=== PATIENT | female | born 1945 | race Caucasian/White ===

== ENCOUNTER 2017-07-31 08:32 | Emergency (ER) | payer MEDICARE, OTHER, SELFPAY | END 2017-07-31 11:21 | disposition home or self-care (01) | PROVIDERS: Emergency Provider Emergency Medicine; PCP Family Medicine; Visit Provider Emergency Medicine | DX: K52.9 Noninfective gastroenteritis and colitis, unspecified (principal) | CPT/HCPCS: 74177; 80053; 83605; 83690; 85025; 96361; 96374; 99058; 99284; J2405 ==

== ENCOUNTER → 2017-09-02 09:03 | Outpatient (CLI) | payer MEDICARE, OTHER, SELFPAY ==
[2017-09-02 09:43] LABS: Hemoglobin A1C% w Est Avg Glu 7.5 % (4.0-6.0)
[2017-09-02 09:47] LABS: Alanine Aminotransferase 30 IU/L (9-52); Albumin Globulin Ratio 1.3 (1.0-2.8); Alkaline Phosphatase 51 U/L (38-126); Aspartate Aminotransferase 26 IU/L (14-36); BUN Creatinine Ratio 17.1 (6-22); Bilirubin Total 0.5 mg/dL (0.2-1.3); Calcium 9.2 mg/dL (8.4-10.2); Cholesterol 101 mg/dL (140-199); Estimated Glomerular Filt Rate > 60.0 mL/min (>60); Globulin 3.2 g/dL (1.7-4.1); Glucose 165 mg/dL (80-110); HDL Cholesterol 39 mg/dL (40-60); HEMOLYSIS < 15 (0-50); LDL Cholesterol Calculated 28 mg/dL (<100); Potassium 4.8 mmol/L (3.4-5.1); Sodium 141 mmol/L (137-145); Total Protein 7.2 g/dL (6.3-8.2); Triglycerides 168 mg/dL (35-150)
== END ==
PROVIDERS: PCP Family Medicine; Visit Provider Family Medicine
DX: I10 Essential (primary) hypertension (principal); E03.9 Hypothyroidism, unspecified; E78.2 Mixed hyperlipidemia; E11.40 Type 2 diabetes mellitus with diabetic neuropathy, unspecified; Z51.81 Encounter for therapeutic drug level monitoring
CPT/HCPCS: 36415; 80053; 80061; 83036

== ENCOUNTER → 2017-09-04 17:39 | Outpatient (CLI) | payer MEDICARE, OTHER, SELFPAY | PROVIDERS: PCP Family Medicine; Visit Provider Family Medicine | DX: R30.0 Dysuria (principal) | CPT/HCPCS: 87086 ==

== ENCOUNTER → 2017-09-04 17:55 | Outpatient (CLI) | payer MEDICARE, OTHER, SELFPAY ==
--- NOTE | 2017-09-04 17:58 | DI.RAD.S_ITS ---
PROCEDURE: XR CHEST 2V INDICATIONS: cough TECHNIQUE: 2 views of the chest were acquired. COMPARISON: [facility], , CHEST 2 VIEW, 06/30/2012, 10:23. FINDINGS: Surgical changes and devices: None. Lungs and pleura: No pleural effusions or pneumothorax. Lungs are clear. Mediastinum: Mediastinal contours are normal. Heart size is normal. Bones and chest wall: No suspicious bony abnormalities. Soft tissues appear unremarkable. IMPRESSION: Normal for age, source of current symptoms is not seen. Dictated by: Earle Alford M.D. on 09/05/2017 at 10:38 Approved by: Earle Alford M.D. on 09/05/2017 at 10:38
[2017-09-04 18:07] LABS: Add Manual Diff / Slide Review NO; Basophils Percent Auto 0.8 % (0-2); Eosinophils Percent Auto 2.2 % (2-4); Hemoglobin 13.6 g/dL (12.0-16.0); Lymphocytes Percent Auto 17.7 % (25-40); Mean Corpuscular HGB Conc 34.1 % (30-36); Mean Corpuscular Hemoglobin 29.5 PG (26-34); Mean Corpuscular Volume 86.7 fL (80-100); Monocytes Percent Auto 5.3 % (3-14); Neutrophils Absolute Auto 12800 /uL (3000-5900); Platelet Count 293 X10^3/uL (150-400); Red Blood Cell Count 4.61 X10^6/uL (4.0-5.2); Red Cell Distribution Width 14.3 % (11.6-14.8); White Blood Cell Count 17.3 X10^3/uL (4.5-11.0)
== END ==
PROVIDERS: PCP Family Medicine; Visit Provider Family Medicine
DX: K52.9 Noninfective gastroenteritis and colitis, unspecified (principal); R06.02 Shortness of breath; R05 Cough
CPT/HCPCS: 36415; 71046; 85025; 87086; 87186

== ENCOUNTER → 2017-09-07 09:39 | Outpatient (CLI) | payer MEDICARE, OTHER, SELFPAY ==
[2017-09-07 10:26] LABS: Add Manual Diff / Slide Review NO; Basophils Percent Auto 0.9 % (0-2); Eosinophils Percent Auto 2.2 % (2-4); Hematocrit 40.1 % (36-46); Hemoglobin 13.8 g/dL (12.0-16.0); Lymphocytes Percent Auto 14.9 % (25-40); Mean Corpuscular HGB Conc 34.4 % (30-36); Mean Corpuscular Hemoglobin 29.9 PG (26-34); Monocytes Percent Auto 5.5 % (3-14); Neutrophils Absolute Auto 11700 /uL (3000-5900); Neutrophils Percent Auto 76.5 % (50-75); Platelet Count 260 X10^3/uL (150-400); Red Blood Cell Count 4.61 X10^6/uL (4.0-5.2); Red Cell Distribution Width 14.4 % (11.6-14.8); White Blood Cell Count 15.3 X10^3/uL (4.5-11.0)
== END ==
PROVIDERS: PCP Family Medicine; Visit Provider Family Medicine
DX: D72.829 Elevated white blood cell count, unspecified (principal)
CPT/HCPCS: 36415; 85025

== ENCOUNTER → 2017-09-13 16:17 | Outpatient (CLI) | payer MEDICARE, OTHER, SELFPAY ==
[2017-09-13 16:55] LABS: Add Manual Diff / Slide Review NO; Basophils Percent Auto 0.9 % (0-2); Eosinophils Percent Auto 3.6 % (2-4); Hematocrit 39.2 % (36-46); Hemoglobin 13.5 g/dL (12.0-16.0); Lymphocytes Percent Auto 18.9 % (25-40); Mean Corpuscular HGB Conc 34.5 % (30-36); Mean Corpuscular Hemoglobin 29.9 PG (26-34); Mean Corpuscular Volume 86.6 fL (80-100); Monocytes Percent Auto 6.1 % (3-14); Neutrophils Absolute Auto 9000 /uL (3000-5900); Neutrophils Percent Auto 70.5 % (50-75); Platelet Count 246 X10^3/uL (150-400); Red Blood Cell Count 4.53 X10^6/uL (4.0-5.2); Red Cell Distribution Width 14.9 % (11.6-14.8); White Blood Cell Count 12.7 X10^3/uL (4.5-11.0)
== END ==
PROVIDERS: PCP Family Medicine; Visit Provider Family Medicine
DX: D72.829 Elevated white blood cell count, unspecified (principal)
CPT/HCPCS: 36415; 85025

== ENCOUNTER 2017-09-13 17:52 | Emergency (ER) | payer MEDICARE, OTHER, SELFPAY ==
--- NOTE | 2017-09-13 18:06 | ED_ITS ---
HPI - Abdominal Pain <Priti Ross PA-C - Last Filed: 09/13/17 21:25> General Chief Complaint: Upper Respiratory Symptoms Stated Complaint: STATES WHEN SHE SWALLOWS IT HURTS,TASTES LIKE SALT Time Seen by Provider: 09/13/17 18:00 Source: patient, family and old records reviewed Mode of arrival: ambulatory Limitations: no limitations History of Present Illness HPI narrative: This 72-year-old female is sent by her PCP today with specific request for soft tissue CT of the neck. PCP called earlier due to concern for possible neck abscess. Patient states repeatedly that she is ?just sick and cannot elaborate on that, however with her son's help, she describes having intermittent diarrhea, none today, but has had explosive diarrhea intermittently up to 1 or 2 times daily since July. She has had some nausea. She has chronic abdominal pain for as long as she can remember and this is completely unchanged. She denies any vomiting. She has not had any fever. She has had some difficulty swallowing but she does not describe as patsy dysphagia or odynophagia, but maybe a slight sticking sensation inside the esophagus. She does not feel like there is any pressure from the outside of her neck. She has not had any heartburn. She has not had any fever. She does state that foods taste salty. She denies choking with eating, no cough or wheeze. She has not had any chest pain or dyspnea. She has been able to swallow and keep down liquids and solids, perhaps with somewhat reduced appetite. She has had an elevated white count which her PCP has been following and is improving. She states that she has no acutely changed symptoms at all today. Related Data Previous Rx's Medication Instructions Recorded levothyroxine [Synthroid] 0.075 mg PO QAM #90 tab 04/22/17 sitagliptin [Januvia] 100 mg PO QDAY #30 tab 04/22/17 metformin 1,000 mg PO BID #60 tab 05/14/17 hydrochlorothiazide 25 mg PO QDAY #90 tab 07/24/17 metoprolol succinate [Toprol XL] 50 mg PO QDAY #90 tab 07/24/17 simvastatin 80 mg PO HS #90 tab 07/24/17 ondansetron [Zofran ODT] 4 mg SUBLINGUAL Q6HP PRN #10 odt 07/31/17 citalopram 20 mg tablet 20 mg PO QDAY #30 tab 08/23/17 gabapentin 300 mg capsule 300 mg PO BID #60 cap 08/23/17 glimepiride 4 mg tablet 4 mg PO BID #60 tab 08/23/17 losartan 50 mg tablet 50 mg PO QDAY #30 tab 08/23/17 omeprazole 20 mg capsule,delayed 20 mg PO QDAY #30 cap 08/23/17 release Allergies Allergy/AdvReac Type Severity Reaction Status Date / Time Penicillins Allergy Unknown Verified 09/13/17 17:01 sulfamethoxazole Allergy Unknown Verified 09/13/17 17:01 [From BACTRIM] trimethoprim [From BACTRIM] Allergy Unknown Verified 09/13/17 17:01 Review of Systems <Priti Ross PA-C - Last Filed: 09/13/17 21:25> Review of Systems All systems reviewed & are unremarkable except as noted in HPI and below Exam <NANO Hodges Last Filed: 09/13/17 21:25> Narrative Exam Narrative: GENERAL APPEARANCE: Patient sitting comfortably, in no distress. HEAD: No sinus TTP. EYES: PERRL, EOMI. EARS: Normal auditory canals, TMS intact with normal light reflexes. ORAL CAVITY: Normal oropharynx. THROAT: Copious PND noted. NECK/THYROID: Neck supple, full range of motion, no cervical lymphadenopathy, right side of the thyroid is enlarged compared to the left without any discrete nodule noted. LUNGS: Clear to auscultation bilaterally, no cough on exam. HEART: RRR without murmur, nl S1, S2, no S3 or S4. ABDOMEN: Obese, soft, nondistended, +bowel sounds x4 quadrants, mild generalized tenderness without guarding or rebound EXTREMITIES: No cyanosis or edema Initial Vital Signs Initial Vital Signs: Vital Signs Temperature 97.0 F L 09/13/17 18:12 Pulse Rate 75 09/13/17 18:12 Respiratory Rate 16 09/13/17 18:12 Blood Pressure 134/70 H 09/13/17 18:12 Pulse Oximetry 98 09/13/17 18:12 <Fortino Short DO - Last Filed: 09/13/17 22:14> Initial Vital Signs Initial Vital Signs: Vital Signs Temperature 97.0 F L 09/13/17 18:12 Pulse Rate 75 09/13/17 18:12 Respiratory Rate 16 09/13/17 18:12 Blood Pressure 134/70 H 09/13/17 18:12 Pulse Oximetry 98 09/13/17 18:12 Course <Priti Ross PA-C - Last Filed: 09/13/17 21:25> Orders Ordered: ED Orders 09/13/17 18:27 CT soft tissue neck w con Stat 09/13/17 18:45 BUN Creatinine w/ eGFR & Ratio Stat Discontinued Medications Sodium Chloride (Normal Saline 0.9%) 1,000 mls @ 1,000 mls/hr IV BOLUS ONE Stop: 09/13/17 19:33 Last Infusion: 09/13/17 20:39 Dose: 0 mls/hr Admin: 09/13/17 19:28 Dose: 1,000 mls/hr Vital Signs - 8 hr 09/13/17 18:12 09/13/17 18:36 09/13/17 19:39 Temperature 97.0 F L Pulse Rate 75 71 77 Respiratory Rate 16 16 15 Blood Pressure 134/70 H Blood Pressure [Left Arm] 136/74 H 123/63 H Pulse Oximetry 98 99 98 09/13/17 20:40 Temperature Pulse Rate 78 Respiratory Rate 14 Blood Pressure 151/86 H Blood Pressure [Left Arm] Pulse Oximetry 98 <Fortino Short DO - Last Filed: 09/13/17 22:14> Orders Ordered: ED Orders 09/13/17 18:27 CT soft tissue neck w con Stat 09/13/17 18:45 BUN Creatinine w/ eGFR & Ratio Stat Discontinued Medications Sodium Chloride (Normal Saline 0.9%) 1,000 mls @ 1,000 mls/hr IV BOLUS ONE Stop: 09/13/17 19:33 Last Infusion: 09/13/17 20:39 Dose: 0 mls/hr Admin: 09/13/17 19:28 Dose: 1,000 mls/hr Vital Signs - 8 hr 09/13/17 18:12 09/13/17 18:36 09/13/17 19:39 Temperature 97.0 F L Pulse Rate 75 71 77 Respiratory Rate 16 16 15 Blood Pressure 134/70 H Blood Pressure [Left Arm] 136/74 H 123/63 H Pulse Oximetry 98 99 98 09/13/17 20:40 Temperature Pulse Rate 78 Respiratory Rate 14 Blood Pressure 151/86 H Blood Pressure [Left Arm] Pulse Oximetry 98 MDM - Abdominal Pain <Priti Ross PA-C - Last Filed: 09/13/17 21:25> Lab Data Result diagrams: 09/13/17 18:45 Lab Results 09/13/17 Range/Units 18:45 BUN 14 (7-17) mg/dL Creatinine 0.80 (0.52-1.04) mg/dL Estimated GFR > 60.0 (>60) mL/min BUN/Creatinine Ratio 17.5 (6-22) Imaging Data neck CT: Radiologist's impression: View Report History [address] [address] [address] Scan Report Signed Patient: Eusebia Velazquez MR#: [id number] : 1945 Acct:[id number] Age/Sex: 72 / F Date of Service: 09/13/17 Loc: ED Accession Number: [id number] Procedure: CT soft tissue neck w con Ordering Provider: Priti Ross P.A-C PROCEDURE: CT SOFT TISSUE NECK W CON INDICATIONS: per PCP, r/o abcess TECHNIQUE: After the administration of intravenous contrast, 3.0 mm axial sections acquired from the sella to the aortic arch. Additional oblique axial 3.0 mm sections acquired through the pharynx. 3 mm thick coronal and sagittal reformats were generated. For radiation dose reduction, the following was used: automated exposure control. COMPARISON: None. FINDINGS: Image quality: Excellent. Lymph nodes: No enlarged lymph nodes seen throughout the neck. Vessels: Visualized vasculature appears patent. Neck spaces: The oropharynx, nasopharynx, and pharynx demonstrate no mucosal lesions. The vocal cords, false vocal cords, pyriform sinuses, epiglottis, vallecula, and tongue base all appear normal. Extramucosal spaces appear unremarkable. Glands: The parotid and submandibular glands appear normal. Thyroid gland demonstrates a normal pulmonary diameter calcified mass within the right lobe.. Miscellaneous: Visualized brain and orbits appear normal. Lung apices appear clear. Superficial soft tissues appear normal. Bones: No suspicious bony lesions. Visualized sinuses and mastoids appear unremarkable. IMPRESSION: 1. No explanation for dysphagia. No acute process. 2. Calcified right thyroid mass. Nonemergent thyroid ultrasound is recommended for further assessment. Dictated by: Jose Ramon Bowden M.D. on 09/13/2017 at 19:28 Approved by: Jose Ramon Bowden M.D. on 09/13/2017 at 19:29 <Fortino Short DO - Last Filed: 09/13/17 22:14> Lab Data Lab Results 09/13/17 Range/Units 18:45 BUN 14 (7-17) mg/dL Creatinine 0.80 (0.52-1.04) mg/dL Estimated GFR > 60.0 (>60) mL/min BUN/Creatinine Ratio 17.5 (6-22) Discharge Plan Departure Patient Disposition: Home, Self-Care Clinical Impression: Dysphagia Discharge Date/Time: 09/13/17 20:41 Interventions: ED Discharge Assessment Last Done: 09/13/17 20:40 Instructions: DI for Esophageal Dysphagia Activity Restrictions/Additional Instructions: Your CT scan does not show an abscess or any acute problem in your neck today. You do have an old calcified thyroid nodule that we talked about when I examined you. You should follow up with your PCP. From what you described to me, the next step may be to get a swallow study to determine whether there could be a narrowing in your foodpipe. For your diarrhea, you should talk with Dr. Felix about a trial of stopping or reducing your Metformin to see if that is helpful. You may wish to try taking immodium once or twice daily on a regular basis until you see her so that you can find out whether this is helpful. You should follow up with her next week. You should return if you have any acutely worsening symptoms in the interim Prescriptions: No Action levothyroxine [Synthroid] 75 MCG tablet 0.075 mg PO QAM Qty: 90 RF: 1 sitagliptin [Januvia] 100 MG tablet 100 mg PO QDAY Qty: 30 RF: 2 metformin 1,000 MG tablet 1,000 mg PO BID Qty: 60 RF: 5 metoprolol succinate [Toprol XL] 50 MG tablet extended release 24 hr 50 mg PO QDAY Qty: 90 RF: 0 simvastatin 80 MG tablet 80 mg PO HS Qty: 90 RF: 0 hydrochlorothiazide 25 MG tablet 25 mg PO QDAY Qty: 90 RF: 0 ondansetron [Zofran ODT] 4 MG tablet,disintegrating 4 mg Sublingual Q6HP PRNQty: 10 RF: 0 citalopram 20 mg tablet 20 mg PO QDAY Qty: 30 RF: 3 gabapentin [Neurontin] 300 mg capsule 300 mg PO BID Qty: 60 RF: 3 glimepiride [Amaryl] 4 mg tablet 4 mg PO BID Qty: 60 RF: 3 omeprazole 20 mg capsule,delayed release(DR/EC) 20 mg PO QDAY Qty: 30 RF: 3 losartan 50 mg tablet 50 mg PO QDAY Qty: 30 RF: 3 Referrals: Anusha Felix DO [Primary Care Provider] - <Fortino Short DO - Last Filed: 09/13/17 22:14> Cosign ED Attending Jonas Attestation: I was available for consultation during this patient's emergency department encounter
[2017-09-13 18:12] VITALS: BP 134/70; PULSE 75; RESP 16; TEMP 36.1; O2SAT 98; BMI 34.2
--- NOTE | 2017-09-13 18:27 | DI.CT.S_ITS ---
PROCEDURE: CT SOFT TISSUE NECK W CON INDICATIONS: per PCP, r/o abcess TECHNIQUE: After the administration of intravenous contrast, 3.0 mm axial sections acquired from the sella to the aortic arch. Additional oblique axial 3.0 mm sections acquired through the pharynx. 3 mm thick coronal and sagittal reformats were generated. For radiation dose reduction, the following was used: automated exposure control. COMPARISON: None. FINDINGS: Image quality: Excellent. Lymph nodes: No enlarged lymph nodes seen throughout the neck. Vessels: Visualized vasculature appears patent. Neck spaces: The oropharynx, nasopharynx, and pharynx demonstrate no mucosal lesions. The vocal cords, false vocal cords, pyriform sinuses, epiglottis, vallecula, and tongue base all appear normal. Extramucosal spaces appear unremarkable. Glands: The parotid and submandibular glands appear normal. Thyroid gland demonstrates a normal pulmonary diameter calcified mass within the right lobe.. Miscellaneous: Visualized brain and orbits appear normal. Lung apices appear clear. Superficial soft tissues appear normal. Bones: No suspicious bony lesions. Visualized sinuses and mastoids appear unremarkable. IMPRESSION: 1. No explanation for dysphagia. No acute process. 2. Calcified right thyroid mass. Nonemergent thyroid ultrasound is recommended for further assessment. Dictated by: Jose Ramon Bowden M.D. on 09/13/2017 at 19:28 Approved by: Jose Ramon Bowden M.D. on 09/13/2017 at 19:29
[2017-09-13 18:36] VITALS: BP 136/74; PULSE 71; RESP 16; O2SAT 99
[2017-09-13 19:19] LABS: BUN Creatinine Ratio 17.5 (6-22); Blood Urea Nitrogen 14 mg/dL (7-17); Estimated Glomerular Filt Rate > 60.0 mL/min (>60)
[2017-09-13] MEDS: SODIUM CHLORIDE 0.9% 1,000 ML 1000 ML IV (19:28)
[2017-09-13 19:39] VITALS: BP 123/63; PULSE 77; RESP 15; O2SAT 98
[2017-09-13 20:40] VITALS: BP 151/86; PULSE 78; RESP 14; O2SAT 98
== END 2017-09-13 20:41 | disposition home or self-care (01) ==
PROVIDERS: Emergency Provider Internal Medicine; PCP Family Medicine
DX: J02.9 Acute pharyngitis, unspecified (principal)
CPT/HCPCS: 36591; 70491; 82565; 84520; 96360; 99283; 99284; Q9967

== ENCOUNTER 2017-11-01 09:02 | Observation (INO) | payer MEDICARE, OTHER, SELFPAY ==
[2017-11-01] VITALS (10 sets, daily range): BP systolic 95–155; BP diastolic 37–82; PULSE 74–86; RESP 12–23; TEMP 36.2–37.1; O2SAT 78–99; BMI 31.6
--- NOTE | 2017-11-01 | DI.CT.S_ITS ---
PROCEDURE: CT ABDOMEN PELVIS W CON INDICATIONS: abdominal discomfort and weight loss TECHNIQUE: After the administration of oral and intravenous contrast, 5 mm thick sections acquired from the diaphragms to the symphysis. 5 mm thick coronal and sagittal reformats were performed. For radiation dose reduction, the following was used: automated exposure control, adjustment of mA and/or kV according to patient size. COMPARISON: None. FINDINGS: Image quality: Excellent. ABDOMEN: There is mild atelectasis in the lung bases. Heart size is enlarged. Solid organs: Liver is normal in size and enhancement. Gallbladder is surgically absent. Biliary system is non-dilated. Pancreas enhances normally. Spleen is normal in size and enhancement. No adrenal nodules. Kidneys demonstrate no hydronephrosis. There is a simple right renal cyst. Peritoneum and bowel: Stomach and small bowel loops are normal in caliber and wall thickness. No evidence of appendicitis. There is colonic diverticulosis with mild segmental wall thickening and inflammatory fat stranding in the mid sigmoid colon compatible with mild acute diverticulitis. No diverticular abscess or macroscopic free air. No free fluid. Nodes and vessels: No retroperitoneal or mesenteric adenopathy. Aorta and inferior vena cava are normal in caliber. Miscellaneous: No ventral hernias. PELVIS: Genitourinary: The uterus is surgically absent. Bladder wall thickness is normal. Miscellaneous: No inguinal hernias or adenopathy. Bones: No suspicious bony lesions. No vertebral body compression fractures. IMPRESSION: 1. Mild diverticulitis in the midsigmoid colon. No evidence of abscess or macroscopic free air. Dictated by: Kenneth Sanders M.D. on 11/01/2017 at 16:38 Approved by: Kenneth Sanders M.D. on 11/01/2017 at 16:42
--- NOTE | 2017-11-01 09:16 | DI.RAD.S_ITS ---
PROCEDURE: XR CHEST 2V INDICATIONS: chest pain TECHNIQUE: 2 views of the chest were acquired. COMPARISON: [facility], , XR CHEST 2V, 09/04/2017, 17:50. [facility], , CHEST 2 VIEW, 06/30/2012, 10:23. FINDINGS: Surgical changes and devices: None. Lungs and pleura: No pleural effusions or pneumothorax. Lungs are clear. Mediastinum: Mediastinal contours are normal. Heart size is normal. Bones and chest wall: No suspicious bony abnormalities. Soft tissues appear unremarkable. IMPRESSION: Source of chest pain is not seen. Dictated by: Earle Alford M.D. on 11/01/2017 at 9:29 Approved by: Earle Alford M.D. on 11/01/2017 at 9:29
--- NOTE | 2017-11-01 09:26 | DI.CT.S_ITS ---
PROCEDURE: CT HEAD/BRAIN WO CON INDICATIONS: resolved r arm and leg weakness TECHNIQUE: Noncontrast 4.5 mm thick angled axial sections acquired from the foramen magnum to the vertex, with coronal and sagittal reformats. For radiation dose reduction, the following was used: automated exposure control, adjustment of mA and/or kV according to patient size. COMPARISON: [facility], CT, HEAD WITHOUT CONTRAST, 03/28/2009, 10:21. FINDINGS: Image quality: Diagnostic CSF spaces: Basal cisterns are patent. No extra-axial fluid collections. Ventricles are mildly prominent. There is corresponding parenchymal volume loss. Brain: No midline shift. No intracranial masses or hemorrhage. [place]-white matter interface is normal. Skull and face: Calvarium and visualized facial bones are intact, without suspicious lesions. Sinuses: Because of thickening is evident involving the bilateral maxillary sinuses. There is also mucosal thickening versus a mucous retention cyst involving the sphenoid air cells. Otherwise, the remainder of the imaged paranasal sinuses and mastoid air cells are clear. IMPRESSION: 1. Essentially unremarkable head CT. No acute intracranial hemorrhage. 2. Mild sinus disease. Dictated by: Moises Shahid M.D. on 11/01/2017 at 8:42 Approved by: Moises Shahid M.D. on 11/01/2017 at 8:43
[2017-11-01 09:29] LABS: Add Manual Diff / Slide Review NO; Basophils Percent Auto 0.8 % (0-2); Eosinophils Percent Auto 2.7 % (2-4); Hematocrit 39.9 % (36-46); Hemoglobin 13.6 g/dL (12.0-16.0); Lymphocytes Percent Auto 17.6 % (25-40); Mean Corpuscular HGB Conc 34.2 % (30-36); Mean Corpuscular Hemoglobin 29.7 PG (26-34); Mean Corpuscular Volume 86.8 fL (80-100); Monocytes Percent Auto 5.5 % (3-14); Neutrophils Absolute Auto 9600 /uL (3000-5900); Neutrophils Percent Auto 73.4 % (50-75); Platelet Count 265 X10^3/uL (150-400); Red Cell Distribution Width 13.9 % (11.6-14.8)
[2017-11-01 09:36] LABS: Alanine Aminotransferase 22 IU/L (9-52); Albumin 4.4 g/dL (3.5-5.0); Albumin Globulin Ratio 1.4 (1.0-2.8); Alkaline Phosphatase 55 U/L (38-126); Aspartate Aminotransferase 21 IU/L (14-36); Bilirubin Total 0.6 mg/dL (0.2-1.3); Blood Urea Nitrogen 12 mg/dL (7-17); Carbon Dioxide 28 mmol/L (22-32); Chloride 87 mmol/L (98-107); Estimated Glomerular Filt Rate > 60.0 mL/min (>60); Globulin 3.1 g/dL (1.7-4.1); Glucose 68 mg/dL (80-110); HEMOLYSIS < 15 (0-50); Potassium 3.3 mmol/L (3.4-5.1); Sodium 128 mmol/L (137-145); Total Protein 7.5 g/dL (6.3-8.2)
[2017-11-01 09:48] LABS: Troponin I < 0.012 ng/mL (0.01-0.034)
[2017-11-01 09:52] LABS: Free T4, Direct Thyroxine 1.64 ng/dL (0.78-2.19)
[2017-11-01 10:05] LABS: Thyroid Stimulating Hormone 0.37 uIU/mL (0.47-4.68)
[2017-11-01 11:49] LABS: RBC Urine None Seen (0-5/HPF); WBC Urine None Seen (0-5/HPF)
[2017-11-01 12:03] LABS: Appearance Urine UA CLEAR; Bilirubin Urine UA NEGATIVE (NEGATIVE); Color Urine UA YELLOW; Glucose Urine UA NEGATIVE (Normal); Ketones Urine UA TRACE (NEGATIVE); Leukocyte Esterase Urine UA NEGATIVE (NEGATIVE); Nitrite Urine UA Negative (Negative); Occult Blood Urine UA NEGATIVE (Negative); Protein Urine UA NEGATIVE (Negative); Specific Gravity Urine UA 1.015 (1.000-1.035); Urobilinogen Urine UA 0.2 E.U./dL (0.2)
--- NOTE | 2017-11-01 12:12 | DI.MRI.S_ITS ---
PROCEDURE: MR STROKE Pre- and post-contrast brain MRI, non-contrast brain MR angiogram, pre- and postcontrast neck MR angiogram INDICATIONS: Resolved right sided weakness. TECHNIQUE: Brain: Noncontrast axial T1 spin echo, axial T2 fast spin echo, sagittal and axial FLAIR, coronal T2 fast spin echo, axial gradient echo, axial diffusion and ADC through the brain. After the administration of contrast, axial 3D VIBE of the cranial vasculature and brain. Brain MRA: Non-contrast 3-D time of flight MR angiogram, with multiple rtxsdxp-hngkaxhei-celjxiboms (MIP) reformats performed. Neck MRA: Axial and sagittal TruFISP through the neck. Coronal dynamic MR angiogram during administration of contrast in the arterial and venous phases, with 3-dimenstional elyvoys-vvdizibuy-utkonzupxn (MIP) reformats constructed from subtraction images. COMPARISON: [facility], CT, CT HEAD/BRAIN WO CON, 11/01/2017, 9:17. [facility], CT, HEAD WITHOUT CONTRAST, 03/28/2009, 10:21. FINDINGS: Image quality: Excellent. BRAIN: CSF spaces: Ventricles are normal in size and shape. Basal cisterns are patent. No extra-axial fluid collections. Brain: No intracranial bleeds or mass effects. [place]-white matter interface is normal. Diffusion weighted images show no acute ischemic insults. Brainstem appears normal. Normal intravascular flow voids are present. No abnormal intracranial enhancement. Atrophy is present. Periventricular and subcortical white matter hyperintensities are noted. Skull and face: Calvarial marrow signal is normal. Orbits appear normal. Sinuses: Sinuses demonstrate minimal to mild pansinus mucosal thickening. BRAIN MR ANGIOGRAM: Anterior circulation: Intracranial internal carotid arteries are normal in size and enhancement. The flow within the paired anterior cerebral arteries is normal and symmetric. The flow within the middle cerebral arteries is normal and symmetric. The anterior communicating artery is seen. No stenoses, occlusions, or aneurysms. Posterior circulation: The visualized portions of the vertebral arteries demonstrate normal caliber, and join to form a normal appearing basilar artery. The flow within the posterior cerebral arteries is normal and symmetric. No stenoses, occlusions, or aneurysms. NECK MR ANGIOGRAM: Carotids: The left common carotid artery arises directly from the aortic arch, consistent with congenital variation. The origins of the common carotid arteries appear patent. The calibers and courses of both common carotid arteries are normal. The bifurcation regions appear normal bilaterally. The right internal carotid artery demonstrates an approximate 55% stenosis at the origin. Posterior circulation: The origins of the vertebral arteries are obscured secondary to motion. More superior portions of both vertebral arteries demonstrate normal course and caliber, and join to form a normal appearing basilar artery. Miscellaneous: Subclavian arteries appear patent. Pre-contrast images through the neck show no soft tissue abnormalities. IMPRESSION: 1. No acute intracranial process. No acute ischemia. 2. Moderate atrophy and chronic microvascular ischemic changes. 3. No residual hemodynamically significant stenosis, vascular occlusion or aneurysmal dilation within the anterior or posterior circulations. 4. Obscured origins of the vertebral artery secondary to motion. Underlying stenosis cannot be excluded. 5. Approximate 55% stenosis of the origin of the right internal carotid artery. Dictated by: Luz Hui M.D. on 11/01/2017 at 17:49 Approved by: Luz Hui M.D. on 11/01/2017 at 17:57
--- NOTE | 2017-11-01 12:22 | ED_ITS ---
HPI - Weakness General Chief complaint: Weakness Stated complaint: R Sided Numbness Time Seen by Provider: 11/01/17 09:03 History of Present Illness HPI Narrative: HPI 72-year-old female presents for evaluation of resolved right-sided weakness and paresthesias that were noted at 7 AM when she woke up and improved over the next 2-3 hours; recent history notable for several months of early satiety, nausea, postprandial emesis, and weight loss. Patient has not seen her PCP regarding these symptoms. Patient reports one prior episode of right sided weakness which resolved over a short period time. This occurred approximately 2 weeks ago. Patient did not seek medical care at that time. M/S/F/SocHx notable for: hypothyroidism, diabetes; remainder reviewed with patient and in chart. ROS: Negative constitutional, eye, cardiovascular, pulmonary, GI, , MSK, skin , neurologic, psychiatric, endocrine unless noted in the HPI. Exam Gen: Pleasant, non-toxic appearing, resting comfortably. HEENT: NC, AT, PEERL, EOMI. Resp: Clear to auscultation bilaterally, normal work of breathing, no accessory muscle usage. Card: Regular rate and rhythm with no murmurs, rubs, or gallops, extremities warm and well perfused. GI: Non-tender to palpation throughout all quadrants, no focal tenderness at McBurney's point, negative Vizcaino's sign, non-distended, no rebound or guarding. : No suprapubic tenderness to palpation. MSK: No visible deformities, strength and tone without visually appreciable deficit. Skin: Normal color with no visible lesions. Neuro: Gen AO x 3, no facial asymmetry, no gaze preference, no slurring of speech. CN II-III: pupils equal and reactive (3->2mm bilaterally); III, IV, : EOMI, V1-V3: sensation to touch bilaterally intact; VII: no facial asymmetry ( frown / smile); VIII: no nystagmus; X: phonation intact, uvula midline; XI: trapezius 5/5 bilaterally, XII: tongue midline. Cerebellar: no pronator drift, [id number] testing without dysmetria bilaterally, heel to cormier without dysmetria bilaterally. Psych: Mood and affect appropriate. Labs / Imaging: WBC 13.0, Hb 13.6, Na 128, K 3.3, glucose 68, TSH 0.37, free T4 1.64, troponin < 0.012 CT head: no acute intracranial abnormality CXR: no acute cardiopulmonary abnormality EKG: SR 69 bpm, no ST segment elevations or depressions, no LBBB. MDM Previous chart, nursing note, labs, imaging, and vitals reviewed. A: 72-year-old female presents for evaluation of resolved right-sided weakness and paresthesias that were noted at 7 AM when she woke up and improved over the next 2-3 hours; recent history notable for several months of early satiety, nausea, postprandial emesis, and weight loss. DDx: CVA, TIA, hypoglycemia, complex migraine, ACS, arrhythmia, malignancy, GERD , ulcer Evaluation: patient with resolved neuro deficits, as such suspect TIA versus mimic. CT head without evidence of acute intracranial abnormality. No evidence ACS (ECG without ischemia, negative troponin), no clear evidence of arrhythmia on ECG or monitoring. Chest x-ray without evidence of acute disease, labs are notable for mild leukocytosis without clear cause and mild-moderate hyponatremia. Patient's early satiety, nausea, weight loss, and emesis are currently of unclear etiology. Further evaluation is deferred to the admitting physician as appropriate. Patient was admitted for evaluation of a possible TIA with intention for possible cervical vascular imaging an MRI. Patient admitted, MRI ordered at time of admission on behalf of the accepting physician, study to be followed up by the admitting physician. Impression: resolved right-sided weakness (please reference below for remainder of encounter information) Related Data Previous Rx's Medication Instructions Recorded sitagliptin [Januvia] 100 mg PO QDAY #30 tab 04/22/17 metformin 1,000 mg PO BID #60 tab 05/14/17 ondansetron [Zofran ODT] 4 mg SUBLINGUAL Q6HP PRN #10 odt 07/31/17 citalopram 20 mg tablet 20 mg PO QDAY #30 tab 08/23/17 gabapentin 300 mg capsule 300 mg PO BID #60 cap 08/23/17 glimepiride 4 mg tablet 4 mg PO BID #60 tab 08/23/17 losartan 50 mg tablet 50 mg PO QDAY #30 tab 08/23/17 omeprazole 20 mg capsule,delayed 20 mg PO QDAY #30 cap 08/23/17 release mesalamine 400 mg capsule (with 800 mg PO BID #120 each 10/14/17 delayed release tablets inside) hydrochlorothiazide 25 mg tablet 25 mg PO QDAY #90 tab 10/21/17 levothyroxine 75 mcg tablet 75 mcg PO QAM #90 tab 10/21/17 metoprolol succinate ER 50 mg 50 mg PO QDAY #90 tab 10/21/17 tablet,extended release 24 hr simvastatin 80 mg tablet 80 mg PO HS #90 tab 10/21/17 Allergies Allergy/AdvReac Type Severity Reaction Status Date / Time Penicillins Allergy Unknown Verified 11/01/17 09:05 sulfamethoxazole Allergy Unknown Verified 11/01/17 09:05 [From BACTRIM] trimethoprim [From BACTRIM] Allergy Unknown Verified 11/01/17 09:05 [facility] Social History Smoking Status: Never smoker Exam Initial Vital Signs Initial Vital Signs: Vital Signs Temperature 97.1 F L 11/01/17 09:05 Pulse Rate 85 11/01/17 09:05 Respiratory Rate 16 11/01/17 09:05 Blood Pressure 155/82 H 11/01/17 09:05 Pulse Oximetry 98 11/01/17 09:05 Course Orders Ordered: ED Orders 11/01/17 08:55 Complete Blood Count AUTO DIFF Stat Comprehensive Metabolic Panel Stat Free T4 Free Thyroxine Stat Thyroid Stimulating Hormone Stat Troponin I Stat 11/01/17 09:16 XR chest 2V Stat EKG-12 Lead Stat 11/01/17 09:26 CT head/brain wo con Stat 11/01/17 11:31 Urinalysis and Microscopic Stat 11/01/17 12:12 MR stroke Stat Vital Signs - 8 hr 11/01/17 09:05 11/01/17 10:17 11/01/17 11:00 Temperature 97.1 F L Pulse Rate 85 80 78 Respiratory Rate 16 12 23 Blood Pressure 155/82 H Blood Pressure [Left Arm] 139/55 H 131/63 H Pulse Oximetry 98 99 78 L 11/01/17 12:00 Temperature Pulse Rate 74 Respiratory Rate 18 Blood Pressure Blood Pressure [Left Arm] 95/37 L Pulse Oximetry 99 MDM - Weakness Lab Data Result diagrams: 11/01/17 08:55 11/01/17 08:55 Lab Results 11/01/17 11/01/17 11/01/17 Range/Units 08:55 08:55 08:55 WBC 13.0 H (4.5-11.0) X10^3/uL RBC 4.60 (4.0-5.2) X10^6/uL Hgb 13.6 (12.0-16.0) g/dL Hct 39.9 (36-46) % MCV 86.8 (80-100) fL MCH 29.7 (26-34) PG MCHC 34.2 (30-36) % RDW 13.9 (11.6-14.8) % Plt Count 265 (150-400) X10^3/uL Neut % (Auto) 73.4 (50-75) % Lymph % (Auto) 17.6 L (25-40) % [place] % (Auto) 5.5 (3-14) % Eos % (Auto) 2.7 (2-4) % Baso % (Auto) 0.8 (0-2) % Neut # (Auto) 9600 H (6336-7946) /uL Sodium 128 L (137-145) mmol/L Potassium 3.3 L (3.4-5.1) mmol/L Chloride 87 L (98-107) mmol/L Carbon Dioxide 28 (22-32) mmol/L BUN 12 (7-17) mg/dL Creatinine 0.80 (0.52-1.04) mg/dL Estimated GFR > 60.0 (>60) mL/min BUN/Creatinine Ratio 15.0 (6-22) Glucose 68 L (80-110) mg/dL Calcium 9.0 (8.4-10.2) mg/dL Total Bilirubin 0.6 (0.2-1.3) mg/dL AST 21 (14-36) IU/L ALT 22 (9-52) IU/L Alkaline Phosphatase 55 (38-126) U/L Troponin I < 0.012 (0.01-0.034) ng/mL Total Protein 7.5 (6.3-8.2) g/dL Albumin 4.4 (3.5-5.0) g/dL Globulin 3.1 (1.7-4.1) g/dL Albumin/Globulin Ratio 1.4 (1.0-2.8) TSH 0.37 L (0.47-4.68) uIU/mL Free T4 1.64 (0.78-2.19) ng/dL Urine Color Urine Appearance Urine pH (4.5-8.0) Ur Specific [place] (1.000-1.035) Urine Protein (Negative) Urine Glucose (UA) (Normal) g/dL Urine Ketones (NEGATIVE) Urine Occult Blood (Negative) Urine Nitrate (Negative) Urine Bilirubin (NEGATIVE) Urine Urobilinogen (0.2) E.U./dL Ur Leukocyte Esterase (NEGATIVE) 11/01/17 Range/Units 11:31 WBC (4.5-11.0) X10^3/uL RBC (4.0-5.2) X10^6/uL Hgb (12.0-16.0) g/dL Hct (36-46) % MCV (80-100) fL MCH (26-34) PG MCHC (30-36) % RDW (11.6-14.8) % Plt Count (150-400) X10^3/uL Neut % (Auto) (50-75) % Lymph % (Auto) (25-40) % [place] % (Auto) (3-14) % Eos % (Auto) (2-4) % Baso % (Auto) (0-2) % Neut # (Auto) (8665-2421) /uL Sodium (137-145) mmol/L Potassium (3.4-5.1) mmol/L Chloride (98-107) mmol/L Carbon Dioxide (22-32) mmol/L BUN (7-17) mg/dL Creatinine (0.52-1.04) mg/dL Estimated GFR (>60) mL/min BUN/Creatinine Ratio (6-22) Glucose (80-110) mg/dL Calcium (8.4-10.2) mg/dL Total Bilirubin (0.2-1.3) mg/dL AST (14-36) IU/L ALT (9-52) IU/L Alkaline Phosphatase (38-126) U/L Troponin I (0.01-0.034) ng/mL Total Protein (6.3-8.2) g/dL Albumin (3.5-5.0) g/dL Globulin (1.7-4.1) g/dL Albumin/Globulin Ratio (1.0-2.8) TSH (0.47-4.68) uIU/mL Free T4 (0.78-2.19) ng/dL Urine Color Yellow Urine Appearance Clear Urine pH 5.0 (4.5-8.0) Ur Specific [place] 1.015 (1.000-1.035) Urine Protein Negative (Negative) Urine Glucose (UA) Negative (Normal) g/dL Urine Ketones Trace H (NEGATIVE) Urine Occult Blood Negative (Negative) Urine Nitrate Negative (Negative) Urine Bilirubin Negative (NEGATIVE) Urine Urobilinogen 0.2 (0.2) E.U./dL Ur Leukocyte Esterase Negative (NEGATIVE) Discharge Plan Departure Prescriptions: No Action sitagliptin [Januvia] 100 MG tablet 100 mg PO QDAY Qty: 30 RF: 2 metformin 1,000 MG tablet 1,000 mg PO BID Qty: 60 RF: 5 ondansetron [Zofran ODT] 4 MG tablet,disintegrating 4 mg Sublingual Q6HP PRNQty: 10 RF: 0 citalopram 20 mg tablet 20 mg PO QDAY Qty: 30 RF: 3 gabapentin [Neurontin] 300 mg capsule 300 mg PO BID Qty: 60 RF: 3 glimepiride [Amaryl] 4 mg tablet 4 mg PO BID Qty: 60 RF: 3 omeprazole 20 mg capsule,delayed release(DR/EC) 20 mg PO QDAY Qty: 30 RF: 3 losartan 50 mg tablet 50 mg PO QDAY Qty: 30 RF: 3 mesalamine [Delzicol] 400 mg capsule (with del rel tablets) 800 mg PO BID Qty: 120 RF: 3 hydrochlorothiazide 25 mg tablet 25 mg PO QDAY Qty: 90 RF: 0 metoprolol succinate [Toprol XL] 50 mg tablet extended release 24 hr 50 mg PO QDAY Qty: 90 RF: 0 simvastatin 80 mg tablet 80 mg PO HS Qty: 90 RF: 0 levothyroxine [Synthroid] 75 mcg tablet 75 mcg PO QAM Qty: 90 RF: 0
[2017-11-01 12:24] LABS: Bacteria Urine Moderate (10-30); Culture Indicated Urine Cult Not Indicated
[2017-11-01] MEDS: DEXTROSE 5%-NS W/KCL 20MEQ 1,000 ML 100 MEQ IV (15:36)
[2017-11-01] MEDS: ASPIRIN 325 MG TABLET PO (15:37)
--- NOTE | 2017-11-01 15:48 | P.HP_ITS ---
History of Present Illness Date Patient Seen: 11/01/17 Time Patient Seen: 15:00 Chief complaint: R Sided Numbness Narrative: 72-year-old female, under the primary care of Dr. Shawnee Felix, with history of type 2 diabetes, hypertension, and hyperlipidemia who started noticing right arm and right leg numbness and weakness when she woke up this morning around 7:00 a.m. she thought the symptoms would resolve spontaneously. Her family called 911 around 9:00 a.m. her symptom improved soon after paramedics arrived. She was brought to the [facility] Emergency Room. Noncontrast head CT did not reveal intracranial bleed. She was admitted to the medicine floor for possible TIA. Patient was found to have glucose of 68 on laboratory tests at the ER. Her glucose went down to the 48 when she arrived at the floor. She received orange juice and puddings. Her glucose continued to be low. She said she has not been feeling well since July 18, 2017. She was having nausea and abdominal pain. She was seen at [facility] Emergency Room on July 31, 2017. 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 A follow-up CT in 6 months was recommended by the radiologist. Patient continued to have intermittent nausea and abdominal discomfort. She has lost about 30 lb of body weight per her son. She has very poor appetite. Patient History Medical History Ankle pain (Chronic Unknown) Colitis (Chronic Unknown) Depression (Chronic Unknown) Diabetes (Chronic Unknown) Foot pain (Chronic Unknown) Hyperlipidemia (Chronic ~2009) Hypertension (Chronic Unknown) Hypothyroidism (Chronic Unknown) Shoulder pain (Chronic Unknown) Comment: Hypothyroidism: Her levothyroxine dose was increased to 75 mcg daily in April of this year. She has not had a follow-up thyroid function test since then Right total knee arthroplasty Status post appendectomy Colitis Family & Social History Social History: household members other Prior Living Arrangements Mobile home Safety & Behavioral: Feels Safe in Current Yes Environment Been Physically Hurt or No Threatened By a Person Suicidal Ideation Description Vague Suicide Plan Description No Plan Tobacco & Substance use: Smoking Status Never smoker alcohol intake never Substance Use Type marijuana Comment: She lives by herself, next door to her son. She denies alcohol drinking or cigarette smoking. Her family has been giving her CBD Oil in the past several months. Meds Home Medications Medication Instructions Recorded Confirmed Type sitagliptin [Januvia] 100 mg PO QDAY #30 tab 04/22/17 09/13/17 Rx metformin 1,000 mg PO BID #60 tab 05/14/17 09/13/17 Rx ondansetron [Zofran ODT] 4 mg SUBLINGUAL Q6HP PRN #10 odt 07/31/17 09/13/17 Rx citalopram 20 mg tablet 20 mg PO QDAY #30 tab 08/23/17 09/13/17 Rx gabapentin 300 mg capsule 300 mg PO BID #60 cap 08/23/17 09/13/17 Rx glimepiride 4 mg tablet 4 mg PO BID #60 tab 08/23/17 09/13/17 Rx losartan 50 mg tablet 50 mg PO QDAY #30 tab 08/23/17 09/13/17 Rx omeprazole 20 mg capsule,delayed 20 mg PO QDAY #30 cap 08/23/17 09/13/17 Rx release mesalamine 400 mg capsule (with 800 mg PO BID #120 each 10/14/17 Rx delayed release tablets inside) hydrochlorothiazide 25 mg tablet 25 mg PO QDAY #90 tab 10/21/17 Rx levothyroxine 75 mcg tablet 75 mcg PO QAM #90 tab 10/21/17 Rx metoprolol succinate ER 50 mg 50 mg PO QDAY #90 tab 10/21/17 Rx tablet,extended release 24 hr simvastatin 80 mg tablet 80 mg PO HS #90 tab 10/21/17 Rx Allergies Allergy/AdvReac Type Severity Reaction Status Date / Time Penicillins Allergy Unknown Verified 11/01/17 09:05 sulfamethoxazole Allergy Unknown Verified 11/01/17 09:05 [From BACTRIM] trimethoprim [From BACTRIM] Allergy Unknown Verified 11/01/17 09:05 Review of Systems Constitutional Constitutional: Reports fatigue, Reports poor appetite and Reports weakness Cardiovascular Comments: No chest pain or shortness of breath Respiratory Comments: No cough Gastrointestinal Gastrointestinal: Reports as per HPI Genitourinary Comments: Denies dysuria Neurologic Neurologic: Reports weakness Endocrine Endocrine: Reports fatigue Exam Vital Signs (past 8 hours): - 11/01/17 09:05 11/01/17 10:17 11/01/17 11:00 Temperature 97.1 F L Pulse Rate 85 80 78 Respiratory Rate 16 12 23 Blood Pressure 155/82 H Blood Pressure [Left Arm] 139/55 H 131/63 H Pulse Oximetry 98 99 78 L 11/01/17 12:00 11/01/17 13:00 11/01/17 14:24 Temperature 98.7 F Pulse Rate 74 75 79 Respiratory Rate 18 15 18 Blood Pressure 139/67 H Blood Pressure [Left Arm] 95/37 L 127/61 H Pulse Oximetry 99 98 96 Oxygen Delivery Method Room Air Oxygen Flow Rate 0 Narrative Exam Narrative: GENERAL: Well-appearing, well-nourished and in no acute distress. HEENT: Head normocephalic, atraumatic. Eyes pupils equal round; pale conjunctiva NECK: Supple, no JVD, CHEST: Breath sounds equal bilaterally, no wheezes rales or rhonchi. CARDIAC: Regular rate and rhythm without murmurs, rubs or gallops. ABDOMEN: Soft, no localized tenderness on palpation. Normoactive bowel sounds all 4 quadrants. No guarding or rebound. EXTREMITIES: Normal range of motion, no clubbing or edema. NEUROLOGICAL: Alert and oriented; lethargic, no obvious facial droop, her speech was normal, Normal muscle strength. SKIN: Warm, dry, no petechiae, no rashes or lesions. Objective Imaging CT scan - head: Radiologist's impression: 1. Essentially unremarkable head CT. No acute intracranial hemorrhage. 2. Mild sinus disease. Labs Result Diagrams: 11/01/17 08:55 11/01/17 08:55 Labs: Laboratory Results - last 24 hr 11/01/17 11/01/17 11/01/17 08:55 08:55 08:55 WBC 13.0 H RBC 4.60 Hgb 13.6 Hct 39.9 MCV 86.8 MCH 29.7 MCHC 34.2 RDW 13.9 Plt Count 265 Neut % (Auto) 73.4 Lymph % (Auto) 17.6 L [place] % (Auto) 5.5 Eos % (Auto) 2.7 Baso % (Auto) 0.8 Neut # (Auto) 9600 H Sodium 128 L Potassium 3.3 L Chloride 87 L Carbon Dioxide 28 BUN 12 Creatinine 0.80 Estimated GFR > 60.0 BUN/Creatinine Ratio 15.0 Glucose 68 L Calcium 9.0 Total Bilirubin 0.6 AST 21 ALT 22 Alkaline Phosphatase 55 Troponin I < 0.012 Total Protein 7.5 Albumin 4.4 Globulin 3.1 Albumin/Globulin Ratio 1.4 TSH 0.37 L Free T4 1.64 Urine Color Urine Appearance Urine pH Ur Specific [place] Urine Protein Urine Glucose (UA) Urine Ketones Urine Occult Blood Urine Nitrate Urine Bilirubin Urine Urobilinogen Ur Leukocyte Esterase Urine RBC Urine WBC Urine Bacteria Ur Culture Indicated? Micro UA Comment 11/01/17 11:31 WBC RBC Hgb Hct MCV MCH MCHC RDW Plt Count Neut % (Auto) Lymph % (Auto) [place] % (Auto) Eos % (Auto) Baso % (Auto) Neut # (Auto) Sodium Potassium Chloride Carbon Dioxide BUN Creatinine Estimated GFR BUN/Creatinine Ratio Glucose Calcium Total Bilirubin AST ALT Alkaline Phosphatase Troponin I Total Protein Albumin Globulin Albumin/Globulin Ratio TSH Free T4 Urine Color Yellow Urine Appearance Clear Urine pH 5.0 Ur Specific [place] 1.015 Urine Protein Negative Urine Glucose (UA) Negative Urine Ketones Trace H Urine Occult Blood Negative Urine Nitrate Negative Urine Bilirubin Negative Urine Urobilinogen 0.2 Ur Leukocyte Esterase Negative Urine RBC None seen Urine WBC None seen Urine Bacteria Moderate (10-30) H Ur Culture Indicated? Cult not indicated Micro UA Comment Not Reportable Assessment & Plan Plan: Assessment/Plan Narrative: 1. Probable TIA: We will give her full-dose aspirin. Change simvastatin to atorvastatin. Brain MRI/MRA per stroke protocol to evaluate for possible CVA. 2. Nausea, vomiting, and abdominal discomfort for 3 months: Etiology is unclear. With 30 lb weight loss, there is concern of possible malignancy. Her CT of abdomen on July 31, 2017 did show fat stranding at the central mesenteric. We will do a repeat abdominal and pelvic CT scan with contrast to further evaluate 3. Type 2 diabetes: She is currently hypoglycemic. We will hold all of her medications. Check her fingerstick glucose readings frequently. She was started on D5 normal saline at 100 cc an hour 4. Mild hyponatremia: Likely secondary to decreased oral intake. She was also on hydrochlorothiazide as outpatient. Discontinue hydrochlorothiazide. Continue IV hydration. Recheck her electrolytes in the morning 5. Hypokalemia: We will add 20 mEq of potassium chloride in the IV fluid. We will also give her 40 mEq of p.o. potassium 6. Hyperlipidemia: We will switch her from simvastatin to atorvastatin Quality VTE Deep Vein Thrombosis/Pulmonary Embolism Present on Admission: No
[2017-11-01] MEDS: ONDANSETRON 4 MG/2 ML INJ IV ×2 (16:32→20:51)
--- NOTE | 2017-11-01 19:43 | PC.NURSE ---
SHIFT NOTE Ox3, no acute neuro deficits noted. c/o nausea, pt with very poor Po intake and declining further PO nutrition despite decreased glucose levels. Dr. Frey aware and ordered IVF with d5 to run continuously, PRN zofran administered. received pt with tele orders but none connected to the pt, verified with Dr. Frey that pt can go to imaging without tele monitoring. CT and MRI scans completed this shift. 1P mod assist for BRP, c/o slight dizziness and headache with ambulation. pt and family oriented to room and call light.
[2017-11-01] MEDS: GABAPENTIN 300 MG CAPSULE PO (21:09)
[2017-11-01] MEDS: MESALAMINE 800 MG TABLET.DR PO (21:10)
[2017-11-02] MEDS: ONDANSETRON 4 MG/2 ML INJ IV (01:57)
[2017-11-02] MEDS: DEXTROSE 5%-NS W/KCL 20MEQ 1,000 ML 100 MEQ IV (02:43)
[2017-11-02 05:32] VITALS: BP 148/72; PULSE 87; RESP 16; TEMP 36.7; O2SAT 97
[2017-11-02 05:40] LABS: BUN Creatinine Ratio 8.8 (6-22); Blood Urea Nitrogen 7 mg/dL (7-17); Calcium 8.3 mg/dL (8.4-10.2); Carbon Dioxide 30 mmol/L (22-32); Chloride 93 mmol/L (98-107); Estimated Glomerular Filt Rate > 60.0 mL/min (>60); Glucose 170 mg/dL (80-110); HEMOLYSIS 23 (0-50); Potassium 3.8 mmol/L (3.4-5.1); Sodium 131 mmol/L (137-145)
[2017-11-02] MEDS: LEVOTHYROXINE 50 MCG TABLET PO (06:30)
[2017-11-02] MEDS: PANTOPRAZOLE 40 MG TABLET PO (06:38)
[2017-11-02 08:00] VITALS: BP 145/75; PULSE 82; RESP 16; TEMP 36.6; O2SAT 95
[2017-11-02] MEDS: ENOXAPARIN 40 MG/0.4 ML SYRINGE SUBCUT (08:15)
[2017-11-02] MEDS: ASPIRIN EC 325 MG TABLET PO (08:15)
[2017-11-02] MEDS: MESALAMINE 800 MG TABLET.DR PO (08:16)
[2017-11-02] MEDS: LOSARTAN 50 MG TABLET PO (08:16)
[2017-11-02] MEDS: GABAPENTIN 300 MG CAPSULE PO (08:16)
[2017-11-02] MEDS: METOPROLOL ER 50 MG TABLET PO (08:16)
--- NOTE | 2017-11-02 10:27 | P.DS_ITS ---
History of Present Illness Date Patient Seen: 11/02/17 Time Patient Seen: 10:23 Chief complaint: R Sided Numbness Discharge Providers Date of admission: 11/01/17 12:33 Primary care physician: Anusha Felix DO Consults: 11/01/17 14:33 Consult to Dietitian, Adult Routine Comment: weight loss, unkown amount Reason For Exam: poor appetite since July, nothing tastes good, Discharge provider: Sam Hill MD Summary Discharge Diagnosis: One. TIA resolved 2. Mild diverticulitis 3. Chronic weight loss and anorexia etiology under investigation Hospital Course: Patient presented with some right-sided symptoms of weakness and numbness that resolved before she came into the hospital. She did have a CT scan of the head and an MRI of the head both of which were negative for any signs of acute stroke. MRA of the neck vessels also unremarkable. The patient has been having several week even month history of some weight loss anorexia and nausea. CT scan done this admission showed that she had some mild diverticulitis. Evidently she was treated for either colitis or diverticulitis in the past. She does have an elevated white count that is been elevated actually for several years on her record. We will go ahead and treat her with the Levaquin and metronidazole for the mild diverticulitis this will be continued as an outpatient for 7 days and needs to follow up with her primary care physician at that time. She has had this complaint of things tasting bad and not being hungry for a few months and did see her primary care physician about this back in September. I would refer her back to see her primary care and they may want to consider referral to GI for her symptoms. Her other medical problems remained stable during this hospitalization blood pressure remained stable. Status at Discharge Functional status at discharge: independent ambulation Overall status at discharge: patient is back to baseline Time Spent with Patient Greater than 30 minutes Exam Vital Signs (past 8 hours): - 11/02/17 05:32 11/02/17 08:00 Temperature 98.0 F 97.8 F Pulse Rate 87 82 Respiratory Rate 16 16 Blood Pressure 148/72 H 145/75 H Pulse Oximetry 97 95 Oxygen Delivery Method Room Air Oxygen Flow Rate 0 Narrative Exam Narrative: No acute distress On neuro exam she has no focal deficits she is awake alert oriented x3 speech is normal Objective Labs Result Diagrams: 11/01/17 08:55 11/02/17 05:10 Labs: Laboratory Results - last 24 hr 11/01/17 11/02/17 11:31 05:10 Sodium 131 L Potassium 3.8 Chloride 93 L Carbon Dioxide 30 BUN 7 Creatinine 0.80 Estimated GFR > 60.0 BUN/Creatinine Ratio 8.8 Glucose 170 H D Calcium 8.3 L Urine Color Yellow Urine Appearance Clear Urine pH 5.0 Ur Specific [place] 1.015 Urine Protein Negative Urine Glucose (UA) Negative Urine Ketones Trace H Urine Occult Blood Negative Urine Nitrate Negative Urine Bilirubin Negative Urine Urobilinogen 0.2 Ur Leukocyte Esterase Negative Urine RBC None seen Urine WBC None seen Urine Bacteria Moderate (10-30) H Ur Culture Indicated? Cult not indicated Micro UA Comment Not Reportable Discharge Plan Discharge Plan Patient Disposition: Home, Self-Care Discharge comment: Discharged to home Provider Discharge Instructions Diet: Diet as Tolerated Discharge Data Primary Care Provider: Anusha Felix Attending Provider: Clara Frey Admit Date/Time: 11/01/17 12:33 Quality VTE Deep Vein Thrombosis/Pulmonary Embolism Present on Admission: No
[2017-11-02] MEDS: levoFLOXacin 500 MG TABLET PO (12:17)
[2017-11-02] MEDS: metroNIDAZOLE 250 MG TABLET PO (12:17)
--- NOTE | 2017-11-02 15:20 | PC.NURSE ---
Discharge instructions reviewed with patient, patient states understanding and has no further questions at this time. IV dc'd intact. Prescriptions given to daughter in law to fill at pharmacy of choice. Patient instructed to call PCP on Saturday to ensure follow up in 1 week with request for GI referral. Patient escorted out via wheelchair with all belongings to home with son.
--- NOTE | 2017-11-02 15:45 | CM.IDA ---
DCP Assessment/DC Note: Pt is a 72 yo female, resident of [place]. Pt here under obs for possible TIA. Pt's PCP is Anusha Felix; Insurance is Medicare/[employer]. Pt has been DC home by Dr Hill today, TIA resolved (MRI/CT scan negative for acute stroke) and po abx prescribed for mild diverticulitis. Notes indicate pt is back to her baseline, ambulating, and able to DC home w/assist from family prn. Pt lives next door to her son. No concerns from pt/family presales senior specialist. Home as expected. MURALI Whatley Discharge Planning/Care Management CM Discharge Assessment Start: 11/02/17 15:41 Freq: Status: Discharge Protocol: Document 11/02/17 15:42 MONE (Rec: 11/02/17 15:45 MONE [id number]) Discharge Planning Assessment Assigned Associate Account Director MONE History Provided By Patient Family Member Has Patient been admitted in last 30 No days? Is this patient on Medicare? Yes Prior Living Arrangements Mobile home Household Members other Type of transporation used prior to Relies on Others admit Comment Lives next door to her son Independent with ADL's Yes Is patient alert and oriented? Yes Referrals Initiated None needed Discharge Plan Home Transportation Arrangement Son Review Status Complete
== END 2017-11-02 15:22 | disposition home or self-care (01) ==
LOC: ED 12:23 → AC 13:25
PROVIDERS: Admitting Provider Internal Medicine; Emergency Provider Emergency Medicine; PCP Family Medicine; Visit Provider Internal Medicine
DX: K57.92 Diverticulitis of intestine, part unspecified, without perforation or abscess without bleeding (principal); R53.1 Weakness; R20.0 Anesthesia of skin; E11.649 Type 2 diabetes mellitus with hypoglycemia without coma; E03.9 Hypothyroidism, unspecified; E87.1 Hypo-osmolality and hyponatremia; E86.0 Dehydration; E87.6 Hypokalemia; R63.4 Abnormal weight loss; R63.0 Anorexia
CPT/HCPCS: 36415; 70450; 70553; 71046; 74177; 80048; 80053; 81001; 82962; 84439; 84443; 84484; 85025; 93005; 93041; 99283; 99285; G0378; A9579; J1650; J2405; Q9967

== ENCOUNTER 2017-11-03 20:09 | Emergency (ER) | payer MEDICARE, OTHER, SELFPAY ==
[2017-11-01 14:13] VITALS: BMI 31.6
[2017-11-03 20:20] VITALS: BP 156/73; PULSE 125; RESP 22; TEMP 37.4; O2SAT 95; BMI 32.3
[2017-11-03 21:00] VITALS: BP 133/85; PULSE 102; RESP 19; O2SAT 96
[2017-11-03 21:35] VITALS: BP 144/82; PULSE 101; RESP 18; O2SAT 97
[2017-11-03 21:45] LABS: Add Manual Diff / Slide Review NO; Basophils Percent Auto 0.4 % (0-2); Eosinophils Percent Auto 0.9 % (2-4); Hematocrit 38.6 % (36-46); Hemoglobin 13.1 g/dL (12.0-16.0); Lymphocytes Percent Auto 4.1 % (25-40); Mean Corpuscular Volume 88.3 fL (80-100); Monocytes Percent Auto 2.5 % (3-14); Neutrophils Absolute Auto 16700 /uL (3000-5900); Neutrophils Percent Auto 92.1 % (50-75); Platelet Count 241 X10^3/uL (150-400); Red Blood Cell Count 4.37 X10^6/uL (4.0-5.2); Red Cell Distribution Width 14.1 % (11.6-14.8); White Blood Cell Count 18.1 X10^3/uL (4.5-11.0)
[2017-11-03] MEDS: SODIUM CHLORIDE 0.9% 500 ML 150 ML IV (21:46)
[2017-11-03] MEDS: ONDANSETRON 4 MG/2 ML INJ IV (21:46)
[2017-11-03 21:49] LABS: Alanine Aminotransferase 129 IU/L (9-52); Albumin 4.1 g/dL (3.5-5.0); Albumin Globulin Ratio 1.3 (1.0-2.8); Alkaline Phosphatase 64 U/L (38-126); Aspartate Aminotransferase 201 IU/L (14-36); Bilirubin Total 0.7 mg/dL (0.2-1.3); Blood Urea Nitrogen 12 mg/dL (7-17); Calcium 9.3 mg/dL (8.4-10.2); Carbon Dioxide 28 mmol/L (22-32); Chloride 95 mmol/L (98-107); Estimated Glomerular Filt Rate > 60.0 mL/min (>60); Globulin 3.1 g/dL (1.7-4.1); Glucose 225 mg/dL (80-110); HEMOLYSIS 16 (0-50); Lipase 24 U/L (23-300); Potassium 3.9 mmol/L (3.4-5.1); Sodium 136 mmol/L (137-145); Total Protein 7.2 g/dL (6.3-8.2)
[2017-11-03 22:28] LABS: RBC Urine None Seen (0-5/HPF)
--- NOTE | 2017-11-03 22:36 | DI.US.S_ITS ---
PROCEDURE: US ABDOMEN COMPLETE INDICATIONS: ELEVATED LIVER ENZYMES TECHNIQUE: Real-time scanning was performed of the abdominal and retroperitoneal organs, with image documentation. COMPARISON: [facility], US, US ABDOMEN, 06/25/2016, 8:53. [facility], CT, ABDOMEN/PELVIS WITH CONTRAST, 07/31/2017, 9:40. FINDINGS: Liver: Liver is normal in size and hyperechoic in echotexture. Gallbladder: Gallbladder surgically absent Biliary ducts: Intrahepatic bile ducts are non-dilated. Extrahepatic bile duct caliber measures 6.4 mm. Normal is 6-7 mm or less in diameter, or 10 mm or less post-cholecystectomy. Pancreas: Pancreas is obscured by bowel gas Spleen: Spleen is normal in size and homogeneous in echotexture. Kidneys: Kidneys are normal in size and echotexture. Right kidney measures 13.0 cm long; left kidney measures 13.2 cm long. No hydronephrosis or nephrolithiasis. No solid masses. Simple cyst in the right kidney is again noted, measuring 3.1 x 4.1 x 4.2 cm on current study. Aorta: Visualized aorta is normal in caliber at less than 3 cm. distal aorta is obscured by bowel gas Iliacs: Iliac vessels are obscured by bowel gas IVC: Intrahepatic inferior vena cava is patent. Miscellaneous: No free abdominal fluid. IMPRESSION: 1. Hepatic steatosis. 2. Status post cholecystectomy with normal common bile duct. 3. 4 cm right renal cyst, unchanged. 4. Portions of anatomy are obscured by bowel gas as noted above. Dictated by: Odell Go M.D. on 11/04/2017 at 8:03 Approved by: Odell Go M.D. on 11/04/2017 at 8:06
[2017-11-03 22:40] LABS: Bacteria Urine Few (2-10); Renal Epithelial Cells Urine 0-1/HPF; Squamous Epithelial Cell Urine 1-5 /HPF; WBC Urine 10-30/HPF (0-5/HPF)
[2017-11-03 22:41] LABS: Culture Indicated Urine Specimen Cultured
[2017-11-04] MEDS: levoFLOXacin 500 MG TABLET PO (00:25)
[2017-11-04] MEDS: METOCLOPRAMIDE 10 MG/2 ML INJ 5 MG IV (00:25)
[2017-11-04] MEDS: metroNIDAZOLE 250 MG TABLET PO (00:25)
--- NOTE | 2017-11-04 00:37 | PC.NURSE ---
Pt has been medicated per MAR. Pt continues to say 'I'm sick'. Re-educated pt on importance of taking home abx, states she needs some thing for nausea at home. Pt's request for home nausea meds relayed to provider.
[2017-11-04 00:39] VITALS: BP 144/82; PULSE 86; RESP 18; TEMP 37.1; O2SAT 96
--- NOTE | 2017-11-04 00:43 | ED_ITS ---
HPI - Nausea/Vomiting/Diarrhea <Judith Tapiamer, [employer] COUNSELOR-[employer] - Last Filed: 11/04/17 01:53> General Chief complaint: Nausea/Vomiting/Diarrhea Stated complaint: N/V Time Seen by Provider: 11/03/17 20:11 Source: patient, family, EMS, RN notes reviewed and old records reviewed Mode of arrival: EMS History of Present Illness HPI Narrative: Patient presents with chief complaint of ?I am not getting any better.? Patient repeatedly states ?I am sick. Patient complains of nausea, vomiting and generalized abdominal discomfort. She denies any chest pain and denies shortness of breath. She denies fever. She complains of overall fatigue and weakness. Chart review was straight she was started on Flagyl and Levaquin for diverticulitis however she has not been taking her medications. She states she feels she is too sick to take her medications. She took a Zofran approximately 12 hr ago for nausea. She denies urinary symptoms. Chart review illustrate a thorough recent workup including a brain MRI CT and abdominal CT. Related Data Previous Rx's Medication Instructions Recorded sitagliptin [Januvia] 100 mg PO QDAY #30 tab 04/22/17 metformin 1,000 mg PO BID #60 tab 05/14/17 ondansetron [Zofran ODT] 4 mg SUBLINGUAL Q6HP PRN #10 odt 07/31/17 citalopram 20 mg tablet 20 mg PO QDAY #30 tab 08/23/17 gabapentin 300 mg capsule 300 mg PO BID #60 cap 08/23/17 glimepiride 4 mg tablet 4 mg PO BID #60 tab 08/23/17 losartan 50 mg tablet 50 mg PO QDAY #30 tab 08/23/17 omeprazole 20 mg capsule,delayed 20 mg PO QDAY #30 cap 08/23/17 release mesalamine 400 mg capsule (with 800 mg PO BID #120 each 10/14/17 delayed release tablets inside) hydrochlorothiazide 25 mg tablet 25 mg PO QDAY #90 tab 10/21/17 levothyroxine 75 mcg tablet 75 mcg PO QAM #90 tab 10/21/17 metoprolol succinate ER 50 mg 50 mg PO QDAY #90 tab 10/21/17 tablet,extended release 24 hr simvastatin 80 mg tablet 80 mg PO HS #90 tab 10/21/17 levofloxacin 500 mg PO DAILY #7 tab 11/02/17 metronidazole 250 mg PO TID #21 tab 11/02/17 Allergies Allergy/AdvReac Type Severity Reaction Status Date / Time Penicillins Allergy Unknown Verified 11/03/17 20:53 sulfamethoxazole Allergy Unknown Verified 11/03/17 20:53 [From BACTRIM] trimethoprim [From BACTRIM] Allergy Unknown Verified 11/03/17 20:53 Review of Systems <AL Ramos - Last Filed: 11/04/17 01:53> Review of Systems GENERAL: See HPI HEENT: Denies sinus pain, ear pain, sore throat, difficulty swallowing, dizziness. RESPIRATORY: Denies dyspnea, cough, wheezing, hemoptysis, sputum. CARDIOVASCULAR: Denies chest pain, palpitations, orthopnea, edema, GASTROINTESTINAL: See HPI : Denies dysuria, frequency, incontinence, hematuria, urinary retention. MUSCULOSKELETAL: denies weakness, joint pain, or bony pain SKIN: Denies rash, skin lesions, or other NEUROLOGIC: Denies weakness, headache, numbness, change in speech, confusion, seizures, incoordination. PSYCHIATRIC: No concerning psychosocial issues. 12 point review of systems is negative except for those stated above Exam <Judith Navarro [facility] - Last Filed: 11/04/17 01:53> Narrative Exam Narrative: GENERAL: Chronically ill-appearing elderly female lying in bed. HEAD: Atraumatic. Normocephalic. No temporal or scalp tenderness. EYES: Pupils equal round and reactive. Extraocular motions intact. No scleral icterus. No injection or drainage. ENT: Nose without bleeding, purulent drainage or septal hematoma. Throat without erythema, tonsillar hypertrophy or exudate. Uvula midline. Airway patent. NECK: Trachea midline. No JVD or lymphadenopathy. Supple, nontender, no meningeal signs. CARDIOVASCULAR: Regular rate and rhythm without murmurs, gallops, or rubs. Extremities are warm. RESPIRATORY: Clear to auscultation. Breath sounds equal bilaterally. No wheezes , rales, or rhonchi. No cough for accessory muscle use. GASTROINTESTINAL: Abdomen obese, soft, nondistended. No hepato-splenomegaly, or palpable masses. No guarding. No pulsatile mass. Generalized pain to palpation. No guarding, no rigidity. EXTREMITIES: No clubbing, cyanosis, or edema. No joint tenderness, effusion, or edema noted. BACK: Nontender without deformity or crepitance. No flank tenderness. NEURO: AOx3. SKIN: No rash or erythema. Initial Vital Signs Initial Vital Signs: Vital Signs Temperature 99.3 F 11/03/17 20:20 Pulse Rate 125 H 11/03/17 20:20 Respiratory Rate 22 11/03/17 20:20 Blood Pressure 156/73 H 11/03/17 20:20 Pulse Oximetry 95 11/03/17 20:20 <Liliane Batista DO - Last Filed: 11/04/17 06:22> Initial Vital Signs Initial Vital Signs: Vital Signs Temperature 99.3 F 11/03/17 20:20 Pulse Rate 125 H 11/03/17 20:20 Respiratory Rate 22 11/03/17 20:20 Blood Pressure 156/73 H 11/03/17 20:20 Pulse Oximetry 95 11/03/17 20:20 Course <THELMA Ramos-BC - Last Filed: 11/04/17 01:53> Additional Information: Patient presented with ongoing weakness and nausea vomiting. An IV was inserted and she was given IV fluids. She was given Zofran for nausea. Basic lab work was drawn. Given that she was noted to have an increase in LFTs, and ultrasound was performed. However no abnormalities were noted. Given her nausea and weakness, combined with her elevated white blood cell count of 18. Dr. Hill was contacted regarding a possible admission. However given that the patient's white blood cell count was within normal limits for her, he declined admission at this time and would prefer outpatient workup. I suggested that the patient follow up with primary care provider tomorrow. With some Reglan, she was able to take her antibiotics for her diverticulitis in the emergency department felt better upon discharge. Orders Ordered: ED Orders 11/03/17 22:10 Urine Culture Stat Urine Microscopic Stat 11/03/17 22:36 US abdomen complete Stat Discontinued Medications Sodium Chloride (Normal Saline 0.9%) 1,000 mls @ 150 mls/hr IV CONT NIRANJAN Sodium Chloride (Normal Saline 0.9%) 500 mls @ 150 mls/hr IV CONT NIRANJAN Last Infusion: 11/04/17 01:01 Dose: 0 mls/hr Admin: 11/03/17 21:46 Dose: 150 mls/hr Levofloxacin (Levaquin) 500 mg PO NOW ONE Stop: 11/04/17 00:12 Last Admin: 11/04/17 00:25 Dose: 500 mg Metoclopramide HCl (Reglan) 5 mg IV NOW ONE Stop: 11/04/17 00:10 Last Admin: 11/04/17 00:25 Dose: 5 mg Metronidazole (Metronidazole) 250 mg PO NOW ONE Stop: 11/04/17 00:12 Last Admin: 11/04/17 00:25 Dose: 250 mg Ondansetron HCl (Zofran) 4 mg IV NOW ONE Stop: 11/03/17 21:36 Last Admin: 11/03/17 21:46 Dose: 4 mg Vital Signs - 8 hr 11/04/17 00:39 Temperature 98.7 F Pulse Rate 86 Respiratory Rate 18 Blood Pressure [Left Arm] 144/82 H Pulse Oximetry 96 <Liliane Batista DO - Last Filed: 11/04/17 06:22> Orders Ordered: ED Orders 11/03/17 22:10 Urine Culture Stat Urine Microscopic Stat 11/03/17 22:36 US abdomen complete Stat Discontinued Medications Sodium Chloride (Normal Saline 0.9%) 1,000 mls @ 150 mls/hr IV CONT NIRANJAN Sodium Chloride (Normal Saline 0.9%) 500 mls @ 150 mls/hr IV CONT NIRANJAN Last Infusion: 11/04/17 01:01 Dose: 0 mls/hr Admin: 11/03/17 21:46 Dose: 150 mls/hr Levofloxacin (Levaquin) 500 mg PO NOW ONE Stop: 11/04/17 00:12 Last Admin: 11/04/17 00:25 Dose: 500 mg Metoclopramide HCl (Reglan) 5 mg IV NOW ONE Stop: 11/04/17 00:10 Last Admin: 11/04/17 00:25 Dose: 5 mg Metronidazole (Metronidazole) 250 mg PO NOW ONE Stop: 11/04/17 00:12 Last Admin: 11/04/17 00:25 Dose: 250 mg Ondansetron HCl (Zofran) 4 mg IV NOW ONE Stop: 11/03/17 21:36 Last Admin: 11/03/17 21:46 Dose: 4 mg Vital Signs - 8 hr 11/04/17 00:39 Temperature 98.7 F Pulse Rate 86 Respiratory Rate 18 Blood Pressure [Left Arm] 144/82 H Pulse Oximetry 96 MDM - Nausea/Vomiting/Diarrhea <Judithraphael Tapiamer, [employer]K [employer] COUNSELOR-BC - Last Filed: 11/04/17 01:53> Lab Data Attestation: I reviewed the patient's lab results. Result diagrams: 11/03/17 20:00 11/03/17 20:00 Lab Results 11/03/17 11/03/17 11/03/17 Range/Units 20:00 20:00 22:10 WBC 18.1 H (4.5-11.0) X10^3/uL RBC 4.37 (4.0-5.2) X10^6/uL Hgb 13.1 (12.0-16.0) g/dL Hct 38.6 (36-46) % MCV 88.3 (80-100) fL MCH 30.0 (26-34) PG MCHC 34.0 (30-36) % RDW 14.1 (11.6-14.8) % Plt Count 241 (150-400) X10^3/uL Neut % (Auto) 92.1 H (50-75) % Lymph % (Auto) 4.1 L (25-40) % Schleicher % (Auto) 2.5 L (3-14) % Eos % (Auto) 0.9 L (2-4) % Baso % (Auto) 0.4 (0-2) % Neut # (Auto) 70985 H (4274-8300) /uL Sodium 136 L (137-145) mmol/L Potassium 3.9 (3.4-5.1) mmol/L Chloride 95 L (98-107) mmol/L Carbon Dioxide 28 (22-32) mmol/L BUN 12 (7-17) mg/dL Creatinine 0.80 (0.52-1.04) mg/dL Estimated GFR > 60.0 (>60) mL/min BUN/Creatinine Ratio 15.0 (6-22) Glucose 225 H (80-110) mg/dL Calcium 9.3 (8.4-10.2) mg/dL Total Bilirubin 0.7 (0.2-1.3) mg/dL AST 201 H (14-36) IU/L ALT 129 H (9-52) IU/L Alkaline Phosphatase 64 (38-126) U/L Total Protein 7.2 (6.3-8.2) g/dL Albumin 4.1 (3.5-5.0) g/dL Globulin 3.1 (1.7-4.1) g/dL Albumin/Globulin Ratio 1.3 (1.0-2.8) Lipase 24 (23-300) U/L Urine RBC None seen (0-5/HPF) Urine WBC 10-30/hpf H (0-5/HPF) Ur Squamous Epith Cells 1-5 /hpf Ur Renal Epithelial Cell 0-1/hpf Urine Bacteria Few (2-10) H (None) Ur Culture Indicated? Specimen cultured Micro UA Comment Not Reportable MDM Narrative Medical decision making narrative: The patient presented with a chief complaint of weakness and ?not feeling well. An EKG was done, an IV was inserted, she was given some fluids and basic lab work was drawn. However she came in for continuation of her illness for which she is being treated. She denies any precipitating factors to her Emergency Department visit other than her lack of improvement. Her medications were counted out and she was noted to not be taking her Levaquin or Flagyl. She remained hemodynamically stable in the emergency department. She was noted of slightly elevated LFTs had a normal ultrasound. I contacted Dr. Hill to consider admission, however he felt more outpatient treatment was warranted. The patient was given Reglan in the emergency department and tolerated her p.o. medications very well. She stated improvement after her Reglan. I discussed at length with her adherence to her medications and suggest to follow up with her primary care provider tomorrow. <Liliane Batista, DO - Last Filed: 11/04/17 06:22> Medical Records Attestation: I reviewed the patient's medical records. Lab Data Attestation: I reviewed the patient's lab results. Lab Results 11/03/17 11/03/17 11/03/17 Range/Units 20:00 20:00 22:10 WBC 18.1 H (4.5-11.0) X10^3/uL RBC 4.37 (4.0-5.2) X10^6/uL Hgb 13.1 (12.0-16.0) g/dL Hct 38.6 (36-46) % MCV 88.3 (80-100) fL MCH 30.0 (26-34) PG MCHC 34.0 (30-36) % RDW 14.1 (11.6-14.8) % Plt Count 241 (150-400) X10^3/uL Neut % (Auto) 92.1 H (50-75) % Lymph % (Auto) 4.1 L (25-40) % Schleicher % (Auto) 2.5 L (3-14) % Eos % (Auto) 0.9 L (2-4) % Baso % (Auto) 0.4 (0-2) % Neut # (Auto) 26010 H (6914-6815) /uL Sodium 136 L (137-145) mmol/L Potassium 3.9 (3.4-5.1) mmol/L Chloride 95 L (98-107) mmol/L Carbon Dioxide 28 (22-32) mmol/L BUN 12 (7-17) mg/dL Creatinine 0.80 (0.52-1.04) mg/dL Estimated GFR > 60.0 (>60) mL/min BUN/Creatinine Ratio 15.0 (6-22) Glucose 225 H (80-110) mg/dL Calcium 9.3 (8.4-10.2) mg/dL Total Bilirubin 0.7 (0.2-1.3) mg/dL AST 201 H (14-36) IU/L ALT 129 H (9-52) IU/L Alkaline Phosphatase 64 (38-126) U/L Total Protein 7.2 (6.3-8.2) g/dL Albumin 4.1 (3.5-5.0) g/dL Globulin 3.1 (1.7-4.1) g/dL Albumin/Globulin Ratio 1.3 (1.0-2.8) Lipase 24 (23-300) U/L Urine RBC None seen (0-5/HPF) Urine WBC 10-30/hpf H (0-5/HPF) Ur Squamous Epith Cells 1-5 /hpf Ur Renal Epithelial Cell 0-1/hpf Urine Bacteria Few (2-10) H (None) Ur Culture Indicated? Specimen cultured Micro UA Comment Not Reportable Imaging Data US - abdomen: Radiologist's impression: shift commander report: Cholecystectomy. Simple cyst right kidney no acute process identified in abdomen ultrasound. ECG Data Attestation: I personally reviewed and interpreted this ECG as follows: Prior ECG tracings: available for review Interpretation: normal sinus rate 124 Q-wave noted in lead 3 similar to previous EKG no S waves noted no T-wave inversion MDM Narrative Medical decision making narrative: I discussed case with Dr. Hill. Patient apparently is not taking her medications really just not getting any better. She does have increased leukocytosis and today she has elevated liver enzymes which are new. Ultrasound is negative. Dr. Hill states that she consistently has an elevated white count and is not worried about her new of elevation of liver enzymes. He states she was discharged just the other day and just needs longer outpatient antibiotics. And is not need inpatient antibiotics or meet criteria at this time. This was explained to the family by Judith. She had a CT scan abdomen pelvis 2 days ago. The patient took all oral medications earlier. Discharge Plan Departure Patient Disposition: Home, Self-Care Clinical Impression: Weakness, Elevated LFTs, Nausea, Diverticulitis Discharge Date/Time: 11/04/17 01:13 Interventions: ED Discharge Assessment Last Done: 11/04/17 01:12 Instructions: DI for Diverticulitis, DI for Fatigue, DI for Nausea -- Adult, DI for Vomiting -- Adult Activity Restrictions/Additional Instructions: I would like you to follow up with primary care provider tomorrow. Please take your medications as ordered and discussed. It is very important that he treat her diverticulitis otherwise he will continue to feel ill and not improved. Try taking medications with food if you need to. I would: Follow up with your primary care provider tomorrow. Please avoid spicy foods, fatty foods, caffeine and alcohol. I suggest using the Zofran that you have. Prescriptions: No Action sitagliptin [Januvia] 100 MG tablet 100 mg PO QDAY Qty: 30 RF: 2 metformin 1,000 MG tablet 1,000 mg PO BID Qty: 60 RF: 5 ondansetron [Zofran ODT] 4 MG tablet,disintegrating 4 mg Sublingual Q6HP PRNQty: 10 RF: 0 citalopram 20 mg tablet 20 mg PO QDAY Qty: 30 RF: 3 gabapentin [Neurontin] 300 mg capsule 300 mg PO BID Qty: 60 RF: 3 glimepiride [Amaryl] 4 mg tablet 4 mg PO BID Qty: 60 RF: 3 omeprazole 20 mg capsule,delayed release(DR/EC) 20 mg PO QDAY Qty: 30 RF: 3 losartan 50 mg tablet 50 mg PO QDAY Qty: 30 RF: 3 mesalamine [Delzicol] 400 mg capsule (with del rel tablets) 800 mg PO BID Qty: 120 RF: 3 hydrochlorothiazide 25 mg tablet 25 mg PO QDAY Qty: 90 RF: 0 metoprolol succinate [Toprol XL] 50 mg tablet extended release 24 hr 50 mg PO QDAY Qty: 90 RF: 0 simvastatin 80 mg tablet 80 mg PO HS Qty: 90 RF: 0 levothyroxine [Synthroid] 75 mcg tablet 75 mcg PO QAM Qty: 90 RF: 0 metronidazole 250 mg Tablet 250 mg PO TID Qty: 21 RF: 0 levofloxacin 500 mg Tablet 500 mg PO DAILY Qty: 7 RF: 0
== END 2017-11-04 01:13 | disposition home or self-care (01) ==
PROVIDERS: Emergency Provider Nurse Practitioner Family; PCP Family Medicine
DX: R53.1 Weakness (principal); R94.5 Abnormal results of liver function studies; R11.0 Nausea; K57.92 Diverticulitis of intestine, part unspecified, without perforation or abscess without bleeding
CPT/HCPCS: 76700; 80053; 81003; 81015; 83690; 85025; 87086; 93005; 96361; 96374; 96375; 99283; 99285; J2405; J2765

== ENCOUNTER 2017-11-08 23:04 | Emergency (ER) | payer MEDICARE, OTHER, SELFPAY ==
[2017-11-01 14:13] VITALS: BMI 31.6
[2017-11-08 23:11] VITALS: BP 148/72; PULSE 82; RESP 16; TEMP 36.4; O2SAT 97; BMI 37.1
--- NOTE | 2017-11-08 23:11 | ED.ABDPAIN ---
HPI - Abdominal Pain General Chief Complaint: Altered Mental Status Stated Complaint: AMS Time Seen by Provider: 11/08/17 23:10 Source: patient, family and EMS Mode of arrival: EMS Limitations: no limitations History of Present Illness HPI narrative: Patient is a 72-year-old female presenting with decreased mental status. EMS found her with a glucose of 25. She is a known diabetic she takes glimepiride and metformin. She has had decrease in appetite for the last 2 months. Currently being treated for diverticulitis. She was given antibiotics Levaquin and Flagyl which she says she is taking. She just does not have a taste for any food. No fevers. Still has some abdominal discomfort but not bad. No other chest pain or shortness of breath. She was given D50 and is awake and alert now with no complaints. Related Data Previous Rx's Medication Instructions Recorded sitagliptin [Januvia] 100 mg PO QDAY #30 tab 04/22/17 metformin 1,000 mg PO BID #60 tab 05/14/17 citalopram 20 mg tablet 20 mg PO QDAY #30 tab 08/23/17 gabapentin 300 mg capsule 300 mg PO BID #60 cap 08/23/17 glimepiride 4 mg tablet 4 mg PO BID #60 tab 08/23/17 losartan 50 mg tablet 50 mg PO QDAY #30 tab 08/23/17 omeprazole 20 mg capsule,delayed 20 mg PO QDAY #30 cap 08/23/17 release mesalamine 400 mg capsule (with 800 mg PO BID #120 each 10/14/17 delayed release tablets inside) hydrochlorothiazide 25 mg tablet 25 mg PO QDAY #90 tab 10/21/17 levothyroxine 75 mcg tablet 75 mcg PO QAM #90 tab 10/21/17 metoprolol succinate ER 50 mg 50 mg PO QDAY #90 tab 10/21/17 tablet,extended release 24 hr simvastatin 80 mg tablet 80 mg PO HS #90 tab 10/21/17 levofloxacin 500 mg PO DAILY #7 tab 11/02/17 metronidazole 250 mg PO TID #21 tab 11/02/17 ondansetron [Zofran ODT] 4 mg SUBLINGUAL Q6HP PRN #10 odt 11/04/17 Allergies Allergy/AdvReac Type Severity Reaction Status Date / Time Penicillins Allergy Unknown Verified 11/03/17 20:53 sulfamethoxazole Allergy Unknown Verified 11/03/17 20:53 [From BACTRIM] trimethoprim [From BACTRIM] Allergy Unknown Verified 11/03/17 20:53 Review of Systems Review of Systems All systems reviewed & are unremarkable except as noted in HPI and below Constitutional Denies chills, Denies fever(s), Denies lethargy and Denies weakness Cardiovascular Denies chest pain, Denies irregular heart rhythm, Denies lightheadedness, Denies palpitations, Denies dyspnea, Denies dyspnea on exertion and Denies orthopnea Respiratory Denies cough, Denies dyspnea, Denies dyspnea on exertion and Denies wheezing Gastrointestinal Gastrointestinal: Reports as per HPI Musculoskeletal Denies back pain, Denies muscle weakness, Denies numbness and Denies tingling Integumentary/Breasts Denies pruritus, Denies erythema, Denies rash and Denies wounds Neurologic Denies numbness, Denies tingling and Denies weakness Endocrine Denies palpitations Allergic/Immunologic Denies wheezing PFSH Social History household members: other Smoking Status: Never smoker alcohol intake: never Exam Initial Vital Signs Initial Vital Signs: Vital Signs Temperature 97.5 F L 11/08/17 23:11 Pulse Rate 82 11/08/17 23:11 Respiratory Rate 16 11/08/17 23:11 Blood Pressure 148/72 H 11/08/17 23:11 Pulse Oximetry 97 11/08/17 23:11 Const General: cooperative and comfortable Nutritional Appearance: overweight HENOK Head: normal to inspection Eyes General: appearance normal, both eyes and all related structures Neck Neck: normal visual inspection and full ROM Chest Chest: normal inspection of the chest Resp Effort & Inspection: normal respiratory effort Auscultation: clear to auscultation bilaterally, no rales, no rhonchi, no wheezes and no rubs Tactile Fremitus: tactile fremitus absent Cardio Rhythm: regular rhythm Heart Sounds: S1 normal and S2 normal GI Palpation: soft and tender (Mild tenderness without guarding or rebound no localization) Skin General: no rashes or lesions noted, No jaundice and No petechiae Neuro General: alert, awake and oriented x3 Cranial Nerves: CN's II-XI intact bilaterally Speech: speech normal Motor: muscle tone normal throughout Course Orders Ordered: ED Orders 11/08/17 23:10 Complete Blood Count AUTO DIFF Stat Comprehensive Metabolic Panel Stat Lipase Stat Troponin & CK Cardiac Panel Stat 11/08/17 23:18 EKG-12 Lead Stat Discontinued Medications Dextrose (D50w) 25 gm IV NOW ONE Stop: 11/09/17 00:07 Last Admin: 11/09/17 00:00 Dose: 25 gm Sodium Chloride (Normal Saline 0.9%) 1,000 mls @ 150 mls/hr IV CONT NIRANJAN Last Infusion: 11/09/17 03:40 Dose: 0 mls/hr Admin: 11/09/17 00:05 Dose: 150 mls/hr Ondansetron HCl (Zofran) 4 mg IV NOW ONE Stop: 11/09/17 00:13 Last Admin: 11/09/17 00:14 Dose: 4 mg Vital Signs - 8 hr 11/08/17 23:11 11/09/17 00:00 11/09/17 01:04 Temperature 97.5 F L Pulse Rate 82 85 84 Respiratory Rate 16 16 16 Blood Pressure 148/72 H Blood Pressure [Right Arm] 127/64 H 121/58 H Pulse Oximetry 97 97 97 11/09/17 01:53 11/09/17 03:00 11/09/17 03:18 Temperature 97.9 F 97.9 F Pulse Rate 84 86 81 Respiratory Rate 16 18 18 Blood Pressure 128/64 H Blood Pressure [Right Arm] 125/70 H 128/65 H Pulse Oximetry 100 96 99 MDM - Abdominal Pain Lab Data Attestation: I reviewed the patient's lab results. Result diagrams: 11/08/17 23:10 11/08/17 23:10 Lab Results 11/08/17 11/08/17 Range/Units 23:10 23:10 WBC 15.3 H (4.5-11.0) X10^3/uL RBC 4.20 (4.0-5.2) X10^6/uL Hgb 12.7 (12.0-16.0) g/dL Hct 36.3 (36-46) % MCV 86.4 (80-100) fL MCH 30.2 (26-34) PG MCHC 34.9 (30-36) % RDW 14.2 (11.6-14.8) % Plt Count 235 (150-400) X10^3/uL Neut % (Auto) 78.8 H (50-75) % Lymph % (Auto) 9.7 L (25-40) % [place] % (Auto) 7.7 (3-14) % Eos % (Auto) 3.3 (2-4) % Baso % (Auto) 0.5 (0-2) % Neut # (Auto) 69619 H (8098-2843) /uL Sodium 128 L (137-145) mmol/L Potassium 3.0 L (3.4-5.1) mmol/L Chloride 84 L (98-107) mmol/L Carbon Dioxide 30 (22-32) mmol/L BUN 18 H (7-17) mg/dL Creatinine 0.80 (0.52-1.04) mg/dL Estimated GFR > 60.0 (>60) mL/min BUN/Creatinine Ratio 22.5 H (6-22) Glucose 144 H (80-110) mg/dL Calcium 9.1 (8.4-10.2) mg/dL Total Bilirubin 0.4 (0.2-1.3) mg/dL AST 71 H (14-36) IU/L ALT 123 H (9-52) IU/L Alkaline Phosphatase 61 (38-126) U/L Total Creatine Kinase 24 L (30-135) U/L Troponin I < 0.012 (0.01-0.034) ng/mL Total Protein 6.9 (6.3-8.2) g/dL Albumin 4.0 (3.5-5.0) g/dL Globulin 2.9 (1.7-4.1) g/dL Albumin/Globulin Ratio 1.4 (1.0-2.8) Lipase 17 L (23-300) U/L Point of care testing: Point of Care Testing Glucose POC 220 Urine Dip Bedside Urine Glucose 100 mg/dl Bedside Urine Bilirubin - Negative Bedside Urine Ketone - Negative Urine Specific [place] 1.015 Bedside Urine Occult Blood - Negative Bedside Urine pH 6.0 Bedside Urine Protein - Negative Bedside Urine Urobilinogen - Negative Bedside Urine Nitrite - Negative Bedside Urine Leukocytes - Negative Esterase ECG Data Attestation: I personally reviewed and interpreted this ECG as follows: Prior ECG tracings: available for review Interpretation: Sinus rhythm rate 78 low voltage no acute ST changes similar to previous EKGs MDM Narrative Medical decision making narrative: The patient is monitored for 3 hr. She is given food in juice which she is able to get some down. Accu-Chek initially 155 however it did decrease down to 89. His it has since remained all above 200 and does continue to be rising. I suspect this hypoglycemia is from decreased oral intake and glimepiride. Metformin and Januvia not known to cause severe hypoglycemia. I discussed this with the son. They have the glucose monitor which is supposed to come tomorrow. She has had episodes of confusion which have improved with food. Who recommended that they check her glucose a couple times a day and record it. Her diabetes medication may need to be adjusted. Her leukocytosis has improved. She is noted to be slightly hyponatremic which she has been on 11/01/2017. She received IV fluids here in the ED. She remained awake alert and oriented. She follows commands. POC glucose were checked frequently while she was here, please see nursing notes for details and complete documentation I discussed all findings with the patient and family, Education has been performed regarding treatment plan, diagnosis, warning signs and symptoms and all concerns have been addressed. Verbally agree with and understood all of the above. Discharge Plan Departure Patient Disposition: Home, Self-Care Clinical Impression: Hypoglycemia Discharge Date/Time: 11/09/17 03:35 Interventions: ED Discharge Assessment Last Done: 11/09/17 03:18 Instructions: DI for Hypoglycemia Activity Restrictions/Additional Instructions: *You have been diagnosed with low blood sugar *What to do: This is thought to be due to decreased appetite and continuing diabetes medication. While appetite is down I recommend changing the medication as described below -check sugars twice a day once before breakfast and again before going to bed record. Discuss these with you're next doctor appointment. *Continue to take medications as directed -stop taking Glimepiride (Amaryl) -Continue metformin 1000 mg twice a day *Follow up with your primary care provider in 2-3 days *Return to ER if you should have confusion, worsening abdominal pain or any new, worsening or concerning symptoms Prescriptions: No Action sitagliptin [Januvia] 100 MG tablet 100 mg PO QDAY Qty: 30 RF: 2 metformin 1,000 MG tablet 1,000 mg PO BID Qty: 60 RF: 5 citalopram 20 mg tablet 20 mg PO QDAY Qty: 30 RF: 3 gabapentin [Neurontin] 300 mg capsule 300 mg PO BID Qty: 60 RF: 3 glimepiride [Amaryl] 4 mg tablet 4 mg PO BID Qty: 60 RF: 3 omeprazole 20 mg capsule,delayed release(DR/EC) 20 mg PO QDAY Qty: 30 RF: 3 losartan 50 mg tablet 50 mg PO QDAY Qty: 30 RF: 3 mesalamine [Delzicol] 400 mg capsule (with del rel tablets) 800 mg PO BID Qty: 120 RF: 3 hydrochlorothiazide 25 mg tablet 25 mg PO QDAY Qty: 90 RF: 0 metoprolol succinate [Toprol XL] 50 mg tablet extended release 24 hr 50 mg PO QDAY Qty: 90 RF: 0 simvastatin 80 mg tablet 80 mg PO HS Qty: 90 RF: 0 levothyroxine [Synthroid] 75 mcg tablet 75 mcg PO QAM Qty: 90 RF: 0 ondansetron [Zofran ODT] 4 mg tablet,disintegrating 4 mg Sublingual Q6HP PRNQty: 10 RF: 0 metronidazole 250 mg Tablet 250 mg PO TID Qty: 21 RF: 0 levofloxacin 500 mg Tablet 500 mg PO DAILY Qty: 7 RF: 0 Referrals: Anusha Felix DO [Primary Care Provider] -
[2017-11-08 23:29] LABS: Alanine Aminotransferase 123 IU/L (9-52); Albumin Globulin Ratio 1.4 (1.0-2.8); Alkaline Phosphatase 61 U/L (38-126); Aspartate Aminotransferase 71 IU/L (14-36); BUN Creatinine Ratio 22.5 (6-22); Bilirubin Total 0.4 mg/dL (0.2-1.3); Blood Urea Nitrogen 18 mg/dL (7-17); Calcium 9.1 mg/dL (8.4-10.2); Carbon Dioxide 30 mmol/L (22-32); Chloride 84 mmol/L (98-107); Creatine Kinase 24 U/L (30-135); Estimated Glomerular Filt Rate > 60.0 mL/min (>60); Globulin 2.9 g/dL (1.7-4.1); Glucose 144 mg/dL (80-110); HEMOLYSIS < 15 (0-50); Lipase 17 U/L (23-300); Sodium 128 mmol/L (137-145); Total Protein 6.9 g/dL (6.3-8.2)
[2017-11-08 23:44] LABS: Add Manual Diff / Slide Review NO; Basophils Percent Auto 0.5 % (0-2); Eosinophils Percent Auto 3.3 % (2-4); Hematocrit 36.3 % (36-46); Hemoglobin 12.7 g/dL (12.0-16.0); Lymphocytes Percent Auto 9.7 % (25-40); Mean Corpuscular HGB Conc 34.9 % (30-36); Mean Corpuscular Hemoglobin 30.2 PG (26-34); Mean Corpuscular Volume 86.4 fL (80-100); Monocytes Percent Auto 7.7 % (3-14); Neutrophils Absolute Auto 12000 /uL (3000-5900); Neutrophils Percent Auto 78.8 % (50-75); Platelet Count 235 X10^3/uL (150-400); Red Cell Distribution Width 14.2 % (11.6-14.8); White Blood Cell Count 15.3 X10^3/uL (4.5-11.0)
[2017-11-08 23:49] LABS: Troponin I < 0.012 ng/mL (0.01-0.034)
[2017-11-09] VITALS: BP 127/64; PULSE 85; RESP 16; O2SAT 97
[2017-11-09] MEDS: DEXTROSE 50 % IN WATER 25 GM/50 ML SYRINGE IV
[2017-11-09] MEDS: SODIUM CHLORIDE 0.9% 1,000 ML 150 ML IV (00:05)
[2017-11-09] MEDS: ONDANSETRON 4 MG/2 ML INJ IV (00:14)
--- NOTE | 2017-11-09 00:15 | PC.NURSE ---
Family at bedside with DO Batista. Patient continues to feel nauseous and is refusing to eat. I gave her some juice which she is sipping.
--- NOTE | 2017-11-09 00:22 | PC.NURSE ---
Patient currently undergoing treatment with antibiotics for diverticulitis. Still with a tender abdomen and ongoing nausea. She has been taking all of her medications as prescribed and her antibiotics. Per patient and family she has been more nauseous the last few days and has not been eating because everything tastes gross. Per family she has had episodes of being pale and diaphoretic and more confused than normal and they described it as episodes of what they thought was low blood sugar. They tried to get her to eat and she would normalize but then it would happen again. They called ems tonight because she was unable to speak and the medics discovered her with a glucose of 25. She woke up and became lucid after an amp of D50. Still complains of nausea and is oriented to herself and others however not the time, which is baseline.
[2017-11-09 01:04] VITALS: BP 121/58; PULSE 84; RESP 16; O2SAT 97
[2017-11-09 01:53] VITALS: BP 125/70; PULSE 84; RESP 16; O2SAT 100
[2017-11-09 03:00] VITALS: BP 128/65; PULSE 86; RESP 18; TEMP 36.6; O2SAT 96
[2017-11-09 03:18] VITALS: BP 128/64; PULSE 81; RESP 18; TEMP 36.6; O2SAT 99
== END 2017-11-09 03:35 | disposition home or self-care (01) ==
PROVIDERS: Emergency Provider Emergency Medicine; PCP Family Medicine
DX: E16.2 Hypoglycemia, unspecified (principal); R41.0 Disorientation, unspecified
CPT/HCPCS: 80053; 81003; 82550; 82553; 82962; 83690; 84484; 85025; 93005; 96361; 96374; 96375; 99283; 99284; J2405

== ENCOUNTER → 2017-12-05 12:51 | Outpatient (CLI) | payer MEDICARE, OTHER, SELFPAY ==
[2017-11-01 14:13] VITALS: BMI 31.6
--- NOTE | 2017-12-05 12:54 | DI.US.S_ITS ---
PROCEDURE: US ABDOMEN LIMITED INDICATIONS: ELEVATED LIVER ENZYMES TECHNIQUE: Real-time focused scanning was performed of the abdomen, with image documentation. COMPARISON: [facility], CT, CT ABDOMEN PELVIS W CON, 11/01/2017, 17:03. [facility], US, US ABDOMEN COMPLETE, 11/03/2017, 23:02. FINDINGS: Exam is limited to evaluation of the liver. Sonographically, the liver shows normal, homogeneous echotexture with no mass lesions and measures 16.4 cm. IMPRESSION: Sonographically normal-appearing liver, unchanged. Dictated by: Odell Go M.D. on 12/05/2017 at 13:43 Approved by: Odell Go M.D. on 12/05/2017 at 13:45
== END ==
PROVIDERS: PCP Family Medicine; Visit Provider Family Medicine
DX: R74.8 Abnormal levels of other serum enzymes (principal)
CPT/HCPCS: 76705

== ENCOUNTER → 2018-01-21 10:24 | Outpatient (CLI) | payer MEDICARE, OTHER, SELFPAY ==
[2017-11-01 14:13] VITALS: BMI 31.6
--- NOTE | 2018-01-21 | DI.RAD.S_ITS ---
PROCEDURE: FL BARIUM SWALLOW INDICATIONS: GERD COMPARISON: None. FINDINGS: Function: There is mildly decreased esophageal peristalsis. No elicited gastroesophageal reflux. However, the exam was terminated when laryngeal penetration was noted. Morphology: Air-contrast images demonstrate normal mucosal morphology. Single contrast views show no esophageal strictures, extrinsic mass effects, or diverticula. IMPRESSION: No stricture identified. Mild esophageal dysmotility. Laryngeal penetration was noted. Recommend further evaluation with dedicated speech pathology evaluation. Dictated by: Tello Lux M.D. on 01/22/2018 at 8:51 Approved by: Tello Lux M.D. on 01/22/2018 at 8:56
== END ==
PROVIDERS: PCP Family Medicine; Visit Provider Otolaryngology
DX: K22.4 Dyskinesia of esophagus (principal); K21.9 Gastro-esophageal reflux disease without esophagitis
CPT/HCPCS: 74220

== ENCOUNTER → 2018-03-31 09:49 | Outpatient (CLI) | payer MEDICARE, OTHER, SELFPAY ==
[2017-11-01 14:13] VITALS: BMI 31.6
--- NOTE | 2018-03-31 | DI.RAD.S_ITS ---
PROCEDURE: FL BARIUM SWALLOW W SPEECH INDICATIONS: DYSPHAGIA TECHNIQUE: Examination was conducted in conjunction with speech pathology per standard protocol. In the lateral projection, filming was performed of the patient swallowing. AP projection filming may also be performed with patient swallowing. COMPARISON: [facility], , [place] BARIUM SWALLOW, 01/21/2018, 10:48. FINDINGS: Function: The oral preparatory phase appears normal, with proper containment. The subsequent oral propulsive phase, pharyngeal phase, and esophageal phase of swallowing also appear normal with all proffered substances. There was flash laryngeal penetration with thin liquid barium consistencies only. No definite tracheal aspiration. There was vallecular pooling. Morphology: No cricopharyngeal bar is identified. No cervical esophageal webs. No Zenker's diverticulum. No strictures. IMPRESSION: Occasional flash laryngeal penetration with thin liquid barium consistencies. Dictated by: Tello Lux M.D. on 03/31/2018 at 11:36 Approved by: Tello Lux M.D. on 03/31/2018 at 11:37
== END ==
PROVIDERS: PCP Family Medicine; Visit Provider Otolaryngology
DX: R13.10 Dysphagia, unspecified (principal)
CPT/HCPCS: 74230; 92611

== ENCOUNTER → 2018-05-06 15:04 | Outpatient (CLI) | payer MEDICARE, OTHER, SELFPAY ==
[2018-04-22 14:22] VITALS: BMI 31.6
== END ==
PROVIDERS: PCP Family Medicine; Visit Provider Otolaryngology
DX: J30.1 Allergic rhinitis due to pollen (principal); J30.89 Other allergic rhinitis; J30.5 Allergic rhinitis due to food
CPT/HCPCS: 86003

== ENCOUNTER → 2018-07-14 09:07 | Outpatient (CLI) | payer MEDICARE, OTHER, SELFPAY ==
[2018-04-22 14:22] VITALS: BMI 31.6
[2018-07-14 09:56] LABS: Add Manual Diff / Slide Review NO; Basophils Absolute Auto 100 /uL (0-100); Basophils Percent Auto 1.1 % (0-2); Eosinophils Absolute Auto 500 /uL (0-450); Eosinophils Percent Auto 5.2 % (2-4); Hematocrit 36.9 % (36-46); Hemoglobin 12.5 g/dL (12.0-16.0); Lymphocytes Absolute Auto 2900 /uL (1100-4500); Lymphocytes Percent Auto 29.6 % (25-40); Mean Corpuscular HGB Conc 33.8 % (30-36); Mean Corpuscular Hemoglobin 30.9 PG (26-34); Mean Corpuscular Volume 91.3 fL (80-100); Monocytes Absolute Auto 600 /uL (0-900); Monocytes Percent Auto 6.1 % (3-14); Neutrophils Absolute Auto 5600 /uL (1500-7000); Platelet Count 202 X10^3/uL (150-400); Red Blood Cell Count 4.05 X10^6/uL (4.0-5.2); Red Cell Distribution Width 14.3 % (11.6-14.8); White Blood Cell Count 9.7 X10^3/uL (4.5-11.0)
[2018-07-14 10:17] LABS: Alanine Aminotransferase 24 IU/L (9-52); Albumin 4.2 g/dL (3.5-5.0); Albumin Globulin Ratio 1.4 (1.0-2.8); Alkaline Phosphatase 40 U/L (38-126); Aspartate Aminotransferase 19 IU/L (14-36); Bilirubin Total 0.5 mg/dL (0.2-1.3); Blood Urea Nitrogen 18 mg/dL (7-17); Calcium 9.5 mg/dL (8.4-10.2); Carbon Dioxide 30 mmol/L (22-32); Chloride 95 mmol/L (98-107); Cholesterol 92 mg/dL (140-199); Estimated Glomerular Filt Rate > 60.0 mL/min (>60); Glucose 111 mg/dL (80-110); HDL Cholesterol 45 mg/dL (40-60); HEMOLYSIS < 15 (0-50); LDL Cholesterol Calculated 27 mg/dL (<100); Potassium 4.2 mmol/L (3.4-5.1); Sodium 135 mmol/L (137-145); Total Protein 7.2 g/dL (6.3-8.2); Triglycerides 102 mg/dL (35-150)
[2018-07-14 11:25] LABS: Thyroid Stimulating Hormone 0.88 uIU/mL (0.47-4.68)
[2018-07-14 11:58] LABS: Creatinine Urine Random 84.3 mg/dL
[2018-07-14 12:03] LABS: Microalbumi Creatinin Ratio Ur 62.8 ug/mg CR (<30); Microalbumin Urine Random 5.3 mg/dL (0-1.6)
== END ==
PROVIDERS: PCP Family Medicine; Visit Provider Family Medicine
DX: E03.9 Hypothyroidism, unspecified (principal); E11.40 Type 2 diabetes mellitus with diabetic neuropathy, unspecified; E11.42 Type 2 diabetes mellitus with diabetic polyneuropathy; E78.2 Mixed hyperlipidemia; I10 Essential (primary) hypertension
CPT/HCPCS: 36415; 80053; 80061; 82043; 82570; 83036; 84443; 85025

== ENCOUNTER 2018-07-22 14:26 | Emergency (ER) | payer MEDICARE, OTHER, SELFPAY ==
[2018-04-22 14:22] VITALS: BMI 31.6
[2018-07-22 14:30] VITALS: BP 109/52; PULSE 67; RESP 15; TEMP 36.5; O2SAT 97
[2018-07-22 14:45] VITALS: BP 109/52; PULSE 68; RESP 13; O2SAT 96
--- NOTE | 2018-07-22 14:49 | ED.SYNCOPE ---
HPI - Syncope <Priti Ross PA-C - Last Filed: 07/22/18 22:11> General Chief Complaint: Syncope Stated Complaint: Near Syncope Time Seen by Provider: 07/22/18 14:49 Source: patient Mode of arrival: ambulatory Limitations: no limitations History of Present Illness HPI narrative: The UA at this 73-year-old female had a syncopal episode while out shopping. She states that she felt dizzy, which she describes as overall feeling ?weak, like I could not stand?. She told her daughter to get her a chair but there was no place to sit. She was holding on to a bar or rack, fell backwards onto her low back and hit her head on a magazine rack on the way down. She does not remember anything after feeling weak, however her daughter states that she passed out for maybe 30 seconds, then was dazed afterwards, not talking much for a few minutes, then was able to sit up. She states that she had been feeling somewhat nauseated today but has not had any vomiting and has been eating and drinking normally. She has not had any chest pain, palpitations, or dyspnea. She has not any abdominal pain. She states that she always has some intermittent diarrhea, but no bowel changes. She denies any urinary symptoms or hematuria. She denies any recent illness or fever. After falling, she states that she has had no headache or vision change. She denies any pain in her neck. She states that her nausea is better now than it was earlier (given something by EMS for this). She states that it is not unusual for her to have similar episodes of dizziness like this but she is able to sit down and it will pass. She denies any recent medication changes or low blood sugars. Related Data Home Medications Medication Instructions Recorded Confirmed citalopram 20 mg PO QAM 07/22/18 07/22/18 hydrochlorothiazide 25 mg PO QAM 07/22/18 07/22/18 losartan 50 mg PO QAM 07/22/18 07/22/18 metoprolol succinate [Toprol XL] 50 mg PO QAM 07/22/18 07/22/18 omeprazole 40 mg PO QAM 07/22/18 07/22/18 simvastatin 80 mg PO BEDTIME 07/22/18 07/22/18 Previous Rx's Medication Instructions Recorded gabapentin 300 mg capsule 300 mg PO BID #60 cap 06/30/18 levothyroxine 75 mcg tablet 75 mcg PO QAM #30 tab 06/30/18 metformin 1,000 mg tablet 1,000 mg PO BID #60 tab 06/30/18 Allergies Allergy/AdvReac Type Severity Reaction Status Date / Time Penicillins Allergy Unknown Verified 07/22/18 14:38 sulfamethoxazole Allergy Unknown Verified 07/22/18 14:38 [From BACTRIM] trimethoprim [From BACTRIM] Allergy Unknown Verified 07/22/18 14:38 Review of Systems <Priti Ross PA-C - Last Filed: 07/22/18 22:11> Review of Systems ROS Unobtainable: All systems reviewed & are unremarkable except as noted in HPI and below PFSH <Priti Ross PA-C - Last Filed: 07/22/18 22:11> Medical History Ankle pain (Chronic Unknown) Colitis (Chronic Unknown) Depression (Chronic Unknown) Diabetes (Chronic Unknown) Foot pain (Chronic Unknown) Hyperlipidemia (Chronic ~2009) Hypertension (Chronic Unknown) Hypothyroidism (Chronic Unknown) Shoulder pain (Chronic Unknown) Surgical History Hx of shoulder surgery (Resolved 2003) Status post hysterectomy (~1980) Status post knee surgery (2005) Family History (Updated 11/22/17 @ 10:09 by Danyelle Brian LPN) Sister Age: 81 Cerebrovascular accident (CVA), unspecified mechanism Brother Cancer Mental health problem Mother No problems noted. Social History household members: other Smoking Status: Never smoker alcohol intake: never Family History Sister Age: 81 Cerebrovascular accident (CVA), unspecified mechanism Brother Cancer Mental health problem Mother No problems noted. Social History household members: other Smoking Status: Never smoker alcohol intake: never Exam <Priti Ross PA-C - Last Filed: 07/22/18 22:11> Narrative Exam Narrative: GENERAL APPEARANCE: Patient sitting comfortably, in no distress. HEENT: NC/AT, PERRL, EOMI, normal TMs and oropharynx NECK: Supple LUNGS: Clear to auscultation bilaterally. HEART: Rate and rhythm regular without murmur, normal S1 and S2, no S3 or S4. ABDOMEN: Soft, NT, ND, + BS x 4 quadrants NEUROLOGIC: Alert and oriented, normal speech and coordination. MUSCULOSKELETAL: Full Csp AROM, no tenderness over the cervical spine or paraspinal musculature. No tenderness over the thoracic spine. Moderate tenderness over the the mid to inferior lumbar spine and the lumbar musculature. No tenderness over the hips. Strength 5/5 bilateral hip flexors, negative straight leg raise Initial Vital Signs Initial Vital Signs: Vital Signs Temperature 97.7 F 07/22/18 14:30 Pulse Rate 67 07/22/18 14:30 Respiratory Rate 15 07/22/18 14:30 Blood Pressure 109/52 L 07/22/18 14:30 Pulse Oximetry 97 07/22/18 14:30 <Fortino Short DO - Last Filed: 07/23/18 07:05> Initial Vital Signs Initial Vital Signs: Vital Signs Temperature 97.7 F 07/22/18 14:30 Pulse Rate 67 07/22/18 14:30 Respiratory Rate 15 07/22/18 14:30 Blood Pressure 109/52 L 07/22/18 14:30 Pulse Oximetry 97 07/22/18 14:30 Course <Priti Ross PA-C - Last Filed: 07/22/18 22:11> Additional Information: Patient is feeling better at the time of discharge. She does have some postural hypotension that improves a couple of minutes after position change, and she has been having ongoing disease/presyncopal episodes similar to today. She was not able to get to a chair today like she has been able to in the past. She takes all of her blood pressure medications in the morning. Advised to cut these in half and monitor at home. She is agreeable and will follow up as planned with her PCP in the next week, wishes to return home. Agreed to return if any acutely worsening symptoms. Reviewed evaluation with attending physician Dr. Short who is agreeable with plan to d/c home Orders Ordered: ED Orders 07/22/18 14:25 Complete Blood Count AUTO DIFF Stat Comprehensive Metabolic Panel Stat Troponin & CK Cardiac Panel Stat 07/22/18 14:41 EKG-12 Lead Stat 07/22/18 15:02 CT head/brain wo con Stat CT lumbar spine wo con Stat Vital Signs - 8 hr 07/22/18 14:30 07/22/18 14:45 07/22/18 16:00 Temperature 97.7 F Pulse Rate 67 68 68 Pulse Rate [Orthostatic Lying] 68 Pulse Rate [Orthostatic Sitting] 68 Pulse Rate [Orthostatic Standing] 67 Respiratory Rate 15 13 16 Blood Pressure 109/52 L Blood Pressure [Orthostatic Lying] 109/51 L Blood Pressure [Orthostatic Sitting] 117/54 L Blood Pressure [Orthostatic Standing] 87/54 L Blood Pressure [Right Arm] 109/52 L 87/54 L Pulse Oximetry 97 96 100 07/22/18 16:15 07/22/18 16:24 Temperature Pulse Rate 74 Pulse Rate [Orthostatic Lying] Pulse Rate [Orthostatic Sitting] 70 Pulse Rate [Orthostatic Standing] 69 Respiratory Rate 18 Blood Pressure Blood Pressure [Orthostatic Lying] Blood Pressure [Orthostatic Sitting] 110/56 L Blood Pressure [Orthostatic Standing] 97/64 Blood Pressure [Right Arm] 97/64 Pulse Oximetry 99 <Fortino Short, - Last Filed: 07/23/18 07:05> Orders Ordered: ED Orders 07/22/18 14:25 Complete Blood Count AUTO DIFF Stat Comprehensive Metabolic Panel Stat Troponin & CK Cardiac Panel Stat 07/22/18 14:41 EKG-12 Lead Stat 07/22/18 15:02 CT head/brain wo con Stat CT lumbar spine wo con Stat Vital Signs - 8 hr 07/22/18 14:30 07/22/18 14:45 07/22/18 16:00 Temperature 97.7 F Pulse Rate 67 68 68 Pulse Rate [Orthostatic Lying] 68 Pulse Rate [Orthostatic Sitting] 68 Pulse Rate [Orthostatic Standing] 67 Respiratory Rate 15 13 16 Blood Pressure 109/52 L Blood Pressure [Orthostatic Lying] 109/51 L Blood Pressure [Orthostatic Sitting] 117/54 L Blood Pressure [Orthostatic Standing] 87/54 L Blood Pressure [Right Arm] 109/52 L 87/54 L Pulse Oximetry 97 96 100 07/22/18 16:15 07/22/18 16:24 Temperature Pulse Rate 74 Pulse Rate [Orthostatic Lying] Pulse Rate [Orthostatic Sitting] 70 Pulse Rate [Orthostatic Standing] 69 Respiratory Rate 18 Blood Pressure Blood Pressure [Orthostatic Lying] Blood Pressure [Orthostatic Sitting] 110/56 L Blood Pressure [Orthostatic Standing] 97/64 Blood Pressure [Right Arm] 97/64 Pulse Oximetry 99 MDM - Syncope <Priti Ross PA-C - Last Filed: 07/22/18 22:11> Lab Data Attestation: I reviewed the patient's lab results. Result diagrams: 07/22/18 14:25 07/22/18 14:25 Lab Results 07/22/18 07/22/18 Range/Units 14:25 14:25 WBC 13.3 H (4.5-11.0) X10^3/uL RBC 4.19 (4.0-5.2) X10^6/uL Hgb 12.8 (12.0-16.0) g/dL Hct 38.4 (36-46) % MCV 91.7 (80-100) fL MCH 30.6 (26-34) PG MCHC 33.3 (30-36) % RDW 14.2 (11.6-14.8) % Plt Count 204 (150-400) X10^3/uL Neut % (Auto) 61.9 (50-75) % Lymph % (Auto) 27.4 (25-40) % [place] % (Auto) 5.7 (3-14) % Eos % (Auto) 3.8 (2-4) % Baso % (Auto) 1.2 (0-2) % Neut # (Auto) 8200 H (6623-4754) /uL Lymph # (Auto) 3600 (7574-1091) /uL [place] # (Auto) 800 (0-900) /uL Eos # (Auto) 500 H (0-450) /uL Baso # (Auto) 200 H (0-100) /uL Sodium 135 L (137-145) mmol/L Potassium 4.4 (3.4-5.1) mmol/L Chloride 97 L (98-107) mmol/L Carbon Dioxide 21 L (22-32) mmol/L BUN 27 H (7-17) mg/dL Creatinine 1.10 H (0.52-1.04) mg/dL Estimated GFR 48.6 L (>60) mL/min BUN/Creatinine Ratio 24.5 H (6-22) Glucose 135 H (80-110) mg/dL Calcium 9.4 (8.4-10.2) mg/dL Total Bilirubin 0.6 (0.2-1.3) mg/dL AST 28 (14-36) IU/L ALT 17 (9-52) IU/L Alkaline Phosphatase 41 (38-126) U/L Total Creatine Kinase < 20 L (30-135) U/L CK-MB (CK-2) TNP CK-MB (CK-2) Rel Index TNP Troponin I < 0.012 (0.01-0.034) ng/mL Total Protein 7.7 (6.3-8.2) g/dL Albumin 4.6 (3.5-5.0) g/dL Globulin 3.1 (1.7-4.1) g/dL Albumin/Globulin Ratio 1.5 (1.0-2.8) Point of Care Testing Glucose POC 125 Imaging Data lumbar: Radiologist's impression: [address] [address] [address] Scan Report Signed Patient: Eusebia Velazquez AMR#: [id number] : 4Acct:[id number] Age/Sex: 73 / FDate of Service: 07/22/18 Loc: ED Accession Number: [id number] Procedure: CT lumbar spine wo con Ordering Provider: Priti Ross P.A-C PROCEDURE: CT LUMBAR SPINE WO CON INDICATIONS: fall onto LB, pain TECHNIQUE: Noncontrast 3 mm thick sections acquired from the T12 level to the sacrum. Sagittal and coronal reformats were constructed. For radiation dose reduction, the following was used: automated exposure control. COMPARISON: None. FINDINGS: Image quality: Excellent. Bones: There is normal bony alignment. No acute vertebral body compression fractures. No suspicious lytic or blastic bony lesions. Central spinal caliber is of normal overall caliber. No pars defects. The degenerative disc height reduction and facet osteoarthritis present is moderate in overall severity and most pronounced at L2-3 and L5-S1. At these 2 levels there is a moderate degree of spinal stenosis and facet hyperostosis contributes to the presence of moderately severe to severe spinal and foraminal stenosis at L4-5 and L5-S1. Soft tissues: No retroperitoneal masses or hematomas. Visualized aorta is normal in caliber. IMPRESSION: Chronic degenerative disc disease and facet osteoarthritis is present along the lumbosacral spine, with both spinal and foraminal stenosis at multiple levels but no fracture or traumatic subluxation found. Dictated by: Earle Alford M.D. on 07/22/2018 at 15:29 Approved by: Earle Alford M.D. on 07/22/2018 at 15:31 CT scan - head: Radiologist's impression: [address] [address] [address] Scan Report Signed Patient: Eusebia Velazquez AMR#: [id number] : 4Acct:[id number] Age/Sex: 73 / FDate of Service: 07/22/18 Loc: ED Accession Number: [id number] Procedure: CT head/brain wo con Ordering Provider: Priti Ross P.A-C PROCEDURE: CT HEAD/BRAIN WO CON INDICATIONS: fall, head contusion TECHNIQUE: Noncontrast 4.5 mm thick angled axial sections acquired from the foramen magnum to the vertex, with coronal and sagittal reformats. For radiation dose reduction, the following was used: automated exposure control, adjustment of mA and/or kV according to patient size. COMPARISON: [facility], CT, CT HEAD/BRAIN WO CON, 11/01/2017, 9:17. [facility], CT, HEAD WITHOUT CONTRAST, 03/28/2009, 10:21. FINDINGS: Image quality: Excellent. CSF spaces: Basal cisterns are patent. No extra-axial fluid collections. The ventricles are symmetric in size and shape. Brain: No intracranial bleeds or masses. There is cerebral volume loss for age, with resultant ventricular and sulcal prominence. There are periventricular and deep white matter chronic small vessel ischemic changes. There is intracranial internal carotid artery atherosclerosis. Skull and face: Calvarium and visualized facial bones appear intact, without suspicious lesions. Sinuses: Visualized sinuses and mastoids are clear. IMPRESSION: No trauma found. Dictated by: Earle Alford M.D. on 07/22/2018 at 15:28 Approved by: Earle Alford M.D. on 07/22/2018 at 15:28 ECG Data Attestation: I personally reviewed and interpreted this ECG as follows: (Normal sinus rhythm with rate 65, normal axis) <Fortino Lanker, DO - Last Filed: 07/23/18 07:05> Lab Data Lab Results 07/22/18 07/22/18 Range/Units 14:25 14:25 WBC 13.3 H (4.5-11.0) X10^3/uL RBC 4.19 (4.0-5.2) X10^6/uL Hgb 12.8 (12.0-16.0) g/dL Hct 38.4 (36-46) % MCV 91.7 (80-100) fL MCH 30.6 (26-34) PG MCHC 33.3 (30-36) % RDW 14.2 (11.6-14.8) % Plt Count 204 (150-400) X10^3/uL Neut % (Auto) 61.9 (50-75) % Lymph % (Auto) 27.4 (25-40) % [place] % (Auto) 5.7 (3-14) % Eos % (Auto) 3.8 (2-4) % Baso % (Auto) 1.2 (0-2) % Neut # (Auto) 8200 H (5495-5800) /uL Lymph # (Auto) 3600 (7930-2598) /uL [place] # (Auto) 800 (0-900) /uL Eos # (Auto) 500 H (0-450) /uL Baso # (Auto) 200 H (0-100) /uL Sodium 135 L (137-145) mmol/L Potassium 4.4 (3.4-5.1) mmol/L Chloride 97 L (98-107) mmol/L Carbon Dioxide 21 L (22-32) mmol/L BUN 27 H (7-17) mg/dL Creatinine 1.10 H (0.52-1.04) mg/dL Estimated GFR 48.6 L (>60) mL/min BUN/Creatinine Ratio 24.5 H (6-22) Glucose 135 H (80-110) mg/dL Calcium 9.4 (8.4-10.2) mg/dL Total Bilirubin 0.6 (0.2-1.3) mg/dL AST 28 (14-36) IU/L ALT 17 (9-52) IU/L Alkaline Phosphatase 41 (38-126) U/L Total Creatine Kinase < 20 L (30-135) U/L CK-MB (CK-2) TNP CK-MB (CK-2) Rel Index TNP Troponin I < 0.012 (0.01-0.034) ng/mL Total Protein 7.7 (6.3-8.2) g/dL Albumin 4.6 (3.5-5.0) g/dL Globulin 3.1 (1.7-4.1) g/dL Albumin/Globulin Ratio 1.5 (1.0-2.8) Point of Care Testing Glucose POC 125 Discharge Plan Departure Patient Disposition: Home Clinical Impression: Weakness, Syncope due to orthostatic hypotension Discharge Date/Time: 07/22/18 16:51 Interventions: ED Discharge Assessment Last Done: 07/22/18 16:51 Instructions: DI for Syncope in Adults (Fainting), DI for Hypotension Activity Restrictions/Additional Instructions: We noticed that your blood pressures are low today, especially when you change positions, i.e. moving from sitting to standing. This does improve when you change positions slowly and wait a couple of minutes, i.e. sitting for a bit before you stand up. Since you mention that you have been having dizzy episodes for some time now, I suspect that this is the reason. The reason you fainted today is likely because you could not sit down in time as you usually do. Since you are feeling better and walking well now, it is reasonable for you to monitor at home. Your lab work and radiology studies did not show any acute problems, i.e. fractures or bleeding in your brain. We talked with her pharmacy and you have already taken your 3 medicines that affect her blood pressure today (hydrochlorothiazide, losartan, and metoprolol). We have given you your medicine list so you all know what these look like. Starting tomorrow morning, please take 1/2 of each of these tablets. Continue your other medicines as usual. I suggest using a seated walker or cane when you are walking since you have had unsteadiness and find that you need to sit down quickly. It will be helpful to see if you are feeling better with reducing these medicines when you see your PCP next week. If not, as we talked about you may need further testing, i.e. heart monitoring. You should return in the interim if you have any acutely worsening symptoms again, i.e. recurrent fainting, or new symptoms such as chest pain or difficulty breathing. Prescriptions: No Action metformin 1,000 mg tablet 1,000 mg PO BID Qty: 60 RF: 0 levothyroxine [Synthroid] 75 mcg tablet 75 mcg PO QAM Qty: 30 RF: 0 gabapentin [Neurontin] 300 mg capsule 300 mg PO BID Qty: 60 RF: 0 losartan 50 mg tablet 50 mg PO QAM RF: 0 simvastatin 80 mg tablet 80 mg PO BEDTIME RF: 0 citalopram 20 mg tablet 20 mg PO QAM RF: 0 hydrochlorothiazide 25 mg tablet 25 mg PO QAM RF: 0 metoprolol succinate [Toprol XL] 50 mg tablet extended release 24 hr 50 mg PO QAM RF: 0 omeprazole 40 mg capsule,delayed release(DR/EC) 40 mg PO QAM RF: 0 Referrals: Anusha Felix DO [Primary Care Provider] - <Fortino Short DO - Last Filed: 07/23/18 07:05> Cosign ED Attending Jonas Attestation: I was available for consultation during this patient's emergency department encounter
[2018-07-22 14:56] LABS: Add Manual Diff / Slide Review NO; Basophils Absolute Auto 200 /uL (0-100); Basophils Percent Auto 1.2 % (0-2); Eosinophils Absolute Auto 500 /uL (0-450); Eosinophils Percent Auto 3.8 % (2-4); Hematocrit 38.4 % (36-46); Hemoglobin 12.8 g/dL (12.0-16.0); Lymphocytes Absolute Auto 3600 /uL (1100-4500); Lymphocytes Percent Auto 27.4 % (25-40); Mean Corpuscular HGB Conc 33.3 % (30-36); Mean Corpuscular Hemoglobin 30.6 PG (26-34); Mean Corpuscular Volume 91.7 fL (80-100); Monocytes Absolute Auto 800 /uL (0-900); Monocytes Percent Auto 5.7 % (3-14); Neutrophils Absolute Auto 8200 /uL (1500-7000); Neutrophils Percent Auto 61.9 % (50-75); Platelet Count 204 X10^3/uL (150-400); Red Blood Cell Count 4.19 X10^6/uL (4.0-5.2); Red Cell Distribution Width 14.2 % (11.6-14.8); White Blood Cell Count 13.3 X10^3/uL (4.5-11.0)
[2018-07-22 15:02] LABS: Alanine Aminotransferase 17 IU/L (9-52); Albumin 4.6 g/dL (3.5-5.0); Albumin Globulin Ratio 1.5 (1.0-2.8); Alkaline Phosphatase 41 U/L (38-126); Aspartate Aminotransferase 28 IU/L (14-36); BUN Creatinine Ratio 24.5 (6-22); Bilirubin Total 0.6 mg/dL (0.2-1.3); Blood Urea Nitrogen 27 mg/dL (7-17); Calcium 9.4 mg/dL (8.4-10.2); Carbon Dioxide 21 mmol/L (22-32); Chloride 97 mmol/L (98-107); Creatine Kinase < 20 U/L (30-135); Estimated Glomerular Filt Rate 48.6 mL/min (>60); Globulin 3.1 g/dL (1.7-4.1); Glucose 135 mg/dL (80-110); HEMOLYSIS 45 (0-50); Potassium 4.4 mmol/L (3.4-5.1); Sodium 135 mmol/L (137-145); Total Protein 7.7 g/dL (6.3-8.2)
--- NOTE | 2018-07-22 15:02 | DI.CT.S_ITS ---
PROCEDURE: CT LUMBAR SPINE WO CON INDICATIONS: fall onto LB, pain TECHNIQUE: Noncontrast 3 mm thick sections acquired from the T12 level to the sacrum. Sagittal and coronal reformats were constructed. For radiation dose reduction, the following was used: automated exposure control. COMPARISON: None. FINDINGS: Image quality: Excellent. Bones: There is normal bony alignment. No acute vertebral body compression fractures. No suspicious lytic or blastic bony lesions. Central spinal caliber is of normal overall caliber. No pars defects. The degenerative disc height reduction and facet osteoarthritis present is moderate in overall severity and most pronounced at L2-3 and L5-S1. At these 2 levels there is a moderate degree of spinal stenosis and facet hyperostosis contributes to the presence of moderately severe to severe spinal and foraminal stenosis at L4-5 and L5-S1. Soft tissues: No retroperitoneal masses or hematomas. Visualized aorta is normal in caliber. IMPRESSION: Chronic degenerative disc disease and facet osteoarthritis is present along the lumbosacral spine, with both spinal and foraminal stenosis at multiple levels but no fracture or traumatic subluxation found. Dictated by: Earle Alford M.D. on 07/22/2018 at 15:29 Approved by: Earle Alford M.D. on 07/22/2018 at 15:31
--- NOTE | 2018-07-22 15:02 | DI.CT.S_ITS ---
PROCEDURE: CT HEAD/BRAIN WO CON INDICATIONS: fall, head contusion TECHNIQUE: Noncontrast 4.5 mm thick angled axial sections acquired from the foramen magnum to the vertex, with coronal and sagittal reformats. For radiation dose reduction, the following was used: automated exposure control, adjustment of mA and/or kV according to patient size. COMPARISON: [facility], CT, CT HEAD/BRAIN WO CON, 11/01/2017, 9:17. [facility], CT, HEAD WITHOUT CONTRAST, 03/28/2009, 10:21. FINDINGS: Image quality: Excellent. CSF spaces: Basal cisterns are patent. No extra-axial fluid collections. The ventricles are symmetric in size and shape. Brain: No intracranial bleeds or masses. There is cerebral volume loss for age, with resultant ventricular and sulcal prominence. There are periventricular and deep white matter chronic small vessel ischemic changes. There is intracranial internal carotid artery atherosclerosis. Skull and face: Calvarium and visualized facial bones appear intact, without suspicious lesions. Sinuses: Visualized sinuses and mastoids are clear. IMPRESSION: No trauma found. Dictated by: Earle Alford M.D. on 07/22/2018 at 15:28 Approved by: Earle Alford M.D. on 07/22/2018 at 15:28
[2018-07-22 15:14] LABS: Troponin I < 0.012 ng/mL (0.01-0.034)
--- NOTE | 2018-07-22 15:18 | ED_ITS ---
HPI - Syncope <Priti Ross PA-C - Last Filed: 07/22/18 22:11> General Chief Complaint: Syncope Stated Complaint: Near Syncope Time Seen by Provider: 07/22/18 14:49 Source: patient Mode of arrival: ambulatory Limitations: no limitations History of Present Illness HPI narrative: The UA at this 73-year-old female had a syncopal episode while out shopping. She states that she felt dizzy, which she describes as overall feeling ?weak, like I could not stand?. She told her daughter to get her a chair but there was no place to sit. She was holding on to a bar or rack, fell backwards onto her low back and hit her head on a magazine rack on the way down. She does not remember anything after feeling weak, however her daughter states that she passed out for maybe 30 seconds, then was dazed afterwards, not talking much for a few minutes, then was able to sit up. She states that she had been feeling somewhat nauseated today but has not had any vomiting and has been eating and drinking normally. She has not had any chest pain, palpitations, or dyspnea. She has not any abdominal pain. She states that she always has some intermittent diarrhea, but no bowel changes. She denies any urinary symptoms or hematuria. She denies any recent illness or fever. After falling, she states that she has had no headache or vision change. She denies any pain in her neck. She states that her nausea is better now than it was earlier (given something by EMS for this). She states that it is not unusual for her to have similar episodes of dizziness like this but she is able to sit down and it will pass. She denies any recent medication changes or low blood sugars. Related Data Home Medications Medication Instructions Recorded Confirmed citalopram 20 mg PO QAM 07/22/18 07/22/18 hydrochlorothiazide 25 mg PO QAM 07/22/18 07/22/18 losartan 50 mg PO QAM 07/22/18 07/22/18 metoprolol succinate [Toprol XL] 50 mg PO QAM 07/22/18 07/22/18 omeprazole 40 mg PO QAM 07/22/18 07/22/18 simvastatin 80 mg PO BEDTIME 07/22/18 07/22/18 Previous Rx's Medication Instructions Recorded gabapentin 300 mg capsule 300 mg PO BID #60 cap 06/30/18 levothyroxine 75 mcg tablet 75 mcg PO QAM #30 tab 06/30/18 metformin 1,000 mg tablet 1,000 mg PO BID #60 tab 06/30/18 Allergies Allergy/AdvReac Type Severity Reaction Status Date / Time Penicillins Allergy Unknown Verified 07/22/18 14:38 sulfamethoxazole Allergy Unknown Verified 07/22/18 14:38 [From BACTRIM] trimethoprim [From BACTRIM] Allergy Unknown Verified 07/22/18 14:38 Review of Systems <Priti Ross PA-C - Last Filed: 07/22/18 22:11> Review of Systems ROS Unobtainable: All systems reviewed & are unremarkable except as noted in HPI and below PFSH <Priti Ross PA-C - Last Filed: 07/22/18 22:11> Medical History Ankle pain (Chronic Unknown) Colitis (Chronic Unknown) Depression (Chronic Unknown) Diabetes (Chronic Unknown) Foot pain (Chronic Unknown) Hyperlipidemia (Chronic ~2009) Hypertension (Chronic Unknown) Hypothyroidism (Chronic Unknown) Shoulder pain (Chronic Unknown) Surgical History Hx of shoulder surgery (Resolved 2003) Status post hysterectomy (~1980) Status post knee surgery (2005) Family History (Updated 11/22/17 @ 10:09 by Danyelle Brian LPN) Sister Age: 81 Cerebrovascular accident (CVA), unspecified mechanism Brother Cancer Mental health problem Mother No problems noted. Social History household members: other Smoking Status: Never smoker alcohol intake: never Family History Sister Age: 81 Cerebrovascular accident (CVA), unspecified mechanism Brother Cancer Mental health problem Mother No problems noted. Social History household members: other Smoking Status: Never smoker alcohol intake: never Exam <Priti Ross PA-C - Last Filed: 07/22/18 22:11> Narrative Exam Narrative: GENERAL APPEARANCE: Patient sitting comfortably, in no distress. HEENT: NC/AT, PERRL, EOMI, normal TMs and oropharynx NECK: Supple LUNGS: Clear to auscultation bilaterally. HEART: Rate and rhythm regular without murmur, normal S1 and S2, no S3 or S4. ABDOMEN: Soft, NT, ND, + BS x 4 quadrants NEUROLOGIC: Alert and oriented, normal speech and coordination. MUSCULOSKELETAL: Full Csp AROM, no tenderness over the cervical spine or paraspinal musculature. No tenderness over the thoracic spine. Moderate tenderness over the the mid to inferior lumbar spine and the lumbar musculature. No tenderness over the hips. Strength 5/5 bilateral hip flexors, negative straight leg raise Initial Vital Signs Initial Vital Signs: Vital Signs Temperature 97.7 F 07/22/18 14:30 Pulse Rate 67 07/22/18 14:30 Respiratory Rate 15 07/22/18 14:30 Blood Pressure 109/52 L 07/22/18 14:30 Pulse Oximetry 97 07/22/18 14:30 <Fortino Short DO - Last Filed: 07/23/18 07:05> Initial Vital Signs Initial Vital Signs: Vital Signs Temperature 97.7 F 07/22/18 14:30 Pulse Rate 67 07/22/18 14:30 Respiratory Rate 15 07/22/18 14:30 Blood Pressure 109/52 L 07/22/18 14:30 Pulse Oximetry 97 07/22/18 14:30 Course <Priti Ross PA-C - Last Filed: 07/22/18 22:11> Additional Information: Patient is feeling better at the time of discharge. She does have some postural hypotension that improves a couple of minutes after position change, and she has been having ongoing disease/presyncopal episodes similar to today. She was not able to get to a chair today like she has been able to in the past. She takes all of her blood pressure medications in the morning. Advised to cut these in half and monitor at home. She is agreeable and will follow up as planned with her PCP in the next week, wishes to return home. Agreed to return if any acutely worsening symptoms. Reviewed evaluation with attending physician Dr. Short who is agreeable with plan to d/c home Orders Ordered: ED Orders 07/22/18 14:25 Complete Blood Count AUTO DIFF Stat Comprehensive Metabolic Panel Stat Troponin & CK Cardiac Panel Stat 07/22/18 14:41 EKG-12 Lead Stat 07/22/18 15:02 CT head/brain wo con Stat CT lumbar spine wo con Stat Vital Signs - 8 hr 07/22/18 14:30 07/22/18 14:45 07/22/18 16:00 Temperature 97.7 F Pulse Rate 67 68 68 Pulse Rate [Orthostatic Lying] 68 Pulse Rate [Orthostatic Sitting] 68 Pulse Rate [Orthostatic Standing] 67 Respiratory Rate 15 13 16 Blood Pressure 109/52 L Blood Pressure [Orthostatic Lying] 109/51 L Blood Pressure [Orthostatic Sitting] 117/54 L Blood Pressure [Orthostatic Standing] 87/54 L Blood Pressure [Right Arm] 109/52 L 87/54 L Pulse Oximetry 97 96 100 07/22/18 16:15 07/22/18 16:24 Temperature Pulse Rate 74 Pulse Rate [Orthostatic Lying] Pulse Rate [Orthostatic Sitting] 70 Pulse Rate [Orthostatic Standing] 69 Respiratory Rate 18 Blood Pressure Blood Pressure [Orthostatic Lying] Blood Pressure [Orthostatic Sitting] 110/56 L Blood Pressure [Orthostatic Standing] 97/64 Blood Pressure [Right Arm] 97/64 Pulse Oximetry 99 <Fortino Short, - Last Filed: 07/23/18 07:05> Orders Ordered: ED Orders 07/22/18 14:25 Complete Blood Count AUTO DIFF Stat Comprehensive Metabolic Panel Stat Troponin & CK Cardiac Panel Stat 07/22/18 14:41 EKG-12 Lead Stat 07/22/18 15:02 CT head/brain wo con Stat CT lumbar spine wo con Stat Vital Signs - 8 hr 07/22/18 14:30 07/22/18 14:45 07/22/18 16:00 Temperature 97.7 F Pulse Rate 67 68 68 Pulse Rate [Orthostatic Lying] 68 Pulse Rate [Orthostatic Sitting] 68 Pulse Rate [Orthostatic Standing] 67 Respiratory Rate 15 13 16 Blood Pressure 109/52 L Blood Pressure [Orthostatic Lying] 109/51 L Blood Pressure [Orthostatic Sitting] 117/54 L Blood Pressure [Orthostatic Standing] 87/54 L Blood Pressure [Right Arm] 109/52 L 87/54 L Pulse Oximetry 97 96 100 07/22/18 16:15 07/22/18 16:24 Temperature Pulse Rate 74 Pulse Rate [Orthostatic Lying] Pulse Rate [Orthostatic Sitting] 70 Pulse Rate [Orthostatic Standing] 69 Respiratory Rate 18 Blood Pressure Blood Pressure [Orthostatic Lying] Blood Pressure [Orthostatic Sitting] 110/56 L Blood Pressure [Orthostatic Standing] 97/64 Blood Pressure [Right Arm] 97/64 Pulse Oximetry 99 MDM - Syncope <Priti Ross PA-C - Last Filed: 07/22/18 22:11> Lab Data Attestation: I reviewed the patient's lab results. Result diagrams: 07/22/18 14:25 07/22/18 14:25 Lab Results 07/22/18 07/22/18 Range/Units 14:25 14:25 WBC 13.3 H (4.5-11.0) X10^3/uL RBC 4.19 (4.0-5.2) X10^6/uL Hgb 12.8 (12.0-16.0) g/dL Hct 38.4 (36-46) % MCV 91.7 (80-100) fL MCH 30.6 (26-34) PG MCHC 33.3 (30-36) % RDW 14.2 (11.6-14.8) % Plt Count 204 (150-400) X10^3/uL Neut % (Auto) 61.9 (50-75) % Lymph % (Auto) 27.4 (25-40) % [place] % (Auto) 5.7 (3-14) % Eos % (Auto) 3.8 (2-4) % Baso % (Auto) 1.2 (0-2) % Neut # (Auto) 8200 H (1272-8474) /uL Lymph # (Auto) 3600 (8458-9925) /uL [place] # (Auto) 800 (0-900) /uL Eos # (Auto) 500 H (0-450) /uL Baso # (Auto) 200 H (0-100) /uL Sodium 135 L (137-145) mmol/L Potassium 4.4 (3.4-5.1) mmol/L Chloride 97 L (98-107) mmol/L Carbon Dioxide 21 L (22-32) mmol/L BUN 27 H (7-17) mg/dL Creatinine 1.10 H (0.52-1.04) mg/dL Estimated GFR 48.6 L (>60) mL/min BUN/Creatinine Ratio 24.5 H (6-22) Glucose 135 H (80-110) mg/dL Calcium 9.4 (8.4-10.2) mg/dL Total Bilirubin 0.6 (0.2-1.3) mg/dL AST 28 (14-36) IU/L ALT 17 (9-52) IU/L Alkaline Phosphatase 41 (38-126) U/L Total Creatine Kinase < 20 L (30-135) U/L CK-MB (CK-2) TNP CK-MB (CK-2) Rel Index TNP Troponin I < 0.012 (0.01-0.034) ng/mL Total Protein 7.7 (6.3-8.2) g/dL Albumin 4.6 (3.5-5.0) g/dL Globulin 3.1 (1.7-4.1) g/dL Albumin/Globulin Ratio 1.5 (1.0-2.8) Point of Care Testing Glucose POC 125 Imaging Data lumbar: Radiologist's impression: [address] [address] [address] Scan Report Signed Patient: Eusebia Velazquez AMR#: [id number] : 4Acct:[id number] Age/Sex: 73 / FDate of Service: 07/22/18 Loc: ED Accession Number: [id number] Procedure: CT lumbar spine wo con Ordering Provider: Priti Ross P.A-C PROCEDURE: CT LUMBAR SPINE WO CON INDICATIONS: fall onto LB, pain TECHNIQUE: Noncontrast 3 mm thick sections acquired from the T12 level to the sacrum. Sagittal and coronal reformats were constructed. For radiation dose reduction, the following was used: automated exposure control. COMPARISON: None. FINDINGS: Image quality: Excellent. Bones: There is normal bony alignment. No acute vertebral body compression fractures. No suspicious lytic or blastic bony lesions. Central spinal caliber is of normal overall caliber. No pars defects. The degenerative disc height reduction and facet osteoarthritis present is moderate in overall severity and most pronounced at L2-3 and L5-S1. At these 2 levels there is a moderate degree of spinal stenosis and facet hyperostosis contributes to the presence of moderately severe to severe spinal and foraminal stenosis at L4-5 and L5-S1. Soft tissues: No retroperitoneal masses or hematomas. Visualized aorta is normal in caliber. IMPRESSION: Chronic degenerative disc disease and facet osteoarthritis is present along the lumbosacral spine, with both spinal and foraminal stenosis at multiple levels but no fracture or traumatic subluxation found. Dictated by: Earle Alford M.D. on 07/22/2018 at 15:29 Approved by: Earle Alford M.D. on 07/22/2018 at 15:31 CT scan - head: Radiologist's impression: [address] [address] [address] Scan Report Signed Patient: Eusebia Velazquez AMR#: [id number] : 4Acct:[id number] Age/Sex: 73 / FDate of Service: 07/22/18 Loc: ED Accession Number: [id number] Procedure: CT head/brain wo con Ordering Provider: Priti Ross P.A-C PROCEDURE: CT HEAD/BRAIN WO CON INDICATIONS: fall, head contusion TECHNIQUE: Noncontrast 4.5 mm thick angled axial sections acquired from the foramen magnum to the vertex, with coronal and sagittal reformats. For radiation dose reduction, the following was used: automated exposure control, adjustment of mA and/or kV according to patient size. COMPARISON: [facility], CT, CT HEAD/BRAIN WO CON, 11/01/2017, 9:17. [facility], CT, HEAD WITHOUT CONTRAST, 03/28/2009, 10:21. FINDINGS: Image quality: Excellent. CSF spaces: Basal cisterns are patent. No extra-axial fluid collections. The ventricles are symmetric in size and shape. Brain: No intracranial bleeds or masses. There is cerebral volume loss for age, with resultant ventricular and sulcal prominence. There are periventricular and deep white matter chronic small vessel ischemic changes. There is intracranial internal carotid artery atherosclerosis. Skull and face: Calvarium and visualized facial bones appear intact, without suspicious lesions. Sinuses: Visualized sinuses and mastoids are clear. IMPRESSION: No trauma found. Dictated by: Earle Alford M.D. on 07/22/2018 at 15:28 Approved by: Earle Alford M.D. on 07/22/2018 at 15:28 ECG Data Attestation: I personally reviewed and interpreted this ECG as follows: (Normal sinus rhythm with rate 65, normal axis) <Fortino Lanker, DO - Last Filed: 07/23/18 07:05> Lab Data Lab Results 07/22/18 07/22/18 Range/Units 14:25 14:25 WBC 13.3 H (4.5-11.0) X10^3/uL RBC 4.19 (4.0-5.2) X10^6/uL Hgb 12.8 (12.0-16.0) g/dL Hct 38.4 (36-46) % MCV 91.7 (80-100) fL MCH 30.6 (26-34) PG MCHC 33.3 (30-36) % RDW 14.2 (11.6-14.8) % Plt Count 204 (150-400) X10^3/uL Neut % (Auto) 61.9 (50-75) % Lymph % (Auto) 27.4 (25-40) % [place] % (Auto) 5.7 (3-14) % Eos % (Auto) 3.8 (2-4) % Baso % (Auto) 1.2 (0-2) % Neut # (Auto) 8200 H (6534-5145) /uL Lymph # (Auto) 3600 (0733-2341) /uL [place] # (Auto) 800 (0-900) /uL Eos # (Auto) 500 H (0-450) /uL Baso # (Auto) 200 H (0-100) /uL Sodium 135 L (137-145) mmol/L Potassium 4.4 (3.4-5.1) mmol/L Chloride 97 L (98-107) mmol/L Carbon Dioxide 21 L (22-32) mmol/L BUN 27 H (7-17) mg/dL Creatinine 1.10 H (0.52-1.04) mg/dL Estimated GFR 48.6 L (>60) mL/min BUN/Creatinine Ratio 24.5 H (6-22) Glucose 135 H (80-110) mg/dL Calcium 9.4 (8.4-10.2) mg/dL Total Bilirubin 0.6 (0.2-1.3) mg/dL AST 28 (14-36) IU/L ALT 17 (9-52) IU/L Alkaline Phosphatase 41 (38-126) U/L Total Creatine Kinase < 20 L (30-135) U/L CK-MB (CK-2) TNP CK-MB (CK-2) Rel Index TNP Troponin I < 0.012 (0.01-0.034) ng/mL Total Protein 7.7 (6.3-8.2) g/dL Albumin 4.6 (3.5-5.0) g/dL Globulin 3.1 (1.7-4.1) g/dL Albumin/Globulin Ratio 1.5 (1.0-2.8) Point of Care Testing Glucose POC 125 Discharge Plan Departure Patient Disposition: Home Clinical Impression: Weakness, Syncope due to orthostatic hypotension Discharge Date/Time: 07/22/18 16:51 Interventions: ED Discharge Assessment Last Done: 07/22/18 16:51 Instructions: DI for Syncope in Adults (Fainting), DI for Hypotension Activity Restrictions/Additional Instructions: We noticed that your blood pressures are low today, especially when you change positions, i.e. moving from sitting to standing. This does improve when you change positions slowly and wait a couple of minutes, i.e. sitting for a bit before you stand up. Since you mention that you have been having dizzy episodes for some time now, I suspect that this is the reason. The reason you fainted today is likely because you could not sit down in time as you usually do. Since you are feeling better and walking well now, it is reasonable for you to monitor at home. Your lab work and radiology studies did not show any acute problems, i.e. fractures or bleeding in your brain. We talked with her pharmacy and you have already taken your 3 medicines that affect her blood pressure today (hydrochlorothiazide, losartan, and metoprolol). We have given you your medicine list so you all know what these look like. Starting tomorrow morning, please take 1/2 of each of these tablets. Continue your other medicines as usual. I suggest using a seated walker or cane when you are walking since you have had unsteadiness and find that you need to sit down quickly. It will be helpful to see if you are feeling better with reducing these medicines when you see your PCP next week. If not, as we talked about you may need further testing, i.e. heart monitoring. You should return in the interim if you have any acutely worsening symptoms again, i.e. recurrent fainting, or new symptoms such as chest pain or difficulty breathing. Prescriptions: No Action metformin 1,000 mg tablet 1,000 mg PO BID Qty: 60 RF: 0 levothyroxine [Synthroid] 75 mcg tablet 75 mcg PO QAM Qty: 30 RF: 0 gabapentin [Neurontin] 300 mg capsule 300 mg PO BID Qty: 60 RF: 0 losartan 50 mg tablet 50 mg PO QAM RF: 0 simvastatin 80 mg tablet 80 mg PO BEDTIME RF: 0 citalopram 20 mg tablet 20 mg PO QAM RF: 0 hydrochlorothiazide 25 mg tablet 25 mg PO QAM RF: 0 metoprolol succinate [Toprol XL] 50 mg tablet extended release 24 hr 50 mg PO QAM RF: 0 omeprazole 40 mg capsule,delayed release(DR/EC) 40 mg PO QAM RF: 0 Referrals: nAusha Felix DO [Primary Care Provider] - <Fortino Short DO - Last Filed: 07/23/18 07:05> Cosign ED Attending Jonas Attestation: I was available for consultation during this patient's emergency department encounter
[2018-07-22 16:00] VITALS: BP 109/51; BP 117/54; BP 87/54; PULSE 67; PULSE 68; RESP 16; O2SAT 100
[2018-07-22 16:15] VITALS: BP 97/64; PULSE 74; RESP 18; O2SAT 99
[2018-07-22 16:24] VITALS: BP 110/56; BP 97/64; PULSE 69; PULSE 70
--- NOTE | 2018-07-22 16:24 | PC.NURSE ---
Standing BP was taken 1 min after standing. Sat patient down due to increased dizziness.
== END 2018-07-22 16:51 | disposition home or self-care (01) ==
PROVIDERS: Emergency Provider Internal Medicine; PCP Family Medicine
DX: I95.1 Orthostatic hypotension (principal); R53.1 Weakness; M54.9 Dorsalgia, unspecified; S06.9X1A Unspecified intracranial injury with loss of consciousness of 30 minutes or less, initial encounter; W19.XXXA Unspecified fall, initial encounter
CPT/HCPCS: 70450; 72131; 80053; 82550; 82962; 84484; 85025; 93005; 93010; 93041; 99284; 99285

== ENCOUNTER → 2019-01-12 07:27 | Outpatient (CLI) | payer MEDICARE, OTHER, SELFPAY ==
[2018-04-22 14:22] VITALS: BMI 31.6
[2019-01-12 09:06] LABS: Hemoglobin A1C% w Est Avg Glu 5.7 % (4.0-6.0)
[2019-01-12 09:12] LABS: Alanine Aminotransferase 17 IU/L (9-52); Albumin Globulin Ratio 1.3 (1.0-2.8); Alkaline Phosphatase 56 U/L (38-126); Aspartate Aminotransferase 18 IU/L (14-36); BUN Creatinine Ratio 27.5 (6-22); Bilirubin Total 0.7 mg/dL (0.2-1.3); Blood Urea Nitrogen 22 mg/dL (7-17); Calcium 9.3 mg/dL (8.4-10.2); Carbon Dioxide 29 mmol/L (22-32); Chloride 103 mmol/L (98-107); Cholesterol 149 mg/dL (140-199); Estimated Glomerular Filt Rate > 60.0 mL/min (>60); Globulin 3.1 g/dL (1.7-4.1); Glucose 135 mg/dL (80-110); HDL Cholesterol 51 mg/dL (40-60); HEMOLYSIS < 15 (0-50); LDL Cholesterol Calculated 71 mg/dL (<100); Potassium 4.1 mmol/L (3.4-5.1); Sodium 141 mmol/L (137-145); Total Protein 7.1 g/dL (6.3-8.2); Triglycerides 137 mg/dL (35-150)
[2019-01-12 09:47] LABS: Free T3, Triiodothyronine Free 2.97 pg/mL (2.77-5.27); Free T4, Direct Thyroxine 1.06 ng/dL (0.78-2.19)
[2019-01-12 10:00] LABS: Thyroid Stimulating Hormone 4.82 uIU/mL (0.47-4.68)
== END ==
PROVIDERS: PCP Family Medicine; Visit Provider Family Medicine
DX: E03.9 Hypothyroidism, unspecified (principal); E11.40 Type 2 diabetes mellitus with diabetic neuropathy, unspecified; I95.1 Orthostatic hypotension; R63.4 Abnormal weight loss
CPT/HCPCS: 36415; 80053; 80061; 83036; 84439; 84443; 84481

== ENCOUNTER → 2019-06-08 12:05 | Outpatient (CLI) | payer MEDICARE, OTHER, SELFPAY ==
[2018-04-22 14:22] VITALS: BMI 31.6
[2019-06-08 13:39] LABS: Free T3, Triiodothyronine Free 2.74 pg/mL (2.77-5.27); Free T4, Direct Thyroxine 1.03 ng/dL (0.78-2.19)
[2019-06-08 13:53] LABS: Thyroid Stimulating Hormone 2.23 uIU/mL (0.47-4.68)
== END ==
PROVIDERS: PCP Family Medicine; Referring Provider Family Medicine; Visit Provider Family Medicine
DX: E03.9 Hypothyroidism, unspecified (principal); E11.40 Type 2 diabetes mellitus with diabetic neuropathy, unspecified; E78.2 Mixed hyperlipidemia; I10 Essential (primary) hypertension
CPT/HCPCS: 36415; 84439; 84443; 84481

== ENCOUNTER → 2019-12-18 15:23 | Outpatient (CLI) | payer MEDICARE, OTHER, SELFPAY ==
[2018-04-22 14:22] VITALS: BMI 31.6
[2019-12-18 15:49] LABS: Hemoglobin 12.5 g/dL (12.0-16.0); Mean Corpuscular HGB Conc 32.8 % (30-36); Mean Corpuscular Hemoglobin 29.4 PG (26-34); Mean Corpuscular Volume 89.6 fL (80-100); Platelet Count 257 X10^3/uL (150-400); Red Blood Cell Count 4.24 X10^6/uL (4.0-5.2); Red Cell Distribution Width 13.6 % (11.6-14.8)
[2019-12-18 16:09] LABS: Alanine Aminotransferase 12 IU/L (<35); Albumin 3.8 g/dL (3.5-5.0); Albumin Globulin Ratio 1.2 (1.0-2.8); Alkaline Phosphatase 93 U/L (38-126); Aspartate Aminotransferase 18 IU/L (14-36); Bilirubin Total 0.6 mg/dL (0.2-1.3); Blood Urea Nitrogen 23 mg/dL (7-17); Calcium 8.8 mg/dL (8.4-10.2); Carbon Dioxide 30 mmol/L (22-32); Chloride 103 mmol/L (98-107); Cholesterol 214 mg/dL (140-199); Estimated Glomerular Filt Rate 43.4 mL/min (>60); Globulin 3.3 g/dL (1.7-4.1); Glucose 139 mg/dL (80-110); HDL Cholesterol 49 mg/dL (40-60); HEMOLYSIS < 15 (0-50); LDL Cholesterol Calculated 126 mg/dL (<100); Potassium 4.6 mmol/L (3.4-5.1); Sodium 135 mmol/L (137-145); Total Protein 7.1 g/dL (6.3-8.2); Triglycerides 194 mg/dL (35-150)
[2019-12-18 16:10] LABS: Hemoglobin A1C% w Est Avg Glu 7.5 % (4.0-6.0)
[2019-12-18 16:40] LABS: Thyroid Stimulating Hormone 2.87 uIU/mL (0.47-4.68)
== END ==
PROVIDERS: PCP Nurse Practitioner Family; Referring Provider Nurse Practitioner Family; Visit Provider Nurse Practitioner Family
DX: E03.9 Hypothyroidism, unspecified (principal); E11.40 Type 2 diabetes mellitus with diabetic neuropathy, unspecified; I10 Essential (primary) hypertension; E78.2 Mixed hyperlipidemia
CPT/HCPCS: 36415; 80053; 80061; 83036; 84443; 85027

== ENCOUNTER → 2020-02-22 09:51 | Outpatient (CLI) | payer MEDICARE, OTHER, SELFPAY ==
[2018-04-22 14:22] VITALS: BMI 31.6
--- NOTE | 2020-02-22 09:53 | DI.RAD.S_ITS ---
PROCEDURE: XR CERVICAL SPINE 2V OR 3V INDICATIONS: Progressive neck pain with radiculopathy TECHNIQUE: A total of 4 view(s) of the cervical spine were acquired. COMPARISON: None. FINDINGS: Bones: No fractures or dislocations to the T1 level. The lateral masses of C1 appear intact on the odontoid view. No suspicious bony lesions. There is a mild degree of C5-6 degenerative disc height reduction with additional facet osteoarthritis moderate in overall severity from C4 through C6. Soft tissues: No prevertebral soft tissue swelling. IMPRESSION: Mild midcervical degenerative disc disease at C5-6; facet osteoarthritis on the frontal view is more prominent from C4 through C6. No trauma or subluxation. Dictated by: Earle Alford M.D. on 02/22/2020 at 10:16 Approved by: Earle Alford M.D. on 02/22/2020 at 10:18
--- NOTE | 2020-02-22 09:53 | DI.RAD.S_ITS ---
PROCEDURE: XR LUMBAR SPINE 2-3V INDICATIONS: Progressive neck and low back pain with radiculopathy TECHNIQUE: For views of the lumbar spine were acquired. COMPARISON: [facility], , L-SPINE 2-3 VIEWS, 05/10/2014, 13:24. FINDINGS: Bones: 5 [id number] vertebrae are present. There is normal bony alignment. No vertebral body compression fractures. No suspicious bony lesions. Degenerative disc disease previously identified 05/10/14 as mildly worsened, without evidence of a compression fracture developing between the 2 studies. The degenerative osteophytes present anteriorly have definitely worsened and most significantly L3-L4. Soft tissues: Overlying bowel gas pattern is normal. No suspicious soft tissue calcifications. IMPRESSION: Worsening degenerative disc disease and endplate osteophyte formation with anterior osteophyte projection having worsened most prominently at L3-L4. No subluxation. MR may be warranted. Dictated by: Earle Alford M.D. on 02/22/2020 at 10:19 Approved by: Earle Alford M.D. on 02/22/2020 at 10:21
== END ==
PROVIDERS: PCP Family Medicine; Referring Provider Family Medicine; Visit Provider Family Medicine
DX: M48.061 Spinal stenosis, lumbar region without neurogenic claudication (principal); M51.16 Intervertebral disc disorders with radiculopathy, lumbar region; M54.5 Low back pain; M50.122 Cervical disc disorder at C5-C6 level with radiculopathy; M47.22 Other spondylosis with radiculopathy, cervical region; M19.90 Unspecified osteoarthritis, unspecified site
CPT/HCPCS: 72040; 72110

== ENCOUNTER → 2020-03-07 16:59 | Outpatient (CLI) | payer MEDICARE, OTHER, SELFPAY ==
[2018-04-22 14:22] VITALS: BMI 31.6
--- NOTE | 2020-03-07 17:02 | DI.MRI.S_ITS ---
PROCEDURE: MR LUMBAR SPINE WO/W CON INDICATIONS: LOW BACK PAIN TECHNIQUE: Noncontrast sagittal T1 spin echo and T2 fast spin echo, sagittal STIR, axial T1 and T2 fast spin echo through the lumbar spine. In cases with scoliosis, additional coronal T2 fast spin echo may be performed. After the administration of contrast, sagittal and axial T1 spin echo with fat saturation through the lumbar spine. COMPARISON: [facility], CR, XR LUMBAR SPINE 2-3V, 02/22/2020, 10:00. [facility], CT, CT LUMBAR SPINE WO CON, 07/22/2018, 15:04. FINDINGS: Image quality: Excellent. Alignment and curvature: There is trace retrolisthesis of L2 on L3, L3 on L4 and L5 on S1. Marrow: Marrow is of normal overall signal. No acute vertebral body compression fractures. No suspicious marrow enhancement. Spinal cord: Conus medullaris terminates at the L2 level. Visualized spinal cord demonstrates normal signal, without suspicious enhancement. 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 Paraspinous soft tissues: No paravertebral masses or abnormal enhancement. Discs: Severe desiccation is present at L1-L2, L2-L3, L5-S1, moderate throughout the remainder of the lumbar spine. L1-L2: Minimal disc bulge without spinal stenosis or foraminal narrowing. Facet and ligamentum flavum hypertrophy are present. L2-L3: Mild disc bulge with mild spinal stenosis. Minimal left foraminal narrowing. Facet and ligamentum flavum hypertrophy are present. L3-L4: Mild disc bulge with minimal spinal stenosis. Moderate to severe left and moderate right foraminal narrowing with facet and ligamentum flavum hypertrophy. L4-L5: Mild disc bulge with severe spinal stenosis and canal compression. Moderate to severe bilateral foraminal narrowing, right greater than left with facet and ligamentum flavum hypertrophy. L5-S1: Mild disc bulge including a left foraminal component. Moderate spinal stenosis. Severe left and mild right foraminal narrowing with nerve root flattening of the exiting left L5 nerve roots. Facet and ligamentum flavum hypertrophy are present. IMPRESSION: 1. Multilevel degenerative changes. 2. Severe spinal stenosis with canal compression at L4-5 secondary to disc bulge with contributing affective facet/ligamentum flavum hypertrophy. 3. Multilevel foraminal narrowing most severe at L5-S1 secondary to facet arthropathy. Dictated by: Luz Hui M.D. on 03/07/2020 at 17:54 Approved by: Luz Hui M.D. on 03/07/2020 at 17:59
== END ==
PROVIDERS: PCP Family Medicine; Referring Provider Family Medicine; Visit Provider Family Medicine
DX: M48.061 Spinal stenosis, lumbar region without neurogenic claudication (principal); M54.5 Low back pain
CPT/HCPCS: 72158

== ENCOUNTER → 2020-10-26 13:54 | Outpatient (CLI) | payer MEDICARE, OTHER, SELFPAY ==
[2018-04-22 14:22] VITALS: BMI 31.6
[2020-10-26 14:51] LABS: Add Manual Diff / Slide Review NO; Basophils Absolute Auto 100 /uL (0-100); Eosinophils Absolute Auto 600 /uL (0-450); Eosinophils Percent Auto 4.1 % (2-4); Hematocrit 39.2 % (36-46); Hemoglobin 12.9 g/dL (12.0-16.0); Lymphocytes Absolute Auto 1800 /uL (1100-4500); Lymphocytes Percent Auto 13.2 % (25-40); Mean Corpuscular Hemoglobin 29.6 PG (26-34); Mean Corpuscular Volume 89.8 fL (80-100); Monocytes Absolute Auto 800 /uL (0-900); Monocytes Percent Auto 6.1 % (3-14); Neutrophils Absolute Auto 10300 /uL (1500-7000); Neutrophils Percent Auto 75.6 % (50-75); Platelet Count 258 X10^3/uL (150-400); Red Blood Cell Count 4.37 X10^6/uL (4.0-5.2); Red Cell Distribution Width 14.3 % (11.6-14.8); White Blood Cell Count 13.6 X10^3/uL (4.5-11.0)
[2020-10-26 15:18] LABS: Alanine Aminotransferase 16 IU/L (<35); Albumin 4.2 g/dL (3.5-5.0); Albumin Globulin Ratio 1.2 (1.0-2.8); Alkaline Phosphatase 86 U/L (38-126); Aspartate Aminotransferase 21 IU/L (14-36); BUN Creatinine Ratio 19.6 (6-22); Bilirubin Total 0.7 mg/dL (0.2-1.3); Blood Urea Nitrogen 22 mg/dL (7-17); Calcium 9.2 mg/dL (8.4-10.2); Carbon Dioxide 25 mmol/L (22-32); Chloride 104 mmol/L (98-107); Cholesterol 162 mg/dL (140-199); Estimated Glomerular Filt Rate 47.3 mL/min (>60); Globulin 3.5 g/dL (1.7-4.1); Glucose 152 mg/dL (80-110); HDL Cholesterol 51 mg/dL (40-60); HEMOLYSIS < 15 (0-50); LDL Cholesterol Calculated 80 mg/dL (<100); Potassium 4.7 mmol/L (3.4-5.1); Sodium 139 mmol/L (137-145); Total Protein 7.7 g/dL (6.3-8.2); Triglycerides 155 mg/dL (35-150)
[2020-10-26 16:29] LABS: Free T4, Direct Thyroxine 1.71 ng/dL (0.78-2.19)
[2020-10-26 16:43] LABS: Thyroid Stimulating Hormone 2.97 uIU/mL (0.47-4.68)
== END ==
PROVIDERS: PCP Family Medicine; Referring Provider Family Medicine; Visit Provider Family Medicine
DX: E03.9 Hypothyroidism, unspecified (principal); I10 Essential (primary) hypertension; E11.40 Type 2 diabetes mellitus with diabetic neuropathy, unspecified; N28.9 Disorder of kidney and ureter, unspecified
CPT/HCPCS: 36415; 80053; 80061; 83036; 84439; 84443; 85025

== ENCOUNTER → 2020-12-05 15:37 | Outpatient (CLI) | payer MEDICARE, OTHER, SELFPAY ==
[2018-04-22 14:22] VITALS: BMI 31.6
[2020-12-05 16:47] LABS: Add Manual Diff / Slide Review NO; Basophils Absolute Auto 100 /uL (0-100); Eosinophils Absolute Auto 500 /uL (0-450); Eosinophils Percent Auto 3.8 % (2-4); Hematocrit 38.2 % (36-46); Hemoglobin 12.6 g/dL (12.0-16.0); Lymphocytes Absolute Auto 1700 /uL (1100-4500); Lymphocytes Percent Auto 13.3 % (25-40); Mean Corpuscular Hemoglobin 29.8 PG (26-34); Mean Corpuscular Volume 90.2 fL (80-100); Monocytes Absolute Auto 800 /uL (0-900); Neutrophils Absolute Auto 9600 /uL (1500-7000); Neutrophils Percent Auto 75.9 % (50-75); Platelet Count 219 X10^3/uL (150-400); Red Blood Cell Count 4.24 X10^6/uL (4.0-5.2); Red Cell Distribution Width 14.4 % (11.6-14.8); White Blood Cell Count 12.7 X10^3/uL (4.5-11.0)
[2020-12-05 16:50] LABS: Hemoglobin A1C% w Est Avg Glu 6.7 % (4.0-6.0)
[2020-12-05 17:21] LABS: Free T4, Direct Thyroxine 1.81 ng/dL (0.78-2.19)
[2020-12-05 17:35] LABS: Thyroid Stimulating Hormone 1.95 uIU/mL (0.47-4.68)
== END ==
PROVIDERS: PCP Family Medicine; Referring Provider Family Medicine; Visit Provider Family Medicine
DX: E03.9 Hypothyroidism, unspecified (principal); I10 Essential (primary) hypertension; E11.40 Type 2 diabetes mellitus with diabetic neuropathy, unspecified; N28.9 Disorder of kidney and ureter, unspecified
CPT/HCPCS: 36415; 83036; 84439; 84443; 85025

== ENCOUNTER → 2022-04-20 17:27 | Outpatient (CLI) | payer MEDICARE, OTHER, SELFPAY ==
[2018-04-22 14:22] VITALS: BMI 31.6
--- NOTE | 2022-04-20 17:47 | DI.RAD.S_ITS ---
PROCEDURE: XR CHEST 2V INDICATIONS: Cough TECHNIQUE: 2 views of the chest were acquired. COMPARISON: [facility], CR, XR CHEST 2V, 11/01/2017, 8:54. FINDINGS: Surgical changes and devices: None. Lungs and pleura: Lungs are clear. No pleural effusions or pneumothorax. Mediastinum: Mediastinal contours are normal. Heart size is normal. Bones and chest wall: No suspicious bony abnormalities. Soft tissues appear unremarkable. IMPRESSION: No acute cardiopulmonary process demonstrated radiographically. Dictated by: Hernan Lynch M.D. on 04/20/2022 at 19:09 Approved by: Hernan Lynch M.D. on 04/20/2022 at 19:09
[2022-04-20 18:20] LABS: Add Manual Diff / Slide Review NO; Basophils Absolute Auto 100 /uL (0-100); Basophils Percent Auto 0.8 % (0-2); Eosinophils Absolute Auto 400 /uL (0-450); Eosinophils Percent Auto 3.2 % (2-4); Hematocrit 39.2 % (36-46); Hemoglobin 13.1 g/dL (12.0-16.0); Lymphocytes Absolute Auto 1400 /uL (1100-4500); Lymphocytes Percent Auto 11.6 % (25-40); Mean Corpuscular HGB Conc 33.4 % (30-36); Mean Corpuscular Volume 89.8 fL (80-100); Monocytes Absolute Auto 700 /uL (0-900); Monocytes Percent Auto 5.8 % (3-14); Neutrophils Absolute Auto 9400 /uL (1500-7000); Neutrophils Percent Auto 78.6 % (50-75); Platelet Count 217 X10^3/uL (150-400); Red Blood Cell Count 4.37 X10^6/uL (4.0-5.2); Red Cell Distribution Width 14.2 % (11.6-14.8)
[2022-04-20 18:42] LABS: Appearance Urine UA CLEAR; Bilirubin Urine UA NEGATIVE (NEGATIVE); Color Urine UA YELLOW; Glucose Urine UA NEGATIVE (Negative); Ketones Urine UA TRACE (NEGATIVE); Leukocyte Esterase Urine UA 1+ (NEGATIVE); Nitrite Urine UA NEGATIVE (Negative); Occult Blood Urine UA TRACE-INTACT (Negative); Protein Urine UA 3+ (Negative); Specific Gravity Urine UA 1.025 (1.000-1.035); Urobilinogen Urine UA 0.2 E.U./dL (0.2)
[2022-04-20 18:46] LABS: Alanine Aminotransferase 21 IU/L (<35); Albumin 4.1 g/dL (3.5-5.0); Albumin Globulin Ratio 1.2 (1.0-2.8); Alkaline Phosphatase 89 U/L (38-126); Aspartate Aminotransferase 21 IU/L (14-36); BUN Creatinine Ratio 22.7 (6-22); Bilirubin Total 0.4 mg/dL (0.2-1.3); Blood Urea Nitrogen 27 mg/dL (7-17); Calcium 8.6 mg/dL (8.4-10.2); Carbon Dioxide 29 mmol/L (22-32); Chloride 99 mmol/L (98-107); Estimated Glomerular Filt Rate 47 mL/min (>60); Globulin 3.4 g/dL (1.7-4.1); Glucose 219 mg/dL (80-110); HEMOLYSIS < 15 (0-50); Potassium 4.6 mmol/L (3.4-5.1); Sodium 138 mmol/L (137-145); Total Protein 7.5 g/dL (6.3-8.2)
[2022-04-20 18:58] LABS: Bacteria Urine Many (>30); Culture Indicated Urine Specimen Cultured; RBC Urine 1-5/HPF (0-5/HPF); Squamous Epithelial Cell Urine 1-5 /HPF (0-5/HPF); WBC Urine 30-100/HPF (0-5/HPF)
[2022-04-20 19:02] LABS: Free T4, Direct Thyroxine 1.66 ng/dL (0.78-2.19)
[2022-04-20 19:16] LABS: Thyroid Stimulating Hormone 2.97 uIU/mL (0.47-4.68)
[2022-04-20 23:53] LABS: Hemoglobin A1C% w Est Avg Glu 8.3 % (4.0-6.0)
== END ==
PROVIDERS: PCP Family Medicine; Referring Provider Family Medicine; Visit Provider Family Medicine
DX: E03.9 Hypothyroidism, unspecified (principal); N28.9 Disorder of kidney and ureter, unspecified; I10 Essential (primary) hypertension; E78.2 Mixed hyperlipidemia; R05.9 Cough, unspecified
CPT/HCPCS: 36415; 71046; 80053; 81001; 83036; 84439; 84443; 85025; 87077; 87086; 87186

== ENCOUNTER → 2022-08-06 10:22 | Outpatient (CLI) | payer MEDICARE, OTHER, SELFPAY ==
[2018-04-22 14:22] VITALS: BMI 31.6
[2022-08-06 11:10] LABS: Add Manual Diff / Slide Review NO; Basophils Absolute Auto 100 /uL (0-100); Eosinophils Absolute Auto 400 /uL (0-450); Eosinophils Percent Auto 3.6 % (2-4); Hematocrit 37.1 % (36-46); Hemoglobin 12.5 g/dL (12.0-16.0); Lymphocytes Absolute Auto 1100 /uL (1100-4500); Lymphocytes Percent Auto 9.7 % (25-40); Mean Corpuscular HGB Conc 33.6 % (30-36); Mean Corpuscular Hemoglobin 30.6 PG (26-34); Mean Corpuscular Volume 90.8 fL (80-100); Monocytes Absolute Auto 800 /uL (0-900); Monocytes Percent Auto 6.7 % (3-14); Neutrophils Absolute Auto 9200 /uL (1500-7000); Platelet Count 191 X10^3/uL (150-400); Red Blood Cell Count 4.09 X10^6/uL (4.0-5.2); Red Cell Distribution Width 15.2 % (11.6-14.8); White Blood Cell Count 11.6 X10^3/uL (4.5-11.0)
[2022-08-06 11:39] LABS: Alanine Aminotransferase 19 IU/L (<35); Albumin 3.8 g/dL (3.5-5.0); Albumin Globulin Ratio 1.2 (1.0-2.8); Alkaline Phosphatase 75 U/L (38-126); Aspartate Aminotransferase 18 IU/L (14-36); BUN Creatinine Ratio 24.3 (6-22); Bilirubin Total 0.4 mg/dL (0.2-1.3); Blood Urea Nitrogen 27 mg/dL (7-17); Calcium 8.6 mg/dL (8.4-10.2); Carbon Dioxide 27 mmol/L (22-32); Chloride 103 mmol/L (98-107); Estimated Glomerular Filt Rate 51 mL/min (>60); Globulin 3.1 g/dL (1.7-4.1); Glucose 197 mg/dL (80-110); HEMOLYSIS < 15 (0-50); Potassium 4.6 mmol/L (3.4-5.1); Sodium 136 mmol/L (137-145); Total Protein 6.9 g/dL (6.3-8.2)
[2022-08-06 11:47] LABS: Bilirubin Urine UA NEGATIVE (NEGATIVE); Color Urine UA YELLOW; Glucose Urine UA NEGATIVE (Negative); Ketones Urine UA TRACE (NEGATIVE); Leukocyte Esterase Urine UA 1+ (NEGATIVE); Nitrite Urine UA POSITIVE (Negative); Occult Blood Urine UA NEGATIVE (Negative); Protein Urine UA 2+ (Negative); Specific Gravity Urine UA >=1.030 (1.000-1.035); Urobilinogen Urine UA 0.2 E.U./dL (0.2)
[2022-08-06 11:49] LABS: Free T4, Direct Thyroxine 1.61 ng/dL (0.78-2.19)
[2022-08-06 11:59] LABS: pH Urine UA 5.5 (4.5-8.0)
[2022-08-06 12:00] LABS: Appearance Urine UA SL CLOUDY; RBC Urine 1-5/HPF (0-5/HPF); Squamous Epithelial Cell Urine 5-10 /HPF (0-5/HPF); WBC Urine 30-100/HPF (0-5/HPF)
[2022-08-06 12:01] LABS: Bacteria Urine Many (>30); Culture Indicated Urine Specimen Cultured
[2022-08-06 12:03] LABS: Thyroid Stimulating Hormone 2.64 uIU/mL (0.47-4.68)
[2022-08-07 06:06] LABS: Labcorp Hemoglobin (Hb) A1c 7.5 % (4.8-5.6)
== END ==
PROVIDERS: PCP Family Medicine; Referring Provider Family Medicine; Visit Provider Family Medicine
DX: E03.9 Hypothyroidism, unspecified (principal); E11.40 Type 2 diabetes mellitus with diabetic neuropathy, unspecified; E78.2 Mixed hyperlipidemia; I10 Essential (primary) hypertension
CPT/HCPCS: 36415; 80053; 81001; 83036; 84439; 84443; 85025; 87077; 87086; 87186

== ENCOUNTER 2022-11-21 20:06 | Emergency (ER) | payer MEDICARE, OTHER, SELFPAY ==
[2018-04-22 14:22] VITALS: BMI 31.6
[2022-11-21 20:22] VITALS: BP 180/99; PULSE 99; RESP 18; TEMP 36.9; O2SAT 97; BMI 38.2
[2022-11-21 21:28] LABS: Bacteria Urine Many (>30); Culture Indicated Urine Specimen Cultured; RBC Urine None Seen (0-5/HPF); Squamous Epithelial Cell Urine 1-5 /HPF (0-5/HPF); Transitional Epi Cells Urine 1-5/HPF (0-5/HPF); WBC Urine 30-100/HPF (0-5/HPF)
--- NOTE | 2022-11-21 23:42 | PC.NURSE ---
Pt reports pain right side of back for about a week, worse starting last night. Pain to palpation around right side of lumbar spine.
--- NOTE | 2022-11-22 00:52 | ED_ITS ---
HPI - Back Pain/Injury General Chief Complaint: Back Pain/Injury Stated Complaint: kidney and back pain Time Seen by Provider: 11/22/22 00:45 Source: patient History of Present Illness HPI Narrative: Patient 69-year-old female history diabetes with neuropathy, frequent UTIs presents today with right-sided flank pain and worsening back pain. She reports that she is chronic ongoing back pain however yesterday it started getting worse. She denies any radiation. No fever chills nausea or vomiting. She is chronic abdominal pain and colitis but no worsening abdominal pain. She is not had any fever. She is not taken anything for pain. Related Data Previous Rx's Medication Instructions Recorded 4 wheel walker with seat #1 ea 07/30/18 metoprolol succinate 50 mg See Rx Instructions .Route 05/28/22 tablet,extended release 24 hr .COMPLEX #45 tabs ciprofloxacin HCl 250 mg tablet 250 mg PO BID #14 tabs 08/16/22 citalopram 20 mg tablet See Rx Instructions .Route 09/14/22 .COMPLEX #90 tabs losartan 50 mg tablet See Rx Instructions .Route 09/14/22 .COMPLEX #90 tabs lovastatin 20 mg tablet See Rx Instructions .Route 09/14/22 .COMPLEX #90 tabs levothyroxine 50 mcg tablet See Rx Instructions .Route 11/08/22 .COMPLEX #90 tabs metformin 500 mg tablet See Rx Instructions .Route 11/08/22 .COMPLEX #180 tabs nabumetone 500 mg tablet See Rx Instructions .Route 11/08/22 .COMPLEX #180 tabs cephalexin 500 mg capsule 500 mg PO BID 7 days #14 caps 11/22/22 hydrocodone 5 mg-acetaminophen 325 1 tab PO Q6H PRN pain #10 tabs 11/22/22 mg tablet Allergies Allergy/AdvReac Type Severity Reaction Status Date / Time Penicillins Allergy Unknown Verified 08/06/22 09:47 sulfamethoxazole Allergy Unknown Verified 08/06/22 09:47 [From BACTRIM] trimethoprim [From BACTRIM] Allergy Unknown Verified 08/06/22 09:47 Review of Systems Review of Systems ROS Unobtainable: All systems reviewed & are unremarkable except as noted in HPI and below Patient History Medical History Adhesive capsulitis Ankle pain (Unknown) Colitis (Unknown) Cough Depression (Unknown) Diabetes (Unknown) Foot pain (Unknown) Hyperlipidemia (~2009) Hypertension (Unknown) Hypothyroidism (Unknown) Lumbar canal stenosis Medication refill Osteoarthritis Renal insufficiency Shoulder pain (Unknown) Surgical History Hx of shoulder surgery (2003) Status post hysterectomy (~1980) Status post knee surgery (2005) Family History Sister Age: 85 Cerebrovascular accident (CVA), unspecified mechanism Brother Cancer Mental health problem Mother No problems noted. Social History household members: other Smoking Status: Never smoker alcohol intake: never Smoking Status: Never smoker Substance Use Type: does not use Exam Initial Vital Signs Initial Vital Signs: Vital Signs Temperature 98.4 F 11/21/22 20:22 Pulse Rate 99 H 11/21/22 20:22 Respiratory Rate 18 11/21/22 20:22 Blood Pressure 180/99 H 11/21/22 20:22 Pulse Oximetry 97 11/21/22 20:22 Oxygen Delivery Method Room Air 11/21/22 20:22 GENERAL: Alert pleasant 69-year-old female HEENT: Head atraumatic,EOMI, pupils reactive, face symmetric, moist mucous membranes CARDIOVASCULAR: Regular rate and rhythm without murmurs, rubs or gallops. RESPIRATORY: Breath sounds equal bilaterally, no wheezes rales or rhonchi. ABDOMEN: Soft, nontender. Normoactive bowel sounds all 4 quadrants. No guarding or rebound. BACK: Mild lower lumbar pain bilaterally : Right CVA tenderness EXTREMITIES: Normal range of motion, no clubbing or edema. Neurovascularly intact NEUROLOGICAL: Alert and oriented x4.Normal gait and speech. SKIN: Warm, dry, no laceration, no petechiae, no rashes or lesions. Course Orders Ordered: ED Orders 11/21/22 20:30 Urine Culture Stat Urine Microscopic Stat 11/22/22 00:59 Blood Culture Stat 11/22/22 01:19 CBC Auto Diff [Complete Blood Count AUTO DIFF] Stat CMP [Comprehensive Metabolic Panel] Stat Lactate (Lactic Acid) Stat Discontinued Medications Hydrocodone Bitart/Acetaminophen (Hydrocodone/Acet 5/325 Prepack) 1 bottle MISC SEEINSTR ONE Stop: 11/22/22 02:11 Last Admin: 11/22/22 02:24 Dose: 1 bottle Documented By: KORIN Hydrocodone Bitart/Acetaminophen (Hydrocodone/Acet 5/325 Tablet) 1 tab PO NOW ONE Stop: 11/22/22 02:11 Last Admin: 11/22/22 02:24 Dose: 1 tab Documented By: KORIN Ceftriaxone Sodium 1,000 mg/ (Sodium Chloride) 100 mls @ 200 mls/hr IV NOW ONE Stop: 11/22/22 01:00 Last Infusion: 11/22/22 02:47 Dose: 0 mls/hr Documented By: Admin: 11/22/22 02:13 Dose: 200 mls/hr Documented By: KORIN Ketorolac Tromethamine (Ketorolac 30 Mg/Ml Vial) 15 mg IV NOW ONE Stop: 11/22/22 01:00 Last Admin: 11/22/22 01:23 Dose: 15 mg Documented By: FRANCISCO Morphine Sulfate (Morphine 2 Mg/Ml Inj) 2 mg IV NOW ONE Stop: 11/22/22 03:06 Last Admin: 11/22/22 03:11 Dose: 2 mg Documented By: KORIN Vital Signs Vital signs: Vital Signs - 8 hr 11/22/22 02:49 11/22/22 03:04 11/22/22 03:35 Pulse Rate 75 Respiratory Rate 16 Blood Pressure 240/109 H 224/95 H 236/105 H Pulse Oximetry 97 11/22/22 04:13 Pulse Rate Respiratory Rate Blood Pressure 180/72 H Pulse Oximetry MDM - Back Pain/Injury Lab Data 11/22/22 01:19 11/22/22 01:19 Labs: Lab Results 11/21/22 11/22/22 11/22/22 Range/Units 20:30 01:19 01:19 WBC 12.9 H (4.5-11.0) X10^3/uL RBC 4.36 (4.0-5.2) X10^6/uL Hgb 13.2 (12.0-16.0) g/dL Hct 39.2 (36-46) % MCV 90.0 (80-100) fL MCH 30.2 (26-34) PG MCHC 33.6 (30-36) % RDW 14.3 (11.6-14.8) % Plt Count 208 (150-400) X10^3/uL Neut % (Auto) 75.3 H (50-75) % Lymph % (Auto) 13.2 L (25-40) % [place] % (Auto) 5.4 (3-14) % Eos % (Auto) 4.8 H (2-4) % Baso % (Auto) 1.3 (0-2) % Neut # (Auto) 9700 H (4414-3304) /uL Lymph # (Auto) 1700 (5523-4925) /uL [place] # (Auto) 700 (0-900) /uL Eos # (Auto) 600 H (0-450) /uL Baso # (Auto) 200 H (0-100) /uL Sodium 133 L (137-145) mmol/L Potassium 4.4 (3.4-5.1) mmol/L Chloride 97 L (98-107) mmol/L Carbon Dioxide 30 (22-32) mmol/L BUN 24 H (7-17) mg/dL Creatinine 0.98 (0.52-1.04) mg/dL Estimated GFR 59 L (>60) mL/min BUN/Creatinine Ratio 24.5 H (6-22) Glucose 164 H (80-110) mg/dL Lactate (0.7-2.1) mmol/L Calcium 8.8 (8.4-10.2) mg/dL Total Bilirubin 0.4 (0.2-1.3) mg/dL AST 20 (14-36) IU/L ALT 18 (<35) IU/L Alkaline Phosphatase 83 (38-126) U/L Total Protein 7.6 (6.3-8.2) g/dL Albumin 3.9 (3.5-5.0) g/dL Globulin 3.7 (1.7-4.1) g/dL Albumin/Globulin Ratio 1.1 (1.0-2.8) Urine RBC None seen (0-5/HPF) Urine WBC 30-100/hpf H (0-5/HPF) Ur Squamous Epith Cells 1-5 /hpf (0-5/HPF) Ur Transition Epith Cell 1-5/hpf (0-5/HPF) Urine Bacteria Many (>30) H (None) Ur Culture Indicated? Specimen cultured 11/22/22 Range/Units 01:19 WBC (4.5-11.0) X10^3/uL RBC (4.0-5.2) X10^6/uL Hgb (12.0-16.0) g/dL Hct (36-46) % MCV (80-100) fL MCH (26-34) PG MCHC (30-36) % RDW (11.6-14.8) % Plt Count (150-400) X10^3/uL Neut % (Auto) (50-75) % Lymph % (Auto) (25-40) % [place] % (Auto) (3-14) % Eos % (Auto) (2-4) % Baso % (Auto) (0-2) % Neut # (Auto) (8952-6939) /uL Lymph # (Auto) (4864-6854) /uL [place] # (Auto) (0-900) /uL Eos # (Auto) (0-450) /uL Baso # (Auto) (0-100) /uL Sodium (137-145) mmol/L Potassium (3.4-5.1) mmol/L Chloride (98-107) mmol/L Carbon Dioxide (22-32) mmol/L BUN (7-17) mg/dL Creatinine (0.52-1.04) mg/dL Estimated GFR (>60) mL/min BUN/Creatinine Ratio (6-22) Glucose (80-110) mg/dL Lactate 0.9 (0.7-2.1) mmol/L Calcium (8.4-10.2) mg/dL Total Bilirubin (0.2-1.3) mg/dL AST (14-36) IU/L ALT (<35) IU/L Alkaline Phosphatase (38-126) U/L Total Protein (6.3-8.2) g/dL Albumin (3.5-5.0) g/dL Globulin (1.7-4.1) g/dL Albumin/Globulin Ratio (1.0-2.8) Urine RBC (0-5/HPF) Urine WBC (0-5/HPF) Ur Squamous Epith Cells (0-5/HPF) Ur Transition Epith Cell (0-5/HPF) Urine Bacteria (None) Ur Culture Indicated? Urine Dip Bedside Urine Glucose Negative Bedside Urine Bilirubin - Negative Bedside Urine Ketone - Negative Urine Specific [place] 1.015 Bedside Urine Occult Blood - Negative Bedside Urine pH 6 Bedside Urine Protein ++ 100 Bedside Urine Urobilinogen - Negative Bedside Urine Nitrite - Negative Bedside Urine Leukocytes ++ 125 Esterase MDM Narrative Medical decision making narrative: Patient is a 69-year-old female who presents with back pain. She reports that it is worse with palpation and movement it is reproducible with touch. She does have some right flank pain greater than left flank pain she is found to have UTI. Suspect pyelonephritis. Blood work is overall stable stable leukocytosis of 12.9. She 1 blood culture is pending 1 dose of Rocephin. Crit lead is actually improved from previous is 0.98 now. She does not really have radiation of flank pain to her abdomen she does not have hematuria low suspicion for kidney stone. Patient has been in the ED for numerous hours waiting. Upon discharge he is noted to have extremely elevated blood pressure has been really taken multiple times patient tenses up every time it is taken. Other possibilities include dissection however I have low suspicion for this pain is reproducible with palpation but she is tender in her right flank and has a UTI. This is most consistent with pyelonephritis rather than dissection. Finally a manual blood pressure is taken and it is still elevated but in the 180s. At this time recommend she go home and monitor blood pressure she is given support damaris measures only. Discharge Plan Departure Patient Disposition: Home Clinical Impression: UTI (urinary tract infection) Qualifiers: Urinary tract infection type: acute pyelonephritis Qualified Code(s): N10 - Acute pyelonephritis Instructions: Kidney Infection Activity Restrictions/Additional Instructions: *You have been diagnosed with kidney infection *What to do: At this time you had likely have a kidney infection causing your pain. Blood work is overall reassuring given 1 dose of IV antibiotics. *Continue to take medications as directed Keflex 500 mg twice a day for 7 days--> SENT TO [place] Tylenol 650 mg every 4-6 hours if needed for [id number] pain Ibuprofen 600 every 6 hours dlmq-qw-coagqkck pain [place] 1 tablet every 6 hours if needed for severe pain *Follow up with your primary care provider in 2-3 days or call [phone] *Return to ER if you should have increasing pain nausea vomiting confused or any new, worsening or concerning symptoms CONTROLLED SUBSTANCE DISCHARGE (Narcotoic/benzodiazepine/Flexeril/Phenergan) 1. You have been prescribed narcotic medications, it does have acetaminophe n/Tylenol/paracetamol in it, DO NOT TAKE MORE THAN 4,00mg in 24 hours of Tylenol. TRAMADOL DOES NOT CONTAIN TYLENOL 2. Please understand that we cannot provide further refills of narcotics, benzodiazepines or controlled substances through the ED and her pain management will need to be through your provider. 3. While on these medications you cannot drive or operate heavy machinery. 4. You cannot sign legal documents or perform any duties such as this. 5. As long as you're taking opiate pain medications he should also be taking a stool softener such as Colace, Dulcolax, MiraLAX or prune juice, to help avoid constipation. Prescriptions: New cephalexin 500 mg capsule 500 mg PO BID 7 Days Qty: 14 0RF hydrocodone-acetaminophen 5-325 mg tablet 1 tab PO Q6H PRN (Reason: pain) Qty: 10 0RF No Action (DME) 4 wheel walker with seat Qty: 1 0RF Dose Instruction: As directed Rx Instructions: As directed metoprolol succinate 50 mg tablet extended release 24 hr See Rx Instructions .ROUTE .COMPLEX Qty: 45 3RF Dose Instruction: TAKE 1/2 TABLET BY MOUTH EVERY NIGHT AT BEDTIME Rx Instructions: TAKE 1/2 TABLET BY MOUTH EVERY NIGHT AT BEDTIME ciprofloxacin HCl 250 mg tablet 250 mg PO BID Qty: 14 0RF Rx Instructions: Take twice a day for 7 days lovastatin 20 mg tablet See Rx Instructions .ROUTE .COMPLEX Qty: 90 3RF Dose Instruction: TAKE 1 TABLET BY MOUTH DAILY. Rx Instructions: TAKE 1 TABLET BY MOUTH DAILY. losartan 50 mg tablet See Rx Instructions .ROUTE .COMPLEX Qty: 90 3RF Dose Instruction: TAKE 1 TABLET BY MOUTH EVERY MORNING Rx Instructions: TAKE 1 TABLET BY MOUTH EVERY MORNING citalopram 20 mg tablet See Rx Instructions .ROUTE .COMPLEX Qty: 90 1RF Dose Instruction: TAKE 1 TABLET BY MOUTH EVERY MORNING Rx Instructions: TAKE 1 TABLET BY MOUTH EVERY MORNING levothyroxine 50 mcg tablet See Rx Instructions .ROUTE .COMPLEX Qty: 90 3RF Dose Instruction: TAKE 1 TABLET BY MOUTH EVERY MORNING Rx Instructions: TAKE 1 TABLET BY MOUTH EVERY MORNING metformin 500 mg tablet See Rx Instructions .ROUTE .COMPLEX Qty: 180 3RF Dose Instruction: TAKE 1 TABLET BY MOUTH TWICE DAILY Rx Instructions: TAKE 1 TABLET BY MOUTH TWICE DAILY nabumetone 500 mg tablet See Rx Instructions .ROUTE .COMPLEX Qty: 180 3RF Dose Instruction: TAKE 1 TABLET BY MOUTH TWICE DAILY Rx Instructions: TAKE 1 TABLET BY MOUTH TWICE DAILY Referrals: Davin Peterson DO [Primary Care Provider] - Stand Alone Forms: Patient Portal/API
[2022-11-22] MEDS: KETOROLAC 30 MG/ML VIAL 15 MG IV (01:23)
[2022-11-22 01:33] LABS: Add Manual Diff / Slide Review NO; Basophils Absolute Auto 200 /uL (0-100); Basophils Percent Auto 1.3 % (0-2); Eosinophils Absolute Auto 600 /uL (0-450); Eosinophils Percent Auto 4.8 % (2-4); Hematocrit 39.2 % (36-46); Hemoglobin 13.2 g/dL (12.0-16.0); Lymphocytes Absolute Auto 1700 /uL (1100-4500); Lymphocytes Percent Auto 13.2 % (25-40); Mean Corpuscular HGB Conc 33.6 % (30-36); Mean Corpuscular Hemoglobin 30.2 PG (26-34); Monocytes Absolute Auto 700 /uL (0-900); Monocytes Percent Auto 5.4 % (3-14); Neutrophils Absolute Auto 9700 /uL (1500-7000); Neutrophils Percent Auto 75.3 % (50-75); Platelet Count 208 X10^3/uL (150-400); Red Blood Cell Count 4.36 X10^6/uL (4.0-5.2); Red Cell Distribution Width 14.3 % (11.6-14.8); White Blood Cell Count 12.9 X10^3/uL (4.5-11.0)
[2022-11-22 01:41] LABS: Alanine Aminotransferase 18 IU/L (<35); Albumin 3.9 g/dL (3.5-5.0); Albumin Globulin Ratio 1.1 (1.0-2.8); Alkaline Phosphatase 83 U/L (38-126); Aspartate Aminotransferase 20 IU/L (14-36); BUN Creatinine Ratio 24.5 (6-22); Bilirubin Total 0.4 mg/dL (0.2-1.3); Blood Urea Nitrogen 24 mg/dL (7-17); Calcium 8.8 mg/dL (8.4-10.2); Carbon Dioxide 30 mmol/L (22-32); Chloride 97 mmol/L (98-107); Estimated Glomerular Filt Rate 59 mL/min (>60); Globulin 3.7 g/dL (1.7-4.1); Glucose 164 mg/dL (80-110); HEMOLYSIS < 15 (0-50); Lactate (Lactic Acid) 0.9 mmol/L (0.7-2.1); Potassium 4.4 mmol/L (3.4-5.1); Sodium 133 mmol/L (137-145); Total Protein 7.6 g/dL (6.3-8.2)
[2022-11-22] MEDS: cefTRIAXone 1,000 MG in SODIUM CHLORIDE 0.9% 100 ML 200 MG IV (02:13)
[2022-11-22] MEDS: HYDROCODONE/ACET 5/325 PREPACK 1 BOTTLE MISC (02:24)
[2022-11-22] MEDS: HYDROCODONE/ACET 5/325 TABLET 1 TAB PO (02:24)
[2022-11-22 02:49] VITALS: BP 240/109; PULSE 75; RESP 16; O2SAT 97
[2022-11-22 03:04] VITALS: BP 224/95
[2022-11-22] MEDS: MORPHINE 2 MG/ML INJ IV (03:11)
[2022-11-22 03:35] VITALS: BP 236/105
[2022-11-22 04:13] VITALS: BP 180/72
== END 2022-11-22 04:14 | disposition home or self-care (01) ==
PROVIDERS: Emergency Provider Emergency Medicine; PCP Family Medicine
DX: N10 Acute pyelonephritis (principal)
CPT/HCPCS: 36415; 80053; 81003; 81015; 83605; 85025; 87040; 87077; 87086; 87186; 96365; 96375; 99284; J0696; J1885; J2270

== ENCOUNTER → 2022-12-11 11:19 | Outpatient (CLI) | payer MEDICARE, OTHER, SELFPAY ==
[2018-04-22 14:22] VITALS: BMI 31.6
--- NOTE | 2022-12-11 11:21 | DI.RAD.S_ITS ---
PROCEDURE: XR LUMBAR SPINE 2-3V INDICATIONS: low back pain TECHNIQUE: 3 views of the lumbar spine were acquired. COMPARISON: [facility], , XR LUMBAR SPINE 2-3V, 02/22/2020, 10:00. FINDINGS: Bones: 5 [id number] vertebrae are present. There is normal bony alignment. No vertebral body compression fractures. No suspicious bony lesions. Multilevel degenerative disc space loss and facet arthropathy. Soft tissues: Overlying bowel gas pattern is normal. No suspicious soft tissue calcifications. IMPRESSION: Degenerative change. No acute bony abnormality. Dictated by: Fredi Robles M.D. on 12/11/2022 at 15:17 Approved by: Fredi Robles M.D. on 12/11/2022 at 15:19
[2022-12-11 12:44] LABS: Add Manual Diff / Slide Review NO; Basophils Absolute Auto 100 /uL (0-100); Basophils Percent Auto 0.9 % (0-2); Eosinophils Absolute Auto 400 /uL (0-450); Eosinophils Percent Auto 3.7 % (2-4); Hematocrit 39.4 % (36-46); Hemoglobin 13.4 g/dL (12.0-16.0); Lymphocytes Absolute Auto 1000 /uL (1100-4500); Lymphocytes Percent Auto 9.6 % (25-40); Mean Corpuscular HGB Conc 33.9 % (30-36); Mean Corpuscular Hemoglobin 30.1 PG (26-34); Mean Corpuscular Volume 88.7 fL (80-100); Monocytes Absolute Auto 600 /uL (0-900); Monocytes Percent Auto 5.9 % (3-14); Neutrophils Absolute Auto 8400 /uL (1500-7000); Neutrophils Percent Auto 79.9 % (50-75); Platelet Count 205 X10^3/uL (150-400); Red Blood Cell Count 4.44 X10^6/uL (4.0-5.2); Red Cell Distribution Width 14.4 % (11.6-14.8); White Blood Cell Count 10.5 X10^3/uL (4.5-11.0)
[2022-12-11 12:55] LABS: Hemoglobin A1C% w Est Avg Glu 7.6 % (4.0-6.0)
[2022-12-11 13:00] LABS: Alanine Aminotransferase 18 IU/L (<35); Albumin 3.8 g/dL (3.5-5.0); Albumin Globulin Ratio 1.3 (1.0-2.8); Alkaline Phosphatase 73 U/L (38-126); Aspartate Aminotransferase 20 IU/L (14-36); BUN Creatinine Ratio 20.4 (6-22); Bilirubin Total 0.6 mg/dL (0.2-1.3); Blood Urea Nitrogen 21 mg/dL (7-17); Carbon Dioxide 28 mmol/L (22-32); Chloride 103 mmol/L (98-107); Estimated Glomerular Filt Rate 56 mL/min (>60); Glucose 171 mg/dL (80-110); HEMOLYSIS < 15 (0-50); Potassium 4.7 mmol/L (3.4-5.1); Sodium 137 mmol/L (137-145); Total Protein 6.8 g/dL (6.3-8.2)
[2022-12-11 13:10] LABS: Appearance Urine UA CLOUDY; Bilirubin Urine UA 1+ (NEGATIVE); Color Urine UA YELLOW; Glucose Urine UA NEGATIVE (Negative); Ketones Urine UA NEGATIVE (NEGATIVE); Leukocyte Esterase Urine UA 1+ (NEGATIVE); Nitrite Urine UA NEGATIVE (Negative); Occult Blood Urine UA NEGATIVE (Negative); Protein Urine UA 3+ (Negative); Specific Gravity Urine UA >=1.030 (1.000-1.035); pH Urine UA 5.5 (4.5-8.0)
[2022-12-11 13:18] LABS: Free T4, Direct Thyroxine 1.72 ng/dL (0.78-2.19)
[2022-12-11 13:22] LABS: Bacteria Urine Many (>30); Culture Indicated Urine Specimen Cultured; Ictotest Urine Negative (Negative); RBC Urine 0-1/HPF (0-5/HPF); Squamous Epithelial Cell Urine 1-5 /HPF (0-5/HPF); WBC Urine >100/HPF (0-5/HPF)
[2022-12-11 13:31] LABS: Thyroid Stimulating Hormone 2.45 uIU/mL (0.47-4.68)
== END ==
PROVIDERS: PCP Family Medicine; Referring Provider Family Medicine; Visit Provider Family Medicine
DX: M54.50 Low back pain, unspecified (principal); E11.40 Type 2 diabetes mellitus with diabetic neuropathy, unspecified; E03.9 Hypothyroidism, unspecified; E78.2 Mixed hyperlipidemia; I10 Essential (primary) hypertension; N28.9 Disorder of kidney and ureter, unspecified; M47.816 Spondylosis without myelopathy or radiculopathy, lumbar region; N39.0 Urinary tract infection, site not specified
CPT/HCPCS: 72100; 80053; 81001; 83036; 84439; 84443; 85025; 87077; 87086; 87186

== ENCOUNTER → 2022-12-13 08:28 | Outpatient (CLI) | payer MEDICARE, OTHER, SELFPAY ==
[2018-04-22 14:22] VITALS: BMI 31.6
--- NOTE | 2022-12-13 08:29 | DI.CT.S_ITS ---
PROCEDURE: CT IVP A/P W/WO INDICATIONS: eval hemturia TECHNIQUE: Optional 5 mm thick noncontrast images acquired from the diaphragm to the symphysis pubis. After the administration of intravenous contrast, 5 mm thick images acquired from the diaphragm to the symphysis pubis after a 10-minute delay. 2 mm thick coronal and sagittal reformats were then performed of the kidneys and ureters. For radiation dose reduction, the following was used: automated exposure control, adjustment of mA and/or kV according to patient size. COMPARISON: [facility], CT, CT LUMBAR SPINE WO CON, 07/22/2018, 15:04. FINDINGS: Lower thorax: The lung bases are clear. Heart size normal. No hiatal hernia. Liver: Normal in size and attenuation. No contour deformity present. Biliary system: Cholecystectomy. No intra or extrahepatic bile duct dilation. Pancreas: Unremarkable without mass or inflammation evident. Spleen: Normal in size and density. Adrenals: Normal morphology and density. Reproductive system: Unremarkable as visualized. Urinary system: Right renal cyst measures up to 5 cm. Bilateral nonobstructing renal calculi measure up to 4 cm on the left. No evidence of hydronephrosis bilaterally. Both kidneys enhance and excrete contrast appropriately. The bladder is nondistended Gastrointestinal system: The bowel is unremarkable without evidence of bowel obstruction or inflammation. The stomach appears unremarkable. Multiple diverticula arise from the sigmoid colon without evidence of diverticulitis. Appendix: No findings to suggest acute appendicitis. Peritoneal spaces: In the central mesentery, there is mild edema associated with several mesenteric lymph nodes which become confluent centrally measuring up to 2 cm. Scattered nonenlarged retroperitoneal nodes present as well. Vasculature: Aortic atherosclerotic vascular calcification noted without evidence of aneurysm. Abdominal wall: Ventral hernia contains fat without bowel involvement. Musculoskeletal: Normal bone mineralization. Degenerative disc disease and arthropathy noted in lower lumbar spine. No acute fractures. IMPRESSION: 1. Non-obstructing nephrolithiasis. No ureteral calculi or hydronephrosis. Bladder is nondistended. 2. Scattered prominent but nonenlarged lymph nodes noted in the central mesentery and retroperitoneum are nonspecific. Adenitis could be considered. 3. Chronic findings include diverticulosis, degenerative disc disease, cholecystectomy, small ventral hernia Approved by: Leo Mendosa M.D. on 12/13/2022 at 14:41
== END ==
PROVIDERS: PCP Family Medicine; Referring Provider Family Medicine; Visit Provider Family Medicine
DX: N28.9 Disorder of kidney and ureter, unspecified (principal); R31.9 Hematuria, unspecified; N20.0 Calculus of kidney; N28.1 Cyst of kidney, acquired; K57.30 Diverticulosis of large intestine without perforation or abscess without bleeding; K43.9 Ventral hernia without obstruction or gangrene; M51.36 Other intervertebral disc degeneration, lumbar region; M47.816 Spondylosis without myelopathy or radiculopathy, lumbar region; Z90.49 Acquired absence of other specified parts of digestive tract
CPT/HCPCS: 74178; Q9967

== ENCOUNTER → 2023-01-01 14:37 | Outpatient (CLI) | payer MEDICARE, OTHER, SELFPAY ==
[2018-04-22 14:22] VITALS: BMI 31.6
[2023-01-01 14:55] LABS: Appearance Urine UA SL CLOUDY; Bilirubin Urine UA NEGATIVE (NEGATIVE); Color Urine UA YELLOW; Glucose Urine UA NEGATIVE (Negative); Ketones Urine UA TRACE (NEGATIVE); Leukocyte Esterase Urine UA 1+ (NEGATIVE); Nitrite Urine UA NEGATIVE (Negative); Occult Blood Urine UA NEGATIVE (Negative); Protein Urine UA 2+ (Negative); Specific Gravity Urine UA 1.025 (1.000-1.035)
[2023-01-01 15:19] LABS: pH Urine UA 5.5 (4.5-8.0)
[2023-01-01 15:20] LABS: Bacteria Urine Many (>30); Culture Indicated Urine Specimen Cultured; RBC Urine 0-1/HPF (0-5/HPF); Squamous Epithelial Cell Urine 1-5 /HPF (0-5/HPF); WBC Urine 5-10/HPF (0-5/HPF)
[2023-01-01 15:23] LABS: Creatinine Urine Random 251.9 mg/dL
[2023-01-01 15:51] LABS: Microalbumi Creatinin Ratio Ur 327.5 ug/mg CR (<30); Microalbumin Urine Random 82.5 mg/dL (0-1.6)
== END ==
PROVIDERS: PCP Family Medicine; Referring Provider Family Medicine; Visit Provider Family Medicine
DX: N28.9 Disorder of kidney and ureter, unspecified (principal); I10 Essential (primary) hypertension; E11.40 Type 2 diabetes mellitus with diabetic neuropathy, unspecified; E78.2 Mixed hyperlipidemia; N12 Tubulo-interstitial nephritis, not specified as acute or chronic
CPT/HCPCS: 81001; 82043; 82570; 87077; 87086; 87186

== ENCOUNTER → 2023-01-07 14:46 | Outpatient (CLI) | payer MEDICARE, OTHER, SELFPAY ==
[2018-04-22 14:22] VITALS: BMI 31.6
--- NOTE | 2023-01-07 14:48 | DI.RAD.S_ITS ---
PROCEDURE: XR KNEE LT 3V INDICATIONS: L knee pain TECHNIQUE: 3 views of the knee were acquired. COMPARISON: [facility], , KNEE 1-2 VIEWS RIGHT, 06/14/2010, 14:20. FINDINGS: Bones: Mildly decreased mineralization. Moderate to severe medial compartment joint space loss and moderate tricompartment marginal spurs present. Soft tissues: Joint effusion not well assessed due to suboptimal positioning. Moderate to heavy peripheral arterial calcification. No suspicious soft tissue calcifications. IMPRESSION: 1. Moderate to severe tricompartment osteoarthritic change, most pronounced in the medial compartment. 2. Peripheral vascular disease. Dictated by: Terri Quinonez M.D. on 01/07/2023 at 15:27 Approved by: Terri Quinonez M.D. on 01/07/2023 at 15:29
== END ==
PROVIDERS: PCP Family Medicine; Referring Provider Family Medicine; Visit Provider Family Medicine
DX: I73.9 Peripheral vascular disease, unspecified (principal); M25.562 Pain in left knee
CPT/HCPCS: 73562

== ENCOUNTER → 2023-01-21 11:19 | Outpatient (CLI) | payer MEDICARE, OTHER, SELFPAY ==
[2018-04-22 14:22] VITALS: BMI 31.6
[2023-01-21 12:08] LABS: Appearance Urine UA CLEAR; Bilirubin Urine UA NEGATIVE (NEGATIVE); Color Urine UA YELLOW; Glucose Urine UA NEGATIVE (Negative); Ketones Urine UA NEGATIVE (NEGATIVE); Leukocyte Esterase Urine UA 1+ (NEGATIVE); Nitrite Urine UA NEGATIVE (Negative); Occult Blood Urine UA NEGATIVE (Negative); Protein Urine UA 1+ (Negative); Urobilinogen Urine UA 0.2 E.U./dL (0.2)
[2023-01-21 12:10] LABS: pH Urine UA 5.5 (4.5-8.0)
[2023-01-21 12:15] LABS: Bacteria Urine None Seen; Culture Indicated Urine Specimen Cultured; RBC Urine None Seen (0-5/HPF); Squamous Epithelial Cell Urine 0-1 /HPF (0-5/HPF); WBC Urine 5-10/HPF (0-5/HPF)
== END ==
PROVIDERS: PCP Family Medicine; Referring Provider Family Medicine; Visit Provider Family Medicine
DX: N12 Tubulo-interstitial nephritis, not specified as acute or chronic (principal)
CPT/HCPCS: 81001; 87086

== ENCOUNTER 2023-02-16 10:02 | Emergency (ER) | payer MEDICARE, OTHER, SELFPAY ==
[2018-04-22 14:22] VITALS: BMI 31.6
[2023-02-16 10:05] VITALS: BP 211/86; PULSE 81; RESP 16; TEMP 36.6; O2SAT 96; BMI 39.9
[2023-02-16 10:09] VITALS: BP 211/86; PULSE 78; O2SAT 97
--- NOTE | 2023-02-16 10:17 | ED.FALL ---
HPI - Fall General Chief Complaint: Fall Stated Complaint: GLF in shower Time Seen by Provider: 02/16/23 10:11 History of Present Illness HPI Narrative: Patient is a 77-year-old female history of hypertension recurrent UTIs presenting today after mechanical fall. She reports that the towel slipped out from under her when she was getting out of the shower. She fell and hit her head. No loss of consciousness no nausea or vomiting. She denies any neck pain no rib pain or pelvic pain. She was actually able to ambulate afterwards. She is hypertensive. Granddaughter at bedside reports that she is a very high pain tolerance. Related Data Previous Rx's Medication Instructions Recorded 4 wheel walker with seat #1 ea 07/30/18 metoprolol succinate 50 mg See Rx Instructions .Route 05/28/22 tablet,extended release 24 hr .COMPLEX #45 tabs citalopram 20 mg tablet See Rx Instructions .Route 09/14/22 .COMPLEX #90 tabs lovastatin 20 mg tablet See Rx Instructions .Route 09/14/22 .COMPLEX #90 tabs levothyroxine 50 mcg tablet See Rx Instructions .Route 11/08/22 .COMPLEX #90 tabs metformin 500 mg tablet See Rx Instructions .Route 11/08/22 .COMPLEX #180 tabs nabumetone 500 mg tablet See Rx Instructions .Route 11/08/22 .COMPLEX #180 tabs amlodipine 2.5 mg tablet 2.5 mg PO BID #180 tabs 12/24/22 losartan 50 mg tablet 50 mg PO BID #180 tabs 12/24/22 ciprofloxacin HCl 250 mg tablet 250 mg PO BID #14 tabs 01/02/23 oxybutynin chloride 5 mg 5 mg PO DAILY #30 tabs 01/02/23 tablet,extended release 24 hr Allergies Allergy/AdvReac Type Severity Reaction Status Date / Time Penicillins Allergy Unknown Verified 02/16/23 10:16 sulfamethoxazole Allergy Unknown Verified 02/16/23 10:16 [From BACTRIM] trimethoprim [From BACTRIM] Allergy Unknown Verified 02/16/23 10:16 Patient History Medical History Left knee pain Incontinence in female Pyelonephritis Cough Adhesive capsulitis Lumbar canal stenosis Renal insufficiency Osteoarthritis Medication refill Depression (Unknown) Hypothyroidism (Unknown) Diabetes (Unknown) Hypertension (Unknown) Hyperlipidemia (~2009) Shoulder pain (Unknown) Foot pain (Unknown) Ankle pain (Unknown) Colitis (Unknown) Surgical History Hx of shoulder surgery (2003) Status post knee surgery (2005) Status post hysterectomy (~1980) Family History Sister Age: 85 Cerebrovascular accident (CVA), unspecified mechanism Brother Cancer Mental health problem Mother No problems noted. Social History household members: other Smoking Status: Never smoker alcohol intake: never Smoking Status: Never smoker Substance Use Type: does not use Exam Initial Vital Signs Initial Vital Signs: Vital Signs Temperature 97.9 F 02/16/23 10:05 Pulse Rate 81 02/16/23 10:05 Respiratory Rate 16 02/16/23 10:05 Blood Pressure 211/86 H 02/16/23 10:05 Pulse Oximetry 96 02/16/23 10:05 Oxygen Delivery Method Room Air 02/16/23 10:05 GENERAL: Alert pleasant 77-year-old female HEENT: Head posterior hematoma without crepitation, no laceration, abrasion present EOMI, pupils reactive, face symmetric, moist mucous membranes NECK: No vertebral tenderness no step-off range of motion CARDIOVASCULAR: Regular rate and rhythm without murmurs, rubs or gallops. RESPIRATORY: Breath sounds equal bilaterally, no wheezes rales or rhonchi. ABDOMEN: Soft, nontender. Normoactive bowel sounds all 4 quadrants. No guarding or rebound. EXTREMITIES: Normal range of motion, no clubbing or edema. Neurovascularly intact. Pelvis stable NEUROLOGICAL: Alert and oriented x4.Normal gait and speech. [employer] strength equal bilaterally SKIN: Warm, dry, no laceration, no petechiae, no rashes or lesions. Course Orders Ordered: ED Orders 02/16/23 10:20 CT cervical spine wo con Stat CT head/brain wo con Stat Discontinued Medications Acetaminophen (Acetaminophen 325 Mg Tablet) 975 mg PO NOW ONE Stop: 02/16/23 11:50 Last Admin: 02/16/23 11:52 Dose: 975 mg Documented By: SPF Vital Signs Vital signs: Vital Signs - 8 hr 02/16/23 10:05 02/16/23 10:09 02/16/23 10:09 Temperature 97.9 F Pulse Rate 81 78 Respiratory Rate 16 Blood Pressure 211/86 H 211/86 H Pulse Oximetry 96 97 Oxygen Delivery Method Room Air 02/16/23 10:30 02/16/23 10:56 02/16/23 11:49 Temperature Pulse Rate 73 68 Respiratory Rate Blood Pressure 232/107 H Pulse Oximetry 97 96 Oxygen Delivery Method Room Air MDM - Fall Imaging Data CT scan - head: Radiologist's Impression: PROCEDURE: CT HEAD/BRAIN WO CON INDICATIONS: fall TECHNIQUE: Noncontrast 4.5 mm thick angled axial sections acquired from the foramen magnum to the vertex, with coronal and sagittal reformats. For radiation dose reduction, the following was used: automated exposure control, adjustment of mA and/or kV according to patient size. COMPARISON: [facility], CT, CT HEAD/BRAIN WO CON, 07/22/2018, 15:04. FINDINGS: Image quality: Excellent. CSF spaces: Basal cisterns are patent. No extra-axial fluid collections. The ventricles are symmetric in size and shape. Brain: No intracranial bleeds or masses. There is cerebral volume loss for age, with resultant ventricular and sulcal prominence. There are periventricular and deep white matter chronic small vessel ischemic changes. There is intracranial internal carotid artery atherosclerosis. Skull and face: Left frontoparietal scalp hematoma. Calvarium and visualized facial bones appear intact, without suspicious lesions. Sinuses: Visualized sinuses and mastoids are clear. IMPRESSION: No acute intracranial abnormality. Dictated by: Jose Ramon Bowden M.D. on 02/16/2023 at 11:2 CT - cervical spine: Radiologist's Impression: PROCEDURE: CT CERVICAL SPINE WO CON INDICATIONS: fall TECHNIQUE: Noncontrast 3 mm thick sections acquired from the skull base to the T4 level. Sagittal and coronal reformats were then constructed. For radiation dose reduction, the following was used: automated exposure control, adjustment of mA and/or kV according to patient size. COMPARISON: None. FINDINGS: Image quality: Excellent. Bones: No fractures or dislocations. Visualized superior ribs are intact. Soft tissues: Prevertebral soft tissues are normal in thickness. No paravertebral hematomas. No apical pneumothoraces. IMPRESSION: No acute fracture. No osseous lesion. If symptoms and/or clinical suspicion for pathology persist, further assessment with MRI or bone scan may be helpful for further assessment. Dictated by: Jose Ramon Bowden M.D. on 02/16/2023 at 11:25 MDM Narrative Medical decision making narrative: Patient well-appearing 77-year-old female presents today after mechanical fall in the shower. She does have posterior hematoma head CT and CT cervical spine are negative. Pressure is elevated. She does not want anything for pain. Discharge Plan Departure Patient Disposition: Home Clinical Impression: Closed head injury, Hematoma Instructions: Concussion, DI for Hematoma (Bruise), How to Prevent Falls Activity Restrictions/Additional Instructions: *You have been diagnosed with closed head injury, hematoma *What to do: At this time recommend ice 20-30 minutes at a time. Please be careful. Take medication as directed when you get home. Head wound may bleed little apply some pressure and washcloth if needed. If persistent bleeding despite pressure and ice then return to ED *Continue to take medications as directed *Follow up with your primary care provider in 2-3 days or call [phone] *Return to ER if you should have persistent vomiting increased confusion or any new, worsening or concerning symptoms Prescriptions: No Action (DME) 4 wheel walker with seat Qty: 1 0RF Dose Instruction: As directed Rx Instructions: As directed metoprolol succinate 50 mg tablet extended release 24 hr See Rx Instructions .ROUTE .COMPLEX Qty: 45 3RF Dose Instruction: TAKE 1/2 TABLET BY MOUTH EVERY NIGHT AT BEDTIME Rx Instructions: TAKE 1/2 TABLET BY MOUTH EVERY NIGHT AT BEDTIME lovastatin 20 mg tablet See Rx Instructions .ROUTE .COMPLEX Qty: 90 3RF Dose Instruction: TAKE 1 TABLET BY MOUTH DAILY. Rx Instructions: TAKE 1 TABLET BY MOUTH DAILY. citalopram 20 mg tablet See Rx Instructions .ROUTE .COMPLEX Qty: 90 1RF Dose Instruction: TAKE 1 TABLET BY MOUTH EVERY MORNING Rx Instructions: TAKE 1 TABLET BY MOUTH EVERY MORNING levothyroxine 50 mcg tablet See Rx Instructions .ROUTE .COMPLEX Qty: 90 3RF Dose Instruction: TAKE 1 TABLET BY MOUTH EVERY MORNING Rx Instructions: TAKE 1 TABLET BY MOUTH EVERY MORNING metformin 500 mg tablet See Rx Instructions .ROUTE .COMPLEX Qty: 180 3RF Dose Instruction: TAKE 1 TABLET BY MOUTH TWICE DAILY Rx Instructions: TAKE 1 TABLET BY MOUTH TWICE DAILY nabumetone 500 mg tablet See Rx Instructions .ROUTE .COMPLEX Qty: 180 3RF Dose Instruction: TAKE 1 TABLET BY MOUTH TWICE DAILY Rx Instructions: TAKE 1 TABLET BY MOUTH TWICE DAILY oxybutynin chloride 5 mg tablet extended release 24hr 5 mg PO DAILY Qty: 30 2RF ciprofloxacin HCl 250 mg tablet 250 mg PO BID Qty: 14 0RF losartan 50 mg tablet 50 mg PO BID Qty: 180 3RF Rx Instructions: Start b.i.d. dosing on December 31 amlodipine 2.5 mg tablet 2.5 mg PO BID Qty: 180 3RF Rx Instructions: Start tonight and advanced to b.i.d. on January 07 Referrals: Davin Peterson DO [Primary Care Provider] - Stand Alone Forms: Patient Portal/API
--- NOTE | 2023-02-16 10:20 | DI.CT.S_ITS ---
PROCEDURE: CT CERVICAL SPINE WO CON INDICATIONS: fall TECHNIQUE: Noncontrast 3 mm thick sections acquired from the skull base to the T4 level. Sagittal and coronal reformats were then constructed. For radiation dose reduction, the following was used: automated exposure control, adjustment of mA and/or kV according to patient size. COMPARISON: None. FINDINGS: Image quality: Excellent. Bones: No fractures or dislocations. Visualized superior ribs are intact. Soft tissues: Prevertebral soft tissues are normal in thickness. No paravertebral hematomas. No apical pneumothoraces. IMPRESSION: No acute fracture. No osseous lesion. If symptoms and/or clinical suspicion for pathology persist, further assessment with MRI or bone scan may be helpful for further assessment. Dictated by: Jose Ramon Bowden M.D. on 02/16/2023 at 11:25 Approved by: Jose Ramon Bowden M.D. on 02/16/2023 at 11:26
--- NOTE | 2023-02-16 10:20 | DI.CT.S_ITS ---
PROCEDURE: CT HEAD/BRAIN WO CON INDICATIONS: fall TECHNIQUE: Noncontrast 4.5 mm thick angled axial sections acquired from the foramen magnum to the vertex, with coronal and sagittal reformats. For radiation dose reduction, the following was used: automated exposure control, adjustment of mA and/or kV according to patient size. COMPARISON: [facility], CT, CT HEAD/BRAIN WO CON, 07/22/2018, 15:04. FINDINGS: Image quality: Excellent. CSF spaces: Basal cisterns are patent. No extra-axial fluid collections. The ventricles are symmetric in size and shape. Brain: No intracranial bleeds or masses. There is cerebral volume loss for age, with resultant ventricular and sulcal prominence. There are periventricular and deep white matter chronic small vessel ischemic changes. There is intracranial internal carotid artery atherosclerosis. Skull and face: Left frontoparietal scalp hematoma. Calvarium and visualized facial bones appear intact, without suspicious lesions. Sinuses: Visualized sinuses and mastoids are clear. IMPRESSION: No acute intracranial abnormality. Dictated by: Jose Ramon Bowden M.D. on 02/16/2023 at 11:24 Approved by: Jose Ramon Bowden M.D. on 02/16/2023 at 11:24
[2023-02-16 10:30] VITALS: PULSE 73; O2SAT 97
[2023-02-16 10:56] VITALS: PULSE 68; O2SAT 96
[2023-02-16 11:49] VITALS: BP 232/107
[2023-02-16] MEDS: ACETAMINOPHEN 325 MG TABLET 975 MG PO (11:52)
== END 2023-02-16 12:06 | disposition home or self-care (01) ==
PROVIDERS: Emergency Provider Emergency Medicine; PCP Family Medicine
DX: S00.03XA Contusion of scalp, initial encounter (principal); S09.90XA Unspecified injury of head, initial encounter; W01.0XXA Fall on same level from slipping, tripping and stumbling without subsequent striking against object, initial encounter
CPT/HCPCS: 70450; 72125; 99284

== ENCOUNTER → 2023-08-05 15:18 | Outpatient (CLI) | payer MEDICARE, OTHER, SELFPAY ==
[2018-04-22 14:22] VITALS: BMI 31.6
--- NOTE | 2023-08-05 15:21 | DI.RAD.S_ITS ---
PROCEDURE: XR HIP W PEL IF DONE BILAT 2V INDICATIONS: eval hip pain TECHNIQUE: 2 views of the hip were acquired. COMPARISON: None. FINDINGS: Bones: No fractures or dislocations. No suspicious bony lesions. The visualized pelvic ring appears intact. Soft tissues: No suspicious soft tissue calcifications or masses. IMPRESSION: Bilateral hip joint space narrowing Approved by: Leo Mendosa M.D. on 08/05/2023 at 19:21
--- NOTE | 2023-08-05 15:21 | DI.RAD.S_ITS ---
PROCEDURE: XR LUMBAR SPINE 2-3V INDICATIONS: eval back pain TECHNIQUE: 3 views of the lumbar spine were acquired. COMPARISON: [facility], CT, CT IVP A/P W/WO, 12/13/2022, 8:40. [facility], CR, XR LUMBAR SPINE 2-3V, 12/11/2022, 11:35. [facility], CR, XR LUMBAR SPINE 2-3V, 02/22/2020, 10:00. FINDINGS: Bones: 5 far-cni-sjholqa vertebrae are present. There is normal bony alignment. No vertebral body compression fractures. Prominent vertebral body osteophytes. Multilevel DDD. Lower lumbar spine facet joint hypertrophy. No suspicious bony lesions. Soft tissues: Overlying bowel gas pattern is normal. No suspicious soft tissue calcifications. IMPRESSION: Bridging vertebral body osteophytes. Multilevel DDD. No significant interval change. No compression fracture. Dictated by: Keegan Sagastume M.D. on 08/05/2023 at 21:55 Approved by: Keegan Sagastume M.D. on 08/05/2023 at 21:58
[2023-08-05 18:34] LABS: Alanine Aminotransferase 16 IU/L (<35); Albumin 4.3 g/dL (3.5-5.0); Albumin Globulin Ratio 1.4 (1.0-2.8); Alkaline Phosphatase 82 U/L (38-126); Aspartate Aminotransferase 17 IU/L (14-36); BUN Creatinine Ratio 30.6 (6-22); Bilirubin Total 0.6 mg/dL (0.2-1.3); Blood Urea Nitrogen 30 mg/dL (7-17); Calcium 9.2 mg/dL (8.4-10.2); Carbon Dioxide 28 mmol/L (22-32); Chloride 102 mmol/L (98-107); Cholesterol 137 mg/dL (140-199); Estimated Glomerular Filt Rate 59 mL/min (>60); Glucose 273 mg/dL (80-110); HDL Cholesterol 41 mg/dL (40-60); HEMOLYSIS < 15 (0-50); LDL Cholesterol Calculated 69 mg/dL (<100); Potassium 4.3 mmol/L (3.4-5.1); Sodium 135 mmol/L (137-145); Total Protein 7.3 g/dL (6.3-8.2); Triglycerides 137 mg/dL (35-150)
[2023-08-05 18:46] LABS: Hemoglobin A1C% w Est Avg Glu 9.7 % (4.0-6.0)
[2023-08-05 18:51] LABS: Free T4, Direct Thyroxine 1.88 ng/dL (0.78-2.19)
[2023-08-05 19:05] LABS: Thyroid Stimulating Hormone 2.32 uIU/mL (0.47-4.68)
== END ==
PROVIDERS: PCP Family Medicine; Referring Provider Family Medicine; Visit Provider Family Medicine
DX: M48.061 Spinal stenosis, lumbar region without neurogenic claudication (principal); E11.40 Type 2 diabetes mellitus with diabetic neuropathy, unspecified; I10 Essential (primary) hypertension; E78.2 Mixed hyperlipidemia; M25.551 Pain in right hip; M25.552 Pain in left hip; R32 Unspecified urinary incontinence; N28.9 Disorder of kidney and ureter, unspecified; E03.9 Hypothyroidism, unspecified; F32.9 Major depressive disorder, single episode, unspecified
CPT/HCPCS: 36415; 72100; 73521; 80053; 80061; 83036; 84439; 84443

== ENCOUNTER → 2024-02-24 09:40 | Outpatient (CLI) | payer MEDICARE, OTHER, SELFPAY ==
[2018-04-22 14:22] VITALS: BMI 31.6
[2024-02-24 10:41] LABS: Hemoglobin A1C% w Est Avg Glu 5.7 % (4.0-6.0)
[2024-02-24 10:51] LABS: Alanine Aminotransferase 16 IU/L (<35); Albumin 3.7 g/dL (3.5-5.0); Albumin Globulin Ratio 1.4 (1.0-2.8); Alkaline Phosphatase 61 U/L (38-126); Aspartate Aminotransferase 17 IU/L (14-36); BUN Creatinine Ratio 23.8 (6-22); Bilirubin Total 0.6 mg/dL (0.2-1.3); Blood Urea Nitrogen 24 mg/dL (7-17); Carbon Dioxide 24 mmol/L (22-32); Chloride 105 mmol/L (98-107); Estimated Glomerular Filt Rate 57 mL/min (>60); Globulin 2.7 g/dL (1.7-4.1); Glucose 136 mg/dL (80-110); HEMOLYSIS < 15 (0-50); Potassium 4.8 mmol/L (3.4-5.1); Sodium 136 mmol/L (137-145); Total Protein 6.4 g/dL (6.3-8.2)
== END ==
PROVIDERS: PCP Family Medicine; Referring Provider Family Medicine; Visit Provider Family Medicine
DX: E11.40 Type 2 diabetes mellitus with diabetic neuropathy, unspecified (principal); E03.9 Hypothyroidism, unspecified; I10 Essential (primary) hypertension; E78.2 Mixed hyperlipidemia
CPT/HCPCS: 36415; 80053; 83036

== ENCOUNTER → 2024-08-04 09:15 | Outpatient (CLI) | payer MEDICARE, OTHER, SELFPAY ==
[2018-04-22 14:22] VITALS: BMI 31.6
--- NOTE | 2024-08-04 09:17 | DI.RAD.S_ITS ---
PROCEDURE: XR HIP W PEL IF DONE RT 2V INDICATIONS: eval right hip pain TECHNIQUE: AP pelvis with lateral view(s) of the right hip(s). COMPARISON: [facility], CR, XR HIP W PEL IF DONE BILAT 2V, 08/05/2023, 15:36. FINDINGS: Bones: No fractures or dislocations. Moderate bilateral hip joint osteoarthritic changes are seen. No evidence of avascular necrosis of femoral head. Pelvic ring appears intact. No suspicious bony lesions. Degenerative disc disease in visualized lower lumbar spine is seen. Soft tissues: The visualized bowel gas pattern is normal. No suspicious soft tissue calcifications. IMPRESSION: Moderate bilateral hip joint osteoarthritis progressed since 2023 study. No pelvic or hip fracture. No evidence of avascular necrosis. Degenerative disc disease in visualized lower lumbar spine. Dictated by: Jordi Grijalva M.D. on 08/04/2024 at 12:34 Approved by: Jordi Grijalva M.D. on 08/04/2024 at 12:35
--- NOTE | 2024-08-04 09:17 | DI.MRI.S_ITS ---
PROCEDURE: MR HIP RT WO CON INDICATIONS: right hip pain TECHNIQUE: Noncontrast coronal T1 spin echo and STIR through the bony pelvis. Coronal and axial T2 fast spin echo with fat saturation, sagittal T1 spin echo, and oblique axial T2 fast spin echo with fat saturation through the hip. COMPARISON: None. FINDINGS: Image quality: Excellent. Bones and joints: Moderate bilateral hip joint osteoarthritic changes are seen with superior joint space narrowing, subchondral sclerosis and small marginal osteophyte formation. No marrow edema. No fracture or dislocation. No evidence of avascular necrosis of femoral heads. Degenerative disc disease in visualized lower lumbar spine is seen. Tendons and ligaments: Distal right gluteus medius tendinosis at its insertion on greater trochanter is seen. Distal right gluteus minimus tendon is intact. The nearby proximal iliotibial band also appears intact. The iliopsoas tendon appears intact, without adjacent bursal fluid collections or evidence for impingement syndrome. Mild tendinosis involving right hamstring tendon origin at ischial tuberosity is noted. Labrum and cartilage: There is diffuse thinning of articulating cartilage over right femoral head. Fraying of superior anterior right acetabular labrum with T2 hyperintense signal consistent with superior anterior labral tear. Soft tissues: Visualized muscles demonstrate normal bulk and internal signal. Quadratus femoris muscle demonstrates no internal edema to suggest ischiofemoral impingement. The proximal sciatic neurovascular bundle appears normal adjacent to the hamstring tendons. No free pelvic fluid. Bladder wall thickness is normal. Genitourinary structures and bowel loops appear normal where visualized. IMPRESSION: 1. Moderate bilateral hip joint osteoarthritis. No pelvic or hip fracture. No evidence of avascular necrosis. Degenerative disc disease in visualized lower lumbar spine. 2. Distal right gluteus medius tendinosis. Tendinosis involving right hamstring tendon origins at ischial tuberosity. 3. Suggestion of superior anterior right acetabular labral tear. Dictated by: Jordi Grijalva M.D. on 08/04/2024 at 11:29 Approved by: Jordi Grijalva M.D. on 08/04/2024 at 11:42
--- NOTE | 2024-08-04 15:19 | ST.SWALLOW ---
Visit Care Team Role Provider Type Brenda Rodriguez MD Attending Provider Physician Primary Care Provider Referring Provider Specialty: Family Practice Obstetrics Address: [address] [place] [address], [id number] Email: [email or web address] Modified Barium Swallow Study SPECIAL DIET COOK Modified Barium Swallow Study Start: 08/04/24 14:36 Freq: Status: Active Protocol: Document 08/04/24 14:37 LNK (Rec: 08/04/24 15:19 LNK Desktop) Modified Barium Swallow Study Total Time Visit Start Time 10:00 Visit Stop Time 12:30 Total Visit Minutes [address] Rodriguez Reason for Referral dysphagia Setting Setting Outpatient Care Patient Information Identification Type Name,Date of Patient History Pt was seen for a Modified Barium Swallow Study with c/o food and medication getting stuck in her throat and near her sternum. She tries to cough it out, but it remains stuck. Pt described water and not getting stuck and swallowed OK. Pt has changed her diet to soft foods with moisture and she chews well. Pt lives at home with family helping her as needed. Pt noted a history of GERD but takes no medication for it. Subjective Observations Pt was seated in the fluoroscopy chair with directions and procedures described for her. She indicated she understood and agreed to proceed. Patient Positioning Position View Lat-A/P Imaging Lateral View Textures Administered Trials Presented Thin Liquid via Spoon (IDDSI 0 ),Thin Liquid via Cup (IDDSI 0 ),Extremely Thick Liquid via Spoon (IDDSI 4),Regular (IDDSI 7) Barium Tablet Yes The IDDSI Framework Protocol: IDDSI.1 Oral Impairment Source: The Modified Barium Swallow Impairment Profile (MBSImP??) Lip Closure No labial escape Tongue Control During Bolus Hold Escape to lateral buccal cavity/floor of mouth (FOM) Bolus Preparation/Mastication Disorganized chewing/mashing with solid pieces of bolus unchewed Bolus Transport/Lingual Motion Repetitive/disorganized tongue motion Oral Residue Complete oral clearance,Trace residue lining oral structures ,Residue collection on oral structures Location Palate,Tongue Initiation of Pharyngeal Swallow Bolus head at pyriforms Additional Oral Impairment Observations *OME and DKS were observed to be WNL. *Dentition natural with many teeth missing. No dentures or partials *Mastication pattern of anterior munching observed; likely related to current dental state *Adequate bolus formation, control and AP transition. *Velopharyngeal closure was WNL. Pharyngeal Impairment Source: The Modified Barium Swallow Impairment Profile (MBSImP??) Soft Palate Elevation No bolus between soft palate & pharyngeal wall Laryngeal Elevation Part.sup.move.thyroid cart/ part.approx.arytenoids to epiglot.petiole Anterior Hyoid Excursion No anterior movement Epiglottic Movement Partial inversion Laryngeal Vestibular Closure Incomplete; narrow column air/ contrast in laryngeal vestibule Pharyngeal Stripping Wave Present - diminished Pharyngoesophageal Segment Opening Complete distention & complete duration; no obstruction of flow Tongue Base Retraction Wide column of contrast/air betwn tongue base & post. pharyngeal wall Pharyngeal Residue Trace residue within/on pharyngeal structures Location Valleculae Additional Pharyngeal Impairment *Reduced base of tongue Observations retraction strength *Reduced laryngeal elevation with no hyoid movement forward *Partial epiglottic inversion with flash penetration observed x1 with consecutive swallows (large, rapid boluses ) *CP bar visualized *Partial stripping of posterior pharyngeal wall affecting bolus control *No tracheal aspiration A/P View Textures Administered Trials Presented Thin Liquid via Cup (IDDSI 0) The IDDSI Framework Protocol: IDDSI.1 A/P View Observations Pharyngeal Contraction Complete Esophageal Clearance Upright Position Esophageal retention w/ regtrograde flow below pharyngoesoph segment Vocal Fold Function Good Esophageal Function Slowed Clearing,Reverse Peristalsis,Stasis Additional A-P Observations *Esophageal retention observed from lateral in AP position. *Pt reported that she was feeling stuck sensation near sternal notch. *Reverse flow observed below UES, at mid chest, while pt described sticking sensation *Barium tablet cleared esophagus to the stomach in a timely manner * GI referral if indicated Clinical Impressions Dysphagia Type Oral,Pharyngeal,Esophageal Findings *Mild oropharyngeal dysphagia secondary to poor dentition affecting mastication *Mild pharyngeal phase of swallow with reduced hyolaryngeal and epiglottic function *Mild esophageal phase of swallow *Slow esophageal clearance with retention of residue from sternal area to the LES The results of the MBSS described are not uncommon for this pt's age. She was encouraged to continue with current diet, chew well, incorporate liquids frequently while eating and remain upright after eating to allow gravity assist in esophageal emptying Rehabilitation Potential Good Patient Appropriate for Therapy Yes: Pt may benefit from base of tongue strength exercises - ST referral Recommendations Diet Comments No change in diet Aspiration Precautions Recommended Precautions Upright at 90 Degrees, Alternate Liquids/Solids, Frequent Rest Periods,Small Bites/Sips Treatment Plan Therapy Recommendations Outpatient Speech Therapy,Base of Tongue Exercises Recommended Referrals GI Consult
== END ==
LOC: MRI 09:49 → RAD 14:15
PROVIDERS: PCP Student in an Organized Health Care Education/Training Program; Referring Provider Student in an Organized Health Care Education/Training Program; Visit Provider Student in an Organized Health Care Education/Training Program
DX: M16.0 Bilateral primary osteoarthritis of hip (principal); M25.551 Pain in right hip; R13.10 Dysphagia, unspecified; M51.369 Other intervertebral disc degeneration, lumbar region without mention of lumbar back pain or lower extremity pain
CPT/HCPCS: 73502; 73721; 74230; 92611

== ENCOUNTER → 2024-10-29 13:04 | Outpatient (CLI) | payer MEDICARE, OTHER, SELFPAY ==
[2018-04-22 14:22] VITALS: BMI 31.6
[2024-10-29 13:53] LABS: Alanine Aminotransferase 15 IU/L (<35); Albumin 4.0 g/dL (3.5-5.0); Albumin Globulin Ratio 1.5 (1.0-2.8); Alkaline Phosphatase 62 U/L (38-126); Blood Urea Nitrogen 29 mg/dL (7-17); Calcium 9.2 mg/dL (8.4-10.2); Carbon Dioxide 25 mmol/L (22-32); Chloride 99 mmol/L (98-107); Estimated Glomerular Filt Rate 45 mL/min (>60); Globulin 2.6 g/dL (1.7-4.1); Glucose 109 mg/dL (70-99); HEMOLYSIS < 15 (0-50); Potassium 4.9 mmol/L (3.4-5.1); Sodium 132 mmol/L (137-145); Total Protein 6.6 g/dL (6.3-8.2)
== END ==
PROVIDERS: PCP Student in an Organized Health Care Education/Training Program; Referring Provider Orthopaedic Surgery; Visit Provider Orthopaedic Surgery
DX: M70.61 Trochanteric bursitis, right hip (principal)
CPT/HCPCS: 36415; 80053

== ENCOUNTER → 2024-11-24 14:43 | Outpatient (CLI) | payer MEDICARE, OTHER, SELFPAY ==
[2018-04-22 14:22] VITALS: BMI 31.6
[2024-11-24 16:13] LABS: Appearance Urine UA CLOUDY; Bilirubin Urine UA NEGATIVE (NEGATIVE); Color Urine UA YELLOW; Glucose Urine UA NEGATIVE (Negative); Ketones Urine UA TRACE (NEGATIVE); Leukocyte Esterase Urine UA 3+ (NEGATIVE); Nitrite Urine UA NEGATIVE (Negative); Occult Blood Urine UA TRACE-INTACT (Negative); Protein Urine UA TRACE (Negative); Specific Gravity Urine UA <=1.005 (1.000-1.035); Urobilinogen Urine UA 0.2 E.U./dL (0.2)
[2024-11-24 16:16] LABS: pH Urine UA 6.0 (4.5-8.0)
[2024-11-24 16:24] LABS: Culture Indicated Urine Specimen Cultured
== END ==
PROVIDERS: PCP Student in an Organized Health Care Education/Training Program; Referring Provider Student in an Organized Health Care Education/Training Program; Visit Provider Student in an Organized Health Care Education/Training Program
DX: N32.81 Overactive bladder (principal); R32 Unspecified urinary incontinence; R39.15 Urgency of urination
CPT/HCPCS: 81001; 87086

== ENCOUNTER 2024-12-27 13:03 | Inpatient (IN) | payer MEDICARE, OTHER, SELFPAY ==
[2018-04-22 14:22] VITALS: BMI 31.6
[2024-12-27] VITALS (42 sets, daily range): BP systolic 134–193; BP diastolic 76–119; PULSE 103–159; RESP 12–26; TEMP 36.1–36.7; O2SAT 95–100; BMI 28.9
--- NOTE | 2024-12-27 13:32 | ED.NAVMDI ---
HPI - Nausea/Vomiting/Diarrhea General Chief complaint: Nausea/Vomiting/Diarrhea Stated complaint: 2WKS+ can't hold down; nausea Time Seen by Provider: 12/27/24 13:32 Source: patient and family Mode of arrival: Wheelchair History of Present Illness HPI Narrative: Patient is a 79-year-old female with a past medical history of hypertension hypothyroidism, diabetes insulin-dependent type 2, comes into the ED from home for evaluation of nausea and vomiting constipation states this has been ongoing persistent for the past 2 weeks, denies any true abdominal pain denies urinary symptoms denies any chest pain shortness of breath fever chills or any other GI/ symptoms time. She states that she has had decreased p.o. intake secondary to these symptoms. She denies any trauma or falls. Related Data Previous Rx's ?Medication ?Instructions ?Recorded 4 wheel walker with seat #1 ea 07/30/18 citalopram 20 mg tablet See Rx Instructions .Route 03/31/24 .COMPLEX #90 tabs metoprolol succinate 50 mg See Rx Instructions .Route 05/26/24 tablet,extended release 24 hr .COMPLEX #45 tabs Disabled Parking Permit #2 ea 07/31/24 cyclobenzaprine 5 mg tablet 5 mg PO TID PRN muscle spasm #90 07/31/24 tabs lovastatin 20 mg tablet 20 mg PO DAILY #90 tabs 09/15/24 levothyroxine 50 mcg tablet 50 mcg PO QAM #90 tabs 11/10/24 meloxicam 15 mg tablet 15 mg PO DAILY #30 tabs 12/03/24 losartan 25 mg tablet 25 mg PO DAILY #30 tabs 12/18/24 metformin 1,000 mg tablet 1,000 mg PO DAILY #30 tabs 12/18/24 ondansetron 4 mg disintegrating 4 mg PO Q8H PRN nausea and 12/18/24 tablet vomiting #60 tabs semaglutide 0.25 mg or 0.5 mg (2 0.25 mg (0.368 mL) SUBCUT QWEEK #3 12/18/24 mg/3 mL) subcutaneous pen injector mL Allergies Allergy/AdvReac Type Severity Reaction Status Date / Time nitrofurantoin Allergy Severe mouth Verified 12/27/24 13:12 blisters Penicillins Allergy Unknown Verified 12/27/24 13:12 sulfamethoxazole (From Allergy Unknown Verified 12/27/24 13:12 BACTRIM) trimethoprim (From BACTRIM) Allergy Unknown Verified 12/27/24 13:12 Review of Systems Review of Systems Narrative: General: Denies fever, chills, weight loss HEENT: Denies headache, eye drainage, eye irritation, head trauma, sore throat, voice change Cardiovascular: Denies any chest pain, palpitations, tachycardia Respiratory: Denies any shortness of breath, cough, wheeze, stridor GI/: Positive nausea and vomiting, constipation Denies any abdominal pain, diarrhea, bright red blood per rectum, melanotic stools, urinary frequency, urinary retention, dysuria, hematuria MSK: Denies any joint pain, muscle pains, swelling Skin: Denies any rashes, lesions, discoloration Neuro: Denies any headache, lightheadedness, dizziness, fainting, weakness Psych: Denies SI/HI Patient History Medical History Left knee pain Incontinence in female Pyelonephritis Cough Adhesive capsulitis Lumbar canal stenosis Renal insufficiency Osteoarthritis Medication refill Depression (Unknown) Hypothyroidism (Unknown) Diabetes (Unknown) Hypertension (Unknown) Hyperlipidemia (~2009) Shoulder pain (Unknown) Foot pain (Unknown) Ankle pain (Unknown) Colitis (Unknown) Surgical History Hx of shoulder surgery (2003) Status post knee surgery (2005) Status post hysterectomy (~1980) Family History Sister Age: 87 Cerebrovascular accident (CVA), unspecified mechanism Brother Cancer Mental health problem Mother No problems noted. Social History household members: other Smoking Status: Never smoker alcohol intake: never Smoking Status: Never smoker Exam Narrative Exam Narrative: General: Cooperative, well-developed, not in acute distress HEENT: Normocephalic, atraumatic, PERRLA, normal sclera, eyelids normal, dry mucous membrane Neck: Active full range of motion, atraumatic Chest: Normal to inspection, negative crepitus, no overlying erythema ecchymosis Respiratory: Normal respiratory effort, not in acute respiratory distress, clear to auscultation bilaterally negative cough, wheeze, tachypnea, rhonchi, rales Cardiology: Regular rate rhythm negative gallop, murmur, rubs GI/: No tenderness to palpation, soft, non rigid, normal to inspection, exam deferred MSK: Full active range of motion in all 4 extremities, atraumatic, no tenderness to palpation of any bony prominences Skin: No rashes or lesions noted Neuro: Alert awake oriented x3, moves all 4 extremities spontaneously, cranial nerves intact, able to answer all questions appropriately follows commands appropriately Psych: Cooperative, negative suicidal or homicidal ideations Initial Vital Signs Initial Vital Signs: Vital Signs Temperature 98.1 F 12/27/24 13:12 Pulse Rate 159 H 12/27/24 13:12 Respiratory Rate 20 12/27/24 13:12 Blood Pressure 146/87 H 12/27/24 13:12 Pulse Oximetry 98 12/27/24 13:12 Oxygen Delivery Method Room Air 12/27/24 13:12 Course Orders Ordered: ED Orders 12/27/24 13:30 Complete Blood Count AUTO DIFF Stat Comprehensive Metabolic Panel Stat Lactate (Lactic Acid) Stat Lipase Stat MAG [Magnesium] Stat PT [Prothrombin Time INR] Stat PTT Partial Thromboplastin Jose Stat Troponin & CK Cardiac Panel Stat 12/27/24 13:40 CXR [XR chest 1V] Stat 12/27/24 13:55 Respiratory Panel (Film Array) Stat 12/27/24 14:07 Blood Culture Stat 12/27/24 14:19 CT abdomen pelvis w con Stat 12/27/24 14:25 Ictotest Urine Stat Urinalysis and Microscopic Stat Urine Culture Stat 12/27/24 16:45 CBC Auto Diff [Complete Blood Count AUTO DIFF] Stat Discontinued Medications Sodium Chloride (Normal Saline 0.9%) 1,000 mls @ 1,000 mls/hr IV BOLUS ONE Stop: 12/27/24 14:31 Last Infusion: 12/27/24 14:50 Dose: Infused Documented By: Admin: 12/27/24 13:39 Dose: 1,000 mls/hr Documented By: SAMIRA Sodium Chloride (Normal Saline 0.9%) 1,000 mls @ 1,000 mls/hr IV BOLUS ONE Stop: 12/27/24 14:32 Last Infusion: 12/27/24 15:49 Dose: Infused Documented By: Admin: 12/27/24 15:04 Dose: 1,000 mls/hr Documented By: LAINE Magnesium Sulfate (Magnesium Sulfate) 2 gm in 50 mls @ 25 mls/hr IV NOW ONE Stop: 12/27/24 16:34 Last Admin: 12/27/24 15:50 Dose: 25 mls/hr Documented By: LAINE Co-signed By: MAYNOR Ceftriaxone Sodium 1,000 mg/ (Sodium Chloride) 100 mls @ 200 mls/hr IV NOW ONE Stop: 12/27/24 14:46 Last Infusion: 12/27/24 15:49 Dose: Infused Documented By: Admin: 12/27/24 15:03 Dose: 200 mls/hr Documented By: LAINE Ondansetron HCl (Ondansetron 4 Mg/2 Ml Inj) 4 mg IV NOW ONE Stop: 12/27/24 13:34 Last Admin: 12/27/24 13:39 Dose: 4 mg Documented By: SAMIRA Vital Signs Vital signs: Vital Signs - 8 hr 12/27/24 13:12 12/27/24 13:31 12/27/24 13:40 Temperature 98.1 F Pulse Rate 159 H 136 H 133 H Respiratory Rate 20 21 19 Blood Pressure 146/87 H Pulse Oximetry 98 97 97 Oxygen Delivery Method Room Air Room Air 12/27/24 13:40 12/27/24 13:50 12/27/24 13:50 Temperature Pulse Rate 123 H Respiratory Rate 17 Blood Pressure 164/97 H 162/91 H Pulse Oximetry 97 Oxygen Delivery Method Room Air 12/27/24 14:00 12/27/24 14:00 12/27/24 14:18 Temperature Pulse Rate 120 H 124 H Respiratory Rate 19 Blood Pressure 165/85 H Pulse Oximetry 96 100 Oxygen Delivery Method 12/27/24 14:20 12/27/24 14:25 12/27/24 14:25 Temperature Pulse Rate 122 H 124 H Respiratory Rate 15 13 Blood Pressure 171/84 H Pulse Oximetry 98 97 Oxygen Delivery Method Room Air 12/27/24 14:30 12/27/24 14:30 12/27/24 14:40 Temperature Pulse Rate 124 H 112 H Respiratory Rate 17 17 Blood Pressure 171/87 H Pulse Oximetry 98 95 Oxygen Delivery Method 12/27/24 14:45 12/27/24 14:45 12/27/24 14:50 Temperature Pulse Rate 111 H 113 H Respiratory Rate 14 22 Blood Pressure 167/88 H Pulse Oximetry 97 97 Oxygen Delivery Method 12/27/24 15:00 12/27/24 15:00 12/27/24 15:10 Temperature Pulse Rate 108 H 107 H Respiratory Rate 16 15 Blood Pressure 164/85 H Pulse Oximetry 98 98 Oxygen Delivery Method 12/27/24 15:15 12/27/24 15:15 12/27/24 15:20 Temperature Pulse Rate 103 H 105 H Respiratory Rate 18 21 Blood Pressure 161/83 H Pulse Oximetry 96 96 Oxygen Delivery Method 12/27/24 15:30 12/27/24 15:30 12/27/24 15:40 Temperature Pulse Rate 104 H 118 H Respiratory Rate 13 12 Blood Pressure 153/77 H Pulse Oximetry 96 96 Oxygen Delivery Method 12/27/24 15:45 12/27/24 15:45 12/27/24 15:50 Temperature Pulse Rate 116 H 114 H Respiratory Rate 18 25 H Blood Pressure 161/79 H Pulse Oximetry 97 98 Oxygen Delivery Method 12/27/24 16:00 12/27/24 16:00 12/27/24 16:10 Temperature Pulse Rate 114 H 109 H Respiratory Rate 19 15 Blood Pressure 171/83 H Pulse Oximetry 98 97 Oxygen Delivery Method 12/27/24 16:15 12/27/24 16:15 12/27/24 16:20 Temperature Pulse Rate 111 H 127 H Respiratory Rate 19 18 Blood Pressure 168/83 H Pulse Oximetry 98 98 Oxygen Delivery Method 12/27/24 16:30 12/27/24 16:30 12/27/24 16:40 Temperature Pulse Rate 107 H 109 H Respiratory Rate 13 14 Blood Pressure 164/84 H Pulse Oximetry 97 96 Oxygen Delivery Method 12/27/24 16:45 12/27/24 16:45 12/27/24 16:50 Temperature Pulse Rate 115 H 110 H Respiratory Rate 13 13 Blood Pressure 160/76 H Pulse Oximetry 97 97 Oxygen Delivery Method 12/27/24 17:00 12/27/24 17:00 12/27/24 17:10 Temperature Pulse Rate 111 H 119 H Respiratory Rate 18 16 Blood Pressure 167/85 H Pulse Oximetry 97 97 Oxygen Delivery Method MDM - Nausea/Vomiting/Diarrhea Lab Data 12/27/24 16:45 12/27/24 13:30 Labs: Lab Results 12/27/24 12/27/24 12/27/24 Range/Units 13:30 13:55 14:25 WBC 16.2 H (4.5-11.0) X10^3/uL RBC 4.15 (4.0-5.2) X10^6/uL Hgb 12.7 (12.0-16.0) g/dL Hct 37.9 (36-46) % MCV 91.3 (80-100) fL MCH 30.7 (26-34) PG MCHC 33.6 (30-36) % RDW 15.1 H (11.6-14.8) % Plt Count 269 (150-400) X10^3/uL Neut % (Auto) 77.4 H (50-75) % Lymph % (Auto) 15.2 L (25-40) % [place] % (Auto) 5.6 (3-14) % Eos % (Auto) 1.1 L (2-4) % Baso % (Auto) 0.7 (0-2) % Neut # (Auto) 12866 H (6540-2494) /uL Lymph # (Auto) 2500 (7614-6587) /uL [place] # (Auto) 900 (0-900) /uL Eos # (Auto) 200 (0-450) /uL Baso # (Auto) 100 (0-100) /uL PT 12.1 (9.4-12.5) SECONDS INR 1.1 (0.9-1.3) APTT 30 (25.1-36.5) SECONDS Sodium 136 L (137-145) mmol/L Potassium 3.8 (3.4-5.1) mmol/L Chloride 103 (98-107) mmol/L Carbon Dioxide 18 L (22-32) mmol/L BUN 22 H (7-17) mg/dL Creatinine 1.25 H (0.52-1.04) mg/dL Estimated GFR 44 L (>60) mL/min BUN/Creatinine Ratio 17.6 (6-22) Glucose 147 H (70-99) mg/dL Lactate 1.9 (0.7-2.1) mmol/L Calcium 9.0 (8.4-10.2) mg/dL Magnesium 1.2 L (1.6-2.3) mg/dL Total Bilirubin 0.8 (0.2-1.3) mg/dL AST 24 (14-36) IU/L ALT 14 (<35) IU/L Alkaline Phosphatase 78 (38-126) U/L Total Creatine Kinase < 20 L (30-135) U/L Troponin I 0.012 (0.01-0.034) ng/mL Total Protein 7.1 (6.3-8.2) g/dL Albumin 3.8 (3.5-5.0) g/dL Globulin 3.3 (1.7-4.1) g/dL Albumin/Globulin Ratio 1.2 (1.0-2.8) Lipase 15 L (23-300) U/L Urine Color Yellow Urine Appearance Cloudy Urine pH 6.0 (4.5-8.0) Ur Specific [place] 1.015 (1.000-1.035) Urine Protein 1+ H (Negative) Urine Glucose (UA) Negative (Negative) g/dL Urine Ketones 2+ H (NEGATIVE) Urine Occult Blood 1+ H (Negative) Urine Nitrate Negative (Negative) Urine Bilirubin 2+ H (NEGATIVE) Ur Bilirubin Confirm Negative (Negative) Urine Urobilinogen 1.0 (0.2) E.U./dL Ur Leukocyte Esterase 2+ H (NEGATIVE) Urine RBC 1-5/hpf (0-5/HPF) Urine WBC 30-100/hpf H (0-5/HPF) Ur Squamous Epith Cells None seen (0-5/HPF) Urine Bacteria Many (>30) H (None) Ur Culture Indicated? Specimen cultured Vol Urine Centrifuged 10ml (spun) Chlamy pneumoniae PCR Not detected (Not Detect) Adenovirus (PCR) Not detected (Not Detect) B. pertussis DNA (PCR) Not detected (Not Detect) B.parapertussis DNA PCR Not detected (Not Detecte) Coronavirus OC43 (PCR) Not detected (Not Detect) Coronavirus HKU1 (PCR) Not detected (Not Detect) Coronavirus 229E (PCR) Not detected (Not Detect) SARS-CoV-2 (PCR) Not detected (Not Detecte) Coronavirus NL63 (PCR) Not detected (Not Detect) Human Metapneumovir PCR Not detected (Not Detect) Influenza Type A (PCR) Not detected (Not Detect) Influenza Type B (PCR) Not detected (Not Detect) M. pneumoniae (PCR) Not detected (Not Detect) Parainfluenza 1 (PCR) Not detected (Not Detect) Parainfluenza 2 (PCR) Not detected (Not Detect) Parainfluenza 3 (PCR) Not detected (Not Detect) Parainfluenza 4 (PCR) Not detected (Not Detect) RSV (PCR) Not detected (Not Detect) Entero/Rhino (PCR) Not detected (Not Detect) 12/27/24 Range/Units 16:45 WBC 14.3 H (4.5-11.0) X10^3/uL RBC 3.94 L (4.0-5.2) X10^6/uL Hgb 12.0 (12.0-16.0) g/dL Hct 36.1 (36-46) % MCV 91.7 (80-100) fL MCH 30.4 (26-34) PG MCHC 33.2 (30-36) % RDW 14.6 (11.6-14.8) % Plt Count 229 (150-400) X10^3/uL Neut % (Auto) 89.0 H (50-75) % Lymph % (Auto) 6.2 L (25-40) % [place] % (Auto) 4.0 (3-14) % Eos % (Auto) 0.2 L (2-4) % Baso % (Auto) 0.6 (0-2) % Neut # (Auto) 81123 H (7341-5211) /uL Lymph # (Auto) 900 L (5167-4494) /uL [place] # (Auto) 600 (0-900) /uL Eos # (Auto) 0 (0-450) /uL Baso # (Auto) 100 (0-100) /uL PT (9.4-12.5) SECONDS INR (0.9-1.3) APTT (25.1-36.5) SECONDS Sodium (137-145) mmol/L Potassium (3.4-5.1) mmol/L Chloride (98-107) mmol/L Carbon Dioxide (22-32) mmol/L BUN (7-17) mg/dL Creatinine (0.52-1.04) mg/dL Estimated GFR (>60) mL/min BUN/Creatinine Ratio (6-22) Glucose (70-99) mg/dL Lactate (0.7-2.1) mmol/L Calcium (8.4-10.2) mg/dL Magnesium (1.6-2.3) mg/dL Total Bilirubin (0.2-1.3) mg/dL AST (14-36) IU/L ALT (<35) IU/L Alkaline Phosphatase (38-126) U/L Total Creatine Kinase (30-135) U/L Troponin I (0.01-0.034) ng/mL Total Protein (6.3-8.2) g/dL Albumin (3.5-5.0) g/dL Globulin (1.7-4.1) g/dL Albumin/Globulin Ratio (1.0-2.8) Lipase (23-300) U/L Urine Color Urine Appearance Urine pH (4.5-8.0) Ur Specific [place] (1.000-1.035) Urine Protein (Negative) Urine Glucose (UA) (Negative) g/dL Urine Ketones (NEGATIVE) Urine Occult Blood (Negative) Urine Nitrate (Negative) Urine Bilirubin (NEGATIVE) Ur Bilirubin Confirm (Negative) Urine Urobilinogen (0.2) E.U./dL Ur Leukocyte Esterase (NEGATIVE) Urine RBC (0-5/HPF) Urine WBC (0-5/HPF) Ur Squamous Epith Cells (0-5/HPF) Urine Bacteria (None) Ur Culture Indicated? Vol Urine Centrifuged Chlamy pneumoniae PCR (Not Detect) Adenovirus (PCR) (Not Detect) B. pertussis DNA (PCR) (Not Detect) B.parapertussis DNA PCR (Not Detecte) Coronavirus OC43 (PCR) (Not Detect) Coronavirus HKU1 (PCR) (Not Detect) Coronavirus 229E (PCR) (Not Detect) SARS-CoV-2 (PCR) (Not Detecte) Coronavirus NL63 (PCR) (Not Detect) Human Metapneumovir PCR (Not Detect) Influenza Type A (PCR) (Not Detect) Influenza Type B (PCR) (Not Detect) M. pneumoniae (PCR) (Not Detect) Parainfluenza 1 (PCR) (Not Detect) Parainfluenza 2 (PCR) (Not Detect) Parainfluenza 3 (PCR) (Not Detect) Parainfluenza 4 (PCR) (Not Detect) RSV (PCR) (Not Detect) Entero/Rhino (PCR) (Not Detect) ECG Data Interpretation: EKG interpreted ED physician, sinus tachycardia at 137 beats per minute QTC 380, 1st degree AV block noted, no STEMI MDM Narrative Medical decision making narrative: Patient is a 79-year-old female with a past medical history of hypertension hyperlipidemia type 2 diabetes insulin-dependent, comes into the ED from home for evaluation of nausea and vomiting ongoing persistent for the past 2 weeks decreased p.o. intake secondary to this. States patient has been passing gas however not sure last bowel movement. According to son who is at bedside patient had some flu-like symptoms when this all started. She states that she is not having any of those currently but states that she just feels nauseous. No history of surgeries to the abdomen. Patient's initial CBC elevated at 16.2 possibly reactive versus dehydration, patient did have repeat CBC after 2 L normal saline, did down trend to 14.3, CT abdomen without any acute findings, patient only with a mildly elevated creatinine of 1.25, magnesium was slightly decreased at 1.2 this was repleted with magnesium. Patient troponin indeterminate/undetectable, she is not having any chest pain shortness of breath, EKG nonischemic in nature, urinalysis however was positive for an acute urinary tract infection 1 g Rocephin was ordered. Patient had p.o. challenge here in the emergency department, patient was able to tolerate some liquids and solids however patient was unable to ambulate. Patient was unable to physically sit up in bed. Given patient with ambulatory dysfunction generalized weakness, this is most likely secondary to dehydration and acute urinary tract infection patient will be admitted to the hospital for continued fluids antibiotics and possible PT OT. The patient's management plan was discussed Dr. Lew, who agrees to admit the patient to their service and assumes care of this patient at this time. Full admission orders will be placed by the primary team. Discharge Plan Departure Patient Disposition: Admitted As Inpatient Clinical Impression: Acute UTI, Dehydration, Nausea and vomiting, Generalized weakness, Ambulatory dysfunction
[2024-12-27] MEDS: ONDANSETRON 4 MG/2 ML INJ IV (13:39)
[2024-12-27] MEDS: SODIUM CHLORIDE 0.9% 1,000 ML 1000 ML IV ×2 (13:39→15:04)
--- NOTE | 2024-12-27 13:40 | DI.RAD.S_ITS ---
PROCEDURE: XR CHEST 1V INDICATIONS: Nausea, vomiting, weakness TECHNIQUE: One view of the chest was acquired. COMPARISON: [facility], CR, XR CHEST 2V, 04/20/2022, 17:59. FINDINGS: Surgical changes and devices: None. Lungs and pleura: Lungs are clear. No pleural effusions or pneumothorax. Mediastinum: Mediastinal contours appear normal. Heart size is normal. Bones and chest wall: No suspicious bony lesions. Overlying soft tissues appear unremarkable. IMPRESSION: No acute cardiopulmonary abnormality is seen. Dictated by: Irasema Jon M.D. on 12/27/2024 at 13:01 Approved by: Irasema Jon M.D. on 12/27/2024 at 13:01
[2024-12-27 13:52] LABS: Add Manual Diff / Slide Review NO; Hematocrit 37.9 % (36-46); Hemoglobin 12.7 g/dL (12.0-16.0); INR 1.1 (0.9-1.3); Lymphocytes Absolute Auto 2500 /uL (1100-4500); Mean Corpuscular HGB Conc 33.6 % (30-36); Mean Corpuscular Hemoglobin 30.7 PG (26-34); Mean Corpuscular Volume 91.3 fL (80-100); Platelet Count 269 X10^3/uL (150-400); Prothrombin Time 12.1 SECONDS (9.4-12.5)
[2024-12-27 13:57] LABS: Creatine Kinase < 20 U/L (30-135); Lactate (Lactic Acid) 1.9 mmol/L (0.7-2.1); Magnesium 1.2 mg/dL (1.6-2.3)
[2024-12-27 13:58] LABS: Alanine Aminotransferase 14 IU/L (<35); Albumin 3.8 g/dL (3.5-5.0); Albumin Globulin Ratio 1.2 (1.0-2.8); Alkaline Phosphatase 78 U/L (38-126); Blood Urea Nitrogen 22 mg/dL (7-17); Calcium 9.0 mg/dL (8.4-10.2); Carbon Dioxide 18 mmol/L (22-32); Chloride 103 mmol/L (98-107); Estimated Glomerular Filt Rate 44 mL/min (>60); Globulin 3.3 g/dL (1.7-4.1); Glucose 147 mg/dL (70-99); HEMOLYSIS < 15 (0-50); Lipase 15 U/L (23-300); Potassium 3.8 mmol/L (3.4-5.1); Sodium 136 mmol/L (137-145); Total Protein 7.1 g/dL (6.3-8.2)
[2024-12-27 14:01] LABS: PTT Partial Thromboplastin Tim 30 SECONDS (25.1-36.5)
[2024-12-27 14:09] LABS: Troponin I 0.012 ng/mL (0.01-0.034)
--- NOTE | 2024-12-27 14:19 | DI.CT.S_ITS ---
PROCEDURE: CT ABDOMEN PELVIS W CON INDICATIONS: nausea, vomiting TECHNIQUE: After the administration of intravenous contrast, axial sections acquired from the lung bases to the pubic symphysis. Coronal and sagittal reformats were performed. For radiation dose reduction, the following was used: automated exposure control, adjustment of mA and/or kV according to patient size. COMPARISON: None. FINDINGS: Image quality: Diagnostic. Lower Chest: No significant findings. ABDOMEN: Liver: No solid mass. Gallbladder: Surgically absent Biliary ducts: No biliary dilation. Pancreas: Markedly atrophic. No ductal dilation. Spleen: Size is within normal limits. Adrenal Glands: No adrenal nodules. Kidneys and Ureters: No hydronephrosis. No solid mass. No complex renal cystic lesion which requires follow up. Stomach and Bowel: Normal colonic caliber, without significant wall thickening. The appendix is normal. Peritoneum: No abnormal intraperitoneal fluid. No free air. Ventral Wall: No significant ventral hernia. Abdominal Nodes: Numerous mildly prominent mesenteric lymph nodes are present, although there is no retroperitoneal or mesenteric adenopathy by size criteria. Vessels: Aorta and inferior vena cava are normal in size. PELVIS: Pelvic Organs: Unremarkable. Bladder: No bladder wall thickening, accounting for underdistention. Pelvic Nodes: No enlarged lymph nodes. Miscellaneous: No inguinal hernias are seen. There is a small fat containing umbilical hernia. Bones: No aggressive osseous abnormality. IMPRESSION: Non-specific prominence of mesenteric lymph nodes which do not meet size criteria for lymphadenopathy. No findings of enterocolitis to suggest an etiology. Otherwise no CT evidence for the etiology of the patient's symptoms. Specifically, no appendicitis, diverticulitis, urolithiasis, or obstruction. Dictated by: Irasema Jon M.D. on 12/27/2024 at 13:22 Approved by: Irasema Jon M.D. on 12/27/2024 at 13:29
[2024-12-27 14:36] LABS: Appearance Urine UA CLOUDY; Bilirubin Urine UA 2+ (NEGATIVE); Color Urine UA YELLOW; Glucose Urine UA NEGATIVE (Negative); Ketones Urine UA 2+ (NEGATIVE); Leukocyte Esterase Urine UA 2+ (NEGATIVE); Nitrite Urine UA NEGATIVE (Negative); Occult Blood Urine UA 1+ (Negative); Protein Urine UA 1+ (Negative); Specific Gravity Urine UA 1.015 (1.000-1.035); Urobilinogen Urine UA 1.0 E.U./dL (0.2); pH Urine UA 6.0 (4.5-8.0)
[2024-12-27 14:39] LABS: Culture Indicated Urine Specimen Cultured; Ictotest Urine Negative (Negative)
[2024-12-27 14:47] LABS: Coronavirus NL 63 Not Detected (Not Detect); SARS- CoV-2 Not Detected (Not Detecte)
[2024-12-27] MEDS: MAGNESIUM SULFATE 2 GM/50 ML PIGGYBACK IV (15:50)
[2024-12-27 16:51] LABS: Add Manual Diff / Slide Review NO; Hematocrit 36.1 % (36-46); Hemoglobin 12.0 g/dL (12.0-16.0); Lymphocytes Absolute Auto 900 /uL (1100-4500); Mean Corpuscular HGB Conc 33.2 % (30-36); Mean Corpuscular Hemoglobin 30.4 PG (26-34); Mean Corpuscular Volume 91.7 fL (80-100); Platelet Count 229 X10^3/uL (150-400)
--- NOTE | 2024-12-27 17:44 | PM.HP.1 ---
History of Present Illness History of Present Illness Date Patient Seen: 12/27/24 Time Patient Seen: 17:44 Chief complaint: 2WKS+ can't hold down; nausea Narrative: This is an 79-year-old female with a history of hypertension, diabetes mellitus, hyperlipidemia, pyelonephritis, hypothyroidism and depression who presents with 2 weeks of vomiting and progressive weakness. She says that she started feeling these ?flu? symptoms about 2 weeks ago. Her son has been trying to convince her for the last week to come to the hospital and finally she relented today. She is extremely weak, unable to sit up in bed. Her oral intake has been minimal. She has a history of pyelonephritis and the UA today shows 30-100 wbc's along with a white blood count of 16.2. The chest x-ray and CT of the abdomen and pelvis are normal. [facility] Medical History Left knee pain Incontinence in female Pyelonephritis Cough Adhesive capsulitis Lumbar canal stenosis Renal insufficiency Osteoarthritis Medication refill Depression (Unknown) Hypothyroidism (Unknown) Diabetes (Unknown) Hypertension (Unknown) Hyperlipidemia (~2009) Shoulder pain (Unknown) Foot pain (Unknown) Ankle pain (Unknown) Colitis (Unknown) Surgical History Hx of shoulder surgery (2003) Status post knee surgery (2005) Status post hysterectomy (~1980) Family History Sister Age: 87 Cerebrovascular accident (CVA), unspecified mechanism Brother Cancer Mental health problem Mother No problems noted. Social History household members: other Smoking Status: Never smoker alcohol intake: never Meds Home Medications and Allergies Home Medications ?Medication ?Instructions ?Recorded ?Confirmed ?Type 4 wheel walker with seat #1 ea 07/30/18 12/27/24 Rx citalopram 20 mg tablet See Rx Instructions .Route 03/31/24 12/27/24 Rx .COMPLEX #90 tabs metoprolol succinate 50 mg See Rx Instructions .Route 05/26/24 12/27/24 Rx tablet,extended release 24 hr .COMPLEX #45 tabs Disabled Parking Permit #2 ea 07/31/24 12/27/24 Rx lovastatin 20 mg tablet 20 mg PO DAILY #90 tabs 09/15/24 12/27/24 Rx levothyroxine 50 mcg tablet 50 mcg PO QAM #90 tabs 11/10/24 12/27/24 Rx ondansetron 4 mg disintegrating 4 mg PO Q8H PRN nausea and 12/18/24 12/27/24 Rx tablet vomiting #60 tabs semaglutide 0.25 mg or 0.5 mg (2 0.25 mg (0.368 mL) SUBCUT QWEEK #3 12/18/24 12/27/24 Rx mg/3 mL) subcutaneous pen injector mL amlodipine 2.5 mg tablet 2.5 mg PO BID 12/27/24 12/27/24 History losartan 25 mg tablet 50 mg PO DAILY 12/27/24 12/27/24 History metformin 1,000 mg tablet 1,000 mg PO 2XD 12/27/24 12/27/24 History nabumetone 500 mg tablet 500 mg PO BID 12/27/24 12/27/24 History oxybutynin chloride 5 mg 5 mg PO 2XD 12/27/24 12/27/24 History tablet,extended release 24 hr Allergies Allergy/AdvReac Type Severity Reaction Status Date / Time nitrofurantoin Allergy Severe mouth Verified 12/27/24 13:12 blisters Penicillins Allergy Unknown Verified 12/27/24 13:12 sulfamethoxazole (From Allergy Unknown Verified 12/27/24 13:12 BACTRIM) trimethoprim (From BACTRIM) Allergy Unknown Verified 12/27/24 13:12 Review of Systems Review of Systems Narrative: Positive for weakness, nausea, vomiting, chills. Negative for abdominal pain, dysuria, hematuria, bleeding, rashes, joint pain, chest pain, coughing, fever, new allergies. Exam Vital Signs (past 8 hours): - 12/27/24 13:12 12/27/24 13:31 12/27/24 13:40 Temperature 98.1 F Pulse Rate 159 H 136 H 133 H Respiratory Rate 20 21 19 Blood Pressure 146/87 H Pulse Oximetry 98 97 97 Oxygen Delivery Method Room Air Room Air 12/27/24 13:40 12/27/24 13:50 12/27/24 13:50 Temperature Pulse Rate 123 H Respiratory Rate 17 Blood Pressure 164/97 H 162/91 H Pulse Oximetry 97 Oxygen Delivery Method Room Air 12/27/24 14:00 12/27/24 14:00 12/27/24 14:18 Temperature Pulse Rate 120 H 124 H Respiratory Rate 19 Blood Pressure 165/85 H Pulse Oximetry 96 100 Oxygen Delivery Method 12/27/24 14:20 12/27/24 14:25 12/27/24 14:25 Temperature Pulse Rate 122 H 124 H Respiratory Rate 15 13 Blood Pressure 171/84 H Pulse Oximetry 98 97 Oxygen Delivery Method Room Air 12/27/24 14:30 12/27/24 14:30 12/27/24 14:40 Temperature Pulse Rate 124 H 112 H Respiratory Rate 17 17 Blood Pressure 171/87 H Pulse Oximetry 98 95 Oxygen Delivery Method 12/27/24 14:45 12/27/24 14:45 12/27/24 14:50 Temperature Pulse Rate 111 H 113 H Respiratory Rate 14 22 Blood Pressure 167/88 H Pulse Oximetry 97 97 Oxygen Delivery Method 12/27/24 15:00 12/27/24 15:00 12/27/24 15:10 Temperature Pulse Rate 108 H 107 H Respiratory Rate 16 15 Blood Pressure 164/85 H Pulse Oximetry 98 98 Oxygen Delivery Method 12/27/24 15:15 12/27/24 15:15 12/27/24 15:20 Temperature Pulse Rate 103 H 105 H Respiratory Rate 18 21 Blood Pressure 161/83 H Pulse Oximetry 96 96 Oxygen Delivery Method 12/27/24 15:30 12/27/24 15:30 12/27/24 15:40 Temperature Pulse Rate 104 H 118 H Respiratory Rate 13 12 Blood Pressure 153/77 H Pulse Oximetry 96 96 Oxygen Delivery Method 12/27/24 15:45 12/27/24 15:45 12/27/24 15:50 Temperature Pulse Rate 116 H 114 H Respiratory Rate 18 25 H Blood Pressure 161/79 H Pulse Oximetry 97 98 Oxygen Delivery Method 12/27/24 16:00 12/27/24 16:00 12/27/24 16:10 Temperature Pulse Rate 114 H 109 H Respiratory Rate 19 15 Blood Pressure 171/83 H Pulse Oximetry 98 97 Oxygen Delivery Method 12/27/24 16:15 12/27/24 16:15 12/27/24 16:20 Temperature Pulse Rate 111 H 127 H Respiratory Rate 19 18 Blood Pressure 168/83 H Pulse Oximetry 98 98 Oxygen Delivery Method 12/27/24 16:30 12/27/24 16:30 12/27/24 16:40 Temperature Pulse Rate 107 H 109 H Respiratory Rate 13 14 Blood Pressure 164/84 H Pulse Oximetry 97 96 Oxygen Delivery Method 12/27/24 16:45 12/27/24 16:45 12/27/24 16:50 Temperature Pulse Rate 115 H 110 H Respiratory Rate 13 13 Blood Pressure 160/76 H Pulse Oximetry 97 97 Oxygen Delivery Method 12/27/24 17:00 12/27/24 17:00 12/27/24 17:10 Temperature Pulse Rate 111 H 119 H Respiratory Rate 18 16 Blood Pressure 167/85 H Pulse Oximetry 97 97 Oxygen Delivery Method Oxygen Delivery Method Room Air Narrative Exam Narrative: Alert and oriented x3. Mild distress from weakness. Pupils equally round and reactive to light and accommodation. Sclerae are very pale and nonicteric. Extraocular muscles are intact. Throat looks normal. No lymph nodes are felt head, neck, supraclavicular area. No thyromegaly. JVD less than 6 cm. No carotid bruits heard. Heart is tachycardic, regular rhythm. No murmur. Lungs are clear to auscultation bilaterally. Abdomen is diffusely mildly tender. There is a very small umbilical hernia which does not feel incarcerated. Extremities have no ankle edema. Skin has no rash or jaundice. She is very pale. This is apparently her baseline. Cranial nerves 2-12 test intact. Motor function is symmetrically weak throughout. She is unable to sit up in bed. There is no tremor. Reflexes are symmetric. Objective Labs 12/27/24 16:45 12/27/24 13:30 Labs: Laboratory Results - last 24 hr 12/27/24 12/27/24 12/27/24 13:30 13:55 14:25 WBC 16.2 H RBC 4.15 Hgb 12.7 Hct 37.9 MCV 91.3 MCH 30.7 MCHC 33.6 RDW 15.1 H Plt Count 269 Neut % (Auto) 77.4 H Lymph % (Auto) 15.2 L [place] % (Auto) 5.6 Eos % (Auto) 1.1 L Baso % (Auto) 0.7 Neut # (Auto) 83291 H Lymph # (Auto) 2500 [place] # (Auto) 900 Eos # (Auto) 200 Baso # (Auto) 100 PT 12.1 INR 1.1 APTT 30 Sodium 136 L Potassium 3.8 Chloride 103 Carbon Dioxide 18 L BUN 22 H Creatinine 1.25 H Estimated GFR 44 L BUN/Creatinine Ratio 17.6 Glucose 147 H Lactate 1.9 Calcium 9.0 Magnesium 1.2 L Total Bilirubin 0.8 AST 24 ALT 14 Alkaline Phosphatase 78 Total Creatine Kinase < 20 L Troponin I 0.012 Total Protein 7.1 Albumin 3.8 Globulin 3.3 Albumin/Globulin Ratio 1.2 Lipase 15 L Urine Color Yellow Urine Appearance Cloudy Urine pH 6.0 Ur Specific [place] 1.015 Urine Protein 1+ H Urine Glucose (UA) Negative Urine Ketones 2+ H Urine Occult Blood 1+ H Urine Nitrate Negative Urine Bilirubin 2+ H Ur Bilirubin Confirm Negative Urine Urobilinogen 1.0 Ur Leukocyte Esterase 2+ H Urine RBC 1-5/hpf Urine WBC 30-100/hpf H Ur Squamous Epith Cells None seen Urine Bacteria Many (>30) H Ur Culture Indicated? Specimen cultured Vol Urine Centrifuged 10ml (spun) Chlamy pneumoniae PCR Not detected Adenovirus (PCR) Not detected B. pertussis DNA (PCR) Not detected B.parapertussis DNA PCR Not detected Coronavirus OC43 (PCR) Not detected Coronavirus HKU1 (PCR) Not detected Coronavirus 229E (PCR) Not detected SARS-CoV-2 (PCR) Not detected Coronavirus NL63 (PCR) Not detected Human Metapneumovir PCR Not detected Influenza Type A (PCR) Not detected Influenza Type B (PCR) Not detected M. pneumoniae (PCR) Not detected Parainfluenza 1 (PCR) Not detected Parainfluenza 2 (PCR) Not detected Parainfluenza 3 (PCR) Not detected Parainfluenza 4 (PCR) Not detected RSV (PCR) Not detected Entero/Rhino (PCR) Not detected 12/27/24 16:45 WBC 14.3 H RBC 3.94 L Hgb 12.0 Hct 36.1 MCV 91.7 MCH 30.4 MCHC 33.2 RDW 14.6 Plt Count 229 Neut % (Auto) 89.0 H Lymph % (Auto) 6.2 L [place] % (Auto) 4.0 Eos % (Auto) 0.2 L Baso % (Auto) 0.6 Neut # (Auto) 09490 H Lymph # (Auto) 900 L [place] # (Auto) 600 Eos # (Auto) 0 Baso # (Auto) 100 PT INR APTT Sodium Potassium Chloride Carbon Dioxide BUN Creatinine Estimated GFR BUN/Creatinine Ratio Glucose Lactate Calcium Magnesium Total Bilirubin AST ALT Alkaline Phosphatase Total Creatine Kinase Troponin I Total Protein Albumin Globulin Albumin/Globulin Ratio Lipase Urine Color Urine Appearance Urine pH Ur Specific [place] Urine Protein Urine Glucose (UA) Urine Ketones Urine Occult Blood Urine Nitrate Urine Bilirubin Ur Bilirubin Confirm Urine Urobilinogen Ur Leukocyte Esterase Urine RBC Urine WBC Ur Squamous Epith Cells Urine Bacteria Ur Culture Indicated? Vol Urine Centrifuged Chlamy pneumoniae PCR Adenovirus (PCR) B. pertussis DNA (PCR) B.parapertussis DNA PCR Coronavirus OC43 (PCR) Coronavirus HKU1 (PCR) Coronavirus 229E (PCR) SARS-CoV-2 (PCR) Coronavirus NL63 (PCR) Human Metapneumovir PCR Influenza Type A (PCR) Influenza Type B (PCR) M. pneumoniae (PCR) Parainfluenza 1 (PCR) Parainfluenza 2 (PCR) Parainfluenza 3 (PCR) Parainfluenza 4 (PCR) RSV (PCR) Entero/Rhino (PCR) Assessment & Plan Assessment & Plan narrative: This is an 79-year-old female with a history of hypertension, diabetes mellitus, hyperlipidemia, pyelonephritis, hypothyroidism and depression who presents with 2 weeks of vomiting and progressive weakness. She says that she started feeling these ?flu? symptoms about 2 weeks ago. Pyelonephritis, present on admission. Active. -white blood count 16.2 with 30-100 wbc's on UA. -lactic acid level pending -treating with ceftriaxone and IV fluid. -blood cultures and urine cultures are pending. -hold oxybutynin Generalized weakness, present on admission. Active. -secondary to progressive UTI/pyelonephritis -likely will improve with hydration and antibiotics. -PT and OT evaluation. -consider brain CT. No stroke symptoms on admission. Hypothyroidism, present on admission. Chronic. -continue levothyroxine Hypertension, present on admission. Chronic. -continue losartan, amlodipine and metoprolol Depression, present on admission. Chronic. -continue citalopram Diabetes mellitus type 2, present on admission. Chronic. -holding metformin and semaglutide. -monitor blood sugars a.c. and HS and use lispro correctional scale Hyperlipidemia, present on admission. Chronic. -continue lovastatin Lovenox for DVT prevention Her son is her backup decision maker. Time-Based Coding :: [TOTAL MINUTES] spent with patient and on the chart (including review of chart, obtaining history, exam, reviewing outside data, placing orders, documenting exam and treatment plan, and counseling patient) on [DATE].
[2024-12-27] MEDS: SODIUM CHLORIDE 0.9% 1,000 ML 100 ML IV (18:34)
[2024-12-27 19:02] LABS: Lactate (Lactic Acid) 1.1 mmol/L (0.7-2.1)
--- NOTE | 2024-12-27 19:09 | EKG_ITS ---
[facility] [address] [place] [address] Test Date: 2024-12-27 Pat Name: Eusebia Velazquez Department: [facility] Room: 223 Gender: Female Sports Physiologist: : 1945 Requested By: Order Number: [id number] Reading MD: Naveen Lew Measurements Intervals [place] Rate: 123 P: 89 [place]: 168 QRS: -10 QRSD: 80 T: 136 QT: 308 QTc: 440 Interpretive Statements Sinus tachycardia Inferior infarct , age undetermined Anteroseptal infarct , age undetermined ST & T wave abnormality, consider lateral ischemia Electronically Signed On 12-28-2024 7:43:48 PDT by Naveen Lew
[2024-12-27] MEDS: METOPROLOL ER 50 MG TABLET 25 MG PO (21:02)
--- NOTE | 2024-12-27 23:16 | INF.NOTE ---
Pt was up to the bathroom around 2029 with FWW AND 2 person assist. pt HR up to 150's, pt denies headache but c/o dizziness but still wants to stay in the commode due to wanting to have a BM. pt back in bed and now has a purewick in place. senior supply chain analyst notified in regards tachycardia and now pt on tele. Pt took her amlodipine and metoprolol po tonight.
[2024-12-28] VITALS (8 sets, daily range): BP systolic 149–172; BP diastolic 79–94; PULSE 85–116; RESP 16–18; TEMP 35.6–36.1; O2SAT 96–98
[2024-12-28] MEDS: SODIUM CHLORIDE 0.9% 1,000 ML 100 ML IV ×2 (04:00→17:33)
[2024-12-28 05:24] LABS: Add Manual Diff / Slide Review NO; Hematocrit 31.8 % (36-46); Hemoglobin 10.8 g/dL (12.0-16.0); Lymphocytes Absolute Auto 1500 /uL (1100-4500); Mean Corpuscular HGB Conc 34.0 % (30-36); Mean Corpuscular Hemoglobin 30.9 PG (26-34); Mean Corpuscular Volume 91.0 fL (80-100); Platelet Count 218 X10^3/uL (150-400)
[2024-12-28 05:39] LABS: Blood Urea Nitrogen 17 mg/dL (7-17); Calcium 7.8 mg/dL (8.4-10.2); Carbon Dioxide 19 mmol/L (22-32); Chloride 108 mmol/L (98-107); Estimated Glomerular Filt Rate 56 mL/min (>60); Glucose 103 mg/dL (70-99); HEMOLYSIS < 15 (0-50); Potassium 3.8 mmol/L (3.4-5.1); Sodium 136 mmol/L (137-145)
[2024-12-28] MEDS: LEVOTHYROXINE 50 MCG TABLET PO (06:27)
[2024-12-28 07:36] LABS: Magnesium 1.6 mg/dL (1.6-2.3)
--- NOTE | 2024-12-28 07:45 | P.PN_ITS ---
Subjective Subjective Date Patient Seen: 12/28/24 Interval history: This is an 79-year-old female with a history of hypertension, diabetes mellitus, hyperlipidemia, pyelonephritis, hypothyroidism and depression who presents with 2 weeks of vomiting and progressive weakness. She says that she started feeling these ?flu? symptoms about 2 weeks ago. Her son has been trying to convince her for the last week to come to the hospital and finally she relented today. She is extremely weak, unable to sit up in bed. Her oral intake has been minimal. She has a history of pyelonephritis and the UA today shows 30-100 wbc's along with a white blood count of 16.2. The chest x-ray and CT of the abdomen and pelvis are normal. 12/28/2024: Urine culture is growing Gram-negative rods. She says she is feeling much better. The white blood count remains at 16.5 with a hemoglobin of 10.8. The creatinine is 1.01. The magnesium level has come up to 1.6. She received 2 g of magnesium IV for level of 1.2 in the ED. Assessment & Plan This is an 79-year-old female with a history of hypertension, diabetes mellitus, hyperlipidemia, pyelonephritis, hypothyroidism and depression who presents with 2 weeks of vomiting and progressive weakness. She says that she started feeling these ?flu? symptoms about 2 weeks ago. Pyelonephritis, present on admission. Active. -UC with Gram Negative Rods -white blood count 16.2 with 30-100 wbc's on UA. -lactic acid level was ordered but is not found -treating with ceftriaxone and IV fluid. -blood cultures are pending. -holding oxybutynin Generalized weakness, present on admission. Active. -secondary to progressive UTI/pyelonephritis -lmproving with hydration and antibiotics. -PT and OT evaluation. -consider brain CT. No stroke symptoms on admission. Hypothyroidism, present on admission. Chronic. -continue levothyroxine Hypertension, present on admission. Chronic. -continue losartan, amlodipine and metoprolol Depression, present on admission. Chronic. -continue citalopram Diabetes mellitus type 2, present on admission. Chronic. -holding metformin and semaglutide. -monitor blood sugars a.c. and HS and use lispro correctional scale Hyperlipidemia, present on admission. Chronic. -continue lovastatin Lovenox for DVT prevention Her son is her backup decision maker. Exam Vital Signs (past 8 hours): - 12/28/24 00:18 12/28/24 04:00 Temperature 96.9 F L Pulse Rate 116 H 116 H Respiratory Rate 16 16 Blood Pressure 168/89 H 169/94 H Pulse Oximetry 96 96 Oxygen Flow Rate 0 0 Oxygen Delivery Method Room Air Oxygen Flow Rate 0 Narrative Exam Narrative: Alert and oriented. No apparent distress. She is smiling and seems to be slightly stronger today. [employer] strengths are 3/5 bilaterally. Heart is regular rate and rhythm without murmur. Lungs are clear to auscultation bilaterally. Extremities have no ankle edema. Abdomen is soft, bowel sounds positive, obese, nontender, no organomegaly. Objective Labs 12/28/24 04:55 12/28/24 04:55 Labs: Laboratory Results - last 24 hr 12/27/24 12/27/24 12/27/24 13:30 13:55 14:25 WBC 16.2 H RBC 4.15 Hgb 12.7 Hct 37.9 MCV 91.3 MCH 30.7 MCHC 33.6 RDW 15.1 H Plt Count 269 Neut % (Auto) 77.4 H Lymph % (Auto) 15.2 L [place] % (Auto) 5.6 Eos % (Auto) 1.1 L Baso % (Auto) 0.7 Neut # (Auto) 12837 H Lymph # (Auto) 2500 [place] # (Auto) 900 Eos # (Auto) 200 Baso # (Auto) 100 PT 12.1 INR 1.1 APTT 30 Sodium 136 L Potassium 3.8 Chloride 103 Carbon Dioxide 18 L BUN 22 H Creatinine 1.25 H Estimated GFR 44 L BUN/Creatinine Ratio 17.6 Glucose 147 H POC Whole Bld Glucose Lactate 1.9 Calcium 9.0 Magnesium 1.2 L Total Bilirubin 0.8 AST 24 ALT 14 Alkaline Phosphatase 78 Total Creatine Kinase < 20 L Troponin I 0.012 Total Protein 7.1 Albumin 3.8 Globulin 3.3 Albumin/Globulin Ratio 1.2 Lipase 15 L Urine Color Yellow Urine Appearance Cloudy Urine pH 6.0 Ur Specific [place] 1.015 Urine Protein 1+ H Urine Glucose (UA) Negative Urine Ketones 2+ H Urine Occult Blood 1+ H Urine Nitrate Negative Urine Bilirubin 2+ H Ur Bilirubin Confirm Negative Urine Urobilinogen 1.0 Ur Leukocyte Esterase 2+ H Urine RBC 1-5/hpf Urine WBC 30-100/hpf H Ur Squamous Epith Cells None seen Urine Bacteria Many (>30) H Ur Culture Indicated? Specimen cultured Vol Urine Centrifuged 10ml (spun) Chlamy pneumoniae PCR Not detected Adenovirus (PCR) Not detected B. pertussis DNA (PCR) Not detected B.parapertussis DNA PCR Not detected Coronavirus OC43 (PCR) Not detected Coronavirus HKU1 (PCR) Not detected Coronavirus 229E (PCR) Not detected SARS-CoV-2 (PCR) Not detected Coronavirus NL63 (PCR) Not detected Human Metapneumovir PCR Not detected Influenza Type A (PCR) Not detected Influenza Type B (PCR) Not detected M. pneumoniae (PCR) Not detected Parainfluenza 1 (PCR) Not detected Parainfluenza 2 (PCR) Not detected Parainfluenza 3 (PCR) Not detected Parainfluenza 4 (PCR) Not detected RSV (PCR) Not detected Entero/Rhino (PCR) Not detected 12/27/24 12/27/24 12/27/24 16:45 18:45 20:24 WBC 14.3 H RBC 3.94 L Hgb 12.0 Hct 36.1 MCV 91.7 MCH 30.4 MCHC 33.2 RDW 14.6 Plt Count 229 Neut % (Auto) 89.0 H Lymph % (Auto) 6.2 L [place] % (Auto) 4.0 Eos % (Auto) 0.2 L Baso % (Auto) 0.6 Neut # (Auto) 23211 H Lymph # (Auto) 900 L [place] # (Auto) 600 Eos # (Auto) 0 Baso # (Auto) 100 PT INR APTT Sodium Potassium Chloride Carbon Dioxide BUN Creatinine Estimated GFR BUN/Creatinine Ratio Glucose POC Whole Bld Glucose 146 H Lactate 1.1 Calcium Magnesium Total Bilirubin AST ALT Alkaline Phosphatase Total Creatine Kinase Troponin I Total Protein Albumin Globulin Albumin/Globulin Ratio Lipase Urine Color Urine Appearance Urine pH Ur Specific [place] Urine Protein Urine Glucose (UA) Urine Ketones Urine Occult Blood Urine Nitrate Urine Bilirubin Ur Bilirubin Confirm Urine Urobilinogen Ur Leukocyte Esterase Urine RBC Urine WBC Ur Squamous Epith Cells Urine Bacteria Ur Culture Indicated? Vol Urine Centrifuged Chlamy pneumoniae PCR Adenovirus (PCR) B. pertussis DNA (PCR) B.parapertussis DNA PCR Coronavirus OC43 (PCR) Coronavirus HKU1 (PCR) Coronavirus 229E (PCR) SARS-CoV-2 (PCR) Coronavirus NL63 (PCR) Human Metapneumovir PCR Influenza Type A (PCR) Influenza Type B (PCR) M. pneumoniae (PCR) Parainfluenza 1 (PCR) Parainfluenza 2 (PCR) Parainfluenza 3 (PCR) Parainfluenza 4 (PCR) RSV (PCR) Entero/Rhino (PCR) 12/28/24 04:55 WBC 16.5 H RBC 3.50 L Hgb 10.8 L Hct 31.8 L MCV 91.0 MCH 30.9 MCHC 34.0 RDW 14.9 H Plt Count 218 Neut % (Auto) 84.6 H Lymph % (Auto) 8.9 L [place] % (Auto) 5.5 Eos % (Auto) 0.4 L Baso % (Auto) 0.6 Neut # (Auto) 84297 H Lymph # (Auto) 1500 [place] # (Auto) 900 Eos # (Auto) 100 Baso # (Auto) 100 PT INR APTT Sodium 136 L Potassium 3.8 Chloride 108 H Carbon Dioxide 19 L BUN 17 Creatinine 1.01 Estimated GFR 56 L BUN/Creatinine Ratio 16.8 Glucose 103 H POC Whole Bld Glucose Lactate Calcium 7.8 L Magnesium 1.6 Total Bilirubin AST ALT Alkaline Phosphatase Total Creatine Kinase Troponin I Total Protein Albumin Globulin Albumin/Globulin Ratio Lipase Urine Color Urine Appearance Urine pH Ur Specific [place] Urine Protein Urine Glucose (UA) Urine Ketones Urine Occult Blood Urine Nitrate Urine Bilirubin Ur Bilirubin Confirm Urine Urobilinogen Ur Leukocyte Esterase Urine RBC Urine WBC Ur Squamous Epith Cells Urine Bacteria Ur Culture Indicated? Vol Urine Centrifuged Chlamy pneumoniae PCR Adenovirus (PCR) B. pertussis DNA (PCR) B.parapertussis DNA PCR Coronavirus OC43 (PCR) Coronavirus HKU1 (PCR) Coronavirus 229E (PCR) SARS-CoV-2 (PCR) Coronavirus NL63 (PCR) Human Metapneumovir PCR Influenza Type A (PCR) Influenza Type B (PCR) M. pneumoniae (PCR) Parainfluenza 1 (PCR) Parainfluenza 2 (PCR) Parainfluenza 3 (PCR) Parainfluenza 4 (PCR) RSV (PCR) Entero/Rhino (PCR) [facility] Medical History Left knee pain Incontinence in female Pyelonephritis Cough Adhesive capsulitis Lumbar canal stenosis Renal insufficiency Osteoarthritis Medication refill Depression (Unknown) Hypothyroidism (Unknown) Diabetes (Unknown) Hypertension (Unknown) Hyperlipidemia (~2009) Shoulder pain (Unknown) Foot pain (Unknown) Ankle pain (Unknown) Colitis (Unknown) Surgical History Hx of shoulder surgery (2003) Status post knee surgery (2005) Status post hysterectomy (~1980) Family History Sister Age: 87 Cerebrovascular accident (CVA), unspecified mechanism Brother Cancer Mental health problem Mother No problems noted. Social History household members: other Smoking Status: Never smoker alcohol intake: never Assessment & Plan Time-Based Coding :: [TOTAL MINUTES] spent with patient and on the chart (including review of chart, obtaining history, exam, reviewing outside data, placing orders, documenting exam and treatment plan, and counseling patient) on [DATE].
[2024-12-28] MEDS: CITALOPRAM 10 MG TABLET 20 MG PO (08:36)
[2024-12-28] MEDS: ENOXAPARIN 30 MG/0.3 ML SYRINGE SUBCUT (08:36)
[2024-12-28] MEDS: LOSARTAN 25 MG TABLET 50 MG PO (08:37)
[2024-12-28] MEDS: MELOXICAM 7.5 MG TABLET 15 MG PO (08:37)
[2024-12-28] MEDS: NAPROXEN 250 MG TABLET PO (08:37)
[2024-12-28] MEDS: ONDANSETRON 4 MG/2 ML INJ IV (11:19)
--- NOTE | 2024-12-28 12:46 | OT.IP.EVAL ---
Current Diagnoses Acute pyelonephritis (12/27/24) Past Medical History (Last Reviewed 03/02/24 @ 15:20 by Davin Peterson DO) Adhesive capsulitis Ankle pain (Unknown) Colitis (Unknown) Cough Depression (Unknown) Diabetes (Unknown) Foot pain (Unknown) Hyperlipidemia (~2009) Hypertension (Unknown) Hypothyroidism (Unknown) Incontinence in female Left knee pain Lumbar canal stenosis Medication refill Osteoarthritis Pyelonephritis Renal insufficiency Shoulder pain (Unknown) Surgical History (Last Reviewed 03/02/24 @ 15:20 by Davin Peterson DO) Hx of shoulder surgery (2003) Status post hysterectomy (~1980) Status post knee surgery (2005) Occupational Therapy Inpatient Evaluation/Re-Eval M1 PT/OT-IP Prior Functional Status Start: 12/28/24 12:14 Freq: NEEDED Status: Active Protocol: Document 12/28/24 12:14 PRABHU (Rec: 12/28/24 12:45 CHARLENEIASMITHA Desktop) Medical Review Prior Functional Status Medical History Yes Reviewed Communication Pt able to make her needs know. Granddaughter present and adds relevant information. Mobility and Gait Per pt and grand-daughter, pt was able to transfer to the bathroom by herself at night and to let her pets in and out. Pt uses a 4WW to amb. Activities of Daily Per pt and grand-daughter, she required MOD-MAX A for Living and IADL's bathing and dressing. Pt's family provides meals and performs housework. Social History Household Members other Living Arrangements House Number of Stairs To Pt lives in a modular home with 4 steps to enter and L Enter/Railing? railing. Pt's grand-daughter stays with patient 4 days a week for ~7 hours and her son stays 3 days a week. Her house is on the same property as her sons. Home Environment Standard Height Toilet,Walk in Shower Home Equipment Four Wheel Walker,Manual Wheelchair,Tub Transfer Bench, Lift Recliner Additional Social Patient has a toilet frame to assist with transfers, it History Comment does not raise the height of the toilet. M2 OT-IP Current Condition Start: 12/28/24 12:14 Freq: Status: Active Protocol: Document 12/28/24 12:14 PRABHU (Rec: 12/28/24 12:45 [email or web address] Desktop) Occupational Therapy Current Condition Current Condition Evaluation Date 12/28/24 Treatment Diagnosis vomiting, generalized weakness, decreased self care Diagnosis Onset Date 12/27/24 M3 OT- IP Subjective and Pain Start: 12/28/24 12:14 Freq: Status: Active Protocol: Document 12/28/24 12:14 CHARLENEINDIOSMITHA (Rec: 12/28/24 12:45 [facility] OT- Subjective Occupational Therapy Visit Type Type Initial Evaluation Visit Start Time 10:37 Visit Stop Time 11:13 Notes Pt reclined in bed with grand-daughter present. Pt agreeable to OT/PT co-eval. Occupational Therapy Visit Comments Patient Comments I don't feel well. I want to go home. Patient/Caregiver To go home. To be able to safely transfer. Goals M4 OT- IP ADL's Start: 12/28/24 12:14 Freq: Status: Active Protocol: Document 12/28/24 12:14 CHARLENEINDIOSMITHA (Rec: 12/28/24 12:45 [facility] OT [id number] Comments OT Self-Feeding not observed Comments OT ADL-Grooming General Evaluation Areas Needing Retrieving/Set-up of Grooming Items Assistance Comments OT Grooming Comments Pt brushed hair while seated EOB on setup of supplies. Pt able to wash her hands and face on set up while seated on BSC. OT ADL-Oral Care Comments Oral Care Comments not observed OT ADL-Dressing General Eval Lower Body Dressing Maximum Assistance,Total Assistance Ability Areas Needing Underpants/Brief,Shoes Assistance Comments OT Dressing Comments Pt required total A to don/doff pull up style brief. Pt able to start both of her feet in her slippers, but required OT to pull up over her heel. OT ADL-Toileting General Evaluation Toileting Ability Total Assistance Areas Needing Manage Clothing Assistance Devices Toileting Assistive Commode Devices Comments OT Toileting Pt required total A to manage her pull up style brief Comments and for all toileting hygiene. Pt required multiple stands and a lot of wiping for completeness. Pt was tired and eager to return to bed. Pt took steps to EOB while her brief was around her ankles, despite multiple cues from therapists about safety. OT ADL-Bathing Comments OT Bathing Comments not observed, sponge bath safest for now M5 OT- IP IADL's Start: 12/28/24 12:14 Freq: Status: Active Protocol: Document 12/28/24 12:14 PRABHU (Rec: 12/28/24 12:45 PRABHU Desktop) OT-Instrumental Activities of Daily Living Deficits IADL Deficits No Deficits Identified Home Safety Awareness Awareness of Need Good Awareness for Assistance at Home Ability to Problem Unable to Problem Solve Solve Emergency Situations Medication Management Medication Caregiver Administers Management Money Management Money Management Caregiver Provides Assistance Meal Preparation Meal Preparation Caregiver Provides Assist Sludge Control Attendant Sludge Control Attendant Caregiver Provides Assist Driving Driving Caregiver Provides Assist M6 OT- IP Functional Cognition Start: 12/28/24 12:14 Freq: Status: Active Protocol: Document 12/28/24 12:14 PRABHU (Rec: 12/28/24 12:45 [facility]) Cognitive Factors Limiting Selfcare Function Cognitive Ability Level of Alertness Alert Patient Orientation Name,Place,Situation Attention Span Capable of Focused Attention,Capable of Sustained Ability Attention Ability to Follow Able to Follow One Step Commands,Able to Follow Multi- Commands Step Commands Memory Description No Deficits Noted Problem Solving Needs Assist to Identify Solutions Ability Cognitive Comments Cognitive Assessment Pt demonstrates impulsivity and decreased safety Comments awareness surrounding toileting task. Initially, pt stood when therapists asked pt to wait while belt was being placed. Following toileting pt began walking back to bed despite vcs that her brief was around her ankles and this was unsafe. OT- Vision and Hearing OT- Hearing Assessment OT- Hearing WFL Assessment OT- Vision Assessment Visual Acuity WFL,Glasses All The Time M7 OT- IP Mobility and Balance Start: 12/28/24 12:14 Freq: Status: Active Protocol: Document 12/28/24 12:14 PRABHU (Rec: 12/28/24 12:45 [facility]) OT- Bed Mobility Assessment Supine to Sit Supine to Sit Assist Minimal Assistance,1 Person Assistance,Head of Bed Elevated,Bedrails Sit to Supine Sit to Supine Assist Minimal Assistance,1 Person Assistance,Head of Bed Elevated,Bedrails Scooting Scooting to Edge of Contact Guard Assistance Bed Scooting Up and Down Total Assistance,2 Person Assistance in Bed OT-Transfer Assessment Sit to and From Stand Sit to and from Minimal Assistance,1 Person Assistance,Use of Upper Stand Extremities Transfers Transfer Ability Minimal Assistance,1 Person Assistance,Use of Upper Extremities Technique Transfer Destination Bed,Bedside Commode Transfer Technique Stand Step Pivot Devices Transfer Assistive Gait Belt,Front Wheeled Walker Devices Comments Mobility Comments Pt demonstrates impulsivity and decreased safety awareness surrounding functional t/fs for toileting task. Initially, pt stood when therapists asked pt to wait while belt was being placed. Following toileting pt began walking back to bed despite vcs that her brief was around her ankles and this was unsafe OT- Balance Assessment Sitting Balance and Reactions Static Sitting Good Balance Ability Dynamic Sitting Good Balance Ability Standing Balance and Reactions Static Standing Good Balance Ability Dynamic Standing Fair Balance Ability M8 OT- IP Objective Assessments Start: 12/28/24 12:14 Freq: Status: Active Protocol: Document 12/28/24 12:14 PRABHU (Rec: 12/28/24 12:45 [facility] Desktop) OT Gross Range of Motion Upper Extremity Range of Motion Assessment Within Functional Limits OT Strength Upper Extremity Strength Assessment Within Functional Limits Hand Measurement And Sensing Technician Strength Hand Dominance Right OT-Muscle Tone Assessment Muscle Tone WNL Yes OT Sensation Assessment Edema Edema Absent M9 OT- IP Assessment and Plan Start: 12/28/24 12:14 Freq: Status: Active Protocol: Document 12/28/24 12:14 PRABHU (Rec: 12/28/24 12:45 [facility] Desktop) OT Summary Assessment and Plan Potential Rehabilitation Good Potential Analytic Complexity Low at Evaluation Summary OT Impairments Balance,Functional Mobility,Dressing,Toileting,Bathing, Toilet Transfers,Shower Transfers,Activity Tolerance Progress Towards Slow Progress due to Medical Issues,Slow Progress due Goals to Activity Tolerance Assessment Summary Pt is an 79 yo F who was admitted to the hospital after ~ 2 weeks of vomiting and increased weakness at home. Pt lives on the same property as her son. Her grand- daughter provides caregiving 4 days/week for ~7 hours and her son provides care giving 3 days/week. Pt spends the nights by herself and has been able to manage her toileting needs without assistance as well as being able to let her pets in and out of the house, per grand -daughter. Pt's grand-daughter mentioned several times that she has been in communication with hospice. She state that her grandmother needs additional equipment such as a hospital bed, BSC, and pure wick. She also states that her grandmother would benefit from additional care giving services. Pt required MOD-MAX A for bathing and dressing and was I with toileting prior to being sick, per pt and grand-daughter. Pt currently requires MAX-TOTAL A for these. Pt would benefit from skilled OT services to address deficits and promote return toward PLOF. Pt was left reclined in bed with bed exit alarm set and grand-daughter present. Goals Dressing Goal Moderate Assistance Toileting Goal Independent Bathing Goal Moderate Assistance Toilet Transfer Goal Independent Shower Transfer Goal Moderate Assistance Days to Meet Goals 15 Frequency of Treatment Other frequency 5x/wk Treatment Plan OT Treatment Plan ADL Training,Functional Mobility,Therapeutic Exercises, Patient/Family Education,Discharge Planning Discharge Recommendations OT Discharge Home with / Assist Available,Home Health Recommendations Other Discharge Pt's family has discussed hospice care. Recommendations Home Equipment Needs BSC, raised toilet seat Transportation Needs Private Vehicle,Wheelchair/Cabulance at Discharge
--- NOTE | 2024-12-28 14:58 | CM.DANOTE ---
Discharge Planning/Care Management Advanced directive, confirm from FAMILY Start: 12/27/24 18:52 Freq: Q24H Status: Active Protocol: Document 12/27/24 18:52 AKT (Rec: 12/27/24 18:53 AKT [id number]) Advance Directive, confirm on record Time 18:53 Person contacted POLST in chart Copy received Yes CM Discharge Assessment Start: 12/27/24 17:51 Freq: Status: Active Protocol: Document 12/28/24 14:47 SM (Rec: 12/28/24 14:57 SM [id number]) Discharge Planning Assessment Assigned Discharge Cathy PINTO Sorter [employer] Insurance Medicare DPOA/Assigned PT's sonRonal. #[phone] Designee Name Advance Directives? Yes: POLST FORM Advance Directives No on File History Provided By Patient,Family Member Has Patient been No admitted in last 30 days? Prior Living House Arrangements Comment Son and daughter in law live right next door and check on her several times daily Household Members other Independent with ADL No 's Is patient alert and Yes oriented? Needs Assistance Bathing,Grooming,Meal Prep,Toileting,Managing With Medications Caregiver for No Another DME Already Rented / Bath Bench,FWW / Walker Owned Comment Per pt's grand daughter, Clare, [facility] has been request by pt's family prior to this hospitalization. Barriers to No Discharge Discharge Plan Home Transportation Son Arrangement Referrals Initiated Other Additional Comment See prior note. ([facility]) Review Status In Process Please Provide Date 12/28/24 Initial DC Assessment Was Performed
--- NOTE | 2024-12-28 14:58 | CM.DANOTE ---
Initial DCP Assessment. Review EMR and Team Rounds. Met with patient and her grand daughterClare at bedside. PT is alert x3. PT can be forget at times. Patient able to verbalize all her concerns. Per Clare, Hospice has been contacted by the family prior to PT's hospitalization. Clare has requested that PT be discharged with Hospice services secured. Payor: ESTEBAN PCP: Brenda Aguero 79 y/o female arrived to ED via ambulance c/o N/V and constipation. Admitted Med-Surg Dx. Pyelonephritis. Plan: Continue IV ABO, IVF, recheck CBC and Chemistry in AM and wait for urine culture results. DCP to coordinate Home with [facility]. Discharge Planning/Care Management Advanced directive, confirm from FAMILY Start: 12/27/24 18:52 Freq: Q24H Status: Active Protocol: Document 12/27/24 18:52 AKT (Rec: 12/27/24 18:53 AKT [id number]) Advance Directive, confirm on record Time 18:53 Person contacted POLST in chart Copy received Yes CM Discharge Assessment Start: 12/27/24 17:51 Freq: Status: Active Protocol: Document 12/28/24 14:47 SM (Rec: 12/28/24 14:57 SM [id number]) Discharge Planning Assessment Assigned Discharge Cathy PINTO Chemical Sales Representative Insurance Medicare DPOA/Assigned PT's sonRonal. #[phone] Designee Name Advance Directives? Yes: POLST FORM Advance Directives No on File History Provided By Patient,Family Member Has Patient been No admitted in last 30 days? Prior Living House Arrangements Comment Son and daughter in law live right next door and check on her several times daily Household Members other Independent with ADL No 's Is patient alert and Yes oriented? Needs Assistance Bathing,Grooming,Meal Prep,Toileting,Managing With Medications Caregiver for No Another DME Already Rented / Bath Bench,FWW / Walker Owned Comment Per pt's grand daughter, Clare, Hospice has been request by pt's family prior to this hospitalization. Barriers to No Discharge Discharge Plan Home Transportation Son Arrangement Referrals Initiated Other Additional Comment See prior note. ([facility]) Review Status In Process Please Provide Date 12/28/24 Initial DC Assessment Was Performed
--- NOTE | 2024-12-28 15:09 | PT.IIE ---
Current Diagnoses Acute pyelonephritis (12/27/24) Surgical History (Last Reviewed 03/02/24 @ 15:20 by Davin Peterson DO) Hx of shoulder surgery (2003) Status post hysterectomy (~1980) Status post knee surgery (2005) Medical History (Last Reviewed 03/02/24 @ 15:20 by Davin Peterson DO) Adhesive capsulitis Ankle pain (Unknown) Colitis (Unknown) Cough Depression (Unknown) Diabetes (Unknown) Foot pain (Unknown) Hyperlipidemia (~2009) Hypertension (Unknown) Hypothyroidism (Unknown) Incontinence in female Left knee pain Lumbar canal stenosis Medication refill Osteoarthritis Pyelonephritis Renal insufficiency Shoulder pain (Unknown) Physical Therapy Inpatient Evaluation/Re-Eval M1 PT/OT-IP Prior Functional Status Start: 12/28/24 12:14 Freq: NEEDED Status: Active Protocol: Document 12/28/24 12:14 PRABHU (Rec: 12/28/24 12:45 CHARLENEOKSMITHA Desktop) Medical Review Prior Functional Status Medical History Yes Reviewed Communication Pt able to make her needs know. Granddaughter present and adds relevant information. Mobility and Gait Per pt and grand-daughter, pt was able to transfer to the bathroom by herself at night and to let her pets in and out. Pt uses a 4WW to amb. Activities of Daily Per pt and grand-daughter, she required MOD-MAX A for Living and IADL's bathing and dressing. Pt's family provides meals and performs housework. Social History Household Members other Living Arrangements House Number of Stairs To Pt lives in a modular home with 4 steps to enter and L Enter/Railing? railing. Pt's grand-daughter stays with patient 4 days a week for ~7 hours and her son stays 3 days a week. Her house is on the same property as her sons. Home Environment Standard Height Toilet,Walk in Shower Home Equipment Four Wheel Walker,Manual Wheelchair,Tub Transfer Bench, Lift Recliner Additional Social Patient has a toilet frame to assist with transfers, it History Comment does not raise the height of the toilet. M1 PT/OT-IP Prior Functional Status Start: 12/28/24 13:28 Freq: NEEDED Status: Active Protocol: Document 12/28/24 13:29 AMB (Rec: 12/28/24 13:32 AMB [id number]) Medical Review Prior Functional Status Medical History Yes Reviewed Communication Pt able to make her needs know. Granddaughter present and adds relevant information. Mobility and Gait Per pt and grand-daughter, pt was able to transfer to the bathroom by herself at night and to let her pets in and out. Pt uses a 4WW to amb. Activities of Daily Per pt and grand-daughter, she required MOD-MAX A for Living and IADL's bathing and dressing. Pt's family provides meals and performs housework. Social History Household Members other Living Arrangements House Number of Stairs To Pt lives in a modular home with 4 steps to enter and L Enter/Railing? railing. Pt's grand-daughter stays with patient 4 days a week for ~7 hours and her son stays 3 days a week. Her house is on the same property as her sons. Home Environment Standard Height Toilet,Walk in Shower Home Equipment Four Wheel Walker,Manual Wheelchair,Tub Transfer Bench, Lift Recliner Additional Social Patient has a toilet frame to assist with transfers, it History Comment does not raise the height of the toilet. M2 PT-IP Current Condition Start: 12/28/24 13:28 Freq: NEEDED Status: Active Protocol: Document 12/28/24 13:29 AMB (Rec: 12/28/24 13:32 AMB [id number]) Physical Therapy Current Condition Current Condition Evaluation Date 12/28/24 Treatment Diagnosis UTI, weakness Onset Date 12/27/24 M3 PT-IP Subjective Start: 12/28/24 13:28 Freq: NEEDED Status: Active Protocol: Document 12/28/24 13:57 AMB (Rec: 12/28/24 14:00 AMB [id number]) Subjective Physical Therapy Visit Type Type Initial Evaluation Visit Start Time 10:37 Visit Stop Time 11:13 Physical Therapy Visit Comments Patient Comments Patient is not feeling good, grandaughter present who provides majority of history Therapy Pain Assessment Pain When Pain Assessed At Rest Pain Present Pain Present Pain Reported Location Back Pain Behaviors Facial Grimacing,Guarding M4 PT-IP Mobility and Gait Start: 12/28/24 13:28 Freq: NEEDED Status: Active Protocol: Document 12/28/24 13:57 AMB (Rec: 12/28/24 14:00 AMB [id number]) PT-Bed Mobility Assessment Rolling Type of Rolling Log Rolling,Roll to Left Level of Assist Minimal Assistance Supine to Sit Supine to Sit Minimal Assistance,1 Person Assistance,Head of Bed Elevated Sit to Supine Sit to Supine Minimal Assistance,1 Person Assistance,Head of Bed Elevated PT-Transfer Assessment Sit to and From Stand Sit to and from Minimal Assistance,1 Person Assistance,Use of Upper Stand Extremities Equipment Transfer Assistive Front Wheeled Walker Device Transfers Transfer Destination Bed,Bedside Commode Transfer Technique Stand Step Pivot Transfer Ability Level of Assist Minimal Assistance Comments Mobility Comments Eusebia was able to perform bed mobility and transfers with Etta, she transferred from bed to beside commode and had difficulty with maintaining standing for 30 seconds+ for pericare. she then said she needed to lie back down and despite having her brief around her ankles and being asked to wait until it was safe to transfer was able to transfer back into bed. M5 PT-IP Objective Assessments Start: 12/28/24 13:28 Freq: NEEDED Status: Active Protocol: Document 12/28/24 15:04 AMB (Rec: 12/28/24 15:08 AMB [id number]) Strength Lower Extremity Strength Assessment Bilaterally Impaired M7 PT-IP Assessment and Plan Start: 12/28/24 13:28 Freq: NEEDED Status: Active Protocol: Document 12/28/24 15:04 AMB (Rec: 12/28/24 15:08 AMB [id number]) PT Summary Assessment and Plan Potential Rehabilitation Good Potential Status of Condition Evolving at Evaluation Summary Impairments Pain,Strength,Balance,Cognition,Bed Mobility,Transfers, Gait,Activity Tolerance Assessment Summary Eusebia's [facility] states that prior to 2 weeks ago Eusebia was able to get out of bed independently and get to the bathroom during the night. For some time her grandaughter and son had been assisting with dressing, cooking, cleaning and bathing, but now Eusebia is having greater difficulty with tranfers and gait which is new. Today she needed Etta for bed mobility and to get to the bedside commode and had difficulty standing while OT performed pericare. [facility] states she is interested in hospice, but would need to have further conversations if this is really what the family wants. Goals Bed Mobility Goal Contact Guard Assistance Transfer Goal Contact Guard Assistance Gait Goal Minimal Assistance Gait Distance 20 Days to Meet Goals 10 Frequency of Treatment Frequency Of Once a Day Treatment Treatment Plan Physical Therapy Bed Mobility Training,Transfer Training,Gait Training, Treatment Plan Therapeutic Exercise Recommendations To Nursing Amount of Assist 2 Person Assist Needed Discharge Recommendations PT Discharge Home Health Recommendations Other Discharge Discharge really depends on how much assist family Recommendations wants to/ is able to provide Transportation Needs Wheelchair/Cabulance at Discharge - PT assist 1
[2024-12-28] MEDS: PROMETHAZINE 25 MG TABLET PO (15:14)
--- NOTE | 2024-12-28 15:27 | CM.DPC ---
DCP continued. CM updated Lulu with [facility]. No active DC order at this time. CM will update Hospice as needed.
[2024-12-28] MEDS: MAG HYDROX/ALUM/SIMETH 30 ML UDC PO (16:24)
[2024-12-28] MEDS: INSULIN LISPRO 100 UNIT/ML 3ML VIAL SUBCUT (17:33)
[2024-12-28] MEDS: ATORVASTATIN 20 MG TABLET 10 MG PO (20:39)
[2024-12-28] MEDS: METOPROLOL ER 50 MG TABLET 25 MG PO (20:40)
[2024-12-29] VITALS (7 sets, daily range): BP systolic 110–155; BP diastolic 63–113; PULSE 67–93; RESP 16–20; TEMP 35.5–36.1; O2SAT 96–98
[2024-12-29] MEDS: SODIUM CHLORIDE 0.9% 1,000 ML 100 ML IV ×3 (02:54→23:36)
[2024-12-29 04:55] LABS: Add Manual Diff / Slide Review NO; Hematocrit 29.8 % (36-46); Hemoglobin 10.3 g/dL (12.0-16.0); Lymphocytes Absolute Auto 1800 /uL (1100-4500); Mean Corpuscular HGB Conc 34.5 % (30-36); Mean Corpuscular Hemoglobin 31.2 PG (26-34); Mean Corpuscular Volume 90.6 fL (80-100); Platelet Count 191 X10^3/uL (150-400)
[2024-12-29 05:08] LABS: Blood Urea Nitrogen 11 mg/dL (7-17); Calcium 7.7 mg/dL (8.4-10.2); Carbon Dioxide 20 mmol/L (22-32); Chloride 111 mmol/L (98-107); Estimated Glomerular Filt Rate > 60 mL/min (>60); Glucose 80 mg/dL (70-99); HEMOLYSIS < 15 (0-50); Magnesium 1.4 mg/dL (1.6-2.3); Potassium 3.5 mmol/L (3.4-5.1); Sodium 137 mmol/L (137-145)
[2024-12-29] MEDS: LEVOTHYROXINE 50 MCG TABLET PO (05:40)
--- NOTE | 2024-12-29 07:26 | PM.PN.1 ---
Subjective Subjective Date Patient Seen: 12/29/24 Interval history: This is an 79-year-old female with a history of hypertension, diabetes mellitus, hyperlipidemia, pyelonephritis, hypothyroidism and depression who presents with 2 weeks of vomiting and progressive weakness. She says that she started feeling these ?flu? symptoms about 2 weeks ago. Her son has been trying to convince her for the last week to come to the hospital and finally she relented today. She is extremely weak, unable to sit up in bed. Her oral intake has been minimal. She has a history of pyelonephritis and the UA today shows 30-100 wbc's along with a white blood count of 16.2. The chest x-ray and CT of the abdomen and pelvis are normal. 12/28/2024: Urine culture is growing Gram-negative rods. She says she is feeling much better. The white blood count remains at 16.5 with a hemoglobin of 10.8. The creatinine is 1.01. The magnesium level has come up to 1.6. She received 2 g of magnesium IV for level of 1.2 in the ED. 12/29/2024: Urine culture identification is Klebsiella, sensitive to ceftriaxone. She says she was dry heaving yesterday and feels a lot better today. Her appetite has returned. She is encouraged to participate with therapy but is unlikely to be able to return home directly when you look at how weak she was coming in and continues to be each day. She is going to need some encouragement to agree to SNF rehab before going home. Her family is very attentive. The white blood count is 10.3 with a hemoglobin of 10.3. The blood pressure is 155/79. The potassium is 3.5 with a creatinine of 0.8 and a magnesium of 1.4. Oral magnesium will be given and this will be rechecked tomorrow. Assessment & Plan This is an 79-year-old female with a history of hypertension, diabetes mellitus, hyperlipidemia, pyelonephritis, hypothyroidism and depression who presents with 2 weeks of vomiting and progressive weakness. She says that she started feeling these ?flu? symptoms about 2 weeks ago. Pyelonephritis, present on admission. Active. -UC with Klebsiella sensitive to ceftriaxone -admission white blood count 16.2 with 30-100 wbc's on UA. -lactic acid level was ordered but no results found -treating with ceftriaxone and IV fluid. Decrease IV fluid on 12/29. -blood cultures are pending. -holding oxybutynin Generalized weakness, present on admission. Active. -secondary to progressive UTI/pyelonephritis -lmproving with hydration and antibiotics. -PT and OT evaluation. -consider brain CT. No stroke symptoms on admission. Hypothyroidism, present on admission. Chronic. -continue levothyroxine Hypertension, present on admission. Chronic. -continue losartan, amlodipine and metoprolol Depression, present on admission. Chronic. -continue citalopram Diabetes mellitus type 2, present on admission. Chronic. -holding metformin and semaglutide. -monitor blood sugars a.c. and HS and use lispro correctional scale Hyperlipidemia, present on admission. Chronic. -continue lovastatin Disposition: Depends on regaining strength and ADL ability per daily OT/PT evaluation. Likely to need intermediate facility level rehab in 1-2 days. Lovenox for DVT prevention Her son is her backup decision maker. Exam Vital Signs (past 8 hours): - 12/29/24 00:00 12/29/24 04:00 Temperature 96.7 F L 96.7 F L Pulse Rate 67 80 Respiratory Rate 16 16 Blood Pressure 112/63 155/79 H Pulse Oximetry 96 98 Oxygen Flow Rate 0 0 Oxygen Delivery Method Room Air Oxygen Flow Rate 0 Narrative Exam Narrative: Alert and oriented. No apparent distress. She is smiling and is stronger today. Pneumatic Tube Repairer strengths are 3/5 bilaterally. Heart is regular rate and rhythm without murmur. Lungs are clear to auscultation bilaterally. Extremities have no ankle edema. Abdomen is soft, bowel sounds positive, obese, mildly diffusely tender, no organomegaly. Objective Labs 12/29/24 04:29 12/29/24 04:29 Labs: Laboratory Results - last 24 hr 12/27/24 12/28/24 12/28/24 14: 04:55 07:46 WBC RBC Hgb Hct MCV MCH MCHC RDW Plt Count Neut % (Auto) Lymph % (Auto) [place] % (Auto) Eos % (Auto) Baso % (Auto) Neut # (Auto) Lymph # (Auto) [place] # (Auto) Eos # (Auto) Baso # (Auto) Sodium Potassium Chloride Carbon Dioxide BUN Creatinine Estimated GFR BUN/Creatinine Ratio Glucose POC Whole Bld Glucose 107 H Calcium Magnesium 1.6 Urine Color Yellow Urine Appearance Cloudy Urine pH 6.0 Ur Specific [place] 1.015 Urine Protein 1+ H Urine Glucose (UA) Negative Urine Ketones 2+ H Urine Occult Blood 1+ H Urine Nitrate Negative Urine Bilirubin 2+ H Ur Bilirubin Confirm Negative Urine Urobilinogen 1.0 Ur Leukocyte Esterase 2+ H Urine RBC 1-5/hpf Urine WBC 30-100/hpf H Ur Squamous Epith Cells None seen Urine Bacteria Many (>30) H Ur Culture Indicated? Specimen cultured Vol Urine Centrifuged 10ml (spun) 12/28/24 12/28/24 12/28/24 11:29 17:10 20:42 WBC RBC Hgb Hct MCV MCH MCHC RDW Plt Count Neut % (Auto) Lymph % (Auto) [place] % (Auto) Eos % (Auto) Baso % (Auto) Neut # (Auto) Lymph # (Auto) [place] # (Auto) Eos # (Auto) Baso # (Auto) Sodium Potassium Chloride Carbon Dioxide BUN Creatinine Estimated GFR BUN/Creatinine Ratio Glucose POC Whole Bld Glucose 150 H 162 H 143 H Calcium Magnesium Urine Color Urine Appearance Urine pH Ur Specific [place] Urine Protein Urine Glucose (UA) Urine Ketones Urine Occult Blood Urine Nitrate Urine Bilirubin Ur Bilirubin Confirm Urine Urobilinogen Ur Leukocyte Esterase Urine RBC Urine WBC Ur Squamous Epith Cells Urine Bacteria Ur Culture Indicated? Vol Urine Centrifuged 12/29/24 04:29 WBC 10.3 RBC 3.29 L Hgb 10.3 L Hct 29.8 L MCV 90.6 MCH 31.2 MCHC 34.5 RDW 14.7 Plt Count 191 Neut % (Auto) 71.0 Lymph % (Auto) 17.9 L [place] % (Auto) 7.2 Eos % (Auto) 3.0 Baso % (Auto) 0.9 Neut # (Auto) 7300 H Lymph # (Auto) 1800 [place] # (Auto) 700 Eos # (Auto) 300 Baso # (Auto) 100 Sodium 137 Potassium 3.5 Chloride 111 H Carbon Dioxide 20 L BUN 11 Creatinine 0.80 Estimated GFR > 60 BUN/Creatinine Ratio 13.8 Glucose 80 POC Whole Bld Glucose Calcium 7.7 L Magnesium 1.4 L Urine Color Urine Appearance Urine pH Ur Specific [place] Urine Protein Urine Glucose (UA) Urine Ketones Urine Occult Blood Urine Nitrate Urine Bilirubin Ur Bilirubin Confirm Urine Urobilinogen Ur Leukocyte Esterase Urine RBC Urine WBC Ur Squamous Epith Cells Urine Bacteria Ur Culture Indicated? Vol Urine Centrifuged PFSH Medical History Left knee pain Incontinence in female Pyelonephritis Cough Adhesive capsulitis Lumbar canal stenosis Renal insufficiency Osteoarthritis Medication refill Depression (Unknown) Hypothyroidism (Unknown) Diabetes (Unknown) Hypertension (Unknown) Hyperlipidemia (~2009) Shoulder pain (Unknown) Foot pain (Unknown) Ankle pain (Unknown) Colitis (Unknown) Surgical History Hx of shoulder surgery (2003) Status post knee surgery (2005) Status post hysterectomy (~1980) Family History Sister Age: 87 Cerebrovascular accident (CVA), unspecified mechanism Brother Cancer Mental health problem Mother No problems noted. Social History household members: other Smoking Status: Never smoker alcohol intake: never Assessment & Plan Time-Based Coding :: [TOTAL MINUTES] spent with patient and on the chart (including review of chart, obtaining history, exam, reviewing outside data, placing orders, documenting exam and treatment plan, and counseling patient) on [DATE].
[2024-12-29] MEDS: MELOXICAM 7.5 MG TABLET 15 MG PO (08:00)
[2024-12-29] MEDS: LOSARTAN 25 MG TABLET 50 MG PO (08:00)
[2024-12-29] MEDS: CITALOPRAM 10 MG TABLET 20 MG PO (08:00)
[2024-12-29] MEDS: MAGNESIUM CHLORIDE 64 MG TABLET 128 MG PO (08:00)
[2024-12-29] MEDS: NAPROXEN 250 MG TABLET PO (08:00)
[2024-12-29] MEDS: ENOXAPARIN 40 MG/0.4 ML SYRINGE SUBCUT (08:06)
[2024-12-29] MEDS: POTASSIUM CHLORIDE 20 MEQ TAB 40 MEQ PO (09:51)
[2024-12-29] MEDS: INSULIN LISPRO 100 UNIT/ML 3ML VIAL SUBCUT (11:35)
--- NOTE | 2024-12-29 11:35 | OT.IP.TRT ---
Current Diagnoses Acute pyelonephritis (12/27/24) Occupational Therapy Treatment Note M2 OT-IP Current Condition Start: 12/28/24 12:14 Freq: Status: Active Protocol: Document 12/28/24 12:14 [facility] (Rec: 12/28/24 12:45 [facility] Desktop) Occupational Therapy Current Condition Current Condition Evaluation Date 12/28/24 Treatment Diagnosis vomiting, generalized weakness, decreased self care Diagnosis Onset Date 12/27/24 M3 OT- IP Subjective and Pain Start: 12/28/24 12:14 Freq: Status: Active Protocol: Document 12/29/24 10:45 [facility] (Rec: 12/29/24 12:23 [facility] Desktop) OT- Subjective Occupational Therapy Visit Type Type Treatment Note Visit Start Time 10:45 Visit Stop Time 11:35 Occupational Therapy Visit Comments Patient Comments Pt needing lots of encouragement and then agreed to get up to use the bathroom and do grooming at the sink afterwards. Patient/Caregiver To go home. Goals OT Pain Assessment Pain When Pain Assessed At Rest Pain Present Pain Present Denied Pain M4 OT- IP ADL's Start: 12/28/24 12:14 Freq: Status: Active Protocol: Document 12/29/24 10:45 [facility] (Rec: 12/29/24 12:23 [facility] Desktop) OT [id number] Comments OT Self-Feeding Not at meal time. Comments OT ADL-Grooming General Evaluation Grooming Ability Standby Assistance Areas Needing Retrieving/Set-up of Grooming Items Assistance Comments OT Grooming Comments Assist to open items. OT ADL-Oral Care General Eval Oral Care Ability Independent Comments Oral Care Comments Able to do while seated on her 4ww in front of the sink . OT ADL-Dressing General Eval Lower Body Dressing Maximum Assistance,Total Assistance Ability Areas Needing Underpants/Brief,Shoes Assistance Comments OT Dressing Comments Assist for brief and slippers over her heels. Noted redness on her heels and nursing notified and educated family to put pillows underneath her legs to floats her heels while in bed. OT ADL-Toileting General Evaluation Toileting Ability Total Assistance Areas Needing Manage Clothing,Perform Perineal Hygiene Assistance Comments OT Toileting Pt trying to wipe and ended having a BM and did not Comments realize it. Therefore dependent for hygiene and brief management needs at this time. OT ADL-Bathing Comments OT Bathing Comments Pt will need assist. M5 OT- IP IADL's Start: 12/28/24 12:14 Freq: Status: Active Protocol: Document 12/28/24 12:14 [facility] (Rec: 12/28/24 12:45 [facility] Desktop) OT-Instrumental Activities of Daily Living Deficits IADL Deficits No Deficits Identified Home Safety Awareness Awareness of Need Good Awareness for Assistance at Home Ability to Problem Unable to Problem Solve Solve Emergency Situations Medication Management Medication Caregiver Administers Management Money Management Money Management Caregiver Provides Assistance Meal Preparation Meal Preparation Caregiver Provides Assist Senior Hadoop Developer Senior Hadoop Developer Caregiver Provides Assist Driving Driving Caregiver Provides Assist M6 OT- IP Functional Cognition Start: 12/28/24 12:14 Freq: Status: Active Protocol: Document 12/29/24 10:45 [facility] (Rec: 12/29/24 12:23 [facility] Desktop) Cognitive Factors Limiting Selfcare Function Cognitive Comments Cognitive Assessment Decreased safety for toileting, remembering to lock and Comments unlock her 4ww. Pt needing MAX vc for safety cues to push up from surfaces with her hands and reach back prior to sitting down. M7 OT- IP Mobility and Balance Start: 12/28/24 12:14 Freq: Status: Active Protocol: Document 12/29/24 10:45 [facility] (Rec: 12/29/24 12:23 [facility] Desktop) OT- Bed Mobility Assessment Sit to Supine Sit to Supine Assist Contact Guard Assistance OT-Transfer Assessment Sit to and From Stand Sit to and from Contact Guard Assistance Stand Transfers Transfer Ability Contact Guard Assistance Technique Transfer Destination Bed,Chair,Toilet Transfer Technique Stand Step Pivot Devices Transfer Assistive Gait Belt,Front Wheeled Walker Devices Comments Mobility Comments Pt able to use 4ww but needing cues for safety. CGA for balance, especially when turning around to sit on her 4ww for grooming needs. OT- Balance Assessment Sitting Balance and Reactions Static Sitting Good Balance Ability Dynamic Sitting Good Balance Ability Standing Balance and Reactions Static Standing Good Balance Ability Dynamic Standing Fair Balance Ability M8 OT- IP Objective Assessments Start: 12/28/24 12:14 Freq: Status: Active Protocol: Document 12/28/24 12:14 [facility] (Rec: 12/28/24 12:45 [facility] Desktop) OT Gross Range of Motion Upper Extremity Range of Motion Assessment Within Functional Limits OT Strength Upper Extremity Strength Assessment Within Functional Limits Hand Scale Shooter Strength Hand Dominance Right OT-Muscle Tone Assessment Muscle Tone WNL Yes OT Sensation Assessment Edema Edema Absent M9 OT- IP Assessment and Plan Start: 12/28/24 12:14 Freq: Status: Active Protocol: Document 12/29/24 10:45 [facility] (Rec: 12/29/24 12:23 [facility] Desktop) OT Summary Assessment and Plan Potential Rehabilitation Good Potential Analytic Complexity Low at Evaluation Summary OT Impairments Balance,Functional Mobility,Dressing,Toileting,Bathing, Toilet Transfers,Shower Transfers,Activity Tolerance Progress Towards Slow Progress due to Activity Tolerance,Slow Progress Goals due to Cognition Assessment Summary Per pt's family has had falls at home and needing lots of encouragement to participate in her needs. Pt today able to get up with CGA and MAX vc for safety awareness . Pt would benefit from skilled rehab to work on dynamic balance and independence for especially toileting needs as pt prior able to use the toilet on her own. Pt would benefit from skilled rehab versus home with 24/7 assist and home health. Goals Dressing Goal Moderate Assistance Toileting Goal Independent Bathing Goal Moderate Assistance Toilet Transfer Goal Independent Shower Transfer Goal Minimal Assistance Days to Meet Goals 14 Frequency of Treatment Other frequency 5x/wk Treatment Plan OT Treatment Plan ADL Training,Functional Mobility,Therapeutic Exercises, Patient/Family Education,Discharge Planning Discharge Recommendations OT Discharge Home with 24/7 Assist Available,Home Health,SNF Rehab, Recommendations Home vs SNF Home Equipment Needs Pt's family has already gotten a BSC, pt may also benefit from FWW. Transportation Needs Private Vehicle,Wheelchair/Cabulance at Discharge
--- NOTE | 2024-12-29 12:18 | DIET.CONS ---
Dietary Consultation Note Admission Date: 12/27/2024 17:43 Assessment: 79 y F admitted for UTI. Dietitian screened for low MNA score. Met with pt and daughter at bedside this morning. Reports significant weight loss since August r/t unable to keep food down/nausea and feeling of food stuck in throat, was doing less than 50% of her usual meals. Last 2 weeks have been unable to keep anything down, including fluids. Currently pt doesn't have these symptoms, tolerated breakfast without issue this morning and reports feeling much better. Per RN, no issues with pt eating or swallowing pills. Note pt was on semaglutide per last PCP note, but daughter reports pt is not taking. Per MANAGED CARE MANAGER in rounds, hospice services have been requested prior to hospitalization, unsure if this will be pursued now. D/t this, visual NFPE was done instead noting mild loss in temples and mild loss in buccal and orbital fat pads. Ht: 162.56 cm Wt: 76.5 kg BMI: 28.9 UBW: 96.162 kg on 09/01/24 (-20% weight loss in 4 months, severe) Last BM: 12/28/24 (12/28/24 12:00) MNA: 8 Loco Score: 18 Diet: 12/28/24 Breakfast Carbohydrate Consistent Diet Diet Modifications: Carbohydrate level: Medium (3 CHO) Reflex DM orders: No Labs: RBC 3.29 X10^6/uL (4.0-5.2) L 12/29/24 04:29 Hgb 10.3 g/dL (12.0-16.0) L 12/29/24 04:29 Hct 29.8 % (36-46) L 12/29/24 04:29 Creatinine 0.80 mg/dL (0.52-1.04) 12/29/24 04:29 Lactate 1.1 mmol/L (0.7-2.1) 12/27/24 18:45 Nutrition Diagnosis: Severe acute Protein Calorie Malnutrition r/t loss of appetite, nausea and vomiting as evidenced by 2 weeks no oral intakes and <50% of estimated energy needs for 4 months per diet recall (severe) and 20% weight loss in 4 months (severe) Interventions: -Pt doesn't tolerate Ensure, discussed alternative protein/kcal options of cottage cheese BID, pb and crackers, cheese, and chicken. Provided handout on protein based foods and suggested 2 extra protein based snacks/small meals until appetite and intakes return to normal prior to N/V/swallowing issues EER: 1700 kcals (23 kcals/kg per BMI) 65 g protein (1g/kg per adjusted IBW) Monitoring/Evaluations: Electronically Signed by: Gissel Brock 12/29/24 12:18 Clinical Dietitian [address] [id number]
--- NOTE | 2024-12-29 13:16 | CM.DPNOTE ---
DCP Note RESEARCH DIRECTOR reviewed EMR per provider, here another 2-3 days. no current hospice appropriate diagnosis. RESEARCH DIRECTOR spoke with Lulu from [facility]- no appropriate diagnosis. RESEARCH DIRECTOR spoke with son Ronal- DPOA. report granddaughter has been pushing for hospice to have CG in home with pt. RESEARCH DIRECTOR educated DPOA on what services hospice can offer. son reports understanding. open to SNF if indicated. just want someone to check in on pt in home once in awhile. reviewed PP CG options. sounds like there are financial resources to pay for CG in home. will leave in pt room. son to bring in DPOA paperwork. RESEARCH DIRECTOR met with pt and dtr in room. explained hospice care. pt does not want hospice. open to SNF rehab- preference [facility]. RESEARCH DIRECTOR answered questions to best of ability. gave senior resources booklet for CGs in home post rehab if needed referral sent to [facility]. Karis happy to review. PASRR completed. later [place] DNS director reported family had questions about medical release form. med with pt/dtr/granddaughter in room. provided form. family appreciative P: dc to [facility] pending medical stability/acceptance. will continue to follow closely for DCP Coordination MURALI Tejeda
--- NOTE | 2024-12-29 15:00 | PT.IPTN ---
Current Diagnoses Acute pyelonephritis (12/27/24) Physical Therapy Treatment Note M2 PT-IP Current Condition Start: 12/28/24 13:28 Freq: NEEDED Status: Active Protocol: Document 12/28/24 13:29 AMB (Rec: 12/28/24 13:32 AMB [id number]) Physical Therapy Current Condition Current Condition Evaluation Date 12/28/24 Treatment Diagnosis UTI, weakness Onset Date 12/27/24 M3 PT-IP Subjective Start: 12/28/24 13:28 Freq: NEEDED Status: Active Protocol: Document 12/29/24 15:00 AB (Rec: 12/29/24 15:41 AB [id number]) Subjective Physical Therapy Visit Type Type Treatment Note Visit Start Time 15:00 Visit Stop Time 15:15 Number of THREAD WINDER Visits 0 M4 PT-IP Mobility and Gait Start: 12/28/24 13:28 Freq: NEEDED Status: Active Protocol: Document 12/29/24 15:00 AB (Rec: 12/29/24 15:41 AB [id number]) PT-Bed Mobility Assessment Supine to Sit Supine to Sit Minimal Assistance,1 Person Assistance,Head of Bed Elevated,Bedrails Sit to Supine Sit to Supine Moderate Assistance,Bedrails PT-Transfer Assessment Sit to and From Stand Sit to and from Contact Guard Assistance,1 Person Assistance,Use of Stand Upper Extremities Equipment Transfer Assistive Gait Belt,4 Wheeled Walker Device Orthotic/Prosthetic No Devices or Brace: Comments Mobility Comments pt in bed and agreeable to do PT but wants to get back in bed afterwards. completed supine to sit min A and cues. pt required increase time to complete task. able to sit on EOB SBA. sit to stand CGA and ambulated in room using 4WW ~ 60 ft CGA and cues for safety. pt sat back on EOB. sit to supine mod A for elevating BLE up in bed. positioned pt in bed max A. call light and table placed within reach. Gait Assessment Gait Gait Assistance Contact Guard Assist Required: Distance (Feet) 60 Able to Maintain Yes Weight Bearing Status During Gait Assistive Devices Assistive Device Gait Belt,4 Wheeled Walker Orthotic/Prosthetic No Devices or Brace: Gait Deviations General Gait Pattern Decreased Stride Length,Decreased Feet Clearance,Step- to Gait Factors Limiting Gait Function Factors Limiting Decreased Activity Tolerance,Decreased Strength, Gait Function Difficulty Following Directions,Limited Range of Motion ,Poor Balance,Poor Safety Awareness M5 PT-IP Objective Assessments Start: 12/28/24 13:28 Freq: NEEDED Status: Active Protocol: Document 12/28/24 15:04 AMB (Rec: 12/28/24 15:08 AMB [id number]) Strength Lower Extremity Strength Assessment Bilaterally Impaired M6 PT-IP Treatment Start: 12/28/24 13:28 Freq: NEEDED Status: Active Protocol: Document 12/29/24 15:00 AB (Rec: 12/29/24 15:41 AB [id number]) Physical Therapy Treatment Education Education Provided Safety M7 PT-IP Assessment and Plan Start: 12/28/24 13:28 Freq: NEEDED Status: Active Protocol: Document 12/29/24 15:00 AB (Rec: 12/29/24 15:41 AB [id number]) PT Summary Assessment and Plan Potential Rehabilitation Fair Potential Summary Impairments Pain,ROM,Strength,Balance,Coordination,Sensation,Tone, Cognition,Bed Mobility,Transfers,Gait,Activity Tolerance Progress Towards Slow Progress due to Medical Issues,Slow Progress due Goals to Activity Tolerance Assessment Summary pt progressing with mobility and able to ambulate using 4WW ~ 60 ft CGA. pt needing min to mod A for bed mobility. pt continues to have decrease activity tolerance affecting mobility and will benefit from SNF rehab to improve overall strength and function. Goals Bed Mobility Goal Contact Guard Assistance Transfer Goal Standby Assistance,Four Wheeled Walker Gait Goal Standby Assistance,Four Wheel Walker Gait Distance 100 Days to Meet Goals 10 Frequency of Treatment Frequency Of Once a Day Treatment Treatment Plan Physical Therapy Bed Mobility Training,Transfer Training,Gait Training, Treatment Plan Therapeutic Exercise,Balance Retraining,Discharge Planning,Neuromuscular Re-ed,Manual Therapy Recommendations To Nursing Amount of Assist 1 Person Assist Needed Discharge Recommendations PT Discharge SNF Rehab Recommendations Transportation Needs Wheelchair/Cabulance at Discharge - PT assist 1
[2024-12-29 18:07] LABS: Blood Urea Nitrogen 11 mg/dL (7-17); Calcium 8.0 mg/dL (8.4-10.2); Carbon Dioxide 21 mmol/L (22-32); Chloride 109 mmol/L (98-107); Estimated Glomerular Filt Rate > 60 mL/min (>60); Glucose 143 mg/dL (70-99); HEMOLYSIS < 15 (0-50); Magnesium 1.3 mg/dL (1.6-2.3); Potassium 4.4 mmol/L (3.4-5.1); Sodium 135 mmol/L (137-145)
[2024-12-29] MEDS: METOPROLOL ER 50 MG TABLET 25 MG PO (20:44)
[2024-12-29] MEDS: ATORVASTATIN 20 MG TABLET 10 MG PO (20:44)
[2024-12-30] VITALS (8 sets, daily range): BP systolic 131–171; BP diastolic 68–82; PULSE 76–88; RESP 14–18; TEMP 35.5–36.1; O2SAT 96–98
[2024-12-30 04:30] LABS: Add Manual Diff / Slide Review NO; Hematocrit 31.3 % (36-46); Hemoglobin 10.8 g/dL (12.0-16.0); Lymphocytes Absolute Auto 1800 /uL (1100-4500); Mean Corpuscular HGB Conc 34.4 % (30-36); Mean Corpuscular Hemoglobin 31.2 PG (26-34); Mean Corpuscular Volume 90.7 fL (80-100); Platelet Count 183 X10^3/uL (150-400)
[2024-12-30 04:43] LABS: Blood Urea Nitrogen 10 mg/dL (7-17); Calcium 7.9 mg/dL (8.4-10.2); Carbon Dioxide 21 mmol/L (22-32); Chloride 111 mmol/L (98-107); Estimated Glomerular Filt Rate > 60 mL/min (>60); Glucose 108 mg/dL (70-99); HEMOLYSIS < 15 (0-50); Magnesium 1.4 mg/dL (1.6-2.3); Potassium 4.3 mmol/L (3.4-5.1); Sodium 136 mmol/L (137-145)
[2024-12-30] MEDS: LEVOTHYROXINE 50 MCG TABLET PO (06:56)
[2024-12-30] MEDS: LOSARTAN 25 MG TABLET 50 MG PO (08:15)
[2024-12-30] MEDS: ONDANSETRON 4 MG/2 ML INJ IV (08:15)
[2024-12-30] MEDS: ENOXAPARIN 40 MG/0.4 ML SYRINGE SUBCUT (08:16)
[2024-12-30] MEDS: CITALOPRAM 10 MG TABLET 20 MG PO (08:16)
[2024-12-30] MEDS: MELOXICAM 7.5 MG TABLET 15 MG PO (08:17)
[2024-12-30] MEDS: MAGNESIUM SULFATE 2 GM/50 ML PIGGYBACK IV (08:27)
--- NOTE | 2024-12-30 10:43 | OT.IP.TRT ---
Current Diagnoses Acute pyelonephritis (12/27/24) Occupational Therapy Treatment Note M2 OT-IP Current Condition Start: 12/28/24 12:14 Freq: Status: Active Protocol: Document 12/28/24 12:14 [facility] (Rec: 12/28/24 12:45 [facility] Desktop) Occupational Therapy Current Condition Current Condition Evaluation Date 12/28/24 Treatment Diagnosis vomiting, generalized weakness, decreased self care Diagnosis Onset Date 12/27/24 M3 OT- IP Subjective and Pain Start: 12/28/24 12:14 Freq: Status: Active Protocol: Document 12/30/24 10:43 [facility] (Rec: 12/30/24 10:51 [facility] Desktop) OT- Subjective Occupational Therapy Visit Type Type Treatment Note Visit Start Time 10:20 Visit Stop Time 10:43 Occupational Therapy Visit Comments Patient Comments Pt not wanting to get up and then agreed to get up to use the BSC. Patient/Caregiver To get better. Goals OT Pain Assessment Pain When Pain Assessed At Rest Pain Present Pain Present Denied Pain M4 OT- IP ADL's Start: 12/28/24 12:14 Freq: Status: Active Protocol: Document 12/30/24 10:43 [facility] (Rec: 12/30/24 10:51 [facility] Desktop) OT [id number] Comments OT Self-Feeding Not at meal time. Comments OT ADL-Grooming General Evaluation Grooming Ability Standby Assistance Comments OT Grooming Comments Pt able to wash her hands and face after set-up of wash cloth. OT ADL-Oral Care Comments Oral Care Comments Not performed. OT ADL-Dressing General Eval Lower Body Dressing Maximum Assistance Ability Areas Needing Underpants/Brief,Shoes Assistance Comments OT Dressing Comments Assist to get the brief on over her feet and to get her slipper on. OT ADL-Toileting Comments OT Toileting Pt able to wipe after urinating while standing with CGA Comments with 4ww. Pt needing assisting assist to lillian brief over her feet. Pt states at home just changes the pad out instead of having to lillian/doff items over her feet. Pt too tired to try to use the engraver seals at this time. OT ADL-Bathing Comments OT Bathing Comments Not performed. M5 OT- IP IADL's Start: 12/28/24 12:14 Freq: Status: Active Protocol: Document 12/28/24 12:14 [facility] (Rec: 12/28/24 12:45 [facility] Desktop) OT-Instrumental Activities of Daily Living Deficits IADL Deficits No Deficits Identified Home Safety Awareness Awareness of Need Good Awareness for Assistance at Home Ability to Problem Unable to Problem Solve Solve Emergency Situations Medication Management Medication Caregiver Administers Management Money Management Money Management Caregiver Provides Assistance Meal Preparation Meal Preparation Caregiver Provides Assist Telecommunications Clerk Telecommunications Clerk Caregiver Provides Assist Driving Driving Caregiver Provides Assist M6 OT- IP Functional Cognition Start: 12/28/24 12:14 Freq: Status: Active Protocol: Document 12/30/24 10:43 [facility] (Rec: 12/30/24 10:51 [facility] Desktop) Cognitive Factors Limiting Selfcare Function Cognitive Ability Memory Description Short Term Impaired Cognitive Comments Cognitive Assessment Pt still needing reminders to lock and unlock her 4ww. Comments VC to reach back with her hands to the bed prior to sitting down. M7 OT- IP Mobility and Balance Start: 12/28/24 12:14 Freq: Status: Active Protocol: Document 12/30/24 10:43 [facility] (Rec: 12/30/24 10:51 [facility] Desktop) OT- Bed Mobility Assessment Supine to Sit Supine to Sit Assist Standby Assistance Sit to Supine Sit to Supine Assist Minimal Assistance OT-Transfer Assessment Sit to and From Stand Sit to and from Contact Guard Assistance Stand Transfers Transfer Ability Contact Guard Assistance Technique Transfer Destination Bed,Bedside Commode Transfer Technique Stand Step Pivot Devices Transfer Assistive Gait Belt,Front Wheeled Walker Devices Comments Mobility Comments Increased time to get to the edge of the bed with use of bedrail. CGA to stand and transfer to BSC with 4ww. Pt needing assist to help get her RLE back into bed. Pillow places under her feet to float her heels. OT- Balance Assessment Sitting Balance and Reactions Static Sitting Good Balance Ability Dynamic Sitting Good Balance Ability Standing Balance and Reactions Static Standing Good Balance Ability Dynamic Standing Fair Balance Ability M8 OT- IP Objective Assessments Start: 12/28/24 12:14 Freq: Status: Active Protocol: Document 12/28/24 12:14 [facility] (Rec: 12/28/24 12:45 [facility] Desktop) OT Gross Range of Motion Upper Extremity Range of Motion Assessment Within Functional Limits OT Strength Upper Extremity Strength Assessment Within Functional Limits Hand Short Haul Driver Strength Hand Dominance Right OT-Muscle Tone Assessment Muscle Tone WNL Yes OT Sensation Assessment Edema Edema Absent M9 OT- IP Assessment and Plan Start: 12/28/24 12:14 Freq: Status: Active Protocol: Document 12/30/24 10:43 [facility] (Rec: 12/30/24 10:51 [facility] Desktop) OT Summary Assessment and Plan Potential Rehabilitation Good Potential Analytic Complexity Low at Evaluation Summary OT Impairments Balance,Functional Mobility,Dressing,Toileting,Bathing, Toilet Transfers,Shower Transfers,Activity Tolerance Progress Towards Slow Progress due to Medical Issues,Slow Progress due Goals to Activity Tolerance,Slow Progress due to Cognition Assessment Summary Pt feeling nauseous today and weaker and but agreeable to get to the [facility] after much encouragement. Pt will benefit from skilled rehab prior to going home. Goals Dressing Goal Moderate Assistance Toileting Goal Independent Bathing Goal Moderate Assistance Toilet Transfer Goal Independent Shower Transfer Goal Minimal Assistance Days to Meet Goals 13 Frequency of Treatment Other frequency 5x/wk Treatment Plan OT Treatment Plan ADL Training,Functional Mobility,Therapeutic Exercises, Patient/Family Education,Discharge Planning Discharge Recommendations OT Discharge SNF Rehab Recommendations Transportation Needs Private Vehicle,Wheelchair/Cabulance at Discharge
--- NOTE | 2024-12-30 13:00 | PT-IP ANOTE ---
checked on pt this morning but pt refused PT. stated that she is not feeling well today and has nausea. stated that she just got up with OT. agreed for PT to check this afternoon.
[2024-12-30 14:10] LABS: Hematocrit 32.7 % (36-46); Hemoglobin 11.0 g/dL (12.0-16.0); Mean Corpuscular HGB Conc 33.8 % (30-36); Mean Corpuscular Hemoglobin 30.9 PG (26-34); Mean Corpuscular Volume 91.3 fL (80-100); Platelet Count 199 X10^3/uL (150-400)
--- NOTE | 2024-12-30 14:15 | PT.IPTN ---
Current Diagnoses Acute pyelonephritis (12/27/24) Physical Therapy Treatment Note M2 PT-IP Current Condition Start: 12/28/24 13:28 Freq: NEEDED Status: Active Protocol: Document 12/28/24 13:29 AMB (Rec: 12/28/24 13:32 AMB [id number]) Physical Therapy Current Condition Current Condition Evaluation Date 12/28/24 Treatment Diagnosis UTI, weakness Onset Date 12/27/24 M3 PT-IP Subjective Start: 12/28/24 13:28 Freq: NEEDED Status: Active Protocol: Document 12/30/24 14:15 AB (Rec: 12/30/24 15:33 AB [id number]) Subjective Physical Therapy Visit Type Type Treatment Note Visit Start Time 14:15 Visit Stop Time 14:40 Number of INFRASTRU[employer] ARCHITECT Visits 0 Physical Therapy Visit Comments Patient Comments agreeable to get up M4 PT-IP Mobility and Gait Start: 12/28/24 13:28 Freq: NEEDED Status: Active Protocol: Document 12/30/24 14:15 AB (Rec: 12/30/24 15:33 AB [id number]) PT-Bed Mobility Assessment Supine to Sit Supine to Sit Minimal Assistance PT-Transfer Assessment Sit to and From Stand Sit to and from Minimal Assistance,Moderate Assistance,1 Person Stand Assistance,Use of Upper Extremities Equipment Transfer Assistive Gait Belt,4 Wheeled Walker Device Orthotic/Prosthetic No Devices or Brace: Transfers Transfer Destination Toilet Transfer Technique ambulated Transfer Ability Level of Assist Contact Guard Assistance,1 Person Assistance,Use of Upper Extremities Comments Mobility Comments checked back on pt this afternoon and agreed to get up. supine to sit min a and cues. able to sit on EOB CGA and step transfer to chair using 4WW CGA and cues. c/ o slight lightheadedness. BP: 166/80. pt requesting to use the toilet. sit to stand from the chair mod A and cues and ambulated to the toilet using 4WW CGA. cued for walker brakes for safety. able to maintain standing CGA while assisted with brief management. sit to stand from the toilet using grab bar min A and ambulated to the chair using 4WW CGA. pt refused to walk more and just wants to rest. agreed to stay up on the chair. positioned pt on the chair. call light and table placed within reach. Gait Assessment Gait Gait Assistance Contact Guard Assist Required: Distance (Feet) 20 Able to Maintain Yes Weight Bearing Status During Gait Assistive Devices Assistive Device Gait Belt,4 Wheeled Walker Orthotic/Prosthetic No Devices or Brace: Gait Deviations General Gait Pattern Decreased Stride Length,Decreased Feet Clearance Factors Limiting Gait Function Factors Limiting Decreased Activity Tolerance,Decreased Strength,Poor Gait Function Balance,Poor Safety Awareness M5 PT-IP Objective Assessments Start: 12/28/24 13:28 Freq: NEEDED Status: Active Protocol: Document 12/28/24 15:04 AMB (Rec: 12/28/24 15:08 AMB [id number]) Strength Lower Extremity Strength Assessment Bilaterally Impaired M6 PT-IP Treatment Start: 12/28/24 13:28 Freq: NEEDED Status: Active Protocol: Document 12/30/24 14:15 AB (Rec: 12/30/24 15:33 AB [id number]) Physical Therapy Treatment Education Education Provided Safety M7 PT-IP Assessment and Plan Start: 12/28/24 13:28 Freq: NEEDED Status: Active Protocol: Document 12/30/24 14:15 AB (Rec: 12/30/24 15:33 AB [id number]) PT Summary Assessment and Plan Potential Rehabilitation Fair Potential Summary Impairments Pain,ROM,Strength,Balance,Coordination,Sensation,Tone, Cognition,Bed Mobility,Transfers,Gait,Activity Tolerance Progress Towards Slow Progress due to Medical Issues,Slow Progress due Goals to Activity Tolerance Assessment Summary pt c/o not feeling to well today and refused PT this morning but agreed to get up this afternoon. pt requiring min to mod A for sit to stand and CGA to ambulation using 4WW. pt has decrease activity tolerance affecting level of assistance. pt will benefit from SNF rehab to improve overall strength and mobility independence. Goals Bed Mobility Goal Contact Guard Assistance Transfer Goal Standby Assistance,Four Wheeled Walker Gait Goal Standby Assistance,Four Wheel Walker Gait Distance 100 Days to Meet Goals 10 Frequency of Treatment Frequency Of Once a Day Treatment Treatment Plan Physical Therapy Bed Mobility Training,Transfer Training,Gait Training, Treatment Plan Therapeutic Exercise,Balance Retraining,Discharge Planning,Neuromuscular Re-ed,Manual Therapy Recommendations To Nursing Amount of Assist 1 Person Assist Needed Discharge Recommendations PT Discharge SNF Rehab Recommendations Transportation Needs Wheelchair/Cabulance at Discharge - PT assist 1
[2024-12-30 14:47] LABS: Blood Urea Nitrogen 10 mg/dL (7-17); Calcium 8.1 mg/dL (8.4-10.2); Carbon Dioxide 21 mmol/L (22-32); Chloride 109 mmol/L (98-107); Estimated Glomerular Filt Rate > 60 mL/min (>60); Glucose 116 mg/dL (70-99); HEMOLYSIS 33 (0-50); Magnesium 1.8 mg/dL (1.6-2.3); Potassium 4.4 mmol/L (3.4-5.1); Sodium 135 mmol/L (137-145)
--- NOTE | 2024-12-30 14:53 | P.PN_ITS ---
Subjective Subjective Interval history: S: She was having some positional vertigo this morning. This is a somewhat chronic issue for her. She would nausea with this, this is now resolved. She feels much better this afternoon. Exam Vital Signs (past 8 hours): - 12/30/24 08:00 12/30/24 08:15 12/30/24 12:00 Temperature 96.9 F L 96.8 F L Pulse Rate 76 78 86 Respiratory Rate 15 14 Blood Pressure 131/77 137/77 131/68 Pulse Oximetry 97 98 Oxygen Flow Rate 0 0 Oxygen Delivery Method Room Air Oxygen Flow Rate 0 Narrative Exam Narrative: NAD, alert and oriented. Fluent speech. Lungs are clear, normal rate and effort. Heart is regular, no murmur gallop or rub. Abdomen is soft, non distended. Extremities are free of edema. Objective Labs 12/30/24 13:58 12/30/24 14:14 Labs: Laboratory Results - last 24 hr 12/29/24 12/29/24 12/29/24 16:30 17:51 20:01 WBC RBC Hgb Hct MCV MCH MCHC RDW Plt Count Neut % (Auto) Lymph % (Auto) Nuckolls % (Auto) Eos % (Auto) Baso % (Auto) Neut # (Auto) Lymph # (Auto) N[place]olls # (Auto) Eos # (Auto) Baso # (Auto) Sodium 135 L Potassium 4.4 Chloride 109 H Carbon Dioxide 21 L BUN 11 Creatinine 0.82 Estimated GFR > 60 BUN/Creatinine Ratio 13.4 Glucose 143 H POC Whole Bld Glucose 123 H 153 H Calcium 8.0 L Magnesium 1.3 L 12/30/24 12/30/24 12/30/24 04:15 07:42 12:02 WBC 9.7 RBC 3.45 L Hgb 10.8 L Hct 31.3 L MCV 90.7 MCH 31.2 MCHC 34.4 RDW 14.9 H Plt Count 183 Neut % (Auto) 69.5 Lymph % (Auto) 18.2 L Nuckolls % (Auto) 7.0 Eos % (Auto) 4.0 Baso % (Auto) 1.3 Neut # (Auto) 6700 Lymph # (Auto) 1800 Nuckolls # (Auto) 700 Eos # (Auto) 400 Baso # (Auto) 100 Sodium 136 L Potassium 4.3 Chloride 111 H Carbon Dioxide 21 L BUN 10 Creatinine 0.87 Estimated GFR > 60 BUN/Creatinine Ratio 11.5 Glucose 108 H POC Whole Bld Glucose 114 H 140 H Calcium 7.9 L Magnesium 1.4 L 12/30/24 12/30/24 13:58 14:14 WBC 11.7 H RBC 3.58 L Hgb 11.0 L Hct 32.7 L MCV 91.3 MCH 30.9 MCHC 33.8 RDW 15.2 H Plt Count 199 Neut % (Auto) Lymph % (Auto) Nuckolls % (Auto) Eos % (Auto) Baso % (Auto) Neut # (Auto) Lymph # (Auto) Nuckolls # (Auto) Eos # (Auto) Baso # (Auto) Sodium 135 L Potassium 4.4 Chloride 109 H Carbon Dioxide 21 L BUN 10 Creatinine 0.71 Estimated GFR > 60 BUN/Creatinine Ratio 14.1 Glucose 116 H POC Whole Bld Glucose Calcium 8.1 L Magnesium 1.8 PFSH Medical History Left knee pain Incontinence in female Pyelonephritis Cough Adhesive capsulitis Lumbar canal stenosis Renal insufficiency Osteoarthritis Medication refill Depression (Unknown) Hypothyroidism (Unknown) Diabetes (Unknown) Hypertension (Unknown) Hyperlipidemia (~2009) Shoulder pain (Unknown) Foot pain (Unknown) Ankle pain (Unknown) Colitis (Unknown) Surgical History Hx of shoulder surgery (2003) Status post knee surgery (2005) Status post hysterectomy (~1980) Family History Sister Age: 87 Cerebrovascular accident (CVA), unspecified mechanism Brother Cancer Mental health problem Mother No problems noted. Social History household members: other Smoking Status: Never smoker alcohol intake: never Assessment & Plan Assessment & Plan narrative: 1. Pyelonephritis, present on admission. Improved. -UC with Klebsiella sensitive to ceftriaxone 2. Generalized weakness, present on admission. Active. -secondary to progressive UTI/pyelonephritis 3. Hypothyroidism, present on admission. Stable. -continue levothyroxine 4. Hypertension, present on admission. Stable.. -continue losartan, amlodipine and metoprolol 5. Depression, present on admission. Stable. -continue citalopram 6. Diabetes mellitus type 2, present on admission. Stable. -holding metformin and semaglutide. -monitor blood sugars a.c. and HS and use lispro correctional scale 7. Hyperlipidemia, present on admission. Stable. -continue lovastatin PLAN: -Discharge to SNF on 12/31. Lovenox for DVT prevention Time-Based Coding :: [TOTAL MINUTES] spent with patient and on the chart (including review of chart, obtaining history, exam, reviewing outside data, placing orders, documenting exam and treatment plan, and counseling patient) on [DATE].
--- NOTE | 2024-12-30 15:32 | DIET.PN1 ---
Dietary Progress Note Assessment: f/u Granddaughter reports hx of MBSS with no findings. Only has one tooth. Still needing softer texture food. Offered modified dysphagia diet (level 6,5,4) and explained each but pt declined. Alternates with liquids when eating. Was able to do eggs this morning and soup yesterday. Not tolerating the cottage cheese or pb. Trial flavorless protein power, 1 serving in soup to meet needs. Ht: 162.56 cm Wt: 76.5 kg BMI: 28.9 UBW: Last BM: 12/28/24 (12/28/24 12:00) MNA: 8 Loco Score: 18 Diet: 12/28/24 Breakfast Carbohydrate Consistent Diet Diet Modifications: Carbohydrate level: Medium (3 CHO) Reflex DM orders: No Nutrition Percent Meal Consumed 75% 12/29/24 18:00 Labs: RBC 3.58 X10^6/uL (4.0-5.2) L 12/30/24 13:58 Hgb 11.0 g/dL (12.0-16.0) L 12/30/24 13:58 Hct 32.7 % (36-46) L 12/30/24 13:58 Creatinine 0.71 mg/dL (0.52-1.04) 12/30/24 14:14 Lactate 1.1 mmol/L (0.7-2.1) 12/27/24 18:45 Electronically Signed by: Gissel Brock 12/30/24 15:32 Clinical Dietitian [address] [address]
[2024-12-30] MEDS: ONDANSETRON 4 MG ODT SL (16:26)
[2024-12-30] MEDS: ATORVASTATIN 20 MG TABLET 10 MG PO (20:43)
[2024-12-30] MEDS: METOPROLOL ER 50 MG TABLET 25 MG PO (20:43)
[2024-12-30] MEDS: SODIUM CHLORIDE 0.9% 1,000 ML 70 ML IV (20:47)
--- NOTE | 2024-12-30 22:02 | PC.NURSE ---
Patient is alert and oriented except did not know the year. Breath sounds CTA with RA sat of 96%. HRR with telemetry reading of SR. BP elevated tonight at 171/82 and reports ongoing dizziness she has had all day when out of bed but reports it resolves once back in bed. Denies any nausea. BT are hypoactive but is passing flatus. Voiding on toilet and/or BSC and denies any dysuria, frequency or urgency. Is able to turn herself in bed. Does have an area on coccyx of blanchable redness and has a medilex dressing over that area; intact. Bilateral calf SCD's were applied at start of shift. Denies any pain. Fall risk score is high and bed alarm is activated.
[2024-12-31] VITALS: BP 158/79; PULSE 88; RESP 18; TEMP 35.5; O2SAT 97
[2024-12-31 04:00] VITALS: BP 167/82; PULSE 80; RESP 18; TEMP 35.5; O2SAT 97
[2024-12-31] MEDS: LEVOTHYROXINE 50 MCG TABLET PO (06:28)
[2024-12-31 08:00] VITALS: BP 172/85; PULSE 78; RESP 18; TEMP 36; O2SAT 98
[2024-12-31] MEDS: MELOXICAM 7.5 MG TABLET 15 MG PO (09:11)
[2024-12-31 09:12] VITALS: BP 168/83; PULSE 90
[2024-12-31] MEDS: LOSARTAN 25 MG TABLET 50 MG PO (09:12)
[2024-12-31] MEDS: CITALOPRAM 10 MG TABLET 20 MG PO (09:15)
[2024-12-31] MEDS: SODIUM CHLORIDE 0.9% 1,000 ML 70 ML IV (09:15)
[2024-12-31] MEDS: ENOXAPARIN 40 MG/0.4 ML SYRINGE SUBCUT (09:15)
--- NOTE | 2024-12-31 10:26 | CM.DPNOTE ---
DCP Continued: Reviewed EMR and team rounds for pt?s medical status. Per hospitalist, pt cleared to discharge to [facility] on 12/31 or when accepted. Per [facility], pt to be accepted on 12/31 with wheelchair van transport at 11:30am. DCP notified pt, pt son (via voice message) and pt RN and provided RN-RN report phone #. DCP notified GAMING WORKER. PASRR completed, pending hospitalist to complete discharge orders for discharge clinicals to be printed and sent to facility. Plan: Anticipating dc to [facility] on 12/31 at 11:30am via [facility] wheelchair van. CM Team will continue to follow for coordination of discharge plans. JACK FungSW
--- NOTE | 2024-12-31 10:45 | PC.NURSE ---
Addendum entered by Kira Parada RN 12/31/24 13:02: 1135 Patient off floor via wheelchair. Belongings in possession. Addendum entered by Kira Parada RN 12/31/24 11:07: 1105 IV to right arm removed and band-aid applied. Mepilex to sacrum changed. Patient changed to personal clothes. Original Note: 1948 Report received from nightsscft RN. Patient AAO x's 4. Able to VIVAR. Denies pain, numbness and tingling. Call light within reach and bed in lowest position. [id number] Report given to Chay Vázquez. RN with no questions at this time. Plan of care discussed.
--- NOTE | 2024-12-31 10:54 | PM.DS.1 ---
History of Present Illness History of Present Illness Chief complaint: 2WKS+ can't hold down; nausea Narrative: From H&P: This is an 79-year-old female with a history of hypertension, diabetes mellitus, hyperlipidemia, pyelonephritis, hypothyroidism and depression who presents with 2 weeks of vomiting and progressive weakness. She says that she started feeling these ?flu? symptoms about 2 weeks ago. Her son has been trying to convince her for the last week to come to the hospital and finally she relented today. She is extremely weak, unable to sit up in bed. Her oral intake has been minimal. She has a history of pyelonephritis and the UA today shows 30-100 wbc's along with a white blood count of 16.2. The chest x-ray and CT of the abdomen and pelvis are normal. Discharge Providers Provider Date of admission: 12/27/24 17:43 Discharge Date: 12/31/24 Primary care physician: Brenda Rodriguez MD Consults: 12/27/24 17:38 Consult to Occupational Therapy Evaluate & Treat Comment: Physician Instructions: Evaluate and treat Consult to Physical Therapy Evaluate & Treat Comment: Physician Instructions: Evaluate and Treat 12/27/24 17:48 Consult to Occupational Therapy Evaluate & Treat Comment: Physician Instructions: Evaluate and treat Consult to Physical Therapy Evaluate & Treat Comment: Physician Instructions: Evaluate and Treat 12/30/24 21:04 Consult to Pharmacy Routine Comment: triggered by fall assessment Discharge provider: Timur Brian MD Summary Hospital Course Discharge Diagnosis: 1. Pyelonephritis, present on admission. Improved. -UC with Klebsiella sensitive to ceftriaxone 2. Generalized weakness, present on admission. Active. 3. Hypothyroidism, present on admission. Stable. -continue levothyroxine 4. Hypertension, present on admission. Stable.. -continue losartan, amlodipine and metoprolol 5. Depression, present on admission. Stable. -continue citalopram 6. Diabetes mellitus type 2, present on admission. Stable. -holding metformin and semaglutide. -monitor blood sugars a.c. and HS and use lispro correctional scale 7. Hyperlipidemia, present on admission. Stable. -continue lovastatin Hospital Course: 12/28/2024: Urine culture is growing Gram-negative rods. She says she is feeling much better. The white blood count remains at 16.5 with a hemoglobin of 10.8. The creatinine is 1.01. The magnesium level has come up to 1.6. She received 2 g of magnesium IV for level of 1.2 in the ED. 12/29/2024: Urine culture identification is Klebsiella, sensitive to ceftriaxone. She says she was dry heaving yesterday and feels a lot better today. Her appetite has returned. She is encouraged to participate with therapy but is unlikely to be able to return home directly when you look at how weak she was coming in and continues to be each day. She is going to need some encouragement to agree to SNF rehab before going home. Her family is very attentive. The white blood count is 10.3 with a hemoglobin of 10.3. The blood pressure is 155/79. The potassium is 3.5 with a creatinine of 0.8 and a magnesium of 1.4. Oral magnesium will be given and this will be rechecked tomorrow. 12/30: Some acute on chronic positional vertigo, othewrwise doing well. 12/31: Vertigo resolved, doing well and stable for discharge to half-way facility. Status at Discharge Cognitive/behavioral status at discharge: oriented Functional status at discharge: uses cane/walker Overall status at discharge: patient is progressing back to baseline Time Spent with Patient Time spent: Greater than 30 minutes Exam Vital Signs (past 8 hours): - 12/31/24 04:00 12/31/24 04:00 12/31/24 07:00 Temperature 96 F L Pulse Rate 80 Respiratory Rate 18 Blood Pressure 167/82 H Pulse Oximetry 97 Oxygen Delivery Method Room Air Oxygen Flow Rate 0 12/31/24 08:00 12/31/24 09:12 Temperature 96.8 F L Pulse Rate 78 90 Respiratory Rate 18 Blood Pressure 172/85 H 168/83 H Pulse Oximetry 98 Oxygen Delivery Method Oxygen Flow Rate 0 Oxygen Delivery Method Room Air Oxygen Flow Rate 0 Narrative Exam Narrative: NAD, alert and oriented. Fluent speech. Lungs are clear, normal rate and effort. Heart is regular, no murmur gallop or rub. Abdomen is soft, non distended. Extremities are free of edema. Objective ECG Impression: Intervals [place] Rate: 123 P: 89 SC: 168 QRS: -10 QRSD: 80 T: 136 QT: 308 QTc: 440 Interpretive Statements Sinus tachycardia Inferior infarct , age undetermined Anteroseptal infarct , age undetermined ST & T wave abnormality, consider lateral ischemia Imaging Multiple studies: : Radiologist's impression: APCT: Non-specific prominence of mesenteric lymph nodes which do not meet size criteria for lymphadenopathy. No findings of enterocolitis to suggest an etiology. Otherwise no CT evidence for the etiology of the patient's symptoms. Specifically, no appendicitis, diverticulitis, urolithiasis, or obstruction. CXR: No acute cardiopulmonary abnormality is seen. Labs 12/30/24 13:58 12/30/24 14:14 Labs: Laboratory Results - last 24 hr 12/30/24 12/30/24 12/30/24 12:02 13:58 14:14 WBC 11.7 H RBC 3.58 L Hgb 11.0 L Hct 32.7 L MCV 91.3 MCH 30.9 MCHC 33.8 RDW 15.2 H Plt Count 199 Sodium 135 L Potassium 4.4 Chloride 109 H Carbon Dioxide 21 L BUN 10 Creatinine 0.71 Estimated GFR > 60 BUN/Creatinine Ratio 14.1 Glucose 116 H POC Whole Bld Glucose 140 H Calcium 8.1 L Magnesium 1.8 12/30/24 12/30/24 12/31/24 16:33 20:49 07:40 WBC RBC Hgb Hct MCV MCH MCHC RDW Plt Count Sodium Potassium Chloride Carbon Dioxide BUN Creatinine Estimated GFR BUN/Creatinine Ratio Glucose POC Whole Bld Glucose 144 H 140 H 107 H Calcium Magnesium [facility] Medical History Left knee pain Incontinence in female Pyelonephritis Cough Adhesive capsulitis Lumbar canal stenosis Renal insufficiency Osteoarthritis Medication refill Depression (Unknown) Hypothyroidism (Unknown) Diabetes (Unknown) Hypertension (Unknown) Hyperlipidemia (~2009) Shoulder pain (Unknown) Foot pain (Unknown) Ankle pain (Unknown) Colitis (Unknown) Surgical History Hx of shoulder surgery (2003) Status post knee surgery (2005) Status post hysterectomy (~1980) Family History Sister Age: 87 Cerebrovascular accident (CVA), unspecified mechanism Brother Cancer Mental health problem Mother No problems noted. Social History household members: other Smoking Status: Never smoker alcohol intake: never Discharge Assessment & Plan Assessment and Plan Assessment: 1. Klebsiella UTI, improving. 2. Weakness, active. Plan of Treatment: Discharge to half-way facility for rehabilitative efforts. We will complete an additional 3 days of oral antibiotics. Discharge Plan Discharge Plan Patient Disposition: SNF Transfer to: [facility] Under care of provider: SNF provider Provider Discharge Comment: Stable for discharge on oral antibiotics. Discharge orders & Medications Prescriptions: New metoprolol succinate 50 mg Tablet Extended Release 24 Hr 25 mg PO BEDTIME Qty: 30 0RF cephalexin 500 mg capsule 500 mg PO QID Qty: 12 0RF Continued (DME) 4 wheel walker with seat Qty: 1 0RF Dose Instruction: As directed Rx Instructions: As directed (DME) Disabled Parking Permit See Rx Instructions .Route .MEDSUPPLY Qty: 2 0RF Rx Instructions: see accompanying form semaglutide 0.25 mg or 0.5 mg (2 mg/3 mL) pen injector 0.25 mg SUBCUT QWEEK Qty: 3 3RF ondansetron 4 mg tablet,disintegrating 4 mg PO Q8H PRN (Reason: nausea and vomiting) Qty: 60 3RF citalopram 20 mg tablet See Rx Instructions .ROUTE .COMPLEX Qty: 90 3RF Dose Instruction: TAKE 1 TABLET BY MOUTH EVERY MORNING Rx Instructions: TAKE 1 TABLET BY MOUTH EVERY MORNING lovastatin 20 mg tablet 20 mg PO DAILY Qty: 90 2RF levothyroxine 50 mcg tablet 50 mcg PO QAM Qty: 90 2RF amlodipine 2.5 mg tablet 2.5 mg PO BID oxybutynin chloride 5 mg tablet extended release 24hr 5 mg PO 2XD nabumetone 500 mg tablet 500 mg PO BID metformin 1,000 mg tablet 1,000 mg PO 2XD losartan 25 mg tablet 50 mg PO DAILY Discontinued metoprolol succinate 50 mg tablet extended release 24 hr See Rx Instructions .ROUTE .COMPLEX Qty: 45 3RF Dose Instruction: TAKE 1/2 TABLET BY MOUTH EVERY NIGHT AT BEDTIME Rx Instructions: TAKE 1/2 TABLET BY MOUTH EVERY NIGHT AT BEDTIME Follow up/Referrals: Brenda Rodriguze MD [Primary Care Provider, Family Practice] Discharge Health Status Multidrug resistant organism: No MDRO Diet/Activity/Treatments Diet: Carb-consistent/Diabetic Liquid consistency: Normal/Thin Skin/Wound/Dressing Care Report to your healthcare provider any signs of infection, such as:: chills, fever, night sweats and increased pain Special Rehabilitation Services Reason for rehabilitation: Recovery r/t decondition Rehab type: Physical therapy Discharge Data Primary Care Provider: Brenda Rodriguez
== END 2024-12-31 11:30 | DRG 690 ==
LOC: ED 17:38 → AC 17:44
PROVIDERS: Hospitalist; Admitting Provider Family Medicine; Emergency Provider Student in an Organized Health Care Education/Training Program; PCP Student in an Organized Health Care Education/Training Program; Referring Provider Student in an Organized Health Care Education/Training Program; Visit Provider Family Medicine
DX: N10 Acute pyelonephritis (principal); R53.1 Weakness; E03.9 Hypothyroidism, unspecified; I10 Essential (primary) hypertension; F32.A Depression, unspecified; E11.9 Type 2 diabetes mellitus without complications; E78.5 Hyperlipidemia, unspecified; K59.00 Constipation, unspecified; B96.1 Klebsiella pneumoniae [K. pneumoniae] as the cause of diseases classified elsewhere; E86.0 Dehydration; R42 Dizziness and giddiness; Z79.890 Hormone replacement therapy; Z79.84 Long term (current) use of oral hypoglycemic drugs; Z79.85 Long-term (current) use of injectable non-insulin antidiabetic drugs
CPT/HCPCS: 36415; 51798; 71045; 74177; 80048; 80053; 81001; 82550; 82962; 83605; 83690; 83735; 84484; 85025; 85027; 85610; 85730; 87040; 87077; 87086; 87186; 87633; 93005; 96361; 96365; 96366; 96367; 96375; 97116; 97162; 97165; 97530; 97535; 99284; J0696; J1650; J1815; J2405; J3475; Q9967

== ENCOUNTER → 2025-01-11 23:33 | Outpatient (ROUT) | payer MEDICARE, OTHER, SELFPAY ==
[2024-12-27 18:36] VITALS: BMI 28.9
[2025-01-11 23:40] LABS: Appearance Urine UA CLEAR; Bilirubin Urine UA NEGATIVE (NEGATIVE); Color Urine UA YELLOW; Glucose Urine UA NEGATIVE (Negative); Ketones Urine UA NEGATIVE (NEGATIVE); Leukocyte Esterase Urine UA 1+ (NEGATIVE); Nitrite Urine UA NEGATIVE (Negative); Occult Blood Urine UA NEGATIVE (Negative); Protein Urine UA NEGATIVE (Negative); Specific Gravity Urine UA <=1.005 (1.000-1.035); Urobilinogen Urine UA 0.2 E.U./dL (0.2)
[2025-01-11 23:46] LABS: pH Urine UA 6.0 (4.5-8.0)
[2025-01-11 23:56] LABS: Culture Indicated Urine Specimen Cultured
== END ==
PROVIDERS: PCP Student in an Organized Health Care Education/Training Program; Visit Provider Hospitalist
DX: R30.0 Dysuria (principal)
CPT/HCPCS: 81001; 87077; 87086; 87186

== ENCOUNTER 2025-01-13 13:39 | Inpatient (IN) | payer MEDICARE, OTHER, SELFPAY ==
[2024-12-27 18:36] VITALS: BMI 28.9
[2025-01-13] VITALS (13 sets, daily range): BP systolic 148–199; BP diastolic 72–100; PULSE 87–111; RESP 13–22; TEMP 35.6–36.8; O2SAT 97–99; BMI 28.3
--- NOTE | 2025-01-13 13:58 | DI.CT.S_ITS ---
PROCEDURE: CT ABDOMEN PELVIS W CON INDICATIONS: vomiting, no BM x 4 days, had uti 12/31, no pain TECHNIQUE: After the administration of intravenous contrast, axial sections acquired from the lung bases to the pubic symphysis. Coronal and sagittal reformats were performed. For radiation dose reduction, the following was used: automated exposure control, adjustment of mA and/or kV according to patient size. COMPARISON: [facility], CT, CT ABDOMEN PELVIS W CON, 12/27/2024, 14:12. FINDINGS: Image quality: Diagnostic. Lower Chest: No significant findings. ABDOMEN: Liver: No solid mass. Gallbladder: Surgically absent. Biliary ducts: No biliary dilation. Pancreas: No ductal dilation. Cystic focus within the body/tail the pancreas measuring 11 millimeters is stable. Spleen: Size is within normal limits. Adrenal Glands: No adrenal nodules. Kidneys and Ureters: No hydronephrosis. Nonobstructing left renal stone measuring 5 millimeters. No solid mass. No complex renal cystic lesion which requires follow up. Stomach and Bowel: Normal colonic caliber, without significant wall thickening. Mild diverticulosis without evidence of acute diverticulitis. Peritoneum: No abnormal intraperitoneal fluid. No free air. Ventral Wall: No significant ventral hernia. Abdominal Nodes: Mildly enlarged retroperitoneal lymph nodes measuring up to 1.2 centimeters in short axis (2/53). Multiple prominent mesenteric lymph nodes with mild associated mesenteric stranding. Vessels: Aorta and inferior vena cava are normal in size. Atherosclerotic vascular calcifications. PELVIS: Pelvic Organs: Unremarkable. Bladder: No bladder wall thickening, accounting for underdistention. Pelvic Nodes: No enlarged lymph nodes. Miscellaneous: No inguinal hernias are seen. Bones: No aggressive osseous abnormality. Multilevel degenerative changes of the spine. Decreased osseous mineralization. IMPRESSION: 1. Prominent and mildly enlarged retroperitoneal and mesenteric lymph nodes with associated mesenteric stranding. 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 This is similar compared to prior. 2. Otherwise, no acute findings within the abdomen or pelvis. 3. Cystic focus within the body/tail the pancreas measuring 11 millimeters, may represent an IPMN, nonurgent pancreatic protocol MRI can be obtained for further evaluation. 4. Please see above for additional findings. Dictated by: Ang Gordon M.D. on 01/13/2025 at 15:57 Approved by: Ang Gordon M.D. on 01/13/2025 at 16:05
--- NOTE | 2025-01-13 13:59 | ED.NAVMDI ---
HPI - Nausea/Vomiting/Diarrhea General Chief complaint: Nausea/Vomiting/Diarrhea Stated complaint: N/Vx3wks Time Seen by Provider: 01/13/25 13:57 Source: patient, family, EMS, RN notes reviewed and old records reviewed Mode of arrival: EMS Limitations: no limitations History of Present Illness HPI Narrative: 79-year-old female history of hypertension, diabetes, dyslipidemia, prior pyelonephritis, hypothyroidism and depression who presents with complaint of nausea or vomiting intermittently for the past month. Patient presents from her nursing facility. Had recent hospitalization 91 through 12/31/2024 for pyelonephritis, nausea and vomiting was found have Klebsiella sensitive to Rocephin. Patient has not had any fevers. No chest pain or shortness of breath. She has continued to have nausea or vomiting it has been worse this week they have been trying medications at her facility without any success. She has not had a bowel movement for 4 days. No passing gas. No dysuria urgency or frequency. Related Data Home Medications ?Medication ?Instructions ?Recorded ?Confirmed losartan 25 mg tablet 50 mg PO DAILY 12/27/24 12/27/24 metformin 1,000 mg tablet 1,000 mg PO 2XD 12/27/24 12/27/24 nabumetone 500 mg tablet 500 mg PO BID 12/27/24 12/27/24 oxybutynin chloride 5 mg 5 mg PO 2XD 12/27/24 12/27/24 tablet,extended release 24 hr Previous Rx's ?Medication ?Instructions ?Recorded 4 wheel walker with seat #1 ea 07/30/18 citalopram 20 mg tablet See Rx Instructions .Route 03/31/24 .COMPLEX #90 tabs Disabled Parking Permit #2 ea 07/31/24 lovastatin 20 mg tablet 20 mg PO DAILY #90 tabs 09/15/24 levothyroxine 50 mcg tablet 50 mcg PO QAM #90 tabs 11/10/24 ondansetron 4 mg disintegrating 4 mg PO Q8H PRN nausea and 12/18/24 tablet vomiting #60 tabs semaglutide 0.25 mg or 0.5 mg (2 0.25 mg (0.368 mL) SUBCUT QWEEK #3 12/18/24 mg/3 mL) subcutaneous pen injector mL cephalexin 500 mg capsule 500 mg PO QID #12 caps 09/18/25 metoprolol succinate 50 mg 25 mg (1/2 x 50 mg) PO BEDTIME #30 12/31/24 tablet,extended release 24 hr tabs amlodipine 2.5 mg tablet 2.5 mg PO BID #180 tabs 01/05/25 Allergies Allergy/AdvReac Type Severity Reaction Status Date / Time nitrofurantoin Allergy Severe mouth Verified 12/27/24 18:35 blisters Penicillins Allergy Unknown Verified 12/27/24 18:35 sulfamethoxazole (From Allergy Unknown Verified 12/27/24 18:35 BACTRIM) trimethoprim (From BACTRIM) Allergy Unknown Verified 12/27/24 18:35 Review of Systems Review of Systems ROS Unobtainable: All systems reviewed & are unremarkable except as noted in HPI and below Patient History Medical History Left knee pain Incontinence in female Pyelonephritis Cough Adhesive capsulitis Lumbar canal stenosis Renal insufficiency Osteoarthritis Medication refill Depression (Unknown) Hypothyroidism (Unknown) Diabetes (Unknown) Hypertension (Unknown) Hyperlipidemia (~2009) Shoulder pain (Unknown) Foot pain (Unknown) Ankle pain (Unknown) Colitis (Unknown) Surgical History Hx of shoulder surgery (2003) Status post knee surgery (2005) Status post hysterectomy (~1980) Family History Sister Age: 87 Cerebrovascular accident (CVA), unspecified mechanism Brother Cancer Mental health problem Mother No problems noted. Social History household members: other alcohol intake: never Exam Initial Vital Signs Initial Vital Signs: Vital Signs Pulse Rate 90 01/13/25 15:06 Pulse Oximetry 97 01/13/25 15:06 Course Orders Ordered: ED Orders 01/13/25 13:57 Blood Culture Stat 01/13/25 13:58 CT abdomen pelvis w con Stat 01/13/25 14:30 Complete Blood Count AUTO DIFF Stat Comprehensive Metabolic Panel Stat Lactate (Lactic Acid) Stat Lipase Stat Procalcitonin Stat 01/13/25 15:04 UA Complete [Urinalysis and Microscopic] Stat Urine Culture Stat Discontinued Medications Sodium Chloride (Normal Saline 0.9%) 1,000 mls @ 1,000 mls/hr IV BOLUS ONE Stop: 01/13/25 14:56 Last Admin: 01/13/25 14:19 Dose: 1,000 mls/hr Documented By: FRANCISCO Ceftriaxone Sodium 1,000 mg/ (Sodium Chloride) 100 mls @ 200 mls/hr IV NOW ONE Stop: 01/13/25 16:56 Ondansetron HCl (Ondansetron 4 Mg/2 Ml Inj) 4 mg IV NOW ONE Stop: 01/13/25 13:58 Last Admin: 01/13/25 14:18 Dose: 4 mg Documented By: FRANCISCO Vital Signs Vital signs: Vital Signs - 8 hr 01/13/25 15:06 01/13/25 15:09 01/13/25 15:09 Temperature Pulse Rate 90 90 Respiratory Rate 13 Blood Pressure 157/75 H Pulse Oximetry 97 97 Oxygen Delivery Method 01/13/25 15:19 Temperature 98.3 F Pulse Rate 87 Respiratory Rate 20 Blood Pressure Pulse Oximetry 97 Oxygen Delivery Method Room Air MDM - Nausea/Vomiting/Diarrhea Lab Data 01/13/25 14:30 01/13/25 14:30 Labs: Lab Results 01/13/25 01/13/25 Range/Units 14:30 15:04 WBC 13.9 H (4.5-11.0) X10^3/uL RBC 3.91 L (4.0-5.2) X10^6/uL Hgb 12.0 (12.0-16.0) g/dL Hct 35.8 L (36-46) % MCV 91.6 (80-100) fL MCH 30.7 (26-34) PG MCHC 33.5 (30-36) % RDW 14.4 (11.6-14.8) % Plt Count 317 (150-400) X10^3/uL Neut % (Auto) 83.7 H (50-75) % Lymph % (Auto) 10.7 L (25-40) % [place] % (Auto) 3.6 (3-14) % Eos % (Auto) 1.1 L (2-4) % Baso % (Auto) 0.9 (0-2) % Neut # (Auto) 81656 H (5204-7531) /uL Lymph # (Auto) 1500 (1153-8410) /uL [place] # (Auto) 500 (0-900) /uL Eos # (Auto) 200 (0-450) /uL Baso # (Auto) 100 (0-100) /uL Sodium 131 L (137-145) mmol/L Potassium 4.8 (3.4-5.1) mmol/L Chloride 99 (98-107) mmol/L Carbon Dioxide 21 L (22-32) mmol/L BUN 14 (7-17) mg/dL Creatinine 1.06 H (0.52-1.04) mg/dL Estimated GFR 53 L (>60) mL/min BUN/Creatinine Ratio 13.2 (6-22) Glucose 105 H (70-99) mg/dL Lactate 1.5 (0.7-2.1) mmol/L Calcium 8.7 (8.4-10.2) mg/dL Total Bilirubin 0.8 (0.2-1.3) mg/dL AST 20 (14-36) IU/L ALT 13 (<35) IU/L Alkaline Phosphatase 56 (38-126) U/L Total Protein 6.9 (6.3-8.2) g/dL Albumin 3.8 (3.5-5.0) g/dL Globulin 3.1 (1.7-4.1) g/dL Albumin/Globulin Ratio 1.2 (1.0-2.8) Lipase 13 L (23-300) U/L Procalcitonin 0.058 (<0.5) ng/mL Urine Color Yellow Urine Appearance Clear Urine pH 7.0 (4.5-8.0) Ur Specific [place] 1.010 (1.000-1.035) Urine Protein Negative (Negative) Urine Glucose (UA) Negative (Negative) g/dL Urine Ketones 1+ H (NEGATIVE) Urine Occult Blood Negative (Negative) Urine Nitrate Negative (Negative) Urine Bilirubin Negative (NEGATIVE) Urine Urobilinogen 0.2 (0.2) E.U./dL Ur Leukocyte Esterase 1+ H (NEGATIVE) Urine RBC None seen (0-5/HPF) Urine WBC 5-10/hpf H (0-5/HPF) Ur Squamous Epith Cells 5-10 /hpf H (0-5/HPF) Ur Renal Epithelial Cell 1-5/hpf H (0-1/HPF) Amorphous Sediment 1+ Urine Bacteria Few (2-10) H (None) Ur Culture Indicated? Specimen cultured Vol Urine Centrifuged 10ml (spun) MDM Narrative Medical decision making narrative: Labs show white count of 13.9 hemoglobin is 12 platelets are 317. Coags are normal. Chemistries shows sodium 131 CO2 is 21 with a potassium and chloride appropriate BUN 14 creatinine is 1.06. Glucose is 105 lactate 1.5 LFTs are normal lipase is 13 procalcitonin 0.058. Urine is positive for ketones, positive for leukocyte esterase 5-10 WBCs 5-10 squamous 1-5 renal, few bacteria. Special is cultured. CT abdomen pelvis shows prominently in mildly enlarged retroperitoneal and mesenteric lymph nodes with the associated mesenteric stranding consider mesenteric panniculitis. Similar to compared to prior. Otherwise no acute findings in the abdomen or pelvis. Cystic focus with a body/tail of the pancreas measuring 11 mm may represent an IP MN, non Urgent pancreatic protocol MR can be obtained for further evaluation. Kidneys and ureters show no hydro nonobstructing left renal stone measuring 5 mm no mass no complex cystic lesion. Gallbladder surgically absent. Patient had urine sample from 01/11 which was very concerning for infection she was started on Levaquin in his had persistent nausea or vomiting with the increasing symptoms appears to be failing outpatient antibiotics with persistent nausea and vomiting. Urine culture from 01/11 is still pending. Based patient's antibiotic choice today on patient's most recent from 12/27 patient was treated at that time with Rocephin for Klebsiella. Spoke with the hospitalist, Dr. Brian hospitalist who accepts for observation. Updated patient and family on her findings including her CT findings. Discussed would recommend follow up particularly she has a persistent nausea and vomiting. Discharge Plan Departure Patient Disposition: Admitted as Observation Clinical Impression: UTI (urinary tract infection), Nausea & vomiting
[2025-01-13] MEDS: ONDANSETRON 4 MG/2 ML INJ IV ×2 (14:18→18:58)
[2025-01-13] MEDS: SODIUM CHLORIDE 0.9% 1,000 ML 1000 ML IV (14:19)
[2025-01-13 14:37] LABS: Add Manual Diff / Slide Review NO; Hematocrit 35.8 % (36-46); Hemoglobin 12.0 g/dL (12.0-16.0); Lymphocytes Absolute Auto 1500 /uL (1100-4500); Mean Corpuscular HGB Conc 33.5 % (30-36); Mean Corpuscular Hemoglobin 30.7 PG (26-34); Mean Corpuscular Volume 91.6 fL (80-100); Platelet Count 317 X10^3/uL (150-400)
[2025-01-13 14:49] LABS: Alanine Aminotransferase 13 IU/L (<35); Albumin 3.8 g/dL (3.5-5.0); Albumin Globulin Ratio 1.2 (1.0-2.8); Alkaline Phosphatase 56 U/L (38-126); Blood Urea Nitrogen 14 mg/dL (7-17); Calcium 8.7 mg/dL (8.4-10.2); Carbon Dioxide 21 mmol/L (22-32); Chloride 99 mmol/L (98-107); Estimated Glomerular Filt Rate 53 mL/min (>60); Globulin 3.1 g/dL (1.7-4.1); Glucose 105 mg/dL (70-99); HEMOLYSIS < 15 (0-50); Lipase 13 U/L (23-300); Potassium 4.8 mmol/L (3.4-5.1); Sodium 131 mmol/L (137-145); Total Protein 6.9 g/dL (6.3-8.2)
[2025-01-13 14:50] LABS: Lactate (Lactic Acid) 1.5 mmol/L (0.7-2.1)
[2025-01-13 15:06] LABS: Procalcitonin 0.058 ng/mL (<0.5)
[2025-01-13 15:49] LABS: Appearance Urine UA CLEAR; Bilirubin Urine UA NEGATIVE (NEGATIVE); Color Urine UA YELLOW; Glucose Urine UA NEGATIVE (Negative); Ketones Urine UA 1+ (NEGATIVE); Leukocyte Esterase Urine UA 1+ (NEGATIVE); Nitrite Urine UA NEGATIVE (Negative); Occult Blood Urine UA NEGATIVE (Negative); Protein Urine UA NEGATIVE (Negative); Specific Gravity Urine UA 1.010 (1.000-1.035); Urobilinogen Urine UA 0.2 E.U./dL (0.2)
[2025-01-13 15:53] LABS: pH Urine UA 7.0 (4.5-8.0)
[2025-01-13 15:56] LABS: Culture Indicated Urine Specimen Cultured
--- NOTE | 2025-01-13 18:19 | PM.HP.1 ---
History of Present Illness History of Present Illness Chief complaint: N/Vx3wks Narrative: [facility] Medical History Left knee pain Incontinence in female Pyelonephritis Cough Adhesive capsulitis Lumbar canal stenosis Renal insufficiency Osteoarthritis Medication refill Depression (Unknown) Hypothyroidism (Unknown) Diabetes (Unknown) Hypertension (Unknown) Hyperlipidemia (~2009) Shoulder pain (Unknown) Foot pain (Unknown) Ankle pain (Unknown) Colitis (Unknown) Surgical History Hx of shoulder surgery (2003) Status post knee surgery (2005) Status post hysterectomy (~1980) Family History Sister Age: 87 Cerebrovascular accident (CVA), unspecified mechanism Brother Cancer Mental health problem Mother No problems noted. Social History household members: other alcohol intake: never Meds Home Medications and Allergies Home Medications ?Medication ?Instructions ?Recorded ?Confirmed ?Type 4 wheel walker with seat #1 ea 07/30/18 12/27/24 Rx citalopram 20 mg tablet See Rx Instructions .Route 03/31/24 12/27/24 Rx .COMPLEX #90 tabs Disabled Parking Permit #2 07/31/24 12/27/24 Rx lovastatin 20 mg tablet 20 mg PO DAILY #90 tabs 09/15/24 12/27/24 Rx levothyroxine 50 mcg tablet 50 mcg PO QAM #90 tabs 11/10/24 12/27/24 Rx ondansetron 4 mg disintegrating 4 mg PO Q8H PRN nausea and 12/18/24 12/27/24 Rx tablet vomiting #60 tabs semaglutide 0.25 mg or 0.5 mg (2 0.25 mg (0.368 mL) SUBCUT QWEEK #3 12/18/24 12/27/24 Rx mg/3 mL) subcutaneous pen injector mL losartan 25 mg tablet 50 mg PO DAILY 12/27/24 12/27/24 History metformin 1,000 mg tablet 1,000 mg PO 2XD 12/27/24 12/27/24 History nabumetone 500 mg tablet 500 mg PO BID 12/27/24 12/27/24 History oxybutynin chloride 5 mg 5 mg PO 2XD 12/27/24 12/27/24 History tablet,extended release 24 hr cephalexin 500 mg capsule 500 mg PO QID #12 caps 12/31/24 Rx metoprolol succinate 50 mg 25 mg (1/2 x 50 mg) PO BEDTIME #30 12/31/24 Rx tablet,extended release 24 hr tabs amlodipine 2.5 mg tablet 2.5 mg PO BID #180 tabs 01/05/25 Rx Allergies Allergy/AdvReac Type Severity Reaction Status Date / Time nitrofurantoin Allergy Severe mouth Verified 12/27/24 18:35 blisters Penicillins Allergy Unknown Verified 12/27/24 18:35 sulfamethoxazole (From Allergy Unknown Verified 12/27/24 18:35 BACTRIM) trimethoprim (From BACTRIM) Allergy Unknown Verified 12/27/24 18:35 Review of Systems Review of Systems Narrative: All else reviewed and otherwise unremarkable except as noted in the history and physical. Exam Vital Signs (past 8 hours): - 01/13/25 15:06 01/13/25 15:09 01/13/25 15:09 Temperature Pulse Rate 90 90 Respiratory Rate 13 Blood Pressure 157/75 H Pulse Oximetry 97 97 Oxygen Delivery Method 01/13/25 15:19 Temperature 98.3 F Pulse Rate 87 Respiratory Rate 20 Blood Pressure Pulse Oximetry 97 Oxygen Delivery Method Room Air Oxygen Delivery Method Room Air Narrative Exam Narrative: NAD, alert and oriented, fluent speech, calm. Normocephalic skull, EOMI, anicteric sclera, symmetric pupils. Oropharynx unremarkable, no droop. Neck supple, midline trachea, no adenopathy. Lungs clear, normal rate and effort. Heart regular, no murmur gallop or rub. Abdomen is soft, non distended and non tender. Extremities are free of edema. Skin is free of rash or lesions. Joints are not swollen or deformed. Judgment appears to be normal. Objective Imaging CT scan - abdomen: Radiologist's impression: 1. Prominent and mildly enlarged retroperitoneal and mesenteric lymph nodes with associated mesenteric stranding. 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 This is similar compared to prior. 2. Otherwise, no acute findings within the abdomen or pelvis. 3. Cystic focus within the body/tail the pancreas measuring 11 millimeters, may represent an IPMN, nonurgent pancreatic protocol MRI can be obtained for further evaluation. Labs 01/13/25 14:30 01/13/25 14:30 Labs: Laboratory Results - last 24 hr 01/13/25 01/13/25 14:30 15:04 WBC 13.9 H RBC 3.91 L Hgb 12.0 Hct 35.8 L MCV 91.6 MCH 30.7 MCHC 33.5 RDW 14.4 Plt Count 317 Neut % (Auto) 83.7 H Lymph % (Auto) 10.7 L [place] % (Auto) 3.6 Eos % (Auto) 1.1 L Baso % (Auto) 0.9 Neut # (Auto) 47255 H Lymph # (Auto) 1500 [place] # (Auto) 500 Eos # (Auto) 200 Baso # (Auto) 100 Sodium 131 L Potassium 4.8 Chloride 99 Carbon Dioxide 21 L BUN 14 Creatinine 1.06 H Estimated GFR 53 L BUN/Creatinine Ratio 13.2 Glucose 105 H Lactate 1.5 Calcium 8.7 Total Bilirubin 0.8 AST 20 ALT 13 Alkaline Phosphatase 56 Total Protein 6.9 Albumin 3.8 Globulin 3.1 Albumin/Globulin Ratio 1.2 Lipase 13 L Procalcitonin 0.058 Urine Color Yellow Urine Appearance Clear Urine pH 7.0 Ur Specific [place] 1.010 Urine Protein Negative Urine Glucose (UA) Negative Urine Ketones 1+ H Urine Occult Blood Negative Urine Nitrate Negative Urine Bilirubin Negative Urine Urobilinogen 0.2 Ur Leukocyte Esterase 1+ H Urine RBC None seen Urine WBC 5-10/hpf H Ur Squamous Epith Cells 5-10 /hpf H Ur Renal Epithelial Cell 1-5/hpf H Amorphous Sediment 1+ Urine Bacteria Few (2-10) H Ur Culture Indicated? Specimen cultured Vol Urine Centrifuged 10ml (spun) Assessment & Plan Assessment & Plan narrative: 1. Nausea 2. Recurrent pyelonephritis. 3. Hypothyroidism. 4. Hypertension. 5. Depression. 6. Diabetes mellitus type 2. 7. Hyperlipidemia. PLAN: -IV fluids -antiemetics -IV ceftriaxone and follow cultures. She was treated for 10 days total but appears to have a recurrence of infection. Anticipate 1 night in the hospital, supports observation status. She was full resuscitation. Time-Based Coding :: 35 min spent with patient and on the chart (including review of chart, obtaining history, exam, reviewing outside data, placing orders, documenting exam and treatment plan, and counseling patient) on 01/13. Quality MIPS - Admit I confirm the patient?s Advance Care Plan is present, Code status is documented, Surrogate decision maker is in patient?s record [If Yes, STOP here]: Yes MIPS - Meds 'Current medications' to include all prescriptions, [id number] products, herbals, cannabis/cannabidiol products, and vitamin/mineral/dietary (nutritional) supplements. I have utilized all available resources to obtain, update, or review the patient?s current medications. [If Yes, STOP here]: Yes
[2025-01-13] MEDS: SODIUM CHLORIDE 0.9% 1,000 ML 100 ML IV (18:39)
--- NOTE | 2025-01-13 19:15 | PC.NURSE ---
Admit Note Pt arrived to room 225 from ER at 1830 via wheelchair. 1 person assist to bed from wheelchair. Alert and oriented x3. Reports extreme nausea and dizziness with movement. VSS. Unable to visualize buttocks, pt declines to turn at this time fro skin assessment. Oriented to room and to bed/tv/call light controls. Call light within reach. Glasses on patient and slippers in room.
[2025-01-13] MEDS: HEPARIN 5,000 UNIT/ML VIAL 5000 UNIT SUBCUT (21:00)
[2025-01-14 00:45] LABS: Add Manual Diff / Slide Review NO; Hematocrit 32.0 % (36-46); Hemoglobin 10.8 g/dL (12.0-16.0); Lymphocytes Absolute Auto 1700 /uL (1100-4500); Mean Corpuscular HGB Conc 33.8 % (30-36); Mean Corpuscular Hemoglobin 31.1 PG (26-34); Mean Corpuscular Volume 92.2 fL (80-100); Platelet Count 255 X10^3/uL (150-400)
[2025-01-14 00:51] LABS: Blood Urea Nitrogen 15 mg/dL (7-17); Calcium 8.3 mg/dL (8.4-10.2); Carbon Dioxide 20 mmol/L (22-32); Chloride 102 mmol/L (98-107); Estimated Glomerular Filt Rate 57 mL/min (>60); Glucose 75 mg/dL (70-99); HEMOLYSIS 16 (0-50); Potassium 4.9 mmol/L (3.4-5.1); Sodium 131 mmol/L (137-145)
[2025-01-14] MEDS: SODIUM CHLORIDE 0.9% 1,000 ML 100 ML IV ×2 (04:32→15:36)
[2025-01-14 07:34] VITALS: BP 135/64; PULSE 88; RESP 12; TEMP 35.7; O2SAT 96
--- NOTE | 2025-01-14 07:48 | PM.PN.1 ---
Subjective Subjective Interval history: Summary: Patient was a pleasant 79-year-old female who was recently in the hospital for a Klebsiella urinary tract infection and pyelonephritis. She was treated with ceftriaxone in the hospital and discharged with a about another week of cephalexin. Imaging at that hospitalization indicated possible lymphadenopathy in the retroperitoneal area. The patient went to with the nursing facility, and really failed to improve. She was had persistent anorexia and nausea. She was not been eating or drinking much of anything and ultimately presented back to the hospital today. She denies fevers, chills, or urinary symptoms including dysuria or hematuria. CT of the abdomen is fairly unremarkable other than possible lymphadenopathy. Kidneys appear unremarkable there was no hydronephrosis. S: She feels a bit better today, has an appetite and is eating. She slept well last night. She denies any pain. O: VSS. NAD, alert and oriented. Fluent speech. Lungs are clear, normal rate and effort. Heart is regular, no murmur gallop or rub. Abdomen is soft, non distended. Extremities are free of edema. IMAGING: CT scan - abdomen: Radiologist's impression: 1. Prominent and mildly enlarged retroperitoneal and mesenteric lymph nodes with associated mesenteric stranding. 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 This is similar compared to prior. 2. Otherwise, no acute findings within the abdomen or pelvis. 3. Cystic focus within the body/tail the pancreas measuring 11 millimeters, may represent an IPMN, nonurgent pancreatic protocol MRI can be obtained for further evaluation. A/P: 1. Nausea, improved. 2. Recurrent pyelonephritis. Active. 3. Hypothyroidism. 4. Hypertension. 5. Depression. 6. Diabetes mellitus type 2. 7. Hyperlipidemia. PLAN: -IV fluids -antiemetics -IV ceftriaxone and follow cultures. She was treated for 10 days total but appears to have a recurrence of infection. Anticipate another night in the hospital, supports inpatient status. Exam Vital Signs (past 8 hours): - 01/14/25 07:34 Temperature 96.3 F L Pulse Rate 88 Respiratory Rate 12 Blood Pressure 135/64 Pulse Oximetry 96 Oxygen Flow Rate 0 Oxygen Delivery Method Room Air Oxygen Flow Rate 0 Objective Labs 01/14/25 00:30 01/14/25 00:30 Labs: Laboratory Results - last 24 hr 01/13/25 01/13/25 01/13/25 14:30 15:04 20:41 WBC 13.9 H RBC 3.91 L Hgb 12.0 Hct 35.8 L MCV 91.6 MCH 30.7 MCHC 33.5 RDW 14.4 Plt Count 317 Neut % (Auto) 83.7 H Lymph % (Auto) 10.7 L [place] % (Auto) 3.6 Eos % (Auto) 1.1 L Baso % (Auto) 0.9 Neut # (Auto) 35532 H Lymph # (Auto) 1500 [place] # (Auto) 500 Eos # (Auto) 200 Baso # (Auto) 100 Sodium 131 L Potassium 4.8 Chloride 99 Carbon Dioxide 21 L BUN 14 Creatinine 1.06 H Estimated GFR 53 L BUN/Creatinine Ratio 13.2 Glucose 105 H POC Whole Bld Glucose 89 Lactate 1.5 Calcium 8.7 Total Bilirubin 0.8 AST 20 ALT 13 Alkaline Phosphatase 56 Total Protein 6.9 Albumin 3.8 Globulin 3.1 Albumin/Globulin Ratio 1.2 Lipase 13 L Procalcitonin 0.058 Urine Color Yellow Urine Appearance Clear Urine pH 7.0 Ur Specific [place] 1.010 Urine Protein Negative Urine Glucose (UA) Negative Urine Ketones 1+ H Urine Occult Blood Negative Urine Nitrate Negative Urine Bilirubin Negative Urine Urobilinogen 0.2 Ur Leukocyte Esterase 1+ H Urine RBC None seen Urine WBC 5-10/hpf H Ur Squamous Epith Cells 5-10 /hpf H Ur Renal Epithelial Cell 1-5/hpf H Amorphous Sediment 1+ Urine Bacteria Few (2-10) H Ur Culture Indicated? Specimen cultured Vol Urine Centrifuged 10ml (spun) 01/14/25 01/14/25 00:30 06:50 WBC 12.1 H RBC 3.47 L Hgb 10.8 L Hct 32.0 L MCV 92.2 MCH 31.1 MCHC 33.8 RDW 15.0 H Plt Count 255 Neut % (Auto) 76.8 H Lymph % (Auto) 13.9 L [place] % (Auto) 6.5 Eos % (Auto) 1.9 L Baso % (Auto) 0.9 Neut # (Auto) 9300 H Lymph # (Auto) 1700 [place] # (Auto) 800 Eos # (Auto) 200 Baso # (Auto) 100 Sodium 131 L Potassium 4.9 Chloride 102 Carbon Dioxide 20 L BUN 15 Creatinine 1.00 Estimated GFR 57 L BUN/Creatinine Ratio 15.0 Glucose 75 POC Whole Bld Glucose 82 Lactate Calcium 8.3 L Total Bilirubin AST ALT Alkaline Phosphatase Total Protein Albumin Globulin Albumin/Globulin Ratio Lipase Procalcitonin Urine Color Urine Appearance Urine pH Ur Specific [place] Urine Protein Urine Glucose (UA) Urine Ketones Urine Occult Blood Urine Nitrate Urine Bilirubin Urine Urobilinogen Ur Leukocyte Esterase Urine RBC Urine WBC Ur Squamous Epith Cells Ur Renal Epithelial Cell Amorphous Sediment Urine Bacteria Ur Culture Indicated? Vol Urine Centrifuged PFS Medical History Left knee pain Incontinence in female Pyelonephritis Cough Adhesive capsulitis Lumbar canal stenosis Renal insufficiency Osteoarthritis Medication refill Depression (Unknown) Hypothyroidism (Unknown) Diabetes (Unknown) Hypertension (Unknown) Hyperlipidemia (~2009) Shoulder pain (Unknown) Foot pain (Unknown) Ankle pain (Unknown) Colitis (Unknown) Surgical History Hx of shoulder surgery (2003) Status post knee surgery (2005) Status post hysterectomy (~1980) Family History Sister Age: 87 Cerebrovascular accident (CVA), unspecified mechanism Brother Cancer Mental health problem Mother No problems noted. Social History household members: other Smoking Status: Never smoker alcohol intake: never Assessment & Plan Time-Based Coding :: [TOTAL MINUTES] spent with patient and on the chart (including review of chart, obtaining history, exam, reviewing outside data, placing orders, documenting exam and treatment plan, and counseling patient) on [DATE].
[2025-01-14] MEDS: ONDANSETRON 4 MG/2 ML INJ IV ×2 (08:21→15:44)
[2025-01-14] MEDS: HEPARIN 5,000 UNIT/ML VIAL 5000 UNIT SUBCUT ×2 (08:23→22:37)
--- NOTE | 2025-01-14 14:18 | CM.DANOTE ---
Initial DCP Assessment Note Pt is an 79 yo female, resident of [place], has been at [facility] since discharge from 12/31. Admitted for what appears to be recurrent infection- IV abx, IVF, close monitoring. Reviewed chart, pt discussed in multidisciplinary rounds this morning. Patient has been changed from OBS to INPT as of 01/14, expected to return to [facility] at discharge. ARETHA Email sent to Karis at asking if patient okay to return at [place]. This CM team will plan to follow along closely for discharge coordination- review plan with patient/family when they are available. MURALI Lauren Discharge Planning/Care Management CM Discharge Assessment Start: 01/13/25 18:18 Freq: Status: Active Protocol: Document 01/14/25 14:01 MONE (Rec: 01/14/25 14:18 MONE [id number]) Discharge Planning Assessment Assigned Discharge MURALI [employer] Super[employer] Provider Brenda Rodriguez Insurance Comment [facility] DPOA/Assigned Son Ronal Velazquez Designee Name Contact Information [phone] Advance Directives? Yes: POLST FORM Advance Directives No on File History Provided By Patient,Family Member Has Patient been Yes admitted in last 30 days? Comment Had recent hospitalization 914 through 12/31/2024 for pyelonephritis, nausea and vomiting was found have Klebsiella sensitive to Rocephin Prior Living House Arrangements Household Members other Comment Patient was admitted to [facility] H+R from 12/31 and has been there since. Facility Name [facility] Admitted From: Willing to Return to Yes Facility? Independent with ADL No 's Is patient alert and A+Ox3, forgetful oriented? Needs Assistance Bathing,Grooming,Meal Prep,Toileting,Managing With Medications,Home Chores / Shopping Discharge Plan Custodial Facility Transportation van Arrangement Referrals Initiated Custodial Additional Comment Emailed Karis at - Okay to return at [place] ?
--- NOTE | 2025-01-14 16:37 | PC.NURSE ---
Pt still having nausea, PRNs utililzed. Pt able to eat some food. OOB to BSC. NS at 100 running.
[2025-01-15] MEDS: SODIUM CHLORIDE 0.9% 1,000 ML 100 ML IV ×2 (01:40→18:15)
[2025-01-15 05:24] LABS: Add Manual Diff / Slide Review NO; Hematocrit 28.6 % (36-46); Hemoglobin 9.8 g/dL (12.0-16.0); Lymphocytes Absolute Auto 1600 /uL (1100-4500); Mean Corpuscular HGB Conc 34.2 % (30-36); Mean Corpuscular Hemoglobin 31.6 PG (26-34); Mean Corpuscular Volume 92.3 fL (80-100); Platelet Count 222 X10^3/uL (150-400)
[2025-01-15 05:38] LABS: Blood Urea Nitrogen 11 mg/dL (7-17); Calcium 7.8 mg/dL (8.4-10.2); Carbon Dioxide 20 mmol/L (22-32); Chloride 108 mmol/L (98-107); Estimated Glomerular Filt Rate > 60 mL/min (>60); Glucose 84 mg/dL (70-99); HEMOLYSIS < 15 (0-50); Potassium 4.3 mmol/L (3.4-5.1); Sodium 135 mmol/L (137-145)
[2025-01-15 07:00] VITALS: BP 135/70; PULSE 86; RESP 18; TEMP 36.1; O2SAT 94
[2025-01-15] MEDS: HEPARIN 5,000 UNIT/ML VIAL 5000 UNIT SUBCUT ×2 (08:55→20:31)
--- NOTE | 2025-01-15 10:00 | PM.PN.1 ---
Subjective Subjective Interval history: S; Slow improvement, but still weak. O: NAD, alert and oriented. Fluent speech. Lungs are clear, normal rate and effort. Heart is regular, no murmur gallop or rub. Abdomen is soft, non distended. Extremities are free of edema. A/P: 1. Nausea, improved. 2. Recurrent pyelonephritis. Active. 3. Hypothyroidism. 4. Hypertension. 5. Depression. 6. Diabetes mellitus type 2. 7. Hyperlipidemia. PLAN: -IV fluids, continue. -IV ceftriaxone and follow cultures. Exam Vital Signs (past 8 hours): Oxygen Delivery Method Room Air Oxygen Flow Rate 0 Objective Labs 01/15/25 04:45 01/15/25 04:45 [facility] Medical History Left knee pain Incontinence in female Pyelonephritis Cough Adhesive capsulitis Lumbar canal stenosis Renal insufficiency Osteoarthritis Medication refill Depression (Unknown) Hypothyroidism (Unknown) Diabetes (Unknown) Hypertension (Unknown) Hyperlipidemia (~2009) Shoulder pain (Unknown) Foot pain (Unknown) Ankle pain (Unknown) Colitis (Unknown) Surgical History Hx of shoulder surgery (2003) Status post knee surgery (2005) Status post hysterectomy (~1980) Family History Sister Age: 87 Cerebrovascular accident (CVA), unspecified mechanism Brother Cancer Mental health problem Mother No problems noted. Social History household members: other Smoking Status: Never smoker alcohol intake: never Assessment & Plan Time-Based Coding :: [TOTAL MINUTES] spent with patient and on the chart (including review of chart, obtaining history, exam, reviewing outside data, placing orders, documenting exam and treatment plan, and counseling patient) on [DATE].
--- NOTE | 2025-01-15 18:28 | PC.NURSE ---
Pt had relatively uneventful day SBA to chair several times. IVF NS @ 100cc/hr infusing as per orders w/o incidence Denies any discomfort. Call light w/in reach, Bed alarm on for pt safety. Continue w/plan of care.
[2025-01-15 19:00] VITALS: BP 152/71; PULSE 97; RESP 15; TEMP 36.2; O2SAT 97
[2025-01-15] MEDS: ONDANSETRON 4 MG/2 ML INJ IV (20:31)
[2025-01-16] MEDS: SODIUM CHLORIDE 0.9% 1,000 ML 100 ML IV ×3 (03:25→22:19)
[2025-01-16 07:00] VITALS: BP 164/75; PULSE 99; RESP 18; TEMP 35.7; O2SAT 98
[2025-01-16] MEDS: HEPARIN 5,000 UNIT/ML VIAL 5000 UNIT SUBCUT ×2 (09:14→20:29)
--- NOTE | 2025-01-16 11:44 | PM.DS.1 ---
History of Present Illness History of Present Illness Date Patient Seen: 01/16/25 Chief complaint: N/Vx3wks Narrative: 79-year-old female who was recently in the hospital for a Klebsiella urinary tract infection and pyelonephritis. She was treated with ceftriaxone in the hospital and discharged with a about another week of cephalexin. Imaging at that hospitalization indicated possible lymphadenopathy in the retroperitoneal area. The patient went to with the nursing facility, and really failed to improve. She was had persistent anorexia and nausea. She was not been eating or drinking much of anything and ultimately presented back to the hospital today. She denies fevers, chills, or urinary symptoms including dysuria or hematuria. CT of the abdomen is fairly unremarkable other than possible lymphadenopathy. Kidneys appear unremarkable there was no hydronephrosis. Hospital course: 01/15: She feels a bit better today, has an appetite and is eating. She slept well last night. She denies any pain. 01/16: Still feeling weak today and unstable however vital signs stable 01/17: Ambulating independently today is ready to go home Urine cultures: 1. Enterococcus faecalis M.I.C. RX --------- --- * Ampicillin <=2 S * Vancomycin 1 S * Ciprofloxacin 1 S * Gentamicin 500 SYN-S S * Levofloxacin 2 S * Linezolid 2 S * Nitrofurantoin <=16 S * Streptomycin 2000 SYN-S S * Tetracycline <=1 S 1. Staphylococcus epidermidis M.I.C. RX --------- --- * Vancomycin 1 S * Ciprofloxacin 4 R * Gentamicin >=16 R * Levofloxacin >=8 R * Linezolid 1 S * Moxifloxacin 4 R * Nitrofurantoin <=16 S * Oxacillin Cuauhtemoc >=4 R * Rifampin <=0.5 S * Tetracycline <=1 S 1. Klebsiella pneumoniae M.I.C. RX --------- --- * Amoxicillin/Clavulanate <=2 S * Ampicillin R * Cefepime E-test <=2 S * Ceftriaxone <=0.25 S * Ciprofloxacin <=0.06 S * Ertapenem <=0.12 S * Gentamicin <=1 S * Levofloxacin <=0.12 S * Meropenem <=0.25 S * Nitrofurantoin <=16 S * Tetracycline <=1 S * Trimethoprim/Sulfamethoxazole <=20 S * Piperacillin/Tazobactam <=4 S O: VSS. NAD, alert and oriented. Fluent speech. Lungs are clear, normal rate and effort. Heart is regular, no murmur gallop or rub. Abdomen is soft, non distended. Extremities are free of edema. IMAGING: CT scan - abdomen: Radiologist's impression: 1. Prominent and mildly enlarged retroperitoneal and mesenteric lymph nodes with associated mesenteric stranding. 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 This is similar compared to prior. 2. Otherwise, no acute findings within the abdomen or pelvis. 3. Cystic focus within the body/tail the pancreas measuring 11 millimeters, may represent an IPMN, nonurgent pancreatic protocol MRI can be obtained for further evaluation. A/P: 1. Nausea, improved. 2. Recurrent pyelonephritis. Active. 3. Hypothyroidism. 4. Hypertension. 5. Depression. 6. Diabetes mellitus type 2. 7. Hyperlipidemia. PLAN: Discharge to home on oral doxycycline for 14 days based on sensitivity called into [facility]'s in [place] s 35 minutes were involved in management of the discharge of this patient including [id number] evaluation physical examination review of previous records objective physical findings and objective laboratory findings and discussion with care management Discharge Providers Provider Date of admission: 01/14/25 12:50 Discharge Date: 01/16/25 Primary care physician: Brenda Rodriguez MD Discharge provider: Earle Simmons MD Exam Vital Signs (past 8 hours): - 01/16/25 07:00 Temperature 96.3 F L Pulse Rate 99 H Respiratory Rate 18 Blood Pressure 164/75 H Pulse Oximetry 98 Oxygen Delivery Method Room Air Oxygen Flow Rate 0 Objective Labs 01/15/25 04:45 01/15/25 04:45 Labs: Laboratory Results - last 24 hr 01/15/25 01/15/25 01/16/25 16:05 19:12 07:16 POC Whole Bld Glucose 106 H 113 H 96 01/16/25 10:48 POC Whole Bld Glucose 141 H [facility] Medical History Left knee pain Incontinence in female Pyelonephritis Cough Adhesive capsulitis Lumbar canal stenosis Renal insufficiency Osteoarthritis Medication refill Depression (Unknown) Hypothyroidism (Unknown) Diabetes (Unknown) Hypertension (Unknown) Hyperlipidemia (~2009) Shoulder pain (Unknown) Foot pain (Unknown) Ankle pain (Unknown) Colitis (Unknown) Surgical History Hx of shoulder surgery (2003) Status post knee surgery (2005) Status post hysterectomy (~1980) Family History Sister Age: 87 Cerebrovascular accident (CVA), unspecified mechanism Brother Cancer Mental health problem Mother No problems noted. Social History household members: other Smoking Status: Never smoker alcohol intake: never Discharge Plan Discharge Plan Patient Disposition: Home Discharge orders & Medications Prescriptions: New doxycycline hyclate 100 mg capsule 100 mg PO BID Qty: 30 0RF Continued (DME) 4 wheel walker with seat Qty: 1 0RF Dose Instruction: As directed Rx Instructions: As directed (DME) Disabled Parking Permit See Rx Instructions .Route .MEDSUPPLY Qty: 2 0RF Rx Instructions: see accompanying form semaglutide 0.25 mg or 0.5 mg (2 mg/3 mL) pen injector 0.25 mg SUBCUT QWEEK Qty: 3 3RF ondansetron 4 mg tablet,disintegrating 4 mg PO Q8H PRN (Reason: nausea and vomiting) Qty: 60 3RF citalopram 20 mg tablet See Rx Instructions .ROUTE .COMPLEX Qty: 90 3RF Dose Instruction: TAKE 1 TABLET BY MOUTH EVERY MORNING Rx Instructions: TAKE 1 TABLET BY MOUTH EVERY MORNING lovastatin 20 mg tablet 20 mg PO DAILY Qty: 90 2RF levothyroxine 50 mcg tablet 50 mcg PO QAM Qty: 90 2RF amlodipine 2.5 mg tablet 2.5 mg PO BID Qty: 180 2RF oxybutynin chloride 5 mg tablet extended release 24hr 5 mg PO 2XD nabumetone 500 mg tablet 500 mg PO BID metformin 1,000 mg tablet 1,000 mg PO 2XD losartan 25 mg tablet 50 mg PO DAILY metoprolol succinate 50 mg Tablet Extended Release 24 Hr 25 mg PO BEDTIME Qty: 30 0RF Discontinued cephalexin 500 mg capsule 500 mg PO QID Qty: 12 0RF Follow up/Referrals: Brenda Rodriguez MD [Primary Care Provider, [facility]] Visit Report/Discharge Packet Stand Alone Forms: Patient Portal/API, Stroke Signs & Symptoms Discharge Data Primary Care Provider: Brenda Rodriguez
--- NOTE | 2025-01-16 11:57 | PM.PN.1 ---
Subjective Subjective Date Patient Seen: 01/16/25 Interval history: Chief complaint: Weakness secondary urinary tract infection History of present illness: 01/14: 79-year-old female who was recently in the hospital for a Klebsiella urinary tract infection and pyelonephritis. She was treated with ceftriaxone in the hospital and discharged with a about another week of cephalexin. Imaging at that hospitalization indicated possible lymphadenopathy in the retroperitoneal area. The patient went to with the nursing facility, and really failed to improve. She was had persistent anorexia and nausea. She was not been eating or drinking much of anything and ultimately presented back to the hospital today. She denies fevers, chills, or urinary symptoms including dysuria or hematuria. CT of the abdomen is fairly unremarkable other than possible lymphadenopathy. Kidneys appear unremarkable there was no hydronephrosis. 01/15: She feels a bit better today, has an appetite and is eating. She slept well last night. She denies any pain. 01/16: Still some very weak and shaking does not feel ready to go home Urine cultures: 1. Enterococcus faecalis M.I.C. RX --------- --- * Ampicillin <=2 S * Vancomycin 1 S * Ciprofloxacin 1 S * Gentamicin 500 SYN-S S * Levofloxacin 2 S * Linezolid 2 S * Nitrofurantoin <=16 S * Streptomycin 2000 SYN-S S * Tetracycline <=1 S 1. Staphylococcus epidermidis M.I.C. RX --------- --- * Vancomycin 1 S * Ciprofloxacin 4 R * Gentamicin >=16 R * Levofloxacin >=8 R * Linezolid 1 S * Moxifloxacin 4 R * Nitrofurantoin <=16 S * Oxacillin Cuauhtemoc >=4 R * Rifampin <=0.5 S * Tetracycline <=1 S 1. Klebsiella pneumoniae M.I.C. RX --------- --- * Amoxicillin/Clavulanate <=2 S * Ampicillin R * Cefepime E-test <=2 S * Ceftriaxone <=0.25 S * Ciprofloxacin <=0.06 S * Ertapenem <=0.12 S * Gentamicin <=1 S * Levofloxacin <=0.12 S * Meropenem <=0.25 S * Nitrofurantoin <=16 S * Tetracycline <=1 S * Trimethoprim/Sulfamethoxazole <=20 S * Piperacillin/Tazobactam <=4 S O: VSS. NAD, alert and oriented. Fluent speech. Lungs are clear, normal rate and effort. Heart is regular, no murmur gallop or rub. Abdomen is soft, non distended. Extremities are free of edema. IMAGING: CT scan - abdomen: Radiologist's impression: 1. Prominent and mildly enlarged retroperitoneal and mesenteric lymph nodes with associated mesenteric stranding. 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 This is similar compared to prior. 2. Otherwise, no acute findings within the abdomen or pelvis. 3. Cystic focus within the body/tail the pancreas measuring 11 millimeters, may represent an IPMN, nonurgent pancreatic protocol MRI can be obtained for further evaluation. A/P: 1. Nausea, improved. 2. Recurrent pyelonephritis. Active. 3. Hypothyroidism. 4. Hypertension. 5. Depression. 6. Diabetes mellitus type 2. 7. Hyperlipidemia. PLAN: Continue IV fluids and antibiotics for more day Disposition: Discharge to home on oral doxycycline for 14 days based on sensitivity in the next 24-48 hours 35 minutes were involved in management of the discharge of this patient including [id number] evaluation physical examination review of previous records objective physical findings and objective laboratory findings and discussion with care management Exam Vital Signs (past 8 hours): - 01/16/25 07:00 Temperature 96.3 F L Pulse Rate 99 H Respiratory Rate 18 Blood Pressure 164/75 H Pulse Oximetry 98 Oxygen Delivery Method Room Air Oxygen Flow Rate 0 Objective Labs 01/15/25 04:45 01/15/25 04:45 Labs: Laboratory Results - last 24 hr 01/15/25 01/15/25 01/16/25 16:05 19:12 07:16 POC Whole Bld Glucose 106 H 113 H 96 01/16/25 10:48 POC Whole Bld Glucose 141 [facility] Medical History Left knee pain Incontinence in female Pyelonephritis Cough Adhesive capsulitis Lumbar canal stenosis Renal insufficiency Osteoarthritis Medication refill Depression (Unknown) Hypothyroidism (Unknown) Diabetes (Unknown) Hypertension (Unknown) Hyperlipidemia (~2009) Shoulder pain (Unknown) Foot pain (Unknown) Ankle pain (Unknown) Colitis (Unknown) Surgical History Hx of shoulder surgery (2003) Status post knee surgery (2005) Status post hysterectomy (~1980) Family History Sister Age: 87 Cerebrovascular accident (CVA), unspecified mechanism Brother Cancer Mental health problem Mother No problems noted. Social History household members: other Smoking Status: Never smoker alcohol intake: never Assessment & Plan Time-Based Coding :: [TOTAL MINUTES] spent with patient and on the chart (including review of chart, obtaining history, exam, reviewing outside data, placing orders, documenting exam and treatment plan, and counseling patient) on [DATE].
[2025-01-16] MEDS: ONDANSETRON 4 MG/2 ML INJ IV (12:17)
--- NOTE | 2025-01-16 13:51 | PC.NURSE ---
Pt condition remains essentially unchanged. States small amount nausea but refuses meds. Prior to lunch med w/zofran and she was able to eat a bit more. Transferring back and forth from bed to chair w/o incidence. Call light w/in reach, pt calls appropriately for needs. Continue w/plan of care.
--- NOTE | 2025-01-16 15:59 | CM.DPNOTE ---
DCP note [employer] reviewed EMR per provider, anticipate dc tomorrow after another day of IV abx. dc on PO abx. [employer] met with pt in room. pt reports wanting to dc home with family and HH not return to . [employer] spoke with son Ronal on the phone. [phone]. report they have plans for family to stay with pt / at or. interested in HH preference [facility]. deny other DCP/CM questions at this time. [employer] team will cancel ref to tomorrow when pt discharges home. [employer] sent initial ref information to Gustavo at [facility] (fs/f2f/HH order/H&P). pt has not worked with PT yet this admission- will this be a barrier to HH acceptance? P: anticipate dc tomorrow home with family support and [facility] to follow pending acceptance. CM team will continue to follow closely for DCP Coordination MURALI Tejeda
[2025-01-16 19:00] VITALS: BP 158/78; PULSE 114; RESP 16; TEMP 36.1; O2SAT 98
[2025-01-17 07:00] VITALS: BP 141/79; RESP 18; TEMP 36.3; O2SAT 97
[2025-01-17] MEDS: SODIUM CHLORIDE 0.9% 1,000 ML 100 ML IV (08:25)
--- NOTE | 2025-01-17 09:21 | CM.DPNOTE ---
DCP Discharge Home with HH Per MD, pt is medically stable to d/c home today with as she has improved back to her baseline and does not feel SNF needed at this time. SAEID met bedside with pt and explained role and confirmed she feels agreeable to discharge home today and does not want to return to [facility] as she feels at baseline. Pt remains agreeable to [facility] at discharge and states her son will provide transport home today and they might go by [place] to enjoy the beautiful day. SAEID provided Medicare Message and since unsure what time pt will transport home she confirms she waives her right to 4 hour window as she is hopeful to leave in the next couple hours. Pt already has [facility] brochure. SAEID faxed dc summary to [facility] as F2F and orders previously sent with referral. Updated RN. Yanni Solorzano, DIRECTOR [employer]
== END 2025-01-17 10:39 | disposition home health service (06) | DRG 690 ==
LOC: ED 17:14 → AC 17:52
PROVIDERS: Admitting Provider Hospitalist; Emergency Provider Emergency Medicine; PCP Student in an Organized Health Care Education/Training Program; Referring Provider Emergency Medicine; Visit Provider Hospitalist
DX: N10 Acute pyelonephritis (principal); E03.9 Hypothyroidism, unspecified; I10 Essential (primary) hypertension; F32.A Depression, unspecified; E11.9 Type 2 diabetes mellitus without complications; E78.5 Hyperlipidemia, unspecified; B95.2 Enterococcus as the cause of diseases classified elsewhere; B96.1 Klebsiella pneumoniae [K. pneumoniae] as the cause of diseases classified elsewhere; Z79.85 Long-term (current) use of injectable non-insulin antidiabetic drugs; Z79.890 Hormone replacement therapy; Z79.84 Long term (current) use of oral hypoglycemic drugs
CPT/HCPCS: 36415; 74177; 80048; 80053; 81001; 82962; 83605; 83690; 84145; 85025; 87040; 87077; 87086; 87186; 96361; 96365; 96375; 99284; G0378; J0696; J1644; J1956; J2405; J7030; J7050; Q9967